=== PATIENT | female | born 1960 | race Caucasian/White ===

== ENCOUNTER 2016-05-22 10:52 | Inpatient (IN) | payer OTHER ==
[~2016-05-22] VITALS: Ht 160 cm; Wt 54.5 kg
[~2016-05-22 10:52] MED LIST: CHOL500015 PO; CYCL10TA2 PO; CYCL5TAB PO; IBUP200C PO; MELO-150 PO; NAPR375T3 PO; PANT40TA3 PO
[2016-05-22] MEDS: FENTANYL PF 100 MCG/2 ML VIAL. IV PRN ×3 (11:31→17:52)
[2016-05-22] MEDS ORDERED: ONDANSETRON PF 4 MG/2 ML VIAL. IV PRN ×2 (12:15→17:00)
--- NOTE | 2016-05-22 12:24 | RAD ---
INDICATION: preop hip COMPARISON: 10/02/2015 FINDINGS: Single view of chest obtained. No focal airspace consolidation. Mediastinal contour is unremarkable. No gross osseous destructive lesion. IMPRESSION: No focal airspace consolidation or edema.
--- NOTE | 2016-05-22 12:28 | RAD ---
INDICATION: trauma COMPARISON: None. IMPRESSION: Right hip: 2 views obtained. There is a displaced and comminuted intertrochanteric fracture of the right proximal femur with varus angulation. Right femur: 4 views obtained. There is a displaced intertrochanteric fracture of right proximal femur. Postoperative changes to the knee partially visualized status post anterior cruciate ligament surgery. There is expected degenerative changes of the knee. There is also some ossific fragments seen in the patellar region. Could be a chronic finding but would correlate with pain in this region as well to ensure that there is not an acute injury. If there is pain in the region dedicated radiographs could be obtained of the knee to further evaluate.
--- NOTE | 2016-05-22 13:54 | PHYS DOC ---
Past Medical History Past Medical History: COPD, GERD, P.U.D., Other Additional Past Medical Histor: hepatitis c Past Surgical History: Cholecystectomy, Knee Replacement, Tubal ligation Additional Past Surgical Histo: right knee, Ex lap for perforated duodenal ulcer Alcohol Use: Heavy Drug Use: Marijuana Adult General Chief Complaint Chief Complaint: MECHANICAL FALL HPI HPI 55-year-old female presents with severe right hip pain. She states she tripped and fell over a chair landing on her right hip. She denies any other injury. She states she is unable to bear weight on the hip. She has not previously had any hip problems. [] Review of Systems Review of Systems Constitutional: Denies fever or chills [] Eyes: Denies change in visual acuity, redness, or eye pain [] HENT: Denies nasal congestion or sore throat [] Respiratory: Denies cough or shortness of breath [] Cardiovascular: No additional information not addressed in HPI [] GI: Denies abdominal pain, nausea, vomiting, bloody stools or diarrhea [] : Denies dysuria or hematuria [] Musculoskeletal: Right hip pain [] Integument: Denies rash or skin lesions [] Neurologic: Denies headache, focal weakness or sensory changes [] Endocrine: Denies polyuria or polydipsia [] Current Medications Current Medications Current Medications Medications (Trade) Dose Ordered Sig/Eliezer Start Time Stop Time Status Last Admin Dose Admin Fentanyl Citrate 50 mcg 50 mcg PRN Q15MIN PRN 05/22/16 11:15 05/23/16 11:14 05/22/16 12:22 50 MCG Sodium Chloride (Iv Sodium Chloride 0.9% 1000ml Bag) 1,000 ml @ 150 mls/hr Q6H40M 05/22/16 12:04 05/23/16 12:03 Allergies Allergies Allergies Coded Allergies Type Severity Reaction Last Updated Verified erythromycin base Allergy Intermediate hives 09/24/15 Yes I S O L A T I O N *CONTACT* Allergy Unknown 09/24/15 Yes Physical Exam Physical Exam Constitutional: Well developed, well nourished, moderate distress, non-toxic appearance. [] HENT: Normocephalic, atraumatic, bilateral external ears normal, oropharynx moist, no oral exudates, nose normal. [] Eyes: PERRLA, EOMI, conjunctiva normal, no discharge. [] Neck: Normal range of motion, no tenderness, supple, no stridor. [] Cardiovascular:Heart rate regular rhythm, no murmur [] Lungs & Thorax: Bilateral breath sounds clear to auscultation [] Abdomen: Bowel sounds normal, soft, no tenderness, no masses, no pulsatile masses. [] Skin: Warm, dry, no erythema, no rash. [] Back: No tenderness, no CVA tenderness. [] Extremities: Right leg is shortened and externally rotated. [] Neurologic: Alert and oriented X 3, normal motor function, normal sensory function, no focal deficits noted. [] Psychologic: Affect normal, judgement normal, mood normal. [] Current Patient Data Vital Signs Vital Signs Date Time Temp Pulse Resp B/P Pulse Ox O2 Delivery O2 Flow Rate FiO2 05/22/16 12:06 108 20 149/87 98 Nasal Cannula 2 05/22/16 10:58 99.8 99.8 EKG EKG [] Radiology/Procedures Radiology/Procedures []PROCEDURE: CHEST AP ONLY INDICATION: preop hip COMPARISON: 10/02/2015 FINDINGS: Single view of chest obtained. No focal airspace consolidation. Mediastinal contour is unremarkable. No gross osseous destructive lesion. IMPRESSION: No focal airspace consolidation or edema. Impressions: INDICATION: trauma COMPARISON: None. IMPRESSION: Right hip: 2 views obtained. There is a displaced and comminuted intertrochanteric fracture of the right proximal femur with varus angulation. Right femur: 4 views obtained. There is a displaced intertrochanteric fracture of right proximal femur. Postoperative changes to the knee partially visualized status post anterior cruciate ligament surgery. There is expected degenerative changes of the knee. There is also some ossific fragments seen in the patellar region. Could be a chronic finding but would correlate with pain in this region as well to ensure that there is not an acute injury. If there is pain in the region dedicated radiographs could be obtained of the knee to further evaluate. Course & Med Decision Making Course & Med Decision Making Pertinent Labs and Imaging studies reviewed. (See chart for details) [ED course: Evaluation reveals a 55-year-old female with severe right hip pain. She was given IV pain medicine during her stay in the emergency department. Discussed with patient the need for surgical repair. She will be admitted for further evaluation and treatment.] Dragon Disclaimer Dragon Disclaimer This electronic medical record was generated, in whole or in part, using a voice recognition dictation system. Departure Departure Impression: Primary Impression: Hip fracture, right Disposition: 09 ADMITTED INPATIENT Admitting Physician: Gumaro Bruno Condition: STABLE Referrals: PIERO ALMENDAREZ MD (PCP) Problem Qualifiers Primary Impression: Hip fracture, right Encounter type: initial encounter Fracture type: closed Qualified Code: S72.001A - Fracture of unspecified part of neck of right femur, initial encounter for closed fracture NAM BAZAN DO May 22, 2016 13:54
--- NOTE | 2016-05-22 14:26 | ACF ---
Admission Forms Criteria MUSCULOSKELETAL DISEASE GRG Clinical Indications for Admission to Inpatient Care (Place 'X' for any and all applicable criteria): Hospital admission is needed for appropriate care of the patient because of ANY ONE of the following: [X]I. Fracture, dislocation, or other musculoskeletal injury requiring inpatient care(medical) as indicated by ANY ONE of the following(4)(5)(6)(7) [ ]a) Vertebral fracture requiring observation for instability or neurologic compromise (8) [ ]b) Compartment syndrome (proven or cannot be ruled out during observation level of care) (9) [ ]c) Limb-threatening injury [ ]d) Major injury requiring inpatient stabilization such as traction initiation or external fixation before internal fixation or closure of complex or open fracture [X]e) Major injury requiring inpatient treatment after emergency or observation level care (as appropriate) [ ]f) Severe pain requiring acute inpatient management [ ]II. Newly diagnosed or suspected bone, joint, or orthopedic device infection (e.g., osteomyelitis, septic arthritis) needing ANY ONE of the following(1)(2)(3) [ ]a) IV antibiotics that cannot be initiated in other than inpatient setting (e.g., patient too unstable or home infusion not available) [ ]b) Device removal or replacement [ ]c) Bone or soft tissue debridement [ ]d) Joint drainage (drain placement or repetitive aspirations) [ ]III. Severe rheumatologic disease (e.g., systemic lupus erythematosus, rheumatoid arthritis) with complications or comorbidities (Also use Optimal Recovery Care Criteria or General Recovery Criteria as appropriate on the basis of predominant condition), including ANY ONE of the following(10 )(11)(12)(13) [ ]a) Severe infection (e.g., [employer] infection, sepsis) (14) [ ]b) Respiratory complications, including ANY ONE of the following: [ ]i) Pleural effusion with respiratory compromise [ ]ii) Pulmonary hypertension with congestive failure [ ]iii) Respiratory failure [ ]iv) Pulmonary hemorrhage (15) [ ]c) Hematologic disease, including ANY ONE of the following: [ ]i) Coagulopathy with bleeding [ ]ii) Thrombosis with hypercoagulable state [ ]iii) Thrombotic thrombocytopenic purpura [ ]d) Cerebritis with seizures, psychosis, or other severe abnormalities [ ]e) Vertebral destruction with monitoring needed for cervical myelopathy& possible respiratory compromise [ ]f) Exacerbation that requires inpatient treatment (e.g., intravenous immunosuppression) (16) [ ]g) Acute renal failure [ ]IV. Severe vasculitis with complications or comorbidities (Also use Optimal Recovery Care Criteria or General Recovery Criteria as appropriate on the basis of predominant condition), including ANY ONE of the following(11)(12)(17)(18)(19)(20) [ ]a) SH[employer] vasculitis with seizures, psychosis, or other severe abnormalities (22) [ ]b) Renal failure (16) [ ]c) Pulmonary hemorrhage (15) [ ]d) Cerebral infarction [ ]e) Gastrointestinal ischemia [ ]f) Gangrene or threatened amputation [ ]g) Exacerbation that requires inpatient treatment (e.g., intravenous immunosuppression) (19)(21) [ ]V. Severe myopathy as indicated by ANY ONE of the following (28)(29) [ ]a) New onset of airway compromise or inability to swallow [ ]b) Respiratory deterioration with observation needed for impending respiratory failure [ ]c) Exacerbation that requires inpatient treatment (e.g., intravenous immunosuppression) [ ]. Severe gout (crystal arthropathy) as indicated by ANY ONE of the following (23)(24) [ ]a) Severe pain requiring acute inpatient management [ ]b) Exacerbation that requires inpatient treatment (e.g., intravenous treatment) [ ]VII.Rhabdomyolysis and ANY ONE of the following (25)(26)(27) [ ]a) Acute renal failure [ ]b) Need for intravenous hydration after emergency or observation level care (as appropriate) [ ]c) Inability to maintain oral hydration [ ]d) Change in mental status [ ]e) Electrolyte abnormality that remains after emergency or observation level care (as appropriate) [ ]VIII Post amputation complication, as indicated by ANY ONE of the following [ ]a) Infection [ ]b) Dehiscence [ ]c) Myodesis failure [ ]IX. Severe pain requiring acute inpatient management as indicated by ALL of the following (30)(31)(32) [ ]a) Continuous or frequent (e.g., every 2 to 4 hrs) parenteral analgesics required [A] [ ]b) Rapid improvement expected from treatment or acute intervention ( e.g., surgery, anesthesia procedure[B] [ ]X. Musculoskeletal Disease and ALL of the following: [ ]a) Symptom or finding for which emergency and observation care have failed or are not considered appropriate (Use General Criteria: Observation Care as appropriate) [ ]b) Presence of ANY ONE of the following [ ]i) A General Admission Criteria [ ]ii) A Pediatric General Admission Criteria The original [facility] content created by [facility] has been revised. The portions of the content which have been revised are identified through the use of italic text or in bold, and [facility] has neither reviewed nor approved the modified material. All other unmodified content is copyright [facility]. Please see references footnoted in the original [facility] edition 2016 Admission Criteria Met?: Yes CRYSTAL PUGA May 22, 2016 14:26
[2016-05-22 14:30] VITALS: BP 115/93
[2016-05-22 16:37] LABS: BILIRUBIN,URINE NEGATIVE (NEG); GLUCOSE,URINE NEGATIVE (NEG); NITRITE,URINE NEGATIVE (NEG); PROTEIN,URINE 100 mg/dL (NEG-TRACE)
--- NOTE | 2016-05-22 16:50 | PDOC1 ---
History and Physical Date of Admission Date of Admission 05/22/16 Identification/Chief Complaint Chief Complaint fall Problems: Source Source: Chart review, Patient History of Present Illness History of Present Illness HPI HPI 55-year-old female presents with severe right hip pain. She tripped and fell over a chair 2 ds ago, was helped by her freind byside. since then she was not able to walk much, with severe right hip pain, lying in bed most of the time. ER xr showed right hip fx. SAYING Has fever, subjuctive and cough with white sputum at home. Past Medical History Cardiovascular: HTN GI: GERD, Peptic Ulcer disease Hepatobiliary: Hep A/B/C Past Surgical History Past Surgical History Cholecystectomy, Knee Replacement, Tubal ligation Additional Past Surgical Histo: right knee, Ex lap for perforated duodenal ulcer Family History Family History: No Significant Social History Smoke: <1 pack per day ALCOHOL: heavy Drugs: Marijuana Current Problem List Problem List Problems Medical Problems: (1) Hip fracture, right Status: Acute Current Medications Current Medications Current Medications Medications (Trade) Dose Ordered Sig/Eliezer Start Time Stop Time Status Last Admin Dose Admin Fentanyl Citrate (Fentanyl 2ml Vial) 50 mcg PRN Q15MIN PRN 05/22/16 11:15 05/23/16 11:14 05/22/16 12:22 50 MCG Fentanyl Citrate 50 mcg 50 mcg PRN Q1HR PRN 05/22/16 12:15 05/23/16 12:14 Ondansetron HCl (Zofran) 4 mg PRN Q8HRS PRN 05/22/16 12:15 05/23/16 12:14 05/22/16 12:23 4 MG Sodium Chloride (Iv Sodium Chloride 0.9% 1000ml Bag) 1,000 ml @ 150 mls/hr Q6H40M 05/22/16 12:04 05/23/16 12:03 Allergies Allergies Allergies Coded Allergies Type Severity Reaction Last Updated Verified erythromycin base Allergy Intermediate hives 09/24/15 Yes I S O L A T I O N *CONTACT* Allergy Unknown 09/24/15 Yes ROS Review of System CONSTITUTIONAL: No fever or chills EYES: No recent changes SKIN: No rash or itching CARDIOVASCULAR: No chest pain, syncope, palpitations, or edema RESPIRATORY: No SOB or cough GASTROINTESTINAL: No nausea, vomiting or abdominal pain NEUROLOGICAL: No headaches or weakness ENDOCRINE: No cold or heat intolerance GENITOURINARY: No urgency or frequency of urination MUSCULOSKELETAL: No back pain or joint pain LYMPHATICS: No enlarged lymph nodes PSYCHIATRIC: No anxiety or depression Physical Exam Physical Exam GEN.: No apparent distress. Alert and oriented. HEENT: Head is normocephalic, atraumatic NECK: Supple. LUNGS: Clear to auscultation. HEART: RRR, S1, S2 present. Peripheral pulses intact ABDOMEN: Soft, nontender. Positive bowel sounds. EXTREMITIES: Without any cyanosis. severe right hip pain. NEUROLOGIC: Normal speech, normal tone PSYCHIATRIC: Normal affect, normal mood. SKIN: No ulcerations Vitals Vitals Vital Signs Date Time Temp Pulse Resp B/P Pulse Ox O2 Delivery O2 Flow Rate FiO2 05/22/16 14:30 99.1 107 18 115/93 95 Nasal Cannula 2.0 99.1 VTE Prophylaxis Ordered VTE Prophylaxis Devices: Yes VTE Pharmacological Prophylaxi: Yes Assessment/Plan Assessment/Plan 1. Closed right hip fx post fall 2. copd with smoking 3. gerd 4. hepatitis C without treatment 5. alcoholism 6. drug abuse with marijuana plan: 1. check drug tox, influ 2. ortho consult 3. albuterol prn 4. pain control dvt ppx no labs check, get for tmr check vitamin D sw FOR rehab SO SPENCER MD May 22, 2016 16:50
[2016-05-22] MEDS ORDERED: ALBUTEROL SULFATE 2.5 MG/3 ML NEBU. NEB PRN (17:00)
[2016-05-22] MEDS ORDERED: NICOTINE 14MG PATCH. TD PRN (17:00)
[2016-05-22] MEDS ORDERED: ACETAMINOPHEN 325 MG TABLET. PO PRN (17:00)
[2016-05-22] MEDS ORDERED: LORAZEPAM 2 MG/ML VIAL IV PRN (17:00)
[2016-05-22] MEDS: ENOXAPARIN 40 MG/0.4 ML DISP.SYRIN. SQ SCH (17:00)
[2016-05-22 17:09] LABS: BACTERIA,URINE FEW /HPF (0-FEW); RBC,URINE 0 /HPF (0-2); SQUAMOUS EPITHELIAL CELL,UR OCC /LPF; WBC,URINE OCC /HPF (0-4)
[2016-05-22] MEDS ORDERED: CYCLOBENZAPRINE 10 MG TABLET. PO PRN (17:15)
[2016-05-22 17:31] LABS: BASO % 1 % (0-3); EOS % 0 % (0-3); HEMATOCRIT 25.7 % (36.0-47.0); LYMPH # 0.8 x10^3/uL (1.0-4.8); LYMPH % 10 % (24-48); MEAN CORPUSCULAR HEMOGLOBIN 22 pg (25-35); MEAN CORPUSCULAR HGB CONC 31 g/dL (31-37); MEAN CORPUSCULAR VOLUME 70 fL (79-100); MONO % 12 % (0-9); NEUT % 78 % (31-73); PLATELET COUNT 124 x10^3/uL (140-400); RED BLOOD COUNT 3.67 x10^6/uL (3.50-5.40); RED CELL DISTRIBUTION WIDTH 24.1 % (11.5-14.5)
[2016-05-22] MEDS: IV NORMAL SALINE 1000ML BAG 1,000 ML IV SCH ×2 (17:48→18:44)
[2016-05-22] MEDS: MORPHINE SULFATE 2 MG/ML DISP.SYRIN. IV PRN ×2 (17:51→18:32)
[2016-05-22 18:38] LABS: BARBITURATES NEG (NEG); BENZODIAZEPINES NEG (NEG); CANNABINOIDS NEG (NEG); COCAINE NEG (NEG); METHADONE NEG (NEG); OPIATES NEG (NEG); PHENCYCLIDINE NEG (NEG)
[2016-05-22 18:40] LABS: ETHANOL, URINE NEG (NEG)
[2016-05-22 18:51] LABS: OBC FLU VALID
[2016-05-22 19:00] VITALS: BP 155/86
[2016-05-22 19:59] LABS: HYPOCHROMIA MARKED; PLT ESTIMATE DECREASED (ADEQUATE)
[2016-05-22 20:00] LABS: ANISOCYTOSIS MOD; MICROCYTOSIS MARKED; POIKILOCYTOSIS SLIGHT
[2016-05-22] MEDS: OXYCODONE/APAP 5/325 TABLET. PO PRN (22:48)
[2016-05-22 23:00] VITALS: BP_SYST 107; BP_SYST 122; BP_DIAS 69; BP_DIAS 83
[2016-05-23] MEDS: IV NORMAL SALINE 1000ML BAG 1,000 ML IV SCH ×2 (00:40→08:04)
[2016-05-23 03:00] VITALS: BP 125/78
[2016-05-23] MEDS: MORPHINE SULFATE 2 MG/ML DISP.SYRIN. IV PRN ×3 (05:21→18:42)
[2016-05-23 06:12] LABS: BASO # 0.1 x10^3/uL (0.0-0.2); BASO % 1 % (0-3); EOS % 0 % (0-3); HEMATOCRIT 24.8 % (36.0-47.0); HEMOGLOBIN 7.6 g/dL (12.0-15.5); LYMPH # 0.9 x10^3/uL (1.0-4.8); LYMPH % 11 % (24-48); MEAN CORPUSCULAR HEMOGLOBIN 22 pg (25-35); MEAN CORPUSCULAR HGB CONC 31 g/dL (31-37); MEAN CORPUSCULAR VOLUME 71 fL (79-100); MONO % 12 % (0-9); NEUT % 77 % (31-73); PLATELET COUNT 123 x10^3/uL (140-400); RED CELL DISTRIBUTION WIDTH 24.6 % (11.5-14.5); WHITE BLOOD COUNT 8.2 x10^3/uL (4.0-11.0)
[2016-05-23 06:18] LABS: CALCIUM 8.3 mg/dL (8.5-10.1); CREATININE 0.5 mg/dL (0.6-1.0); GFR 127.2; POTASSIUM 3.7 mmol/L (3.5-5.1)
[2016-05-23 07:00] VITALS: BP_SYST 142; BP_SYST 96; BP_DIAS 61; BP_DIAS 77
[2016-05-23] MEDS: PANTOPRAZOLE 40 MG TABLET. PO SCH (07:30)
[2016-05-23] MEDS: CHOLECALCIFEROL (VITAMIN D3) 5,000 UNIT CAPSULE PO SCH (08:04)
[2016-05-23] MEDS: MORPHINE SULFATE 4 MG/ML DISP.SYRIN. IV PRN ×2 (08:05→23:14)
[2016-05-23] MEDS ORDERED: INFLUENZA VAX SCREEN BY RX. MC PRN (08:15)
[2016-05-23] MEDS ORDERED: FLU VACC QUAD 2016-17 (36MOS+)/PF 0.5 ML SYRINGE. VAX IM ONE (08:15)
[2016-05-23] MEDS ORDERED: PROCHLORPERAZINE 10 MG/2 ML VIAL. IV PRN (10:15)
[2016-05-23] MEDS ORDERED: DIPHENHYDRAMINE 50 MG/ML VIAL IV PRN (10:15)
[2016-05-23] MEDS ORDERED: HYDROMORPHONE 2 MG/ML VIAL. IV PRN (10:15)
[2016-05-23] MEDS ORDERED: MORPHINE SULFATE 4 MG/ML DISP.SYRIN. IV PRN ×2 (10:15→18:15)
[2016-05-23] MEDS ORDERED: MEPERIDINE PF 25 MG/ML VIAL. IV PRN (10:15)
[2016-05-23] MEDS: FENTANYL PF 100 MCG/2 ML VIAL. IV PRN ×3 (10:53→18:04)
[2016-05-23 11:00] VITALS: BP 136/75
[2016-05-23] MEDS ORDERED: VANCOMYCIN 1GM IVPB FOR OMNI 250 ML IV SCH (14:15)
--- NOTE | 2016-05-23 14:25 | PDOC ---
PROGRESS NOTES Chief Complaint Chief Complaint 1. Closed right hip fx post fall 2. copd with smoking 3. gerd 4. hepatitis C without treatment 5. alcoholism 6. drug abuse with marijuana 7. anemia, likely 2/2 4 plan: 1. check drug tox, influ, all neg 2. ortho consulted, sx today 3. albuterol prn 4. pain control dvt ppx check vitamin D sw FOR rehab may need transfusion, check labs for anemia History of Present Illness History of Present Illness fever still hip pain Vitals Vitals Vital Signs Date Time Temp Pulse Resp B/P Pulse Ox O2 Delivery O2 Flow Rate FiO2 05/23/16 13:31 100.8 94 20 145/72 96 Nasal Cannula 2 100.8 Physical Exam Physical Exam right hip tenderness General: Alert, Oriented X3, Cooperative Heart: Regular rate, Normal S1, Normal S2 Lungs: Clear, Other Abdomen: Normal bowel sounds, Soft Extremities: No clubbing, No cyanosis Labs LABS Laboratory Tests Test 05/22/16 16:05 05/22/16 17:15 05/22/16 17:40 05/23/16 05:15 Urine Color Yellow Urine Clarity Clear Urine pH 6.0 Urine Specific [place] 1.020 Urine Protein 100mg/dL (NEG-TRACE) Urine Glucose (UA) Negativemg/dL (NEG) Urine Ketones (Stick) >=80mg/dL (NEG) Urine Blood Negative (NEG) Urine Nitrite Negative (NEG) Urine Bilirubin Negative (NEG) Urine Urobilinogen Dipstick 1.0mg/dL (0.2 mg/dL) Urine Leukocyte Esterase Negative (NEG) Urine RBC 0/HPF (0-2) Urine WBC Occ/HPF (0-4) Urine Squamous Epithelial Cells Occ/LPF Urine Bacteria Few/HPF (0-FEW) Urine Hyaline Casts Occasional/HPF Urine Mucus Mod/LPF Nasal Screen MRSA (PCR) Positive (Negative) White Blood Count 8.0x10^3/uL (4.0-11.0) 8.2x10^3/uL (4.0-11.0) Red Blood Count 3.67x10^6/uL (3.50-5.40) 3.50x10^6/uL (3.50-5.40) Hemoglobin 8.0g/dL (12.0-15.5) 7.6g/dL (12.0-15.5) Hematocrit 25.7% (36.0-47.0) 24.8% (36.0-47.0) Mean Corpuscular Volume 70fL (79-100) 71fL (79-100) Mean Corpuscular Hemoglobin 22pg (25-35) 22pg (25-35) Mean Corpuscular Hemoglobin Concent 31g/dL (31-37) 31g/dL (31-37) Red Cell Distribution Width 24.1% (11.5-14.5) 24.6% (11.5-14.5) Platelet Count 124x10^3/uL (140-400) 123x10^3/uL (140-400) Neutrophils (%) (Auto) 78% (31-73) 77% (31-73) Lymphocytes (%) (Auto) 10% (24-48) 11% (24-48) Monocytes (%) (Auto) 12% (0-9) 12% (0-9) Eosinophils (%) (Auto) 0% (0-3) 0% (0-3) Basophils (%) (Auto) 1% (0-3) 1% (0-3) Neutrophils # (Auto) 6.2x10^3uL (1.8-7.7) 6.3x10^3uL (1.8-7.7) Lymphocytes # (Auto) 0.8x10^3/uL (1.0-4.8) 0.9x10^3/uL (1.0-4.8) Monocytes # (Auto) 1.0x10^3/uL (0.0-1.1) 1.0x10^3/uL (0.0-1.1) Eosinophils # (Auto) 0.0x10^3/uL (0.0-0.7) 0.0x10^3/uL (0.0-0.7) Basophils # (Auto) 0.0x10^3/uL (0.0-0.2) 0.1x10^3/uL (0.0-0.2) Platelet Estimate Decreased (ADEQUATE) Giant Platelets Few Hypochromasia Marked Poikilocytosis Slight Basophilic Stippling Present Anisocytosis Mod Microcytosis Marked Urine Opiates Screen Neg (NEG) Urine Methadone Screen Neg (NEG) Urine Barbiturates Neg (NEG) Urine Phencyclidine Screen Neg (NEG) Urine Amphetamine/Methamphetamine Neg (NEG) Urine Benzodiazepines Screen Neg (NEG) Urine Cocaine Screen Neg (NEG) Urine Cannabinoids Screen Neg (NEG) Urine Ethyl Alcohol Neg (NEG) Influenza Type A Antigen Negative (NEGATIVE) Influenza Type B Antigen Negative (NEGATIVE) Sodium Level 132mmol/L (136-145) Potassium Level 3.7mmol/L (3.5-5.1) Chloride Level 94mmol/L (98-107) Carbon Dioxide Level 27mmol/L (21-32) Anion Gap 11 (6-14) Blood Urea Nitrogen 14mg/dL (7-20) Creatinine 0.5mg/dL (0.6-1.0) Estimated GFR (Cockcroft-Gault) 127.2 Glucose Level 90mg/dL (70-99) Calcium Level 8.3mg/dL (8.5-10.1) Review of Systems Review of Systems no chills, sob or chest pain Assessment and Plan Assessmemt and Plan Problems Medical Problems: (1) Hip fracture, right Status: Acute Problems: Comment Review of Relevant I have reviewed the following items maribel (where applicable) has been applied. Labs Laboratory Tests Test 05/22/16 16:05 05/22/16 17:15 05/22/16 17:40 05/23/16 05:15 Urine Color Yellow Urine Clarity Clear Urine pH 6.0 Urine Specific [place] 1.020 Urine Protein 100mg/dL (NEG-TRACE) Urine Glucose (UA) Negativemg/dL (NEG) Urine Ketones (Stick) >=80mg/dL (NEG) Urine Blood Negative (NEG) Urine Nitrite Negative (NEG) Urine Bilirubin Negative (NEG) Urine Urobilinogen Dipstick 1.0mg/dL (0.2 mg/dL) Urine Leukocyte Esterase Negative (NEG) Urine RBC 0/HPF (0-2) Urine WBC Occ/HPF (0-4) Urine Squamous Epithelial Cells Occ/LPF Urine Bacteria Few/HPF (0-FEW) Urine Hyaline Casts Occasional/HPF Urine Mucus Mod/LPF Nasal Screen MRSA (PCR) Positive (Negative) White Blood Count 8.0x10^3/uL (4.0-11.0) 8.2x10^3/uL (4.0-11.0) Red Blood Count 3.67x10^6/uL (3.50-5.40) 3.50x10^6/uL (3.50-5.40) Hemoglobin 8.0g/dL (12.0-15.5) 7.6g/dL (12.0-15.5) Hematocrit 25.7% (36.0-47.0) 24.8% (36.0-47.0) Mean Corpuscular Volume 70fL (79-100) 71fL (79-100) Mean Corpuscular Hemoglobin 22pg (25-35) 22pg (25-35) Mean Corpuscular Hemoglobin Concent 31g/dL (31-37) 31g/dL (31-37) Red Cell Distribution Width 24.1% (11.5-14.5) 24.6% (11.5-14.5) Platelet Count 124x10^3/uL (140-400) 123x10^3/uL (140-400) Neutrophils (%) (Auto) 78% (31-73) 77% (31-73) Lymphocytes (%) (Auto) 10% (24-48) 11% (24-48) Monocytes (%) (Auto) 12% (0-9) 12% (0-9) Eosinophils (%) (Auto) 0% (0-3) 0% (0-3) Basophils (%) (Auto) 1% (0-3) 1% (0-3) Neutrophils # (Auto) 6.2x10^3uL (1.8-7.7) 6.3x10^3uL (1.8-7.7) Lymphocytes # (Auto) 0.8x10^3/uL (1.0-4.8) 0.9x10^3/uL (1.0-4.8) Monocytes # (Auto) 1.0x10^3/uL (0.0-1.1) 1.0x10^3/uL (0.0-1.1) Eosinophils # (Auto) 0.0x10^3/uL (0.0-0.7) 0.0x10^3/uL (0.0-0.7) Basophils # (Auto) 0.0x10^3/uL (0.0-0.2) 0.1x10^3/uL (0.0-0.2) Platelet Estimate Decreased (ADEQUATE) Giant Platelets Few Hypochromasia Marked Poikilocytosis Slight Basophilic Stippling Present Anisocytosis Mod Microcytosis Marked Urine Opiates Screen Neg (NEG) Urine Methadone Screen Neg (NEG) Urine Barbiturates Neg (NEG) Urine Phencyclidine Screen Neg (NEG) Urine Amphetamine/Methamphetamine Neg (NEG) Urine Benzodiazepines Screen Neg (NEG) Urine Cocaine Screen Neg (NEG) Urine Cannabinoids Screen Neg (NEG) Urine Ethyl Alcohol Neg (NEG) Influenza Type A Antigen Negative (NEGATIVE) Influenza Type B Antigen Negative (NEGATIVE) Sodium Level 132mmol/L (136-145) Potassium Level 3.7mmol/L (3.5-5.1) Chloride Level 94mmol/L (98-107) Carbon Dioxide Level 27mmol/L (21-32) Anion Gap 11 (6-14) Blood Urea Nitrogen 14mg/dL (7-20) Creatinine 0.5mg/dL (0.6-1.0) Estimated GFR (Cockcroft-Gault) 127.2 Glucose Level 90mg/dL (70-99) Calcium Level 8.3mg/dL (8.5-10.1) Laboratory Tests Test 05/22/16 16:05 05/22/16 17:15 05/22/16 17:40 05/23/16 05:15 Urine Color Yellow Urine Clarity Clear Urine pH 6.0 Urine Specific [place] 1.020 Urine Protein 100mg/dL (NEG-TRACE) Urine Glucose (UA) Negativemg/dL (NEG) Urine Ketones (Stick) >=80mg/dL (NEG) Urine Blood Negative (NEG) Urine Nitrite Negative (NEG) Urine Bilirubin Negative (NEG) Urine Urobilinogen Dipstick 1.0mg/dL (0.2 mg/dL) Urine Leukocyte Esterase Negative (NEG) Urine RBC 0/HPF (0-2) Urine WBC Occ/HPF (0-4) Urine Squamous Epithelial Cells Occ/LPF Urine Bacteria Few/HPF (0-FEW) Urine Hyaline Casts Occasional/HPF Urine Mucus Mod/LPF Nasal Screen MRSA (PCR) Positive (Negative) White Blood Count 8.0x10^3/uL (4.0-11.0) 8.2x10^3/uL (4.0-11.0) Red Blood Count 3.67x10^6/uL (3.50-5.40) 3.50x10^6/uL (3.50-5.40) Hemoglobin 8.0g/dL (12.0-15.5) 7.6g/dL (12.0-15.5) Hematocrit 25.7% (36.0-47.0) 24.8% (36.0-47.0) Mean Corpuscular Volume 70fL (79-100) 71fL (79-100) Mean Corpuscular Hemoglobin 22pg (25-35) 22pg (25-35) Mean Corpuscular Hemoglobin Concent 31g/dL (31-37) 31g/dL (31-37) Red Cell Distribution Width 24.1% (11.5-14.5) 24.6% (11.5-14.5) Platelet Count 124x10^3/uL (140-400) 123x10^3/uL (140-400) Neutrophils (%) (Auto) 78% (31-73) 77% (31-73) Lymphocytes (%) (Auto) 10% (24-48) 11% (24-48) Monocytes (%) (Auto) 12% (0-9) 12% (0-9) Eosinophils (%) (Auto) 0% (0-3) 0% (0-3) Basophils (%) (Auto) 1% (0-3) 1% (0-3) Neutrophils # (Auto) 6.2x10^3uL (1.8-7.7) 6.3x10^3uL (1.8-7.7) Lymphocytes # (Auto) 0.8x10^3/uL (1.0-4.8) 0.9x10^3/uL (1.0-4.8) Monocytes # (Auto) 1.0x10^3/uL (0.0-1.1) 1.0x10^3/uL (0.0-1.1) Eosinophils # (Auto) 0.0x10^3/uL (0.0-0.7) 0.0x10^3/uL (0.0-0.7) Basophils # (Auto) 0.0x10^3/uL (0.0-0.2) 0.1x10^3/uL (0.0-0.2) Platelet Estimate Decreased (ADEQUATE) Giant Platelets Few Hypochromasia Marked Poikilocytosis Slight Basophilic Stippling Present Anisocytosis Mod Microcytosis Marked Urine Opiates Screen Neg (NEG) Urine Methadone Screen Neg (NEG) Urine Barbiturates Neg (NEG) Urine Phencyclidine Screen Neg (NEG) Urine Amphetamine/Methamphetamine Neg (NEG) Urine Benzodiazepines Screen Neg (NEG) Urine Cocaine Screen Neg (NEG) Urine Cannabinoids Screen Neg (NEG) Urine Ethyl Alcohol Neg (NEG) Influenza Type A Antigen Negative (NEGATIVE) Influenza Type B Antigen Negative (NEGATIVE) Sodium Level 132mmol/L (136-145) Potassium Level 3.7mmol/L (3.5-5.1) Chloride Level 94mmol/L (98-107) Carbon Dioxide Level 27mmol/L (21-32) Anion Gap 11 (6-14) Blood Urea Nitrogen 14mg/dL (7-20) Creatinine 0.5mg/dL (0.6-1.0) Estimated GFR (Cockcroft-Gault) 127.2 Glucose Level 90mg/dL (70-99) Calcium Level 8.3mg/dL (8.5-10.1) Medications Current Medications Fentanyl Citrate (Fentanyl 2ml Vial) 50 mcg PRN Q15MIN PRN IV PAIN GREATER THAN 3/10 Last administered on 05/22/16 12:22; Start 05/22/16 at 11:15; Stop at 11:14; Status DC Ondansetron HCl (Zofran) 4 mg PRN Q8HRS PRN IV NAUSEA/VOMITING Last administered on 05/22/16 12:23; Start 05/22/16 at 12:15; Stop 05/23/16 at 12:14 ; Status DC Fentanyl Citrate 50 mcg 50 mcg PRN Q1HR PRN IV PAIN Last administered on 10:53; Start 05/22/16 at 12:15; Stop 05/23/16 at 12:14; Status DC Sodium Chloride (Iv Sodium Chloride 0.9% 1000ml Bag) 1,000 ml @ 150 mls/hr Q6H40M IV Last administered on 05/23/16 00:40; Start 05/22/16 at 12:04; Stop 05/23/16 at 12:03; Status DC Pantoprazole Sodium (Protonix) 40 mg DAILYAC PO ; Start 05/23/16 at 07:30 Vitamin D (Vitamin D3) 5,000 unit DAILY PO ; Start 05/23/16 at 09:00 Cyclobenzaprine HCl (Flexeril) 5 mg PRN TID PRN PO PAIN; Start 05/22/16 at 17: 15 Acetaminophen (Tylenol) 650 mg PRN Q6HRS PRN PO MILD PAIN / TEMP Last administered on 05/22/16 20:14; Start 05/22/16 at 17:00 Ondansetron HCl (Zofran) 4 mg PRN Q6HRS PRN IV NAUSEA/VOMITING; Start 05/22/16 at 17:00 Oxycodone/ Acetaminophen (Percocet 5/325) 1 tab PRN Q4HRS PRN PO PAIN Last administered on 05/22/16 22:48; Start 05/22/16 at 17:00 Morphine Sulfate 2 mg PRN Q2HR PRN IV PAIN Last administered on 05/23/16 06:41 ; Start 05/22/16 at 17:00 Morphine Sulfate 4 mg PRN Q2HR PRN IV PAIN Last administered on 05/23/16 08:05 ; Start 05/22/16 at 17:00 Enoxaparin Sodium (Lovenox 40mg Syringe) 40 mg Q24H SQ ; Start 05/22/16 at 17:00 Nicotine (Nicoderm Cq 14mg) 1 patch PRN DAILY PRN TD SMOKING CESSATION; Start 05/22/16 at 17:00 Albuterol Sulfate (Ventolin Neb Soln) 2.5 mg PRN Q4HRS PRN NEB SHORTNESS OF BREATH; Start 05/22/16 at 17:00 Lorazepam (Ativan) 2 mg PRN Q4HRS PRN IV ANXIETY / AGITATION; Start 05/22/16 at 17:00 Info (Do NOT chart on this placeholder) 1 each PRN 1X PRN MC SEE COMMENTS; Start 05/23/16 at 08:15; Status UNV Influenza Virus Vaccine Quadrival (Fluarix Quad 6515-1425 Syringe) 0.5 ml ONCE ONCE VAX IM ; Start 05/23/16 at 08:15; Stop 05/23/16 at 08:16; Status DC Fentanyl Citrate (Fentanyl 2ml Vial) 50 mcg PRN Q5MIN PRN IV Acute Pain; Start 05/23/16 at 10:15; Stop 05/24/16 at 10:14 Morphine Sulfate 4 mg PRN Q10MIN PRN IV Moderate Pain; Start 05/23/16 at 10:15 ; Stop 05/24/16 at 10:14 Hydromorphone HCl (Dilaudid) 0.4 mg PRN Q10MIN PRN IV Moderate to severe pain; Start 05/23/16 at 10:15; Stop 05/24/16 at 10:14 Meperidine HCl (Demerol) 12.5 mg PRN Q5MIN PRN IV SHIVERING; Start 05/23/16 at 10:15; Stop 05/24/16 at 10:14 Prochlorperazine Edisylate (Compazine) 5 mg PRN Q6HRS PRN IV Nausea/Vomiting, 1st Choice; Start 05/23/16 at 10:15; Stop 05/24/16 at 10:14 Diphenhydramine HCl 12.5 mg 12.5 mg PRN Q2HR PRN IV ITCHING; Start 05/23/16 at 10:15; Stop 05/24/16 at 10:14 Vancomycin HCl 250 ml @ 250 mls/hr 1X PREOP IV ; Start 05/23/16 at 14:15; Stop 05/24/16 at 18:00 Active Scripts Active Protonix (Pantoprazole Sodium) 40 Mg Tablet.dr 40 Mg PO DAILY Reported Vitamin D (Cholecalciferol (Vitamin D3)) 5,000 Unit Tablet 5,000 Unit PO DAILY Cyclobenzaprine Hcl 5 Mg Tablet 1 Tab PO TID PRN Vitals/I & O Vital Sign - Last 24 Hours 05/22/16 05/22/16 05/22/16 05/22/16 14:30 16:38 19:00 20:00 Temp 99.1 100.4 99.1 100.4 Pulse 107 103 Resp 18 20 B/P 115/93 155/86 Pulse Ox 95 96 O2 Delivery Nasal Cannula Nasal Cannula Nasal Cannula Nasal Cannula O2 Flow Rate 2.0 2.0 2.0 2.0 05/22/16 05/22/16 05/22/1605/23/17 22:48 23:00 23:48 03:00 Temp 99.7 99.4 99.7 99.4 Pulse 101 103 Resp 16 18 B/P 122/83 125/78 Pulse Ox 99 99 96 O2 Delivery Nasal Cannula Nasal Cannula Nasal Cannula Nasal Cannula O2 Flow Rate 2.0 2.0 2.0 2.0 05/23/16 05/23/16 05/23/16 05/23/16 05:21 05:51 06:41 07:00 Temp 99.0 99.0 Pulse 100 Resp 18 B/P 142/77 Pulse Ox 96 96 96 96 O2 Delivery Nasal Cannula Nasal Cannula Room Air O2 Flow Rate 2.0 2.0 2.0 05/23/16 05/23/16 05/23/16 05/23/16 07:40 08:02 08:05 08:40 O2 Delivery Nasal Cannula Room Air Room Air Nasal Cannula O2 Flow Rate 2.0 2.0 05/23/16 05/23/16 05/23/16 10:53 11:30 13:31 Temp 100.8 100.8 Pulse 94 Resp 20 B/P 145/72 Pulse Ox 96 O2 Delivery Room Air Nasal Cannula Nasal Cannula O2 Flow Rate 2.0 2 Intake and Output 05/22/16 05/22/16 05/23/16 15:00 23:00 07:00 Intake Total 0 ml 100 ml Output Total 800 ml Balance 0 ml -700 ml SO SPENCER MD May 23, 2016 14:25
[2016-05-23] MEDS ORDERED: ONDANSETRON PF 4 MG/2 ML VIAL. ONE (14:26)
[2016-05-23] MEDS ORDERED: DEXAMETHASONE SOD PHOS 20 MG/5 ML VIAL. ONE (14:26)
[2016-05-23] MEDS ORDERED: LIDOCAINE 2% 100 MG/5 ML DISP.SYRIN. ONE (14:26)
[2016-05-23] MEDS ORDERED: FAMOTIDINE 20 MG/2 ML VIAL ONE (14:26)
[2016-05-23] MEDS ORDERED: PROPOFOL 20 ML IV ONE (14:26)
[2016-05-23] MEDS ORDERED: ROCURONIUM 50 MG/5 ML VIAL. ONE (14:27)
[2016-05-23] MEDS ORDERED: FENTANYL PF 100 MCG/2 ML VIAL. ONE ×2 (14:27→15:36)
[2016-05-23] MEDS ORDERED: MIDAZOLAM HCL 2 MG/2 ML VIAL. ONE (14:27)
--- NOTE | 2016-05-23 14:40 | PDOC2 ---
CONSULT Date of Consult Date of Consult DATE: 05/23/16 TIME: 14:27 Reason for Consult Reason for Consult: Right hip fracture Identification/Chief Complaint Chief Complaint Right hip pain and inability to ambulate after a fall Source Source: Chart review, Patient History of Present Illness Reason for Visit: This 55-year-old woman who is disabled and lives alone fell in her apartment yesterday, and hit a chair, before she hit the floor. She had immediate pain in her right hip and was unable to ambulate. X-rays show a comminuted displaced subtrochanteric femur fracture. She uses a walker in her apartment, and has severe knee osteoarthritis. She is on disability for her knee. She had knee surgery in 1993, apparent ACL reconstruction based on the x-rays. Her knee is also painful and swollen after the fall. She has a left elbow bruising after the fall. She lives alone; she is on disability; she hasn't driven a car since 1993, and she has had hepatitis C since 1993. She is trying to quit smoking and is down to a few cigarettes a day. And most she smoked about a half pack per day. She started smoking at age 19. She had a recent hospitalization for gallbladder or ulcer. She mentioned Dr. Cunningham and Dr. Huber. Past Medical History Cardiovascular: HTN GI: GERD, Peptic Ulcer disease Hepatobiliary: Hep A/B/C Musculoskeletal: Osteoarthritis Past Surgical History Past Surgical History: Cholecystectomy, Other Family History Family History: No Significant Social History <1 pack per day ALCOHOL: heavy Drugs: Marijuana Lives: with Family Current Problem List Problem List Problems Medical Problems: (1) Hip fracture, right Status: Acute Current Medications Current Medications Current Medications Fentanyl Citrate (Fentanyl 2ml Vial) 50 mcg PRN Q15MIN PRN IV PAIN GREATER THAN 3/10 Last administered on 05/22/16 12:22; Start 05/22/16 at 11:15; Stop at 11:14; Status DC Ondansetron HCl (Zofran) 4 mg PRN Q8HRS PRN IV NAUSEA/VOMITING Last administered on 05/22/16 12:23; Start 05/22/16 at 12:15; Stop 05/23/16 at 12:14 ; Status DC Fentanyl Citrate 50 mcg 50 mcg PRN Q1HR PRN IV PAIN Last administered on 2/17/ 17at 10:53; Start 05/22/16 at 12:15; Stop 05/23/16 at 12:14; Status DC Sodium Chloride (Iv Sodium Chloride 0.9% 1000ml Bag) 1,000 ml @ 150 mls/hr Q6H40M IV Last administered on 05/23/16 00:40; Start 05/22/16 at 12:04; Stop 05/23/16 at 12:03; Status DC Pantoprazole Sodium (Protonix) 40 mg DAILYAC PO ; Start 05/23/16 at 07:30 Vitamin D (Vitamin D3) 5,000 unit DAILY PO ; Start 05/23/16 at 09:00 Cyclobenzaprine HCl (Flexeril) 5 mg PRN TID PRN PO PAIN; Start 05/22/16 at 17: 15 Acetaminophen (Tylenol) 650 mg PRN Q6HRS PRN PO MILD PAIN / TEMP Last administered on 05/22/16 20:14; Start 05/22/16 at 17:00 Ondansetron HCl (Zofran) 4 mg PRN Q6HRS PRN IV NAUSEA/VOMITING; Start 05/22/16 at 17:00 Oxycodone/ Acetaminophen (Percocet 5/325) 1 tab PRN Q4HRS PRN PO PAIN Last administered on 05/22/16 22:48; Start 05/22/16 at 17:00 Morphine Sulfate 2 mg PRN Q2HR PRN IV PAIN Last administered on 05/23/16 06:41 ; Start 05/22/16 at 17:00 Morphine Sulfate 4 mg PRN Q2HR PRN IV PAIN Last administered on 05/23/16 08:05 ; Start 05/22/16 at 17:00 Enoxaparin Sodium (Lovenox 40mg Syringe) 40 mg Q24H SQ ; Start 05/22/16 at 17:00 Nicotine (Nicoderm Cq 14mg) 1 patch PRN DAILY PRN TD SMOKING CESSATION; Start 05/22/16 at 17:00 Albuterol Sulfate (Ventolin Neb Soln) 2.5 mg PRN Q4HRS PRN NEB SHORTNESS OF BREATH; Start 05/22/16 at 17:00 Lorazepam (Ativan) 2 mg PRN Q4HRS PRN IV ANXIETY / AGITATION; Start 05/22/16 at 17:00 Info (Do NOT chart on this placeholder) 1 each PRN 1X PRN MC SEE COMMENTS; Start 05/23/16 at 08:15; Status UNV Influenza Virus Vaccine Quadrival (Fluarix Quad [id number] Syringe) 0.5 ml ONCE ONCE VAX IM ; Start 05/23/16 at 08:15; Stop 05/23/16 at 08:16; Status DC Fentanyl Citrate (Fentanyl 2ml Vial) 50 mcg PRN Q5MIN PRN IV Acute Pain; Start 05/23/16 at 10:15; Stop 05/24/16 at 10:14 Morphine Sulfate 4 mg PRN Q10MIN PRN IV Moderate Pain; Start 05/23/16 at 10:15 ; Stop 05/24/16 at 10:14 Hydromorphone HCl (Dilaudid) 0.4 mg PRN Q10MIN PRN IV Moderate to severe pain; Start 05/23/16 at 10:15; Stop 05/24/16 at 10:14 Meperidine HCl (Demerol) 12.5 mg PRN Q5MIN PRN IV SHIVERING; Start 05/23/16 at 10:15; Stop 05/24/16 at 10:14 Prochlorperazine Edisylate (Compazine) 5 mg PRN Q6HRS PRN IV Nausea/Vomiting, 1st Choice; Start 05/23/16 at 10:15; Stop 05/24/16 at 10:14 Diphenhydramine HCl 12.5 mg 12.5 mg PRN Q2HR PRN IV ITCHING; Start 05/23/16 at 10:15; Stop 05/24/16 at 10:14 Vancomycin HCl 250 ml @ 250 mls/hr 1X PREOP IV ; Start 05/23/16 at 14:15; Stop 05/24/16 at 18:00 Active Scripts Active Protonix (Pantoprazole Sodium) 40 Mg Tablet.dr 40 Mg PO DAILY Reported Vitamin D (Cholecalciferol (Vitamin D3)) 5,000 Unit Tablet 5,000 Unit PO DAILY Cyclobenzaprine Hcl 5 Mg Tablet 1 Tab PO TID PRN Allergies Allergies: Coded Allergies: erythromycin base (Verified Allergy, Intermediate, hives, 09/24/15) I S O L A T I O N *CONTACT* (Verified Allergy, Unknown, 09/24/15) mrsa screen + ROS Neurological: Yes Gait Disturbance Physical Exam General: Alert, Cooperative, No acute distress HEENT: Atraumatic Lungs: Normal air movement Heart: Regular rate Abdomen: Soft, Other (postsurgical midline scarring) Extremities: Other (the right leg is shortened and rotated. She has tenderness at the right hip. The skin is intact over the hip fracture. There is a knee effusion. There are some small postsurgical scars the right knee.) Skin: Other Neuro: Normal speech, Sensation intact Psych/Mental Status: Mood NL MUSCULOSKELETAL: Abnormal exam of right (lower extremity with knee effusion, and hip pain with motion. The left lower extremity is normal in alignment, and it was nontender. She had some minor abrasions/scabs on the left lower extremity from her fall. She has bruising on the left elbow from the fall, but no crepitus deformity or severe pain with motion. Elbow range of motion is preserved. Distal neurovascular function in the left hand is intact. Right upper extremity also normal in alignment, with no crepitus or pain with range of motion.) Vitals VITALS Vital Signs Date Time Temp Pulse Resp B/P Pulse Ox O2 Delivery O2 Flow Rate FiO2 05/23/16 13:31 100.8 94 20 145/72 96 Nasal Cannula 2 100.8 Labs Labs Laboratory Tests Test 05/22/16 16:05 05/22/16 17:15 05/22/16 17:40 05/23/16 05:15 Urine Color Yellow Urine Clarity Clear Urine pH 6.0 Urine Specific [place] 1.020 Urine Protein 100mg/dL (NEG-TRACE) Urine Glucose (UA) Negativemg/dL (NEG) Urine Ketones (Stick) >=80mg/dL (NEG) Urine Blood Negative (NEG) Urine Nitrite Negative (NEG) Urine Bilirubin Negative (NEG) Urine Urobilinogen Dipstick 1.0mg/dL (0.2 mg/dL) Urine Leukocyte Esterase Negative (NEG) Urine RBC 0/HPF (0-2) Urine WBC Occ/HPF (0-4) Urine Squamous Epithelial Cells Occ/LPF Urine Bacteria Few/HPF (0-FEW) Urine Hyaline Casts Occasional/HPF Urine Mucus Mod/LPF Nasal Screen MRSA (PCR) Positive (Negative) White Blood Count 8.0x10^3/uL (4.0-11.0) 8.2x10^3/uL (4.0-11.0) Red Blood Count 3.67x10^6/uL (3.50-5.40) 3.50x10^6/uL (3.50-5.40) Hemoglobin 8.0g/dL (12.0-15.5) 7.6g/dL (12.0-15.5) Hematocrit 25.7% (36.0-47.0) 24.8% (36.0-47.0) Mean Corpuscular Volume 70fL (79-100) 71fL (79-100) Mean Corpuscular Hemoglobin 22pg (25-35) 22pg (25-35) Mean Corpuscular Hemoglobin Concent 31g/dL (31-37) 31g/dL (31-37) Red Cell Distribution Width 24.1% (11.5-14.5) 24.6% (11.5-14.5) Platelet Count 124x10^3/uL (140-400) 123x10^3/uL (140-400) Neutrophils (%) (Auto) 78% (31-73) 77% (31-73) Lymphocytes (%) (Auto) 10% (24-48) 11% (24-48) Monocytes (%) (Auto) 12% (0-9) 12% (0-9) Eosinophils (%) (Auto) 0% (0-3) 0% (0-3) Basophils (%) (Auto) 1% (0-3) 1% (0-3) Neutrophils # (Auto) 6.2x10^3uL (1.8-7.7) 6.3x10^3uL (1.8-7.7) Lymphocytes # (Auto) 0.8x10^3/uL (1.0-4.8) 0.9x10^3/uL (1.0-4.8) Monocytes # (Auto) 1.0x10^3/uL (0.0-1.1) 1.0x10^3/uL (0.0-1.1) Eosinophils # (Auto) 0.0x10^3/uL (0.0-0.7) 0.0x10^3/uL (0.0-0.7) Basophils # (Auto) 0.0x10^3/uL (0.0-0.2) 0.1x10^3/uL (0.0-0.2) Platelet Estimate Decreased (ADEQUATE) Giant Platelets Few Hypochromasia Marked Poikilocytosis Slight Basophilic Stippling Present Anisocytosis Mod Microcytosis Marked Urine Opiates Screen Neg (NEG) Urine Methadone Screen Neg (NEG) Urine Barbiturates Neg (NEG) Urine Phencyclidine Screen Neg (NEG) Urine Amphetamine/Methamphetamine Neg (NEG) Urine Benzodiazepines Screen Neg (NEG) Urine Cocaine Screen Neg (NEG) Urine Cannabinoids Screen Neg (NEG) Urine Ethyl Alcohol Neg (NEG) Influenza Type A Antigen Negative (NEGATIVE) Influenza Type B Antigen Negative (NEGATIVE) Sodium Level 132mmol/L (136-145) Potassium Level 3.7mmol/L (3.5-5.1) Chloride Level 94mmol/L (98-107) Carbon Dioxide Level 27mmol/L (21-32) Anion Gap 11 (6-14) Blood Urea Nitrogen 14mg/dL (7-20) Creatinine 0.5mg/dL (0.6-1.0) Estimated GFR (Cockcroft-Gault) 127.2 Glucose Level 90mg/dL (70-99) Calcium Level 8.3mg/dL (8.5-10.1) Laboratory Tests Test 05/22/16 16:05 05/22/16 17:15 05/22/16 17:40 05/23/16 05:15 Urine Color Yellow Urine Clarity Clear Urine pH 6.0 Urine Specific [place] 1.020 Urine Protein 100mg/dL (NEG-TRACE) Urine Glucose (UA) Negativemg/dL (NEG) Urine Ketones (Stick) >=80mg/dL (NEG) Urine Blood Negative (NEG) Urine Nitrite Negative (NEG) Urine Bilirubin Negative (NEG) Urine Urobilinogen Dipstick 1.0mg/dL (0.2 mg/dL) Urine Leukocyte Esterase Negative (NEG) Urine RBC 0/HPF (0-2) Urine WBC Occ/HPF (0-4) Urine Squamous Epithelial Cells Occ/LPF Urine Bacteria Few/HPF (0-FEW) Urine Hyaline Casts Occasional/HPF Urine Mucus Mod/LPF Nasal Screen MRSA (PCR) Positive (Negative) White Blood Count 8.0x10^3/uL (4.0-11.0) 8.2x10^3/uL (4.0-11.0) Red Blood Count 3.67x10^6/uL (3.50-5.40) 3.50x10^6/uL (3.50-5.40) Hemoglobin 8.0g/dL (12.0-15.5) 7.6g/dL (12.0-15.5) Hematocrit 25.7% (36.0-47.0) 24.8% (36.0-47.0) Mean Corpuscular Volume 70fL (79-100) 71fL (79-100) Mean Corpuscular Hemoglobin 22pg (25-35) 22pg (25-35) Mean Corpuscular Hemoglobin Concent 31g/dL (31-37) 31g/dL (31-37) Red Cell Distribution Width 24.1% (11.5-14.5) 24.6% (11.5-14.5) Platelet Count 124x10^3/uL (140-400) 123x10^3/uL (140-400) Neutrophils (%) (Auto) 78% (31-73) 77% (31-73) Lymphocytes (%) (Auto) 10% (24-48) 11% (24-48) Monocytes (%) (Auto) 12% (0-9) 12% (0-9) Eosinophils (%) (Auto) 0% (0-3) 0% (0-3) Basophils (%) (Auto) 1% (0-3) 1% (0-3) Neutrophils # (Auto) 6.2x10^3uL (1.8-7.7) 6.3x10^3uL (1.8-7.7) Lymphocytes # (Auto) 0.8x10^3/uL (1.0-4.8) 0.9x10^3/uL (1.0-4.8) Monocytes # (Auto) 1.0x10^3/uL (0.0-1.1) 1.0x10^3/uL (0.0-1.1) Eosinophils # (Auto) 0.0x10^3/uL (0.0-0.7) 0.0x10^3/uL (0.0-0.7) Basophils # (Auto) 0.0x10^3/uL (0.0-0.2) 0.1x10^3/uL (0.0-0.2) Platelet Estimate Decreased (ADEQUATE) Giant Platelets Few Hypochromasia Marked Poikilocytosis Slight Basophilic Stippling Present Anisocytosis Mod Microcytosis Marked Urine Opiates Screen Neg (NEG) Urine Methadone Screen Neg (NEG) Urine Barbiturates Neg (NEG) Urine Phencyclidine Screen Neg (NEG) Urine Amphetamine/Methamphetamine Neg (NEG) Urine Benzodiazepines Screen Neg (NEG) Urine Cocaine Screen Neg (NEG) Urine Cannabinoids Screen Neg (NEG) Urine Ethyl Alcohol Neg (NEG) Influenza Type A Antigen Negative (NEGATIVE) Influenza Type B Antigen Negative (NEGATIVE) Sodium Level 132mmol/L (136-145) Potassium Level 3.7mmol/L (3.5-5.1) Chloride Level 94mmol/L (98-107) Carbon Dioxide Level 27mmol/L (21-32) Anion Gap 11 (6-14) Blood Urea Nitrogen 14mg/dL (7-20) Creatinine 0.5mg/dL (0.6-1.0) Estimated GFR (Cockcroft-Gault) 127.2 Glucose Level 90mg/dL (70-99) Calcium Level 8.3mg/dL (8.5-10.1) Images Images I reviewed x-rays of the femur, hip, pelvis and right knee and reports. She has a displaced comminuted subtrochanteric femur fracture. She has generalized osteopenia. She has severe right knee osteoarthritis. There are postsurgical changes consistent with ACL reconstruction. 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 This is a difficult fracture regarding healing and stability. I recommended long intramedullary nailing. We discussed nonsurgical options such as bedrest but that has an extremely high competition rate with risks of bedsores, pneumonia, blood clots and overall debility. Surgical fixation is recommended. I recommended a long intramedullary nail. I described that to her with pictures from the Internet of gamma nail, and described the open approach I plan for her subtrochanteric fracture. We discussed the risks including risks of nonunion or malunion, need for further surgeries, hardware failure, bleeding, blood clots, infection, neurovascular injury, or other potential surgical or anesthetic complications. Her preoperative hemoglobin shows anemia with 7.6. She will likely need a transfusion and type and cross as ordered. She has MRSA in her nares, and we will use vancomycin perioperatively to help prevent infection. She has a large right knee effusion and I recommended aspiration under anesthesia and possibly a cortisone injection. All of her questions about surgery were answered and she desires to proceed. FLORENCE CAMILO MD May 23, 2016 14:40
[2016-05-23] MEDS ORDERED: NEOSTIGMINE METHYLSULFATE 5 MG/5 ML SYRINGE. ONE (16:36)
[2016-05-23] MEDS ORDERED: GLYCOPYRROLATE 1 MG/5 ML VIAL. ONE (16:36)
[2016-05-23] MEDS ORDERED: SEVOFLURANE > 120 MINUTES. IH ONE (16:46)
[2016-05-23] MEDS: ENOXAPARIN 40 MG/0.4 ML DISP.SYRIN. SQ SCH (17:00)
[2016-05-23] MEDS ORDERED: IV RINGERS,LACTATED 1000ML 1,000 ML IV ONE (17:00)
[2016-05-23] MEDS ORDERED: TRAMADOL 50 MG TABLET. PO PRN (18:15)
[2016-05-23] MEDS ORDERED: MORPHINE SULFATE 2 MG/ML DISP.SYRIN. IV PRN (18:15)
[2016-05-23] MEDS ORDERED: DEXTROSE 50% 25 GM / 50ML DISP.SYRIN. IV PRN (18:15)
[2016-05-23] MEDS ORDERED: ONDANSETRON PF 4 MG/2 ML VIAL. IV PRN (18:15)
[2016-05-23] MEDS ORDERED: HYDROCODONE/APAP 7.5/325MG TABLET. PO PRN (18:15)
[2016-05-23] MEDS ORDERED: FENTANYL PF 100 MCG/2 ML VIAL. IV PRN (18:15)
[2016-05-23] MEDS: IV 1/2 NORMAL SALINE 1,000 ML IV SCH (18:42)
[2016-05-23 19:38] VITALS: BP 101/64
[2016-05-23] MEDS: OXYCODONE/APAP 5/325 TABLET. PO PRN (21:14)
[2016-05-23] MEDS: ACETAMINOPHEN 500 MG TABLET PO SCH (21:14)
[2016-05-23 23:39] VITALS: BP 94/51
[2016-05-24] VITALS (14 sets, daily range): BP systolic 81–135; BP diastolic 43–84
[2016-05-24] MEDS ORDERED: VANCOMYCIN 1 GM in IV NORMAL SALINE 250ML 250 ML IV SCH (02:00)
[2016-05-24] MEDS: MORPHINE SULFATE 4 MG/ML DISP.SYRIN. IV PRN (02:30)
[2016-05-24] MEDS ORDERED: MAGNESIUM HYDROXIDE 2,400 MG/30 ML ORAL.SUSP. PO PRN (06:00)
[2016-05-24 06:52] LABS: BASO % 0 % (0-3); EOS % 0 % (0-3); LYMPH % 13 % (24-48); MEAN CORPUSCULAR HEMOGLOBIN 22 pg (25-35); MEAN CORPUSCULAR HGB CONC 31 g/dL (31-37); MEAN CORPUSCULAR VOLUME 72 fL (79-100); MONO % 12 % (0-9); NEUT % 76 % (31-73); PLATELET COUNT 188 x10^3/uL (140-400); RED BLOOD COUNT 2.35 x10^6/uL (3.50-5.40); RED CELL DISTRIBUTION WIDTH 24.9 % (11.5-14.5); WHITE BLOOD COUNT 7.7 x10^3/uL (4.0-11.0)
[2016-05-24 06:57] LABS: HEMOGLOBIN 5.2 g/dL (12.0-15.5)
[2016-05-24 07:06] LABS: % SAT IRON 5 % (15-34); IRON,SERUM 12 ug/dL (50-170)
[2016-05-24 07:19] LABS: CALCIUM 7.8 mg/dL (8.5-10.1); CREATININE 0.5 mg/dL (0.6-1.0); GFR 127.2; POTASSIUM 3.6 mmol/L (3.5-5.1)
[2016-05-24] MEDS: IV 1/2 NORMAL SALINE 1,000 ML IV SCH (07:31)
[2016-05-24] MEDS: MULTIVITAMIN with MINERAL TABLET. PO SCH (08:02)
[2016-05-24] MEDS: SENNOSIDES/DOCUSATE 8.6/50MG TABLET. PO SCH (08:02)
[2016-05-24] MEDS: CELECOXIB 200 MG CAPSULE PO SCH (08:02)
[2016-05-24] MEDS: CHOLECALCIFEROL (VITAMIN D3) 5,000 UNIT CAPSULE PO SCH (08:03)
[2016-05-24] MEDS: FERROUS SULFATE 325 MG TABLET PO SCH ×2 (08:03→16:51)
[2016-05-24] MEDS: ACETAMINOPHEN 500 MG TABLET PO SCH ×3 (08:03→21:02)
[2016-05-24] MEDS: PANTOPRAZOLE 40 MG TABLET. PO SCH (08:03)
[2016-05-24] MEDS: OXYCODONE IR 5 MG TABLET. PO PRN ×2 (08:04→18:31)
[2016-05-24] MEDS ORDERED: CHOLECALCIFEROL (VITAMIN D3) 1,000 UNIT TABLET PO SCH (09:00)
[2016-05-24] MEDS: HYDROCODONE/APAP 7.5/325MG TABLET. PO PRN ×2 (11:57→16:50)
[2016-05-24 13:16] LABS: FOLIC ACID 7.8 ng/mL (>3.0)
--- NOTE | 2016-05-24 14:19 | PDOC ---
PROGRESS NOTES Chief Complaint Chief Complaint 1. Closed right hip fx post fall, s/p sx 05/23 2. copd with smoking 3. gerd 4. hepatitis C without treatment 5. alcoholism 6. drug abuse with marijuana 7. acute on chronic anemia, expected post sx 8. iron deficiency plan: 1. check drug tox, influ, all neg 2. ortho consulted, sx today 3. albuterol prn 4. pain control dvt ppx check vitamin D, low, on vitd 2u PRBC 05/24 FOR rehab iron po PTOT History of Present Illness History of Present Illness hb 5.2 hip pain post op Vitals Vitals Vital Signs Date Time Temp Pulse Resp B/P Pulse Ox O2 Delivery O2 Flow Rate FiO2 05/24/16 13:15 98.4 86 18 118/51 98.4 05/24/16 13:02 Room Air 05/24/16 11:00 90 05/24/16 09:05 2.0 Physical Exam Physical Exam right hip tenderness General: Alert, Cooperative, No acute distress Heart: Regular rate Lungs: Clear, Other Abdomen: Soft, Other (postsurgical midline scarring) Extremities: Other (the right leg is shortened and rotated. She has tenderness at the right hip. The skin is intact over the hip fracture. There is a knee effusion. There are some small postsurgical scars the right knee.) Skin: Other Labs LABS Laboratory Tests Test 05/24/16 05:55 White Blood Count 7.7x10^3/uL (4.0-11.0) Red Blood Count 2.35x10^6/uL (3.50-5.40) Hemoglobin 5.2g/dL (12.0-15.5) Hematocrit 17.0% (36.0-47.0) Mean Corpuscular Volume 72fL (79-100) Mean Corpuscular Hemoglobin 22pg (25-35) Mean Corpuscular Hemoglobin Concent 31g/dL (31-37) Red Cell Distribution Width 24.9% (11.5-14.5) Platelet Count 188x10^3/uL (140-400) Neutrophils (%) (Auto) 76% (31-73) Lymphocytes (%) (Auto) 13% (24-48) Monocytes (%) (Auto) 12% (0-9) Eosinophils (%) (Auto) 0% (0-3) Basophils (%) (Auto) 0% (0-3) Neutrophils # (Auto) 5.8x10^3uL (1.8-7.7) Lymphocytes # (Auto) 1.0x10^3/uL (1.0-4.8) Monocytes # (Auto) 0.9x10^3/uL (0.0-1.1) Eosinophils # (Auto) 0.0x10^3/uL (0.0-0.7) Basophils # (Auto) 0.0x10^3/uL (0.0-0.2) Sodium Level 132mmol/L (136-145) Potassium Level 3.6mmol/L (3.5-5.1) Chloride Level 97mmol/L (98-107) Carbon Dioxide Level 27mmol/L (21-32) Anion Gap 8 (6-14) Blood Urea Nitrogen 9mg/dL (7-20) Creatinine 0.5mg/dL (0.6-1.0) Estimated GFR (Cockcroft-Gault) 127.2 Glucose Level 116mg/dL (70-99) Calcium Level 7.8mg/dL (8.5-10.1) Iron Level 12ug/dL (50-170) Total Iron Binding Capacity 265ug/dL (250-450) Iron Saturation 5% (15-34) Ferritin 60ng/mL (8-252) Vitamin B12 Level 396pg/mL (211-946) Folic Acid (LAB) 7.8ng/mL (>3.0) Review of Systems Review of Systems no fever, chills, sob or chest pain Assessment and Plan Assessmemt and Plan Problems Medical Problems: (1) Hip fracture, right Status: Acute Problems: Comment Review of Relevant I have reviewed the following items maribel (where applicable) has been applied. Labs Laboratory Tests Test 05/22/16 16:05 05/22/16 17:15 05/22/16 17:40 05/23/16 05:15 Urine Color Yellow Urine Clarity Clear Urine pH 6.0 Urine Specific [place] 1.020 Urine Protein 100mg/dL (NEG-TRACE) Urine Glucose (UA) Negativemg/dL (NEG) Urine Ketones (Stick) >=80mg/dL (NEG) Urine Blood Negative (NEG) Urine Nitrite Negative (NEG) Urine Bilirubin Negative (NEG) Urine Urobilinogen Dipstick 1.0mg/dL (0.2 mg/dL) Urine Leukocyte Esterase Negative (NEG) Urine RBC 0/HPF (0-2) Urine WBC Occ/HPF (0-4) Urine Squamous Epithelial Cells Occ/LPF Urine Bacteria Few/HPF (0-FEW) Urine Hyaline Casts Occasional/HPF Urine Mucus Mod/LPF Nasal Screen MRSA (PCR) Positive (Negative) White Blood Count 8.0x10^3/uL (4.0-11.0) 8.2x10^3/uL (4.0-11.0) Red Blood Count 3.67x10^6/uL (3.50-5.40) 3.50x10^6/uL (3.50-5.40) Hemoglobin 8.0g/dL (12.0-15.5) 7.6g/dL (12.0-15.5) Hematocrit 25.7% (36.0-47.0) 24.8% (36.0-47.0) Mean Corpuscular Volume 70fL (79-100) 71fL (79-100) Mean Corpuscular Hemoglobin 22pg (25-35) 22pg (25-35) Mean Corpuscular Hemoglobin Concent 31g/dL (31-37) 31g/dL (31-37) Red Cell Distribution Width 24.1% (11.5-14.5) 24.6% (11.5-14.5) Platelet Count 124x10^3/uL (140-400) 123x10^3/uL (140-400) Neutrophils (%) (Auto) 78% (31-73) 77% (31-73) Lymphocytes (%) (Auto) 10% (24-48) 11% (24-48) Monocytes (%) (Auto) 12% (0-9) 12% (0-9) Eosinophils (%) (Auto) 0% (0-3) 0% (0-3) Basophils (%) (Auto) 1% (0-3) 1% (0-3) Neutrophils # (Auto) 6.2x10^3uL (1.8-7.7) 6.3x10^3uL (1.8-7.7) Lymphocytes # (Auto) 0.8x10^3/uL (1.0-4.8) 0.9x10^3/uL (1.0-4.8) Monocytes # (Auto) 1.0x10^3/uL (0.0-1.1) 1.0x10^3/uL (0.0-1.1) Eosinophils # (Auto) 0.0x10^3/uL (0.0-0.7) 0.0x10^3/uL (0.0-0.7) Basophils # (Auto) 0.0x10^3/uL (0.0-0.2) 0.1x10^3/uL (0.0-0.2) Platelet Estimate Decreased (ADEQUATE) Giant Platelets Few Hypochromasia Marked Poikilocytosis Slight Basophilic Stippling Present Anisocytosis Mod Microcytosis Marked Urine Opiates Screen Neg (NEG) Urine Methadone Screen Neg (NEG) Urine Barbiturates Neg (NEG) Urine Phencyclidine Screen Neg (NEG) Urine Amphetamine/Methamphetamine Neg (NEG) Urine Benzodiazepines Screen Neg (NEG) Urine Cocaine Screen Neg (NEG) Urine Cannabinoids Screen Neg (NEG) Urine Ethyl Alcohol Neg (NEG) Influenza Type A Antigen Negative (NEGATIVE) Influenza Type B Antigen Negative (NEGATIVE) Sodium Level 132mmol/L (136-145) Potassium Level 3.7mmol/L (3.5-5.1) Chloride Level 94mmol/L (98-107) Carbon Dioxide Level 27mmol/L (21-32) Anion Gap 11 (6-14) Blood Urea Nitrogen 14mg/dL (7-20) Creatinine 0.5mg/dL (0.6-1.0) Estimated GFR (Cockcroft-Gault) 127.2 Glucose Level 90mg/dL (70-99) Calcium Level 8.3mg/dL (8.5-10.1) 25-Hydroxy Vitamin D Total 15.0ng/mL (30.0-100.0) Test 05/24/16 05:55 White Blood Count 7.7x10^3/uL (4.0-11.0) Red Blood Count 2.35x10^6/uL (3.50-5.40) Hemoglobin 5.2g/dL (12.0-15.5) Hematocrit 17.0% (36.0-47.0) Mean Corpuscular Volume 72fL (79-100) Mean Corpuscular Hemoglobin 22pg (25-35) Mean Corpuscular Hemoglobin Concent 31g/dL (31-37) Red Cell Distribution Width 24.9% (11.5-14.5) Platelet Count 188x10^3/uL (140-400) Neutrophils (%) (Auto) 76% (31-73) Lymphocytes (%) (Auto) 13% (24-48) Monocytes (%) (Auto) 12% (0-9) Eosinophils (%) (Auto) 0% (0-3) Basophils (%) (Auto) 0% (0-3) Neutrophils # (Auto) 5.8x10^3uL (1.8-7.7) Lymphocytes # (Auto) 1.0x10^3/uL (1.0-4.8) Monocytes # (Auto) 0.9x10^3/uL (0.0-1.1) Eosinophils # (Auto) 0.0x10^3/uL (0.0-0.7) Basophils # (Auto) 0.0x10^3/uL (0.0-0.2) Sodium Level 132mmol/L (136-145) Potassium Level 3.6mmol/L (3.5-5.1) Chloride Level 97mmol/L (98-107) Carbon Dioxide Level 27mmol/L (21-32) Anion Gap 8 (6-14) Blood Urea Nitrogen 9mg/dL (7-20) Creatinine 0.5mg/dL (0.6-1.0) Estimated GFR (Cockcroft-Gault) 127.2 Glucose Level 116mg/dL (70-99) Calcium Level 7.8mg/dL (8.5-10.1) Iron Level 12ug/dL (50-170) Total Iron Binding Capacity 265ug/dL (250-450) Iron Saturation 5% (15-34) Ferritin 60ng/mL (8-252) Vitamin B12 Level 396pg/mL (211-946) Folic Acid (LAB) 7.8ng/mL (>3.0) Laboratory Tests Test 05/24/16 05:55 White Blood Count 7.7x10^3/uL (4.0-11.0) Red Blood Count 2.35x10^6/uL (3.50-5.40) Hemoglobin 5.2g/dL (12.0-15.5) Hematocrit 17.0% (36.0-47.0) Mean Corpuscular Volume 72fL (79-100) Mean Corpuscular Hemoglobin 22pg (25-35) Mean Corpuscular Hemoglobin Concent 31g/dL (31-37) Red Cell Distribution Width 24.9% (11.5-14.5) Platelet Count 188x10^3/uL (140-400) Neutrophils (%) (Auto) 76% (31-73) Lymphocytes (%) (Auto) 13% (24-48) Monocytes (%) (Auto) 12% (0-9) Eosinophils (%) (Auto) 0% (0-3) Basophils (%) (Auto) 0% (0-3) Neutrophils # (Auto) 5.8x10^3uL (1.8-7.7) Lymphocytes # (Auto) 1.0x10^3/uL (1.0-4.8) Monocytes # (Auto) 0.9x10^3/uL (0.0-1.1) Eosinophils # (Auto) 0.0x10^3/uL (0.0-0.7) Basophils # (Auto) 0.0x10^3/uL (0.0-0.2) Sodium Level 132mmol/L (136-145) Potassium Level 3.6mmol/L (3.5-5.1) Chloride Level 97mmol/L (98-107) Carbon Dioxide Level 27mmol/L (21-32) Anion Gap 8 (6-14) Blood Urea Nitrogen 9mg/dL (7-20) Creatinine 0.5mg/dL (0.6-1.0) Estimated GFR (Cockcroft-Gault) 127.2 Glucose Level 116mg/dL (70-99) Calcium Level 7.8mg/dL (8.5-10.1) Iron Level 12ug/dL (50-170) Total Iron Binding Capacity 265ug/dL (250-450) Iron Saturation 5% (15-34) Ferritin 60ng/mL (8-252) Vitamin B12 Level 396pg/mL (211-946) Folic Acid (LAB) 7.8ng/mL (>3.0) Medications Current Medications Fentanyl Citrate (Fentanyl 2ml Vial) 50 mcg PRN Q15MIN PRN IV PAIN GREATER THAN 3/10 Last administered on 05/22/16 12:22; Start 05/22/16 at 11:15; Stop at 11:14; Status DC Ondansetron HCl (Zofran) 4 mg PRN Q8HRS PRN IV NAUSEA/VOMITING Last administered on 05/22/16 12:23; Start 05/22/16 at 12:15; Stop 05/23/16 at 12:14 ; Status DC Fentanyl Citrate 50 mcg 50 mcg PRN Q1HR PRN IV PAIN Last administered on 10:53; Start 05/22/16 at 12:15; Stop 05/23/16 at 12:14; Status DC Sodium Chloride (Iv Sodium Chloride 0.9% 1000ml Bag) 1,000 ml @ 150 mls/hr Q6H40M IV Last administered on 05/23/16 00:40; Start 05/22/16 at 12:04; Stop 05/23/16 at 12:03; Status DC Pantoprazole Sodium (Protonix) 40 mg DAILYAC PO Last administered on 05/24/16 08:03; Start 05/23/16 at 07:30 Vitamin D (Vitamin D3) 5,000 unit DAILY PO Last administered on 05/24/16 08:03 ; Start 05/23/16 at 09:00 Cyclobenzaprine HCl (Flexeril) 5 mg PRN TID PRN PO PAIN; Start 05/22/16 at 17: 15 Acetaminophen (Tylenol) 650 mg PRN Q6HRS PRN PO MILD PAIN / TEMP Last administered on 05/22/16 20:14; Start 05/22/16 at 17:00 Ondansetron HCl (Zofran) 4 mg PRN Q6HRS PRN IV NAUSEA/VOMITING; Start 05/22/16 at 17:00; Stop 05/24/16 at 12:31; Status DC Oxycodone/ Acetaminophen (Percocet 5/325) 1 tab PRN Q4HRS PRN PO MODERATE PAIN Last administered on 05/23/16 21:14; Start 05/22/16 at 17:00 Morphine Sulfate 2 mg PRN Q2HR PRN IV SEVERE PAIN Last administered on 18:42; Start 05/22/16 at 17:00; Stop 05/24/16 at 12:30; Status DC Morphine Sulfate 4 mg PRN Q2HR PRN IV SEVERE PAIN Last administered on 02:30; Start 05/22/16 at 17:00; Stop 05/24/16 at 12:30; Status DC Enoxaparin Sodium (Lovenox 40mg Syringe) 40 mg Q24H SQ ; Start 05/22/16 at 17:00 Nicotine (Nicoderm Cq 14mg) 1 patch PRN DAILY PRN TD SMOKING CESSATION; Start 05/22/16 at 17:00 Albuterol Sulfate (Ventolin Neb Soln) 2.5 mg PRN Q4HRS PRN NEB SHORTNESS OF BREATH; Start 05/22/16 at 17:00 Lorazepam (Ativan) 2 mg PRN Q4HRS PRN IV ANXIETY / AGITATION; Start 05/22/16 at 17:00 Info (Do NOT chart on this placeholder) 1 each PRN 1X PRN MC SEE COMMENTS; Start 05/23/16 at 08:15; Status UNV Influenza Virus Vaccine Quadrival (Fluarix Quad [id number] Syringe) 0.5 ml ONCE ONCE VAX IM ; Start 05/23/16 at 08:15; Stop 05/23/16 at 08:16; Status DC Fentanyl Citrate (Fentanyl 2ml Vial) 50 mcg PRN Q5MIN PRN IV Acute Pain Last administered on 05/23/16 18:04; Start 05/23/16 at 10:15; Stop 05/24/16 at 10:14 ; Status DC Morphine Sulfate 4 mg PRN Q10MIN PRN IV Moderate Pain Last administered on 05/23 17:19; Start 05/23/16 at 10:15; Stop 05/24/16 at 10:14; Status DC Hydromorphone HCl (Dilaudid) 0.4 mg PRN Q10MIN PRN IV Moderate to severe pain; Start 05/23/16 at 10:15; Stop 05/24/16 at 10:14; Status DC Meperidine HCl (Demerol) 12.5 mg PRN Q5MIN PRN IV SHIVERING; Start 05/23/16 at 10:15; Stop 05/24/16 at 10:14; Status DC Prochlorperazine Edisylate (Compazine) 5 mg PRN Q6HRS PRN IV Nausea/Vomiting, 1st Choice; Start 05/23/16 at 10:15; Stop 05/24/16 at 10:14; Status DC Diphenhydramine HCl 12.5 mg 12.5 mg PRN Q2HR PRN IV ITCHING; Start 05/23/16 at 10:15; Stop 05/24/16 at 10:14; Status DC Vancomycin HCl 250 ml @ 250 mls/hr 1X PREOP IV Last administered on t 17:14; Start 05/23/16 at 14:15; Stop 05/24/16 at 18:00 Dexamethasone Sodium Phosphate (Decadron) 20 mg STK-MED ONCE .ROUTE ; Start at 14:26; Stop 05/23/16 at 14:27; Status DC Famotidine (Pepcid) 20 mg STK-MED ONCE .ROUTE ; Start 05/23/16 at 14:26; Stop at 14:27; Status DC Ondansetron HCl 4 mg 4 mg STK-MED ONCE .ROUTE ; Start 05/23/16 at 14:26; Stop at 14:27; Status DC Propofol (Diprivan) 20 ml @ As Directed STK-MED ONCE IV ; Start 05/23/16 at 14: 26; Stop 05/23/16 at 14:27; Status DC Lidocaine HCl 100 mg STK-MED ONCE .ROUTE ; Start 05/23/16 at 14:26; Stop at 14:27; Status DC Midazolam HCl (Versed) 2 mg STK-MED ONCE .ROUTE ; Start 05/23/16 at 14:27; Stop 05/23/16 at 14:28; Status DC Fentanyl Citrate (Fentanyl 2ml Vial) 100 mcg STK-MED ONCE .ROUTE ; Start at 14:27; Stop 05/23/16 at 14:28; Status DC Rocuronium [place] (Zemuron) 50 mg STK-MED ONCE .ROUTE ; Start 05/23/16 at 14:27 ; Stop 05/23/16 at 14:28; Status DC Fentanyl Citrate (Fentanyl 2ml Vial) 100 mcg STK-MED ONCE .ROUTE ; Start at 15:36; Stop 05/23/16 at 15:37; Status DC Glycopyrrolate (Robinul) 1 mg STK-MED ONCE .ROUTE ; Start 05/23/16 at 16:36; Stop 05/23/16 at 16:37; Status DC Neostigmine Methylsulfate 5 mg STK-MED ONCE .ROUTE ; Start 05/23/16 at 16:36; Stop 05/23/16 at 16:37; Status DC Sevoflurane (Ultane) 90 ml STK-MED ONCE IH ; Start 05/23/16 at 16:46; Stop 05/23 at 16:47; Status DC Tramadol HCl (Ultram) 50 mg PRN QID PRN PO PAIN; Start 05/23/16 at 18:15 Oxycodone HCl (Roxicodone) 5 mg PRN Q3HRS PRN PO PAIN Last administered on 05/24 08:04; Start 05/23/16 at 18:15 Morphine Sulfate 2 mg PRN Q1HR PRN IV PAIN; Start 05/23/16 at 18:15 Fentanyl Citrate (Fentanyl 2ml Vial) 25 mcg PRN Q1HR PRN IV PAIN; Start at 18:15 Acetaminophen (Tylenol) 500 mg TID PO Last administered on 05/24/16 08:03; Start 05/23/16 at 21:00 Multivitamins/ Calcium (Thera M Plus) 1 tab DAILY PO Last administered on 08:02; Start 05/24/16 at 09:00 Senna/Docusate Sodium (Senna Plus) 1 tab DAILY PO Last administered on 08:02; Start 05/24/16 at 09:00 Polyethylene Glycol (miraLAX PACKET) 17 gm PRN DAILY PRN PO CONSTIPATION; Start 05/23/16 at 18:15 Ferrous Sulfate (Feosol) 325 mg BIDWMEALS PO Last administered on 05/24/16 08: 03; Start 05/24/16 at 08:00 Celecoxib (Celebrex) 200 mg DAILY PO Last administered on 05/24/16 08:02; Start 05/24/16 at 09:00 Vitamin D 1000 unit 1,000 unit DAILY PO ; Start 05/24/16 at 09:00; Stop at 09:00; Status DC Sodium Chloride 1,000 ml @ 75 mls/hr [id number] IV Last administered on 18:42; Start 05/23/16 at 18:11; Stop 05/24/16 at 11:44; Status DC Vancomycin HCl/ Sodium Chloride (Iv Sodium Chloride 0.9% 250ml) 250 ml @ 250 mls/hr Q12H IV Last administered on 05/24/16 02:33; Start 05/24/16 at 02:00; Stop 05/24/16 at 02:59; Status DC Ondansetron HCl (Zofran) 4 mg PRN Q4HRS PRN IV NAUSEA/VOMITING; Start 05/23/16 at 18:15 Enoxaparin Sodium (Lovenox 40mg Syringe) 40 mg DAILY SQ ; Start 05/25/16 at 09: 00; Stop 05/25/16 at 09:00; Status DC Magnesium Hydroxide (Milk Of Magnesia) 2,400 mg 1X PRN PRN PO CONSTIPATION; Start 05/24/16 at 06:00; Stop 05/25/16 at 05:59 Bisacodyl (Dulcolax Supp) 10 mg 1X PRN PRN [place] CONSTIPATION; Start 05/24/16 at 16:00; Stop 05/25/16 at 15:59 Acetaminophen/ Hydrocodone Bitart (Lortab 7.5/325) 1 tab PRN Q4HRS PRN PO PAIN ; Start 05/23/16 at 18:15 Morphine Sulfate 4 mg PRN Q2HR PRN IV PAIN; Start 05/23/16 at 18:15 Acetaminophen/ Hydrocodone Bitart (Lortab 7.5/325) 2 tab PRN Q4HRS PRN PO PAIN Last administered on 05/24/16 11:57; Start 05/23/16 at 18:15 Dextrose 12.5 gm 12.5 gm PRN Q15MIN PRN IV SEE COMMENTS; Start 05/23/16 at 18: 15 Lactated Ringer's (Iv Lactated Ringers) 1,000 ml @ 125 mls/hr 1X ONCE IV Last administered on 2/17/17at 17:00; Start 05/23/16 at 17:00; Stop 05/24/16 at 00:59; Status DC Ferrous Sulfate (Feosol) 325 mg DAILYWBKFT PO ; Start 05/25/16 at 08:00; Status UNV Active Scripts Active Protonix (Pantoprazole Sodium) 40 Mg Tablet.dr 40 Mg PO DAILY Reported Vitamin D (Cholecalciferol (Vitamin D3)) 5,000 Unit Tablet 5,000 Unit PO DAILY Cyclobenzaprine Hcl 5 Mg Tablet 1 Tab PO TID PRN Vitals/I & O Vital Sign - Last 24 Hours 05/23/16 05/23/16 05/23/16 05/23/16 17:10 17:10 17:19 17:25 Pulse 76 94 Resp 20 20 20 B/P 137/79 122/78 Pulse Ox 100 99 94 O2 Delivery Mask Simple Mask Simple Mask O2 Flow Rate 10 10 10 05/23/16 05/23/16 05/23/16 05/23/16 17:40 17:52 17:55 18:04 Pulse 85 81 Resp 20 20 20 20 B/P 126/73 116/74 Pulse Ox 92 99 91 99 O2 Delivery Nasal Cannula Nasal Cannula Nasal Cannula Nasal Cannula O2 Flow Rate 2 2.0 2 2.0 05/23/16 05/23/16 05/23/16 05/23/16 18:10 18:25 18:42 18:42 Temp 100.1 100.1 100.1 100.1 Pulse 78 78 Resp 20 20 B/P 114/65 126/65 Pulse Ox 96 99 O2 Delivery Nasal Cannula Nasal Cannula Nasal Cannula Nasal Cannula O2 Flow Rate 2 2 4.0 4.0 05/23/16 05/23/16 05/23/16 05/23/16 18:42 19:12 19:38 20:00 Temp 99.3 99.3 Pulse 90 Resp 20 18 B/P 101/64 Pulse Ox 96 98 O2 Delivery Nasal Cannula Nasal Cannula Nasal Cannula Nasal Cannula O2 Flow Rate 4.0 4.0 2.0 4.0 05/23/16 05/23/16 05/23/16 05/23/16 21:14 22:14 23:14 23:39 Temp 100.2 100.2 Pulse 94 Resp 20 20 20 18 B/P 94/51 Pulse Ox 98 96 98 96 O2 Delivery Nasal Cannula Nasal Cannula Nasal Cannula Nasal Cannula O2 Flow Rate 4.0 4.0 4.0 2.0 05/23/16 05/24/16 05/24/16 05/24/16 23:46 02:30 03:00 07:00 Temp 98.6 98.2 98.6 98.2 Pulse 93 96 Resp 20 B/P 81/51 110/43 Pulse Ox 96 96 95 98 O2 Delivery Nasal Cannula Nasal Cannula Nasal Cannula Room Air O2 Flow Rate 2.0 2.0 2.0 05/24/16 05/24/16 05/24/16 05/24/16 07:40 08:04 09:05 09:54 Temp 97.5 97.5 Pulse 71 Resp 16 B/P 115/55 O2 Delivery Room Air Nasal Cannula Nasal Cannula O2 Flow Rate 3.0 2.0 05/24/16 05/24/16 05/24/16 05/24/16 10:12 11:00 11:12 11:57 Temp 98.1 98.4 98.4 98.1 98.4 98.4 Pulse 88 75 75 Resp 18 B/P 111/51 110/58 110/58 Pulse Ox 90 O2 Delivery Room Air Room Air 05/24/16 05/24/16 05/24/16 05/24/16 12:12 13:00 13:02 13:15 Temp 98.3 98.4 98.4 98.3 98.4 98.4 Pulse 72 75 86 Resp 18 B/P 110/53 110/58 118/51 O2 Delivery Room Air Intake and Output 05/23/16 05/23/16 05/24/16 15:00 23:00 07:00 Intake Total 1950 ml 1200 ml Output Total 700 ml 500 ml Balance -700 ml 1450 ml 1200 ml SO SPENCER MD May 24, 2016 14:19
[2016-05-24] MEDS ORDERED: BISACODYL 10 MG SUPP.RECT PR PRN (16:00)
[2016-05-24] MEDS: POLYETHYLENE GLYCOL 3350 17 GM PACKET. PO PRN (16:48)
[2016-05-24] MEDS: ENOXAPARIN 40 MG/0.4 ML DISP.SYRIN. SQ SCH (16:52)
[2016-05-24 18:01] LABS: HEMATOCRIT 27.9 % (36.0-47.0)
[2016-05-25 03:26] VITALS: BP 145/83
[2016-05-25 07:00] VITALS: BP 143/87
[2016-05-25 07:00] LABS: CALCIUM 8.1 mg/dL (8.5-10.1); CREATININE 0.4 mg/dL (0.6-1.0); GFR 164.5; POTASSIUM 3.1 mmol/L (3.5-5.1)
[2016-05-25] MEDS ORDERED: FERROUS SULFATE 325 MG TABLET PO SCH (08:00)
[2016-05-25] MEDS: POLYETHYLENE GLYCOL 3350 17 GM PACKET. PO PRN (08:08)
[2016-05-25] MEDS: CHOLECALCIFEROL (VITAMIN D3) 5,000 UNIT CAPSULE PO SCH (08:09)
[2016-05-25] MEDS: SENNOSIDES/DOCUSATE 8.6/50MG TABLET. PO SCH (08:09)
[2016-05-25] MEDS: MULTIVITAMIN with MINERAL TABLET. PO SCH (08:09)
[2016-05-25] MEDS: HYDROCODONE/APAP 7.5/325MG TABLET. PO PRN (08:10)
[2016-05-25] MEDS: CELECOXIB 200 MG CAPSULE PO SCH (08:10)
[2016-05-25] MEDS: FERROUS SULFATE 325 MG TABLET PO SCH ×2 (08:11→17:01)
[2016-05-25] MEDS: PANTOPRAZOLE 40 MG TABLET. PO SCH (08:11)
[2016-05-25] MEDS: ACETAMINOPHEN 500 MG TABLET PO SCH ×2 (09:00→14:00)
[2016-05-25] MEDS ORDERED: ENOXAPARIN 40 MG/0.4 ML DISP.SYRIN. SQ SCH (09:00)
[2016-05-25 11:00] VITALS: BP 135/75
[2016-05-25] MEDS ORDERED: POTASSIUM CHLORIDE 20 MEQ TABLET.ER. PO ONE ×2 (11:00→17:00)
--- NOTE | 2016-05-25 11:20 | PDOC ---
PROGRESS NOTES Subjective Subjective She is sitting in bed. She looks well. No complaints. She has help at home including a friend, an elevator in her apartment, and a wheelchair. Objective Vital Signs Vital Signs Date Time Temp Pulse Resp B/P Pulse Ox O2 Delivery O2 Flow Rate FiO2 05/25/16 11:00 97.8 104 20 135/75 90 Room Air 97.8 05/24/16 19:15 2.0 Physical Exam She is sitting upright in the bed without difficulty. Gentle circumduction of the hip shows minimal pain. Her dressing is dry. The hip fracture seems stable now. Her knee effusion is improved. Calf is soft and nontender. She has good active dorsiflexion and plantar flexion of the ankle without evidence of DVT or neurovascular injury. Labs Laboratory Tests Test 05/24/16 05:55 05/24/16 17:55 05/25/16 05:10 White Blood Count 7.7x10^3/uL (4.0-11.0) Red Blood Count 2.35x10^6/uL (3.50-5.40) Hemoglobin 5.2g/dL (12.0-15.5) 9.0g/dL (12.0-15.5) Hematocrit 17.0% (36.0-47.0) 27.9% (36.0-47.0) Mean Corpuscular Volume 72fL (79-100) Mean Corpuscular Hemoglobin 22pg (25-35) Mean Corpuscular Hemoglobin Concent 31g/dL (31-37) 32g/dL (31-37) Red Cell Distribution Width 24.9% (11.5-14.5) Platelet Count 188x10^3/uL (140-400) Neutrophils (%) (Auto) 76% (31-73) Lymphocytes (%) (Auto) 13% (24-48) Monocytes (%) (Auto) 12% (0-9) Eosinophils (%) (Auto) 0% (0-3) Basophils (%) (Auto) 0% (0-3) Neutrophils # (Auto) 5.8x10^3uL (1.8-7.7) Lymphocytes # (Auto) 1.0x10^3/uL (1.0-4.8) Monocytes # (Auto) 0.9x10^3/uL (0.0-1.1) Eosinophils # (Auto) 0.0x10^3/uL (0.0-0.7) Basophils # (Auto) 0.0x10^3/uL (0.0-0.2) Sodium Level 132mmol/L (136-145) 135mmol/L (136-145) Potassium Level 3.6mmol/L (3.5-5.1) 3.1mmol/L (3.5-5.1) Chloride Level 97mmol/L (98-107) 99mmol/L (98-107) Carbon Dioxide Level 27mmol/L (21-32) 27mmol/L (21-32) Anion Gap 8 (6-14) 9 (6-14) Blood Urea Nitrogen 9mg/dL (7-20) 8mg/dL (7-20) Creatinine 0.5mg/dL (0.6-1.0) 0.4mg/dL (0.6-1.0) Estimated GFR (Cockcroft-Gault) 127.2 164.5 Glucose Level 116mg/dL (70-99) 98mg/dL (70-99) Calcium Level 7.8mg/dL (8.5-10.1) 8.1mg/dL (8.5-10.1) Iron Level 12ug/dL (50-170) Total Iron Binding Capacity 265ug/dL (250-450) Iron Saturation 5% (15-34) Ferritin 60ng/mL (8-252) Vitamin B12 Level 396pg/mL (211-946) Folic Acid (LAB) 7.8ng/mL (>3.0) Laboratory Tests Test 05/24/16 17:55 05/25/16 05:10 Hemoglobin 9.0g/dL (12.0-15.5) Hematocrit 27.9% (36.0-47.0) Mean Corpuscular Hemoglobin Concent 32g/dL (31-37) Sodium Level 135mmol/L (136-145) Potassium Level 3.1mmol/L (3.5-5.1) Chloride Level 99mmol/L (98-107) Carbon Dioxide Level 27mmol/L (21-32) Anion Gap 9 (6-14) Blood Urea Nitrogen 8mg/dL (7-20) Creatinine 0.4mg/dL (0.6-1.0) Estimated GFR (Cockcroft-Gault) 164.5 Glucose Level 98mg/dL (70-99) Calcium Level 8.1mg/dL (8.5-10.1) Assessment Assessment Postoperative anemia is improved after transfusion. Hip fracture stable after fixation. Knee effusion improved. Osteoarthritis of the knee, with flareup after her recent fall. Problems: Plan Plan of Care Discharge planning. She will need some type of DVT prophylaxis, perhaps just enteric-coated aspirin and mobilization. Office follow-up with me in 10-14 days. Toe-touch weightbearing only on the right lower extremity. FLORENCE CAMILO MD May 25, 2016 11:20
[2016-05-25] MEDS ORDERED: OXYCODONE/APAP 5/325 TABLET. PO PRN (11:30)
[2016-05-25] MEDS: OXYCODONE/APAP 5/325 TABLET. PO PRN ×3 (11:32→21:01)
[2016-05-25 11:53] LABS: BASO # 0.1 x10^3/uL (0.0-0.2); BASO % 1 % (0-3); EOS % 0 % (0-3); HEMATOCRIT 28.8 % (36.0-47.0); HEMOGLOBIN 9.2 g/dL (12.0-15.5); LYMPH # 1.4 x10^3/uL (1.0-4.8); LYMPH % 17 % (24-48); MEAN CORPUSCULAR HEMOGLOBIN 26 pg (25-35); MEAN CORPUSCULAR HGB CONC 32 g/dL (31-37); MEAN CORPUSCULAR VOLUME 80 fL (79-100); MONO % 10 % (0-9); NEUT % 72 % (31-73); PLATELET COUNT 284 x10^3/uL (140-400); RED BLOOD COUNT 3.61 x10^6/uL (3.50-5.40); RED CELL DISTRIBUTION WIDTH 24.3 % (11.5-14.5); WHITE BLOOD COUNT 8.3 x10^3/uL (4.0-11.0)
--- NOTE | 2016-05-25 12:00 | PDOC ---
PROGRESS NOTES Chief Complaint Chief Complaint 1. Closed right hip fx post fall, s/p sx 05/23 2. copd with smoking 3. gerd 4. hepatitis C without treatment 5. alcoholism 6. drug abuse with marijuana 7. acute on chronic anemia, expected post sx 8. iron deficiency 9. hypokalemia plan: 1. check drug tox, influ, all neg 2. ortho consulted, sx today 3. albuterol prn 4. pain control dvt ppx check vitamin D, low, on vitd 2u PRBC 05/24 FOR rehab iron po PTOT History of Present Illness History of Present Illness hb 5.2 better post 2u PRBC 9 now hip pain post op Vitals Vitals Vital Signs Date Time Temp Pulse Resp B/P Pulse Ox O2 Delivery O2 Flow Rate FiO2 05/25/16 11:32 Room Air 05/25/16 11:00 97.8 104 20 135/75 90 97.8 05/24/16 19:15 2.0 Physical Exam Physical Exam right hip tenderness General: Alert, Cooperative, No acute distress Heart: Regular rate Lungs: Clear, Other Abdomen: Soft, Other (postsurgical midline scarring) Extremities: Other (the right leg is shortened and rotated. She has tenderness at the right hip. The skin is intact over the hip fracture. There is a knee effusion. There are some small postsurgical scars the right knee.) Skin: Other Labs LABS Laboratory Tests Test 05/24/16 17:55 05/25/16 05:10 Hemoglobin 9.0g/dL (12.0-15.5) 9.2g/dL (12.0-15.5) Hematocrit 27.9% (36.0-47.0) 28.8% (36.0-47.0) Mean Corpuscular Hemoglobin Concent 32g/dL (31-37) 32g/dL (31-37) White Blood Count 8.3x10^3/uL (4.0-11.0) Red Blood Count 3.61x10^6/uL (3.50-5.40) Mean Corpuscular Volume 80fL (79-100) Mean Corpuscular Hemoglobin 26pg (25-35) Red Cell Distribution Width 24.3% (11.5-14.5) Platelet Count 284x10^3/uL (140-400) Neutrophils (%) (Auto) 72% (31-73) Lymphocytes (%) (Auto) 17% (24-48) Monocytes (%) (Auto) 10% (0-9) Eosinophils (%) (Auto) 0% (0-3) Basophils (%) (Auto) 1% (0-3) Neutrophils # (Auto) 6.0x10^3uL (1.8-7.7) Lymphocytes # (Auto) 1.4x10^3/uL (1.0-4.8) Monocytes # (Auto) 0.8x10^3/uL (0.0-1.1) Eosinophils # (Auto) 0.0x10^3/uL (0.0-0.7) Basophils # (Auto) 0.1x10^3/uL (0.0-0.2) Sodium Level 135mmol/L (136-145) Potassium Level 3.1mmol/L (3.5-5.1) Chloride Level 99mmol/L (98-107) Carbon Dioxide Level 27mmol/L (21-32) Anion Gap 9 (6-14) Blood Urea Nitrogen 8mg/dL (7-20) Creatinine 0.4mg/dL (0.6-1.0) Estimated GFR (Cockcroft-Gault) 164.5 Glucose Level 98mg/dL (70-99) Calcium Level 8.1mg/dL (8.5-10.1) Review of Systems Review of Systems no fever, chills, sob or chest pain Assessment and Plan Assessmemt and Plan Problems Medical Problems: (1) Hip fracture, right Status: Acute Problems: Comment Review of Relevant I have reviewed the following items maribel (where applicable) has been applied. Labs Laboratory Tests Test 05/24/16 05:55 05/24/16 17:55 05/25/16 05:10 White Blood Count 7.7x10^3/uL (4.0-11.0) 8.3x10^3/uL (4.0-11.0) Red Blood Count 2.35x10^6/uL (3.50-5.40) 3.61x10^6/uL (3.50-5.40) Hemoglobin 5.2g/dL (12.0-15.5) 9.0g/dL (12.0-15.5) 9.2g/dL (12.0-15.5) Hematocrit 17.0% (36.0-47.0) 27.9% (36.0-47.0) 28.8% (36.0-47.0) Mean Corpuscular Volume 72fL (79-100) 80fL (79-100) Mean Corpuscular Hemoglobin 22pg (25-35) 26pg (25-35) Mean Corpuscular Hemoglobin Concent 31g/dL (31-37) 32g/dL (31-37) 32g/dL (31-37) Red Cell Distribution Width 24.9% (11.5-14.5) 24.3% (11.5-14.5) Platelet Count 188x10^3/uL (140-400) 284x10^3/uL (140-400) Neutrophils (%) (Auto) 76% (31-73) 72% (31-73) Lymphocytes (%) (Auto) 13% (24-48) 17% (24-48) Monocytes (%) (Auto) 12% (0-9) 10% (0-9) Eosinophils (%) (Auto) 0% (0-3) 0% (0-3) Basophils (%) (Auto) 0% (0-3) 1% (0-3) Neutrophils # (Auto) 5.8x10^3uL (1.8-7.7) 6.0x10^3uL (1.8-7.7) Lymphocytes # (Auto) 1.0x10^3/uL (1.0-4.8) 1.4x10^3/uL (1.0-4.8) Monocytes # (Auto) 0.9x10^3/uL (0.0-1.1) 0.8x10^3/uL (0.0-1.1) Eosinophils # (Auto) 0.0x10^3/uL (0.0-0.7) 0.0x10^3/uL (0.0-0.7) Basophils # (Auto) 0.0x10^3/uL (0.0-0.2) 0.1x10^3/uL (0.0-0.2) Sodium Level 132mmol/L (136-145) 135mmol/L (136-145) Potassium Level 3.6mmol/L (3.5-5.1) 3.1mmol/L (3.5-5.1) Chloride Level 97mmol/L (98-107) 99mmol/L (98-107) Carbon Dioxide Level 27mmol/L (21-32) 27mmol/L (21-32) Anion Gap 8 (6-14) 9 (6-14) Blood Urea Nitrogen 9mg/dL (7-20) 8mg/dL (7-20) Creatinine 0.5mg/dL (0.6-1.0) 0.4mg/dL (0.6-1.0) Estimated GFR (Cockcroft-Gault) 127.2 164.5 Glucose Level 116mg/dL (70-99) 98mg/dL (70-99) Calcium Level 7.8mg/dL (8.5-10.1) 8.1mg/dL (8.5-10.1) Iron Level 12ug/dL (50-170) Total Iron Binding Capacity 265ug/dL (250-450) Iron Saturation 5% (15-34) Ferritin 60ng/mL (8-252) Vitamin B12 Level 396pg/mL (211-946) Folic Acid (LAB) 7.8ng/mL (>3.0) Laboratory Tests Test 05/24/16 17:55 05/25/16 05:10 Hemoglobin 9.0g/dL (12.0-15.5) 9.2g/dL (12.0-15.5) Hematocrit 27.9% (36.0-47.0) 28.8% (36.0-47.0) Mean Corpuscular Hemoglobin Concent 32g/dL (31-37) 32g/dL (31-37) White Blood Count 8.3x10^3/uL (4.0-11.0) Red Blood Count 3.61x10^6/uL (3.50-5.40) Mean Corpuscular Volume 80fL (79-100) Mean Corpuscular Hemoglobin 26pg (25-35) Red Cell Distribution Width 24.3% (11.5-14.5) Platelet Count 284x10^3/uL (140-400) Neutrophils (%) (Auto) 72% (31-73) Lymphocytes (%) (Auto) 17% (24-48) Monocytes (%) (Auto) 10% (0-9) Eosinophils (%) (Auto) 0% (0-3) Basophils (%) (Auto) 1% (0-3) Neutrophils # (Auto) 6.0x10^3uL (1.8-7.7) Lymphocytes # (Auto) 1.4x10^3/uL (1.0-4.8) Monocytes # (Auto) 0.8x10^3/uL (0.0-1.1) Eosinophils # (Auto) 0.0x10^3/uL (0.0-0.7) Basophils # (Auto) 0.1x10^3/uL (0.0-0.2) Sodium Level 135mmol/L (136-145) Potassium Level 3.1mmol/L (3.5-5.1) Chloride Level 99mmol/L (98-107) Carbon Dioxide Level 27mmol/L (21-32) Anion Gap 9 (6-14) Blood Urea Nitrogen 8mg/dL (7-20) Creatinine 0.4mg/dL (0.6-1.0) Estimated GFR (Cockcroft-Gault) 164.5 Glucose Level 98mg/dL (70-99) Calcium Level 8.1mg/dL (8.5-10.1) Medications Current Medications Fentanyl Citrate (Fentanyl 2ml Vial) 50 mcg PRN Q15MIN PRN IV PAIN GREATER THAN 3/10 Last administered on 05/22/16 12:22; Start 05/22/16 at 11:15; Stop at 11:14; Status DC Ondansetron HCl (Zofran) 4 mg PRN Q8HRS PRN IV NAUSEA/VOMITING Last administered on 05/22/16 12:23; Start 05/22/16 at 12:15; Stop 05/23/16 at 12:14 ; Status DC Fentanyl Citrate 50 mcg 50 mcg PRN Q1HR PRN IV PAIN Last administered on 10:53; Start 05/22/16 at 12:15; Stop 05/23/16 at 12:14; Status DC Sodium Chloride (Iv Sodium Chloride 0.9% 1000ml Bag) 1,000 ml @ 150 mls/hr Q6H40M IV Last administered on 05/23/16 00:40; Start 05/22/16 at 12:04; Stop 05/23/16 at 12:03; Status DC Pantoprazole Sodium (Protonix) 40 mg DAILYAC PO Last administered on 05/25/16 08:11; Start 05/23/16 at 07:30 Vitamin D (Vitamin D3) 5,000 unit DAILY PO Last administered on 05/25/16 08:09 ; Start 05/23/16 at 09:00 Cyclobenzaprine HCl (Flexeril) 5 mg PRN TID PRN PO PAIN Last administered on 18:31; Start 05/22/16 at 17:15 Acetaminophen (Tylenol) 650 mg PRN Q6HRS PRN PO MILD PAIN / TEMP Last administered on 05/22/16 20:14; Start 05/22/16 at 17:00 Ondansetron HCl (Zofran) 4 mg PRN Q6HRS PRN IV NAUSEA/VOMITING; Start 05/22/16 at 17:00; Stop 05/24/16 at 12:31; Status DC Oxycodone/ Acetaminophen (Percocet 5/325) 1 tab PRN Q4HRS PRN PO MODERATE PAIN Last administered on 05/23/16 21:14; Start 05/22/16 at 17:00 Morphine Sulfate 2 mg PRN Q2HR PRN IV SEVERE PAIN Last administered on 18:42; Start 05/22/16 at 17:00; Stop 05/24/16 at 12:30; Status DC Morphine Sulfate 4 mg PRN Q2HR PRN IV SEVERE PAIN Last administered on 02:30; Start 05/22/16 at 17:00; Stop 05/24/16 at 12:30; Status DC Enoxaparin Sodium (Lovenox 40mg Syringe) 40 mg Q24H SQ Last administered on 16:52; Start 05/22/16 at 17:00 Nicotine (Nicoderm Cq 14mg) 1 patch PRN DAILY PRN TD SMOKING CESSATION; Start 05/22/16 at 17:00 Albuterol Sulfate (Ventolin Neb Soln) 2.5 mg PRN Q4HRS PRN NEB SHORTNESS OF BREATH; Start 05/22/16 at 17:00 Lorazepam (Ativan) 2 mg PRN Q4HRS PRN IV ANXIETY / AGITATION; Start 05/22/16 at 17:00 Info (Do NOT chart on this placeholder) 1 each PRN 1X PRN MC SEE COMMENTS; Start 05/23/16 at 08:15; Status UNV Influenza Virus Vaccine Quadrival (Fluarix Quad 9531-0533 Syringe) 0.5 ml ONCE ONCE VAX IM Last administered on 05/24/16 16:53; Start 05/23/16 at 08:15; Stop 05/23/16 at 08:16; Status DC Fentanyl Citrate (Fentanyl 2ml Vial) 50 mcg PRN Q5MIN PRN IV Acute Pain Last administered on 05/23/16 18:04; Start 05/23/16 at 10:15; Stop 05/24/16 at 10:14 ; Status DC Morphine Sulfate 4 mg PRN Q10MIN PRN IV Moderate Pain Last administered on 05/23 17:19; Start 05/23/16 at 10:15; Stop 05/24/16 at 10:14; Status DC Hydromorphone HCl (Dilaudid) 0.4 mg PRN Q10MIN PRN IV Moderate to severe pain; Start 05/23/16 at 10:15; Stop 05/24/16 at 10:14; Status DC Meperidine HCl (Demerol) 12.5 mg PRN Q5MIN PRN IV SHIVERING; Start 05/23/16 at 10:15; Stop 05/24/16 at 10:14; Status DC Prochlorperazine Edisylate (Compazine) 5 mg PRN Q6HRS PRN IV Nausea/Vomiting, 1st Choice; Start 05/23/16 at 10:15; Stop 05/24/16 at 10:14; Status DC Diphenhydramine HCl 12.5 mg 12.5 mg PRN Q2HR PRN IV ITCHING; Start 05/23/16 at 10:15; Stop 05/24/16 at 10:14; Status DC Vancomycin HCl 250 ml @ 250 mls/hr 1X PREOP IV Last administered on 17:14; Start 05/23/16 at 14:15; Stop 05/24/16 at 18:00; Status DC Dexamethasone Sodium Phosphate (Decadron) 20 mg STK-MED ONCE .ROUTE ; Start at 14:26; Stop 05/23/16 at 14:27; Status DC Famotidine (Pepcid) 20 mg STK-MED ONCE .ROUTE ; Start 05/23/16 at 14:26; Stop at 14:27; Status DC Ondansetron HCl 4 mg 4 mg STK-MED ONCE .ROUTE ; Start 05/23/16 at 14:26; Stop at 14:27; Status DC Propofol (Diprivan) 20 ml @ As Directed STK-MED ONCE IV ; Start 05/23/16 at 14: 26; Stop 05/23/16 at 14:27; Status DC Lidocaine HCl 100 mg STK-MED ONCE .ROUTE ; Start 05/23/16 at 14:26; Stop at 14:27; Status DC Midazolam HCl (Versed) 2 mg STK-MED ONCE .ROUTE ; Start 05/23/16 at 14:27; Stop 05/23/16 at 14:28; Status DC Fentanyl Citrate (Fentanyl 2ml Vial) 100 mcg STK-MED ONCE .ROUTE ; Start at 14:27; Stop 05/23/16 at 14:28; Status DC Rocuronium [place] (Zemuron) 50 mg STK-MED ONCE .ROUTE ; Start 05/23/16 at 14:27 ; Stop 05/23/16 at 14:28; Status DC Fentanyl Citrate (Fentanyl 2ml Vial) 100 mcg STK-MED ONCE .ROUTE ; Start at 15:36; Stop 05/23/16 at 15:37; Status DC Glycopyrrolate (Robinul) 1 mg STK-MED ONCE .ROUTE ; Start 05/23/16 at 16:36; Stop 05/23/16 at 16:37; Status DC Neostigmine Methylsulfate 5 mg STK-MED ONCE .ROUTE ; Start 05/23/16 at 16:36; Stop 05/23/16 at 16:37; Status DC Sevoflurane (Ultane) 90 ml STK-MED ONCE IH ; Start 05/23/16 at 16:46; Stop 05/23 at 16:47; Status DC Tramadol HCl (Ultram) 50 mg PRN QID PRN PO PAIN; Start 05/23/16 at 18:15 Oxycodone HCl (Roxicodone) 5 mg PRN Q3HRS PRN PO PAIN Last administered on 05/24 18:31; Start 05/23/16 at 18:15 Morphine Sulfate 2 mg PRN Q1HR PRN IV PAIN Last administered on 05/25/16 08:09 ; Start 05/23/16 at 18:15 Fentanyl Citrate (Fentanyl 2ml Vial) 25 mcg PRN Q1HR PRN IV PAIN; Start at 18:15 Acetaminophen (Tylenol) 500 mg TID PO Last administered on 05/24/16 21:02; Start 05/23/16 at 21:00 Multivitamins/ Calcium (Thera M Plus) 1 tab DAILY PO Last administered on 08:09; Start 05/24/16 at 09:00 Senna/Docusate Sodium (Senna Plus) 1 tab DAILY PO Last administered on 08:09; Start 05/24/16 at 09:00 Polyethylene Glycol (miraLAX PACKET) 17 gm PRN DAILY PRN PO CONSTIPATION Last administered on 05/25/16 08:08; Start 05/23/16 at 18:15 Ferrous Sulfate (Feosol) 325 mg BIDWMEALS PO Last administered on 05/25/16 08: 11; Start 05/24/16 at 08:00 Celecoxib (Celebrex) 200 mg DAILY PO Last administered on 05/25/16 08:10; Start 05/24/16 at 09:00 Vitamin D 1000 unit 1,000 unit DAILY PO ; Start 05/24/16 at 09:00; Stop at 09:00; Status DC Sodium Chloride 1,000 ml @ 75 mls/hr [id number] IV Last administered on 18:42; Start 05/23/16 at 18:11; Stop 05/24/16 at 11:44; Status DC Vancomycin HCl/ Sodium Chloride (Iv Sodium Chloride 0.9% 250ml) 250 ml @ 250 mls/hr Q12H IV Last administered on 05/24/16 02:33; Start 05/24/16 at 02:00; Stop 05/24/16 at 02:59; Status DC Ondansetron HCl (Zofran) 4 mg PRN Q4HRS PRN IV NAUSEA/VOMITING; Start 05/23/16 at 18:15 Enoxaparin Sodium (Lovenox 40mg Syringe) 40 mg DAILY SQ ; Start 05/25/16 at 09: 00; Stop 05/25/16 at 09:00; Status DC Magnesium Hydroxide (Milk Of Magnesia) 2,400 mg 1X PRN PRN PO CONSTIPATION; Start 05/24/16 at 06:00; Stop 05/25/16 at 05:59; Status DC Bisacodyl (Dulcolax Supp) 10 mg 1X PRN PRN MD CONSTIPATION; Start 05/24/16 at 16:00; Stop 05/25/16 at 15:59 Acetaminophen/ Hydrocodone Bitart (Lortab 7.5/325) 1 tab PRN Q4HRS PRN PO PAIN ; Start 05/23/16 at 18:15 Morphine Sulfate 4 mg PRN Q2HR PRN IV PAIN; Start 05/23/16 at 18:15 Acetaminophen/ Hydrocodone Bitart (Lortab 7.5/325) 2 tab PRN Q4HRS PRN PO PAIN Last administered on 05/25/16 08:10; Start 05/23/16 at 18:15 Dextrose 12.5 gm 12.5 gm PRN Q15MIN PRN IV SEE COMMENTS; Start 05/23/16 at 18: 15 Lactated Ringer's (Iv Lactated Ringers) 1,000 ml @ 125 mls/hr 1X ONCE IV Last administered on 05/23/16 17:00; Start 05/23/16 at 17:00; Stop 05/24/16 at 00:59; Status DC Ferrous Sulfate (Feosol) 325 mg DAILYWBKFT PO ; Start 05/25/16 at 08:00; Status UNV Potassium Chloride (Klor-Con) 20 meq 1X ONCE PO Last administered on 11:32; Start 05/25/16 at 11:00; Stop 05/25/16 at 11:02; Status DC Potassium Chloride (Klor-Con) 20 meq 1X ONCE PO ; Start 05/25/16 at 17:00; Stop 05/25/16 at 17:01 Oxycodone/ Acetaminophen (Percocet 5/325) 1 tab PRN Q4HRS PRN PO PAIN; Start at 11:30 Oxycodone/ Acetaminophen (Percocet 5/325) 2 tab PRN Q4HRS PRN PO PAIN Last administered on 05/25/16t 11:32; Start 05/25/16 at 11:30 Active Scripts Active Protonix (Pantoprazole Sodium) 40 Mg Tablet.dr 40 Mg PO DAILY Reported Vitamin D (Cholecalciferol (Vitamin D3)) 5,000 Unit Tablet 5,000 Unit PO DAILY Cyclobenzaprine Hcl 5 Mg Tablet 1 Tab PO TID PRN Vitals/I & O Vital Sign - Last 24 Hours 05/24/16 05/24/16 05/24/16 05/24/16 12:12 13:00 13:15 14:15 Temp 98.3 98.4 98.4 97.9 98.3 98.4 98.4 97.9 Pulse 72 75 86 86 Resp 18 16 B/P 110/53 110/58 118/51 127/75 05/24/16 05/24/16 05/24/16 05/24/16 15:00 15:15 16:50 18:31 Temp 97.9 98.2 97.9 98.2 Pulse 73 82 Resp 20 18 B/P 123/76 118/68 Pulse Ox 98 O2 Delivery Room Air Room Air Room Air 05/24/16 05/24/16 05/24/16 05/24/16 19:15 19:31 20:00 23:07 Temp 97.7 98.7 97.7 98.7 Pulse 92 86 Resp 18 18 18 B/P 121/78 135/84 Pulse Ox 93 92 O2 Delivery Nasal Cannula Room Air Room Air Room Air O2 Flow Rate 2.0 05/25/16 05/25/16 05/25/16 05/25/16 03:26 07:00 07:40 08:09 Temp 98.7 97.7 98.7 97.7 Pulse 94 77 Resp 18 20 B/P 145/83 143/87 Pulse Ox 91 93 O2 Delivery Room Air Room Air Room Air Room Air 05/25/16 05/25/16 05/25/16 05/25/16 08:10 08:40 09:20 11:00 Temp 97.8 97.8 Pulse 104 Resp 20 B/P 135/75 Pulse Ox 90 O2 Delivery Room Air Room Air Room Air Room Air 05/25/16 11:32 O2 Delivery Room Air Intake and Output 05/24/16 05/24/16 05/25/16 15:00 23:00 07:00 Intake Total 50 ml 10 ml 780 ml Output Total 800 ml Balance 50 ml -790 ml 780 ml SO SPENCER MD May 25, 2016 12:00
[2016-05-25 15:00] VITALS: BP 143/69
[2016-05-25] MEDS: ENOXAPARIN 40 MG/0.4 ML DISP.SYRIN. SQ SCH (17:01)
[2016-05-25 19:15] VITALS: BP 155/67
[2016-05-25 22:56] VITALS: BP 140/71
[2016-05-26 03:00] VITALS: BP 151/74
[2016-05-26] MEDS: OXYCODONE/APAP 5/325 TABLET. PO PRN (03:07)
[2016-05-26 06:36] LABS: CALCIUM 8.3 mg/dL (8.5-10.1); CREATININE 0.5 mg/dL (0.6-1.0); GFR 127.2
[2016-05-26 06:41] LABS: POTASSIUM 4.5 mmol/L (3.5-5.1)
[2016-05-26 07:00] VITALS: BP 119/73
[2016-05-26] MEDS: FERROUS SULFATE 325 MG TABLET PO SCH (07:59)
[2016-05-26] MEDS: PANTOPRAZOLE 40 MG TABLET. PO SCH (07:59)
[2016-05-26] MEDS: CELECOXIB 200 MG CAPSULE PO SCH (07:59)
[2016-05-26] MEDS: CHOLECALCIFEROL (VITAMIN D3) 5,000 UNIT CAPSULE PO SCH (07:59)
[2016-05-26] MEDS: SENNOSIDES/DOCUSATE 8.6/50MG TABLET. PO SCH (08:00)
[2016-05-26] MEDS: MULTIVITAMIN with MINERAL TABLET. PO SCH (08:00)
[2016-05-26 09:33] LABS: BASO # 0.1 x10^3/uL (0.0-0.2); BASO % 1 % (0-3); EOS % 1 % (0-3); HEMATOCRIT 25.4 % (36.0-47.0); HEMOGLOBIN 8.1 g/dL (12.0-15.5); LYMPH # 1.3 x10^3/uL (1.0-4.8); LYMPH % 13 % (24-48); MEAN CORPUSCULAR HEMOGLOBIN 25 pg (25-35); MEAN CORPUSCULAR HGB CONC 32 g/dL (31-37); MEAN CORPUSCULAR VOLUME 79 fL (79-100); MONO % 11 % (0-9); NEUT % 74 % (31-73); PLATELET COUNT 393 x10^3/uL (140-400); RED CELL DISTRIBUTION WIDTH 24.9 % (11.5-14.5); WHITE BLOOD COUNT 9.8 x10^3/uL (4.0-11.0)
[2016-05-26] MEDS ORDERED: ERGOCALCIFEROL (VITAMIN D2) 50,000 UNIT CAPSULE PO SCH (10:30)
--- NOTE | 2016-05-26 10:34 | PDOC ---
PROGRESS NOTES Chief Complaint Chief Complaint 1. Closed right hip fx post fall, s/p sx 05/23 2. copd with smoking 3. gerd 4. hepatitis C without treatment 5. alcoholism 6. drug abuse with marijuana 7. acute on chronic anemia, expected post sx 8. iron deficiency 9. hypokalemia History of Present Illness History of Present Illness anemia better, was hb 5.2 better post 2u PRBC 9 now hip pain post op give IV iron today will discuss with Dr. Davalos, will need f/u colon polyps s/p surg, bruising and pain complaints from pt albuterol prn pain control imprvoec dvt ppx vitamin D, low, give 50 K 2u PRBC 05/24 sw for rehab, maybe home health Vitals Vitals Vital Signs Date Time Temp Pulse Resp B/P Pulse Ox O2 Delivery O2 Flow Rate FiO2 05/26/16 09:26 Room Air 05/26/16 07:00 98.3 89 16 119/73 94 98.3 05/25/16 17:00 2.0 Physical Exam Physical Exam right hip tenderness General: Alert, Cooperative, No acute distress Heart: Regular rate Lungs: Clear, Other Abdomen: Soft, Other (postsurgical midline scarring) Extremities: Other (the right leg is shortened and rotated. She has tenderness at the right hip. The skin is intact over the hip fracture. There is a knee effusion. There are some small postsurgical scars the right knee.) Skin: Other Labs LABS Laboratory Tests Test 05/26/16 05:10 White Blood Count 9.8x10^3/uL (4.0-11.0) Red Blood Count 3.20x10^6/uL (3.50-5.40) Hemoglobin 8.1g/dL (12.0-15.5) Hematocrit 25.4% (36.0-47.0) Mean Corpuscular Volume 79fL (79-100) Mean Corpuscular Hemoglobin 25pg (25-35) Mean Corpuscular Hemoglobin Concent 32g/dL (31-37) Red Cell Distribution Width 24.9% (11.5-14.5) Platelet Count 393x10^3/uL (140-400) Neutrophils (%) (Auto) 74% (31-73) Lymphocytes (%) (Auto) 13% (24-48) Monocytes (%) (Auto) 11% (0-9) Eosinophils (%) (Auto) 1% (0-3) Basophils (%) (Auto) 1% (0-3) Neutrophils # (Auto) 7.2x10^3uL (1.8-7.7) Lymphocytes # (Auto) 1.3x10^3/uL (1.0-4.8) Monocytes # (Auto) 1.1x10^3/uL (0.0-1.1) Eosinophils # (Auto) 0.1x10^3/uL (0.0-0.7) Basophils # (Auto) 0.1x10^3/uL (0.0-0.2) Sodium Level 137mmol/L (136-145) Potassium Level 4.5mmol/L (3.5-5.1) Chloride Level 101mmol/L (98-107) Carbon Dioxide Level 26mmol/L (21-32) Anion Gap 10 (6-14) Blood Urea Nitrogen 10mg/dL (7-20) Creatinine 0.5mg/dL (0.6-1.0) Estimated GFR (Cockcroft-Gault) 127.2 Glucose Level 108mg/dL (70-99) Calcium Level 8.3mg/dL (8.5-10.1) Review of Systems Review of Systems no n.v.d pain, weakness, dif. amb Assessment and Plan Assessmemt and Plan Problems Medical Problems: (1) Hip fracture, right Status: Acute Problems: Comment Review of Relevant I have reviewed the following items maribel (where applicable) has been applied. Labs Laboratory Tests Test 05/24/16 17:55 05/25/16 05:10 05/26/16 05:10 Hemoglobin 9.0g/dL (12.0-15.5) 9.2g/dL (12.0-15.5) 8.1g/dL (12.0-15.5) Hematocrit 27.9% (36.0-47.0) 28.8% (36.0-47.0) 25.4% (36.0-47.0) Mean Corpuscular Hemoglobin Concent 32g/dL (31-37) 32g/dL (31-37) 32g/dL (31-37) White Blood Count 8.3x10^3/uL (4.0-11.0) 9.8x10^3/uL (4.0-11.0) Red Blood Count 3.61x10^6/uL (3.50-5.40) 3.20x10^6/uL (3.50-5.40) Mean Corpuscular Volume 80fL (79-100) 79fL (79-100) Mean Corpuscular Hemoglobin 26pg (25-35) 25pg (25-35) Red Cell Distribution Width 24.3% (11.5-14.5) 24.9% (11.5-14.5) Platelet Count 284x10^3/uL (140-400) 393x10^3/uL (140-400) Neutrophils (%) (Auto) 72% (31-73) 74% (31-73) Lymphocytes (%) (Auto) 17% (24-48) 13% (24-48) Monocytes (%) (Auto) 10% (0-9) 11% (0-9) Eosinophils (%) (Auto) 0% (0-3) 1% (0-3) Basophils (%) (Auto) 1% (0-3) 1% (0-3) Neutrophils # (Auto) 6.0x10^3uL (1.8-7.7) 7.2x10^3uL (1.8-7.7) Lymphocytes # (Auto) 1.4x10^3/uL (1.0-4.8) 1.3x10^3/uL (1.0-4.8) Monocytes # (Auto) 0.8x10^3/uL (0.0-1.1) 1.1x10^3/uL (0.0-1.1) Eosinophils # (Auto) 0.0x10^3/uL (0.0-0.7) 0.1x10^3/uL (0.0-0.7) Basophils # (Auto) 0.1x10^3/uL (0.0-0.2) 0.1x10^3/uL (0.0-0.2) Sodium Level 135mmol/L (136-145) 137mmol/L (136-145) Potassium Level 3.1mmol/L (3.5-5.1) 4.5mmol/L (3.5-5.1) Chloride Level 99mmol/L (98-107) 101mmol/L (98-107) Carbon Dioxide Level 27mmol/L (21-32) 26mmol/L (21-32) Anion Gap 9 (6-14) 10 (6-14) Blood Urea Nitrogen 8mg/dL (7-20) 10mg/dL (7-20) Creatinine 0.4mg/dL (0.6-1.0) 0.5mg/dL (0.6-1.0) Estimated GFR (Cockcroft-Gault) 164.5 127.2 Glucose Level 98mg/dL (70-99) 108mg/dL (70-99) Calcium Level 8.1mg/dL (8.5-10.1) 8.3mg/dL (8.5-10.1) Laboratory Tests Test 05/26/16 05:10 White Blood Count 9.8x10^3/uL (4.0-11.0) Red Blood Count 3.20x10^6/uL (3.50-5.40) Hemoglobin 8.1g/dL (12.0-15.5) Hematocrit 25.4% (36.0-47.0) Mean Corpuscular Volume 79fL (79-100) Mean Corpuscular Hemoglobin 25pg (25-35) Mean Corpuscular Hemoglobin Concent 32g/dL (31-37) Red Cell Distribution Width 24.9% (11.5-14.5) Platelet Count 393x10^3/uL (140-400) Neutrophils (%) (Auto) 74% (31-73) Lymphocytes (%) (Auto) 13% (24-48) Monocytes (%) (Auto) 11% (0-9) Eosinophils (%) (Auto) 1% (0-3) Basophils (%) (Auto) 1% (0-3) Neutrophils # (Auto) 7.2x10^3uL (1.8-7.7) Lymphocytes # (Auto) 1.3x10^3/uL (1.0-4.8) Monocytes # (Auto) 1.1x10^3/uL (0.0-1.1) Eosinophils # (Auto) 0.1x10^3/uL (0.0-0.7) Basophils # (Auto) 0.1x10^3/uL (0.0-0.2) Sodium Level 137mmol/L (136-145) Potassium Level 4.5mmol/L (3.5-5.1) Chloride Level 101mmol/L (98-107) Carbon Dioxide Level 26mmol/L (21-32) Anion Gap 10 (6-14) Blood Urea Nitrogen 10mg/dL (7-20) Creatinine 0.5mg/dL (0.6-1.0) Estimated GFR (Cockcroft-Gault) 127.2 Glucose Level 108mg/dL (70-99) Calcium Level 8.3mg/dL (8.5-10.1) Medications Current Medications Fentanyl Citrate (Fentanyl 2ml Vial) 50 mcg PRN Q15MIN PRN IV PAIN GREATER THAN 3/10 Last administered on 05/22/16 12:22; Start 05/22/16 at 11:15; Stop at 11:14; Status DC Ondansetron HCl (Zofran) 4 mg PRN Q8HRS PRN IV NAUSEA/VOMITING Last administered on 05/22/16 12:23; Start 05/22/16 at 12:15; Stop 05/23/16 at 12:14 ; Status DC Fentanyl Citrate 50 mcg 50 mcg PRN Q1HR PRN IV PAIN Last administered on 10:53; Start 05/22/16 at 12:15; Stop 05/23/16 at 12:14; Status DC Sodium Chloride (Iv Sodium Chloride 0.9% 1000ml Bag) 1,000 ml @ 150 mls/hr Q6H40M IV Last administered on 05/23/16 00:40; Start 05/22/16 at 12:04; Stop 05/23/16 at 12:03; Status DC Pantoprazole Sodium (Protonix) 40 mg DAILYAC PO Last administered on 05/26/16 07:59; Start 05/23/16 at 07:30 Vitamin D (Vitamin D3) 5,000 unit DAILY PO Last administered on 05/26/16 07:59 ; Start 05/23/16 at 09:00; Stop 05/26/16 at 10:22; Status DC Cyclobenzaprine HCl (Flexeril) 5 mg PRN TID PRN PO PAIN Last administered on 18:31; Start 05/22/16 at 17:15 Acetaminophen (Tylenol) 650 mg PRN Q6HRS PRN PO MILD PAIN / TEMP Last administered on 05/22/16 20:14; Start 05/22/16 at 17:00 Ondansetron HCl (Zofran) 4 mg PRN Q6HRS PRN IV NAUSEA/VOMITING; Start 05/22/16 at 17:00; Stop 05/24/16 at 12:31; Status DC Oxycodone/ Acetaminophen (Percocet 5/325) 1 tab PRN Q4HRS PRN PO MODERATE PAIN Last administered on 05/23/16 21:14; Start 05/22/16 at 17:00; Stop 05/25/16 at 13:59; Status DC Morphine Sulfate 2 mg PRN Q2HR PRN IV SEVERE PAIN Last administered on 18:42; Start 05/22/16 at 17:00; Stop 05/24/16 at 12:30; Status DC Morphine Sulfate 4 mg PRN Q2HR PRN IV SEVERE PAIN Last administered on 02:30; Start 05/22/16 at 17:00; Stop 05/24/16 at 12:30; Status DC Enoxaparin Sodium (Lovenox 40mg Syringe) 40 mg Q24H SQ Last administered on 17:01; Start 05/22/16 at 17:00 Nicotine (Nicoderm Cq 14mg) 1 patch PRN DAILY PRN TD SMOKING CESSATION; Start 05/22/16 at 17:00 Albuterol Sulfate (Ventolin Neb Soln) 2.5 mg PRN Q4HRS PRN NEB SHORTNESS OF BREATH; Start 05/22/16 at 17:00 Lorazepam (Ativan) 2 mg PRN Q4HRS PRN IV ANXIETY / AGITATION; Start 05/22/16 at 17:00 Info (Do NOT chart on this placeholder) 1 each PRN 1X PRN MC SEE COMMENTS; Start 05/23/16 at 08:15; Status UNV Influenza Virus Vaccine Quadrival (Fluarix Quad [id number] Syringe) 0.5 ml ONCE ONCE VAX IM Last administered on 05/24/16 16:53; Start 05/23/16 at 08:15; Stop 05/23/16 at 08:16; Status DC Fentanyl Citrate (Fentanyl 2ml Vial) 50 mcg PRN Q5MIN PRN IV Acute Pain Last administered on 05/23/16 18:04; Start 05/23/16 at 10:15; Stop 05/24/16 at 10:14 ; Status DC Morphine Sulfate 4 mg PRN Q10MIN PRN IV Moderate Pain Last administered on 05/23 17:19; Start 05/23/16 at 10:15; Stop 05/24/16 at 10:14; Status DC Hydromorphone HCl (Dilaudid) 0.4 mg PRN Q10MIN PRN IV Moderate to severe pain; Start 05/23/16 at 10:15; Stop 05/24/16 at 10:14; Status DC Meperidine HCl (Demerol) 12.5 mg PRN Q5MIN PRN IV SHIVERING; Start 05/23/16 at 10:15; Stop 05/24/16 at 10:14; Status DC Prochlorperazine Edisylate (Compazine) 5 mg PRN Q6HRS PRN IV Nausea/Vomiting, 1st Choice; Start 05/23/16 at 10:15; Stop 05/24/16 at 10:14; Status DC Diphenhydramine HCl 12.5 mg 12.5 mg PRN Q2HR PRN IV ITCHING; Start 05/23/16 at 10:15; Stop 05/24/16 at 10:14; Status DC Vancomycin HCl 250 ml @ 250 mls/hr 1X PREOP IV Last administered on 17:14; Start 05/23/16 at 14:15; Stop 05/24/16 at 18:00; Status DC Dexamethasone Sodium Phosphate (Decadron) 20 mg STK-MED ONCE .ROUTE ; Start at 14:26; Stop 05/23/16 at 14:27; Status DC Famotidine (Pepcid) 20 mg STK-MED ONCE .ROUTE ; Start 05/23/16 at 14:26; Stop at 14:27; Status DC Ondansetron HCl 4 mg 4 mg STK-MED ONCE .ROUTE ; Start 05/23/16 at 14:26; Stop at 14:27; Status DC Propofol (Diprivan) 20 ml @ As Directed STK-MED ONCE IV ; Start 05/23/16 at 14: 26; Stop 05/23/16 at 14:27; Status DC Lidocaine HCl 100 mg STK-MED ONCE .ROUTE ; Start 05/23/16 at 14:26; Stop at 14:27; Status DC Midazolam HCl (Versed) 2 mg STK-MED ONCE .ROUTE ; Start 05/23/16 at 14:27; Stop 05/23/16 at 14:28; Status DC Fentanyl Citrate (Fentanyl 2ml Vial) 100 mcg STK-MED ONCE .ROUTE ; Start at 14:27; Stop 05/23/16 at 14:28; Status DC Rocuronium Beulah (Zemuron) 50 mg STK-MED ONCE .ROUTE ; Start 05/23/16 at 14:27 ; Stop 05/23/16 at 14:28; Status DC Fentanyl Citrate (Fentanyl 2ml Vial) 100 mcg STK-MED ONCE .ROUTE ; Start at 15:36; Stop 05/23/16 at 15:37; Status DC Glycopyrrolate (Robinul) 1 mg STK-MED ONCE .ROUTE ; Start 05/23/16 at 16:36; Stop 05/23/16 at 16:37; Status DC Neostigmine Methylsulfate 5 mg STK-MED ONCE .ROUTE ; Start 05/23/16 at 16:36; Stop 05/23/16 at 16:37; Status DC Sevoflurane (Ultane) 90 ml STK-MED ONCE IH ; Start 05/23/16 at 16:46; Stop 05/23 at 16:47; Status DC Tramadol HCl (Ultram) 50 mg PRN QID PRN PO PAIN; Start 05/23/16 at 18:15 Oxycodone HCl (Roxicodone) 5 mg PRN Q3HRS PRN PO PAIN Last administered on 05/24t 18:31; Start 05/23/16 at 18:15 Morphine Sulfate 2 mg PRN Q1HR PRN IV PAIN Last administered on 05/25/16t 08:09 ; Start 05/23/16 at 18:15 Fentanyl Citrate (Fentanyl 2ml Vial) 25 mcg PRN Q1HR PRN IV PAIN; Start at 18:15 Acetaminophen (Tylenol) 500 mg TID PO Last administered on 05/24/16 21:02; Start 05/23/16 at 21:00; Stop 05/25/16 at 14:06; Status DC Multivitamins/ Calcium (Thera M Plus) 1 tab DAILY PO Last administered on 08:00; Start 05/24/16 at 09:00 Senna/Docusate Sodium (Senna Plus) 1 tab DAILY PO Last administered on 08:00; Start 05/24/16 at 09:00 Polyethylene Glycol (miraLAX PACKET) 17 gm PRN DAILY PRN PO CONSTIPATION Last administered on 05/25/16 08:08; Start 05/23/16 at 18:15 Ferrous Sulfate (Feosol) 325 mg BIDWMEALS PO Last administered on 05/26/16 07: 59; Start 05/24/16 at 08:00 Celecoxib (Celebrex) 200 mg DAILY PO Last administered on 05/26/16 07:59; Start 05/24/16 at 09:00 Vitamin D 1000 unit 1,000 unit DAILY PO ; Start 05/24/16 at 09:00; Stop at 09:00; Status DC Sodium Chloride 1,000 ml @ 75 mls/hr [id number] IV Last administered on 18:42; Start 05/23/16 at 18:11; Stop 05/24/16 at 11:44; Status DC Vancomycin HCl/ Sodium Chloride (Iv Sodium Chloride 0.9% 250ml) 250 ml @ 250 mls/hr Q12H IV Last administered on 05/24/16 02:33; Start 05/24/16 at 02:00; Stop 05/24/16 at 02:59; Status DC Ondansetron HCl (Zofran) 4 mg PRN Q4HRS PRN IV NAUSEA/VOMITING; Start 05/23/16 at 18:15 Enoxaparin Sodium (Lovenox 40mg Syringe) 40 mg DAILY SQ ; Start 05/25/16 at 09: 00; Stop 05/25/16 at 09:00; Status DC Magnesium Hydroxide (Milk Of Magnesia) 2,400 mg 1X PRN PRN PO CONSTIPATION; Start 05/24/16 at 06:00; Stop 05/25/16 at 05:59; Status DC Bisacodyl (Dulcolax Supp) 10 mg 1X PRN PRN [place] CONSTIPATION; Start 05/24/16 at 16:00; Stop 05/25/16 at 15:59; Status DC Acetaminophen/ Hydrocodone Bitart (Lortab 7.5/325) 1 tab PRN Q4HRS PRN PO PAIN Last administered on 05/26/16 08:00; Start 05/23/16 at 18:15 Morphine Sulfate 4 mg PRN Q2HR PRN IV PAIN; Start 05/23/16 at 18:15 Acetaminophen/ Hydrocodone Bitart (Lortab 7.5/325) 2 tab PRN Q4HRS PRN PO PAIN Last administered on 05/25/16 08:10; Start 05/23/16 at 18:15 Dextrose 12.5 gm 12.5 gm PRN Q15MIN PRN IV SEE COMMENTS; Start 05/23/16 at 18: 15 Lactated Ringer's (Iv Lactated Ringers) 1,000 ml @ 125 mls/hr 1X ONCE IV Last administered on 05/23/16 17:00; Start 05/23/16 at 17:00; Stop 05/24/16 at 00:59; Status DC Ferrous Sulfate (Feosol) 325 mg DAILYWBKFT PO ; Start 05/25/16 at 08:00; Status UNV Potassium Chloride (Klor-Con) 20 meq 1X ONCE PO Last administered on 11:32; Start 05/25/16 at 11:00; Stop 05/25/16 at 11:02; Status DC Potassium Chloride (Klor-Con) 20 meq 1X ONCE PO Last administered on 17:05; Start 05/25/16 at 17:00; Stop 05/25/16 at 17:01; Status DC Oxycodone/ Acetaminophen (Percocet 5/325) 1 tab PRN Q4HRS PRN PO PAIN; Start at 11:30 Oxycodone/ Acetaminophen 2 tab 2 tab PRN Q4HRS PRN PO PAIN Last administered on 05/26/16 03:07; Start 05/25/16 at 11:30 Iron Sucrose/ Sodium Chloride (Venofer/Iv Sodium Chloride 0.9% 100ml) 110 ml @ 55 mls/hr 1X ONCE IV ; Start 05/26/16 at 11:00; Stop 05/26/16 at 12:59 Ergocalciferol (Vitamin D2) 50,000 unit WEEKLY PO ; Start 05/26/16 at 10:30 Active Scripts Active Protonix (Pantoprazole Sodium) 40 Mg Tablet.dr 40 Mg PO DAILY Reported Vitamin D (Cholecalciferol (Vitamin D3)) 5,000 Unit Tablet 5,000 Unit PO DAILY Cyclobenzaprine Hcl 5 Mg Tablet 1 Tab PO TID PRN Vitals/I & O Vital Sign - Last 24 Hours 05/25/16 05/25/16 05/25/16 05/25/16 11:00 11:32 15:00 15:44 Temp 97.8 97.5 97.8 97.5 Pulse 104 78 Resp 20 20 B/P 135/75 143/69 Pulse Ox 90 90 90 O2 Delivery Room Air Room Air Room Air Room Air O2 Flow Rate 2.0 05/25/16 05/25/16 05/25/16 05/25/16 17:00 19:15 20:00 21:01 Temp 98.0 98.0 Pulse 85 Resp 18 18 B/P 155/67 Pulse Ox 90 96 O2 Delivery Room Air Room Air Room Air O2 Flow Rate 2.0 05/25/16 05/26/16 05/26/16 05/26/16 22:56 03:00 03:07 04:07 Temp 97.9 98.5 97.9 98.5 Pulse 86 96 Resp 18 18 16 16 B/P 140/71 151/74 Pulse Ox 96 95 O2 Delivery Room Air Room Air Room Air Room Air 05/26/16 05/26/16 05/26/16 05/26/16 07:00 08:00 08:00 09:26 Temp 98.3 98.3 Pulse 89 Resp 16 B/P 119/73 Pulse Ox 94 O2 Delivery Room Air Room Air Room Air Room Air Intake and Output 05/25/16 05/25/16 05/26/16 15:00 23:00 07:00 Intake Total 300 ml 480 ml Output Total 900 ml Balance -900 ml 300 ml 480 ml SUMMER CHILD MD May 26, 2016 10:34
[2016-05-26 11:00] VITALS: BP 153/81
[2016-05-26] MEDS ORDERED: IRON SUCROSE COMPLEX 200 MG in IV NORMAL SALINE 100ML 100 ML IV ONE (11:00)
[2016-05-26 15:00] VITALS: BP 159/78
--- NOTE | 2016-05-28 12:53 | PDOC ---
BRIEF OPERATIVE NOTE Date: May 23, 2016 Pre-Op Diagnosis Right hip subtrochanteric femur fracture. Right knee effusion. Post-Op Diagnosis Right hip subtrochanteric femur fracture. Right knee effusion. Procedure Performed Right hip intramedullary nailing for subtrochanteric femur fracture. Right knee aspiration Surgeon Haily Anesthesia Type: General Blood Loss 350 mL Specimens Obtained None Findings Unstable subtrochanteric femur fracture. Knee effusion. Complications None FLORENCE CAMILO MD May 28, 2016 12:53
--- NOTE | 2016-05-28 21:50 | OP ---
DATE OF SURGERY: 05/23/2016 PREOPERATIVE DIAGNOSES: 1. Right subtrochanteric femur fracture. 2. Right knee effusion. POSTOPERATIVE DIAGNOSES: 1. Right subtrochanteric femur fracture. 2. Right knee effusion. PROCEDURES: 1. Right hip open intramedullary nail fixation for subtrochanteric fracture. 2. Right knee aspiration under anesthesia. SURGEON: Sanjay Johansen MD. ANESTHESIA: General. ESTIMATED BLOOD LOSS: 250 mL. COMPLICATIONS: None. SPECIMENS: None. DRAINS: None. INDICATIONS FOR PROCEDURE: The patient is a 55-year-old woman who sustained a fall, and an unstable subtrochanteric femur fracture. She has had prior knee surgery and also developed a knee effusion. She and I discussed risks and benefits of proceeding to the Operating Room. I talked to her about the very unstable fracture and that these require fixation, with the option for nonoperative treatment being bed rest. I do not recommend the bed rest due to the high risk of bed sores, pneumonia, blood clots, or other complications. We talked about the unstable fracture and that there is a high risk with this fracture pattern of nonunion, hardware failure, need for revision surgery, or other potential surgical or anesthetic complications. All of her questions about surgery were answered and she desired to proceed. I recommended both the intramedullary nail fixation, as well as aspiration of her knee effusion, which potentially would be a knee hemarthrosis. Written consent was obtained. PROCEDURE IN DETAIL: The patient was identified in the preoperative holding area. The correct right hip and right knee were marked by me. She was taken to the Operating Room where general anesthetic was used. She was positioned laterally on a beanbag with the bony prominences well padded. Circumferential prep and drape was used with ChloraPrep, with the limb draped free. An impervious stockinette was used over the lower limb, ups to the level of the knee. Sterile draping was applied circumferentially around the hip. The knee was aspirated first. I used a 16-guage needle on a 30 mL syringe and retrieved about 25 mL of yellow benign, transparent, slightly watery, inflammatory fluid from the knee joint, consistent with osteoarthritis and flare-up of the osteoarthritis after the fall. There was no evidence of hemarthrosis. The hip was approached next. Image intensifier was used, with a large C-arm, through the radiolucent diving board type table. Closed reduction could not be obtained. I proceeded with an open reduction. A lateral incision was made slightly posterior to the greater trochanter, and sharp dissection was used. Bovie electrocautery was used for hemostasis. Self-retaining retractors were placed first, and the bursa was elevated off the posterior aspect of the femur as if for a bipolar arthroplasty, although the incision was extended further distal for open reduction of the fracture. The fracture was very comminuted, but I was able to apply reduction clamps and get a preliminary reduction. I then placed the intramedullary guide pin at the tip of the greater trochanter, for placement of the gamma nail. This was a [place] gamma nail device, and I planned a long nail due to the known instability of her fracture pattern, and obvious instability and subtrochanteric pattern radiographically. The guide pin was repositioned a couple of times to get the correct alignment in the proximal fragment. Reduction was obtained with a turkey claw clamp, around the anterior aspect of the neck fracture. Reduction was difficult to obtain, due to the known stresses. I flexed the hip, to offload the stresses, and despite that I could not get an appropriate reduction, but was able to achieve bony continuity on palpation, and what seemed an acceptable reduction for healing. The guide pin was now placed further into the intramedullary canal. Proximal reaming was performed. The guide pin was placed down the intramedullary canal to the knee joint, and then intramedullary reaming was performed up to size 14.5 mm to accept a 13-mm diameter nail. The guide pin was used as a measuring device, and a 13 x 360-mm nail was chosen to avoid extension into the previously operated knee joint and knee hardware, but to allow satisfactory intramedullary fixation. The intramedullary nail was now placed. Next, the image intensifier was again used in the AP and lateral planes. I used the large C-arm throughout the case, and I interpreted all the images intraoperatively myself. The lateral position was used for better exposure, but it did make lateral views of the hip more difficult to interpret. The turkey claw clamp was again used to facilitate the reduction. A guide pin was now placed through the hole in the proximal nail which is to accept the hip screw device. The guide pin was placed as close to the center-center position of the femoral head as possible, and crossing the intramedullary portion of the femoral neck. The guide pin was measured. Reaming was performed. The 90-mm lag screw was now placed without difficulty. It was locked proximally for secure fixation of the fracture. A single locking screw was now placed in a freehand technique in the distal portion of the nail, in the static hole. Satisfactory reduction and fixation was obtained. Images in the AP and lateral planes again showed not perfectly anatomic reduction, but acceptable reduction regarding healing. Copious irrigation was used. The incision was now closed in layers with #1 Vicryl, 2-0 Vicryl, and theresa. Needle and sponge counts were correct. There were no apparent complications. Sanjay Johansen MD DR: [email or web address] JOB#: [id number] / [id number]
== END 2016-05-26 16:55 | disposition home health service (06) | DRG 481 ==
LOC: ER 10:52 → ED HOLD 12:09 → 4 NORTH 14:39
PROVIDERS: ADMIT Internal Medicine; ATTEND Internal Medicine
PROC: 0S9C0ZZ Drainage of Right Knee Joint, Open Approach (ICD-10-PCS; 2016-05-23)
PROC: 0QS606Z Reposition Right Upper Femur with Intramedullary Internal Fixation Device, Open Approach (ICD-10-PCS; principal; 2016-05-23 14:15)
PROC: 30233N1 Transfusion of Nonautologous Red Blood Cells into Peripheral Vein, Percutaneous Approach (ICD-10-PCS; 2016-05-24)
DX: S72.141A Displaced intertrochanteric fracture of right femur, initial encounter for closed fracture (principal); D62 Acute posthemorrhagic anemia; E87.1 Hypo-osmolality and hyponatremia; Z96.659 Presence of unspecified artificial knee joint; I10 Essential (primary) hypertension; Z87.11 Personal history of peptic ulcer disease; K21.9 Gastro-esophageal reflux disease without esophagitis; J44.9 Chronic obstructive pulmonary disease, unspecified; B19.20 Unspecified viral hepatitis C without hepatic coma; F10.20 Alcohol dependence, uncomplicated; F12.10 Cannabis abuse, uncomplicated; D64.9 Anemia, unspecified; F17.210 Nicotine dependence, cigarettes, uncomplicated; E61.1 Iron deficiency; E87.6 Hypokalemia; M17.31 Unilateral post-traumatic osteoarthritis, right knee; S50.02XA Contusion of left elbow, initial encounter; S72.21XA Displaced subtrochanteric fracture of right femur, initial encounter for closed fracture; W01.0XXA Fall on same level from slipping, tripping and stumbling without subsequent striking against object, initial encounter; M19.90 Unspecified osteoarthritis, unspecified site; Y93.89 Activity, other specified; Y92.89 Other specified places as the place of occurrence of the external cause; Z91.041 Radiographic dye allergy status; Z98.51 Tubal ligation status; Z90.49 Acquired absence of other specified parts of digestive tract; Y99.8 Other external cause status; Z22.322 Carrier or suspected carrier of Methicillin resistant Staphylococcus aureus
CPT/HCPCS: 36415; 71010; 73502; 73552; 76000; 80048; 81001; 82306; 82607; 82728; 82746; 83540; 83550; 85007; 85014; 85018; 85027; 86850; 86900; 86901; 86920; 87641; 87804; 90686; 94250; 96374; 96375; 96376; A4215; C1713; C1887; G0481; J1100; J1650; J1756; J2250; J2270; J2405; J2704; J2710; J3010; J3370; J3490; J7030; J7050; J7120; P9016; S0028; 97116; 99285-25

== ENCOUNTER 2016-06-05 06:03 | Inpatient (IN) | payer OTHER ==
[~2016-06-05] VITALS: Ht 160 cm; Wt 55.1 kg
--- NOTE | 2016-06-05 06:31 | PHYS DOC ---
Past Medical History Past Medical History: COPD, GERD, P.U.D., Other Additional Past Medical Histor: hepatitis c Past Surgical History: Cholecystectomy, Knee Replacement, Tubal ligation Additional Past Surgical Histo: right knee, Ex lap for perforated duodenal ulcer, rt hip Alcohol Use: Heavy Drug Use: Marijuana Adult General Chief Complaint Chief Complaint: WOUND CHECK HPI HPI Patient is a 55 year old female who presents with right leg pain, swelling and redness. She states the swelling is been going on since she got home about a week ago and she's noticed some mild drainage out of the wound over the last several days. She states her whole knee and leg swollen but she's been keeping it elevated to keep the swelling down. She states it's getting more painful over the last several days it hurts to even move her leg. She denies any fevers chills nausea or vomiting. Review of Systems Review of Systems Constitutional: Denies fever or chills [] Eyes: Denies change in visual acuity, redness, or eye pain [] HENT: Denies nasal congestion or sore throat [] Respiratory: Denies cough or shortness of breath [] Cardiovascular: No additional information not addressed in HPI [] GI: Denies abdominal pain, nausea, vomiting, bloody stools or diarrhea [] : Denies dysuria or hematuria [] Musculoskeletal: Denies back pain, positive for right hip pain and leg pain Integument: Denies rash or skin lesions [] Neurologic: Denies headache, focal weakness or sensory changes [] Endocrine: Denies polyuria or polydipsia [] Current Medications Current Medications Current Medications Medications (Trade) Dose Ordered Sig/Eliezer Start Time Stop Time Status Last Admin Dose Admin Morphine Sulfate 4 mg PRN Q15MIN PRN 06/05/16 06:45 06/06/16 06:44 06/05/16 07:46 4 MG Allergies Allergies Allergies Coded Allergies Type Severity Reaction Last Updated Verified erythromycin base Allergy Intermediate hives 05/23/16 Yes I S O L A T I O N *CONTACT* Allergy Unknown 05/23/16 Yes Physical Exam Physical Exam Constitutional: Well developed, well nourished, no acute distress, non-toxic appearance. [] HENT: Normocephalic, atraumatic, bilateral external ears normal, oropharynx moist, no oral exudates, nose normal. [] Eyes: PERRLA, EOMI, conjunctiva normal, no discharge. [] Neck: Normal range of motion, no tenderness, supple, no stridor. [] Cardiovascular:Heart rate regular rhythm, no murmur [] Lungs & Thorax: Bilateral breath sounds clear to auscultation [] Abdomen: Bowel sounds normal, soft, no tenderness, no masses, no pulsatile masses. [] Skin: Warm, dry, erythema noted around the incision site on the right lateral hip. [] Back: No tenderness, no CVA tenderness. [] Extremities: Otilio in place without any signs of bleeding, erythematous around the incision site with tender to palpation, pain with movement of the right hip, entire leg with 2+ edema in addition to effusion on the knee. No cyanosis, no clubbing. [] Neurologic: Alert and oriented X 3, normal motor function, normal sensory function, no focal deficits noted. [] Psychologic: Affect normal, judgement normal, mood normal. [] Current Patient Data Vital Signs Vital Signs Date Time Temp Pulse Resp B/P Pulse Ox O2 Delivery O2 Flow Rate FiO2 06/05/16 06:43 16 Room Air 06/05/16 06:06 97.6 92 152/80 97 97.6 Lab Values Laboratory Tests Test 06/05/16 06:20 White Blood Count 6.0x10^3/uL (4.0-11.0) Red Blood Count 4.25x10^6/uL (3.50-5.40) Hemoglobin 11.2g/dL (12.0-15.5) L Hematocrit 34.6% (36.0-47.0) L Mean Corpuscular Volume 81fL (79-100) Mean Corpuscular Hemoglobin 26pg (25-35) Mean Corpuscular Hemoglobin Concent 32g/dL (31-37) Red Cell Distribution Width 27.9% (11.5-14.5) H Platelet Count 904x10^3/uL (140-400) *H Neutrophils (%) (Auto) 51% (31-73) Lymphocytes (%) (Auto) 29% (24-48) Monocytes (%) (Auto) 13% (0-9) H Eosinophils (%) (Auto) 3% (0-3) Basophils (%) (Auto) 3% (0-3) Neutrophils # (Auto) 3.1x10^3uL (1.8-7.7) Lymphocytes # (Auto) 1.8x10^3/uL (1.0-4.8) Monocytes # (Auto) 0.8x10^3/uL (0.0-1.1) Eosinophils # (Auto) 0.2x10^3/uL (0.0-0.7) Basophils # (Auto) 0.2x10^3/uL (0.0-0.2) Segmented Neutrophils % 59% (35-66) Lymphocytes % 26% (24-48) Monocytes % 8% (0-10) Eosinophils % 1% (0-5) Basophils % 5% (0-3) H Myelocytes % 1% (0-0) H Platelet Estimate Increased (ADEQUATE) Large Platelets Occ Giant Platelets Occ Anisocytosis Marked Prothrombin Time 12.7SEC (11.7-14.0) Prothrombin Time INR 1.0 (0.8-1.1) PTT 28SEC (24-38) Sodium Level 143mmol/L (136-145) Potassium Level 2.8mmol/L (3.5-5.1) *L Chloride Level 103mmol/L (98-107) Carbon Dioxide Level 27mmol/L (21-32) Anion Gap 13 (6-14) Blood Urea Nitrogen 4mg/dL (7-20) L Creatinine 0.5mg/dL (0.6-1.0) L Estimated GFR (Cockcroft-Gault) 127.2 BUN/Creatinine Ratio 8 (6-20) Glucose Level 86mg/dL (70-99) Calcium Level 8.6mg/dL (8.5-10.1) Magnesium Level 1.9mg/dL (1.8-2.4) Total Bilirubin 0.5mg/dL (0.2-1.0) Aspartate Amino Transferase (AST) 40U/L (15-37) H Alanine Aminotransferase (ALT) 28U/L (14-59) Alkaline Phosphatase 105U/L (46-116) C-Reactive Protein, Quantitative 5.1mg/L (0-3.3) H Total Protein 8.1g/dL (6.4-8.2) Albumin 2.8g/dL (3.4-5.0) L Albumin/Globulin Ratio 0.5 (1.0-1.7) L Laboratory Tests 06/05/16 06:20 Laboratory Tests 06/05/16 06:20 EKG EKG [] Radiology/Procedures Radiology/Procedures [] Impressions: Right hip pain Erythema around incision site on the right hip Hypokalemia Thrombocytosis Course & Med Decision Making Course & Med Decision Making Pertinent Labs and Imaging studies reviewed. (See chart for details) Spoke with Dr. Allan or guarding admission for Dr. Davis. Also spoke with Dr. Sood who recommended starting the vancomycin at this time and consult ID. He also wants ESR and CRP obtained. I added these labs on. Spoke with Dr. Fernandes who wanted to hold off on antibiotics until he saw the patient. I had ordered vancomycin initially, but now DC'd this order per Dr. Fernandes's request. I have also added on x-rays of the right femur and right hip. Ultrasound of the right lower extremity is also pending at this time. Patient's in stable condition being admitted to Dr. Davis. Interim orders have been started. Initial labs showed thrombocytosis and hypokalemia. I've added on a magnesium level and started IV replacement of potassium. Dragon Disclaimer Dragon Disclaimer This electronic medical record was generated, in whole or in part, using a voice recognition dictation system. Departure Departure Impression: Primary Impression: Right hip pain Additional Impression: Cellulitis Disposition: ADMITTED INPATIENT Admitting Physician: Lucía Davis Condition: STABLE Referrals: PIERO ALMENDAREZ MD (PCP) Problem Qualifiers Additional Impression: Cellulitis Site of cellulitis of extremity: lower extremity Laterality: right ALMA TEMPLE MD Jun 05, 2016 06:31
[2016-06-05] MEDS: MORPHINE SULFATE 4 MG/ML DISP.SYRIN. IV/SQ PRN ×2 (06:43→07:46)
[2016-06-05 06:54] LABS: BASO # 0.2 x10^3/uL (0.0-0.2); BASO % 3 % (0-3); EOS % 3 % (0-3); HEMATOCRIT 34.6 % (36.0-47.0); HEMOGLOBIN 11.2 g/dL (12.0-15.5); LYMPH # 1.8 x10^3/uL (1.0-4.8); LYMPH % 29 % (24-48); MEAN CORPUSCULAR HEMOGLOBIN 26 pg (25-35); MEAN CORPUSCULAR HGB CONC 32 g/dL (31-37); MEAN CORPUSCULAR VOLUME 81 fL (79-100); MONO % 13 % (0-9); NEUT % 51 % (31-73); RED BLOOD COUNT 4.25 x10^6/uL (3.50-5.40); RED CELL DISTRIBUTION WIDTH 27.9 % (11.5-14.5)
[2016-06-05 07:08] LABS: ALBUMIN 2.8 g/dL (3.4-5.0); ALBUMIN/GLOBULIN RATIO 0.5 (1.0-1.7); CALCIUM 8.6 mg/dL (8.5-10.1); CREATININE 0.5 mg/dL (0.6-1.0); GFR 127.2; TOTAL BILIRUBIN 0.5 mg/dL (0.2-1.0); TOTAL PROTEIN 8.1 g/dL (6.4-8.2)
[2016-06-05 07:09] LABS: PROTHROMBIN TIME PATIENT 12.7 SEC (11.7-14.0)
[2016-06-05 07:10] LABS: POTASSIUM 2.8 mmol/L (3.5-5.1)
[2016-06-05 07:23] LABS: PLATELET COUNT 904 x10^3/uL (140-400)
[2016-06-05] MEDS ORDERED: VANCOMYCIN PER PHARMACY MC PRN (07:30)
[2016-06-05 07:32] LABS: % BASOS 5 % (0-3); % EOS 1 % (0-5); PLT ESTIMATE INCREASED (ADEQUATE)
[2016-06-05 07:35] LABS: ANISOCYTOSIS MARKED
--- NOTE | 2016-06-05 07:39 | RAD ---
Exam performed: Right lower extremity venous Doppler. Clinical Indication: Right leg pain and swelling with redness Date of Service:06/05/16 Comparison : None available Discussion: Multiple longitudinal and transverse high resolution real-time images of the venous system of right lower extremity were obtained with color and Doppler sampling and spectral analysis. The common femoral, superficial femoral, popliteal and proximal calf veins are all patent and demonstrate normal flow and compressibility. Normal respiratory phasicity and augmentation is present. Impression: Normal color duplex ultrasound of the venous system of right lower extremity.
[2016-06-05] MEDS ORDERED: VANCOMYCIN 1.25 GM in IV NORMAL SALINE 250ML 250 ML IV ONE ×2 (07:45→11:30)
[2016-06-05] MEDS: POTASSIUM CHLORIDE 10MEQ 100 ML IV SCH ×4 (07:47→11:15)
--- NOTE | 2016-06-05 08:13 | RAD ---
Exam performed: X-ray right hip and femur 2 views. History: 2 weeks postoperative from right hip fracture. Date of service: 06/05/16. Comparison: X-ray right hip with pelvis and right femur from 05/22/16. Findings: AP and lateral view of the right femur and right hip are obtained. Interval open reduction and internal fixation of a previously seen intertrochanteric fracture of the right femur. Intertrochanteric fracture of the right proximal femur is noted, stabilized by an intramedullary didier traverses the majority length of the femur. There is a single screw distally. The hip joint is preserved. There are degenerative changes about the right knee joint. Postoperative changes of previous ACL repair seen in the right knee. Impression: Status post open reduction and internal fixation of a comminuted intertrochanteric fracture of the right femur.
[2016-06-05 08:30] VITALS: BP 142/79
--- NOTE | 2016-06-05 10:34 | PDOC ---
Infectious Disease Note ROS ROS GEN: Denies fevers, chills, sweats HEENT: Denies blurred vision, sore throat CV: Denies chest pain RESP: Denies shortness of air, cough GI: Denies n/v/d NEURO: Denies confusion, dizziness MSK: Denies weakness, joint pain/swelling Vital Sign Vital Signs Vital Signs Date Time Temp Pulse Resp B/P Pulse Ox O2 Delivery O2 Flow Rate FiO2 06/05/16 09:46 Room Air 06/05/16 07:46 18 97 06/05/16 07:30 100 144/80 06/05/16 06:06 97.6 97.6 Physical Exam PHYSICAL EXAM GENERAL: NAD, Alert HEENT: PERRL, OC/OP NECK: Supple, no JVD, no LN LUNGS: Clear HEART: S1S2, no gallop, no murmur ABD: Soft, NT, no organomegaly, no rebound EXT: No edema, no cyanosis [employer]: Alert, oriented x 3, no focal neurologic deficit SKIN: No rash IV: ok Labs Lab Laboratory Tests Test 06/05/16 06:20 White Blood Count 6.0x10^3/uL (4.0-11.0) Red Blood Count 4.25x10^6/uL (3.50-5.40) Hemoglobin 11.2g/dL (12.0-15.5) Hematocrit 34.6% (36.0-47.0) Mean Corpuscular Volume 81fL (79-100) Mean Corpuscular Hemoglobin 26pg (25-35) Mean Corpuscular Hemoglobin Concent 32g/dL (31-37) Red Cell Distribution Width 27.9% (11.5-14.5) Platelet Count 904x10^3/uL (140-400) Neutrophils (%) (Auto) 51% (31-73) Lymphocytes (%) (Auto) 29% (24-48) Monocytes (%) (Auto) 13% (0-9) Eosinophils (%) (Auto) 3% (0-3) Basophils (%) (Auto) 3% (0-3) Neutrophils # (Auto) 3.1x10^3uL (1.8-7.7) Lymphocytes # (Auto) 1.8x10^3/uL (1.0-4.8) Monocytes # (Auto) 0.8x10^3/uL (0.0-1.1) Eosinophils # (Auto) 0.2x10^3/uL (0.0-0.7) Basophils # (Auto) 0.2x10^3/uL (0.0-0.2) Segmented Neutrophils % 59% (35-66) Lymphocytes % 26% (24-48) Monocytes % 8% (0-10) Eosinophils % 1% (0-5) Basophils % 5% (0-3) Myelocytes % 1% (0-0) Platelet Estimate Increased (ADEQUATE) Large Platelets Occ Giant Platelets Occ Anisocytosis Marked Erythrocyte Sedimentation Rate 35 (0-25) Prothrombin Time 12.7SEC (11.7-14.0) Prothromb Time International Ratio 1.0 (0.8-1.1) Activated Partial Thromboplast Time 28SEC (24-38) Sodium Level 143mmol/L (136-145) Potassium Level 2.8mmol/L (3.5-5.1) Chloride Level 103mmol/L (98-107) Carbon Dioxide Level 27mmol/L (21-32) Anion Gap 13 (6-14) Blood Urea Nitrogen 4mg/dL (7-20) Creatinine 0.5mg/dL (0.6-1.0) Estimated GFR (Cockcroft-Gault) 127.2 BUN/Creatinine Ratio 8 (6-20) Glucose Level 86mg/dL (70-99) Calcium Level 8.6mg/dL (8.5-10.1) Magnesium Level 1.9mg/dL (1.8-2.4) Total Bilirubin 0.5mg/dL (0.2-1.0) Aspartate Amino Transf (AST/SGOT) 40U/L (15-37) Alanine Aminotransferase (ALT/SGPT) 28U/L (14-59) Alkaline Phosphatase 105U/L (46-116) C-Reactive Protein, Quantitative 5.1mg/L (0-3.3) Total Protein 8.1g/dL (6.4-8.2) Albumin 2.8g/dL (3.4-5.0) Albumin/Globulin Ratio 0.5 (1.0-1.7) Objective Assessment Right hip post op wound cellulitis S/p Right hip open intramedullary nail fixation for subtrochanteric fracture. Right knee aspiration. 05/23 H/o + MRSA screen Thrombocytosis - ? reactive Hep C Plan Plan of Care No signs of deep infection or drainage. Will Start Vanc/Cefepime d/w pharm Blood cults in process Await Ortho eval F/u labs/cults Thank you # [id number] AKASH MCCRAY MD Jun 05, 2016 10:34
[2016-06-05 10:39] VITALS: BP_SYST 139; BP_SYST 142; BP_DIAS 77; BP_DIAS 79
[2016-06-05] MEDS: CEFEPIME HCL 1 GM in IV NORMAL SALINE 50ML 50 ML IV SCH ×2 (12:21→23:19)
[2016-06-05] MEDS ORDERED: CYCLOBENZAPRINE 10 MG TABLET. PO PRN (12:45)
[2016-06-05 15:00] VITALS: BP 145/76
[2016-06-05] MEDS: CHOLECALCIFEROL (VITAMIN D3) 5,000 UNIT CAPSULE PO SCH (15:20)
[2016-06-05] MEDS: MORPHINE SULFATE 4 MG/ML DISP.SYRIN. IV PRN ×4 (15:21→23:23)
--- NOTE | 2016-06-05 16:18 | HP ---
ADMIT DATE: 06/05/2016 CHIEF COMPLAINT: Right hip pain. HISTORY OF PRESENT ILLNESS AND HOSPITAL COURSE: This patient is a 55-year-old female who approximately 2 weeks ago had a right total hip replacement. She was convalescing well until the last several days when she began having increasing pain in her hip and felt like she was not progressing as well as she had been. On the day of admission, the patient noted an episode of new bleeding when she woke up in the morning around her right hip, coming from her wounds. She also noted generalized redness and tenderness as well as heat to her right hip incision and had increasing pain with ambulation on her right hip. Due to this constellation of factors, she came to Emergency Room for evaluation. During ER evaluation, the patient was found to have redness consistent with cellulitis along her hip incision and wound. Due to the risk of infection of hardware, she was admitted for IV antibiotics and Orthopedic consultation. PAST MEDICAL HISTORY: Significant for hepatitis C as well as recent right hip replacement, COPD, and osteoarthritis as well as duodenal ulcer. PAST SURGICAL HISTORY: Significant for tubal ligation, cholecystectomy, tonsillectomy and adenoidectomy, and right knee open reduction and internal fixation in 1985. FAMILY HISTORY: Her mother of complications of heart disease. Her father is alive with heart disease. She has a sister who is in good health and a brother who is , but does not elucidate what medical issues her brother may have had. SOCIAL HISTORY: The patient continues to smoke, although she says she is trying to cut down, she is down to 6 cigarettes per day. The patient uses alcohol occasionally, had 2 beers the day prior to admission. The patient is and is on disability. ALLERGIES: The patient exhibits allergies to ERYTHROMYCIN AND PENICILLIN. REVIEW OF SYSTEMS: The patient had been doing well until recent issues with her hip. She denies any cough, cold, congestion, nausea, vomiting, or diarrhea. PHYSICAL EXAMINATION: GENERAL: This is a thin female in no apparent distress. On my exam, she is alert and oriented x 3. HEENT: Benign. NECK: Supple, without JVD or bruit. CARDIAC: Regular rate and rhythm. LUNGS: Clear at this time. ABDOMEN: Soft, nontender, without masses. EXTREMITIES: There was 2+ pulses bilaterally without significant edema. She did have acute redness and tenderness to her right hip with hip incision dry on my exam and intact at this point. ASSESSMENT: 1. Cellulitis of the right hip. 2. Recent history of total right hip replacement. 3. Osteoarthritis. 4. Chronic obstructive pulmonary disease, stable. PLAN: To proceed with Orthopedic consultation, IV antibiotics, and monitor symptoms and mobility during hospitalization. ALISON HARDY MD DR: ALLI/waqar JOB#: [id number] / [id number]
[2016-06-05] MEDS: VANCOMYCIN PER PHARMACY MC PRN (16:42)
--- NOTE | 2016-06-05 17:25 | PDOC ---
Provider Note Provider Note Patient's chart and x-rays reviewed by Dr. You. We are arranging transfer to care to a higher level due to difficult pattern and loss of fixation. We will see her tomorrow. FELICITY PARRA Jun 05, 2016 17:25
[2016-06-05 19:00] VITALS: BP 160/80
[2016-06-05] MEDS: VANCOMYCIN 750 MG in IV NORMAL SALINE 250ML 250 ML IV SCH (21:42)
[2016-06-05 23:00] VITALS: BP 173/93
[2016-06-06] MEDS: MORPHINE SULFATE 4 MG/ML DISP.SYRIN. IV PRN ×5 (01:54→16:27)
--- NOTE | 2016-06-06 02:33 | ACF ---
Admission Forms Criteria CELLULITIS Clinical Indications for Admission to Inpatient Care (Place 'X' for any and all applicable criteria): Admission is indicated for ANY ONE of the following(1)(2)(3)(4)(5): [ ]I. Limb-threatening infection [ ]II. High-risk comorbid condition as indicated by ANY ONE of the following: [ ]a) Uncontrolled diabetes (eg, HbA1c greater than 10% (0.1)) [ ]b) Cirrhosis [ ]c) Neutropenia [ ]d) Asplenia [ ]e) Immunosuppression [ ]f) Symptomatic heart failure [ ]III. Failure of outpatient therapy as indicated by ALL of the following: [ ]a) Progression or no improvement after adequate trial (minimum of 48 hours, with longer period for stable lower extremity infection) [ ]b) Adequate antibiotic regimen as indicated by use of ANY ONE of the following: [ ]i) First-generation cephalosporin (e.g., cephalexin) [ ]ii) Antistaphylococcal penicillin (e.g., dicloxacillin) [ ]iii) Penicillin-allergic patient regimen (clindamycin, extended-spectrum fluoroquinolone, or doxycycline) [ ]iv) Resistant organism (eg, methicillin-resistant Staphylococcus aureus) regimen (6) [ ]c) Outpatient intravenous therapy regimen is not appropriate due to ANY ONE of the following. (7)(8)(9)(10): [ ]i) It was tried and was not successful (eg, progression of infection). [ ]ii) It is not available or cannot be arranged in a clinically appropriate time frame (e.g., the next day). [ ]iii) Clinical presentation (eg, acuity of infection, rapidity of progression, confirmed or suspected bacteremia) is judged to require ALL of the following: [ ]1) Immediate initiation of intravenous therapy ( eg, cannot wait for next day) [ ]2) Intensity of patient monitoring and observation (eg, vital sign measurement, checks for infection progression) that cannot be provided at other than inpatient level of care [ ]IV. Mental status changes [ ]V. Bacteremia [ ]. Hemodynamic instability [ ]VII. Suspected necrotizing soft tissue infection (e.g., gas in tissue)(11)( 12) [ ]VIII. Orbital infection (13)(14) [ ]IX. Associated surgical procedure (e.g., abscess drainage, debridement) not amenable to outpatient, emergency department, or observation care [ ]X. Cutaneous gangrene [ ]XI. High fever (temperature greater than 39.5 degrees C (103.1 degrees F) (oral)) not responsive to outpatient, emergency department, or observation care therapy [X]XIII. Inpatient admission required rather than observation care (Also use Cellulitis: Observation Care as appropriate) because of ANY ONE of the following : [ ]a) Periorbital or perineal infection that is severe or worsening [ ]b) Severe pain requiring acute inpatient management [ ]c) IV fluid to replace significant ongoing (e.g., for over 24 hours) losses (greater than 3L/m2 per day) [ ]d) Compartment syndrome monitoring (17) [ ]e) Strict or protective (eg, laminar flow) isolation [ ]f) Urgent debridement or skin grafting [ ]g) Bone or joint debridement [ ]h) Immediate inpatient surgery [X]i) Other condition, treatment or monitoring requiring inpatient admission Extended stay beyond goal length of stay may be needed for (1)(18): [ ]a) Necrotizing soft tissue infection or fasciitis [ ]b) Gram-negative infection [ ]c) Methicillin-resistant Staphylococcal aureus (MRSA) infection [ ]d) Peripheral venous insufficiency with cellulitis [ ]e) Extensive edema [ ]f) Sepsis or continued Hemodynamic instability [ ]g) Continued high fever or mental status change [ ]h) Bacteremia [ ]i) Active serious comorbid conditions ( eg, heart failure, renal insufficiency) The original [employer] content created by [employer] has been revised. The portions of the content which have been revised are identified through the use of italic text or in bold, and [facility] has neither reviewed nor approved the modified material. All other unmodified content is copyright [facility] Please see references footnoted in the original [facility] edition 2016 Admission Criteria Met?: Yes ELVIN ARZOLA Jun 06, 2016 02:33
[2016-06-06 03:00] VITALS: BP 176/86
--- NOTE | 2016-06-06 03:08 | CONS ---
DATE OF CONSULTATION: 06/05/2016 ROOM: 434 REQUESTING PHYSICIAN: Dr. Johansen. REASON FOR CONSULTATION: Questionable hip infection. HISTORY OF PRESENT ILLNESS: The patient is a pleasant 55-year-old female who fractured her right hip in mid May, was taken to the operating room by Dr. Johansen on 05/23/2016, underwent a right hip open IM nail fixation for a subtrochanteric fracture, also underwent a right knee aspiration. There were no cultures obtained. She subsequently was discharged home. She does have a history of hepatitis C and peptic ulcer disease as well as previous perforation. While at home, she states she has had a steady increasing burning of her incision and had some yellow clear drainage on and off, but this morning awakened and noticed more bleeding around the area. She has had some subjective fevers and chills and presented to [facility] secondary to concerns of bleeding. I was contacted from the Emergency Room. Vancomycin had been ordered, but I have requested that they hold the vancomycin until I could evaluate the wound appropriately. Currently, she is lying in the bed. She is more comfortable. She has not been on any narcotic pain meds at home. She states she has been taking some ibuprofen. She has had occasional headaches. No gross sinus issues. No sore throat or cough or chest pain. She has had some constipation. Denies any dysuria, frequency, urgency and denies any other trauma. She states that her hip initially was broken as she slipped on a carpet and fell against her bed and had a friend of her fall on top of her. PAST MEDICAL HISTORY: Positive for peptic ulcer disease, hepatitis C, alcohol abuse, COPD, protein malnutrition, gastroesophageal reflux disease, osteoporosis, shingles, ectopic , history of previous right knee effusions as well as a history of a perforated viscus. PAST SURGICAL HISTORY: Positive for tubal ligation, tonsillectomy, the above-mentioned IM didier placement and repair of the abdominal perforation with exploratory lap and cholecystectomy with duodenal ulcer repair on 09/24/2015. REVIEW OF SYSTEMS: Otherwise negative except for what is mentioned above. ALLERGIES: LISTED ERYTHROMYCIN BASE. SOCIAL HISTORY: She is , has a history of being homeless, smoker, previous alcohol as well as substance abuse. FAMILY HISTORY: Noncontributory. CURRENT MEDICATIONS: Included potassium, morphine. Other meds are available and reviewed in the chart. PHYSICAL EXAMINATION: VITAL SIGNS: She has been afebrile, temperature 97.6, respiratory rate 18, pulse 100, blood pressure 144/80, satting 97% on room air. CONSTITUTIONAL: She is alert, cooperative. She is in no acute distress. HEENT: Pupils are equal and reactive. Oral cavity, pharynx is clear. NECK: Supple, no JVD. LUNGS: Clear to auscultation bilaterally. HEART: S1, S2, without murmur. ABDOMEN: Soft, nontender, nondistended with positive bowel sounds. EXTREMITIES: No clubbing, cyanosis. Trace lower extremity edema. SKIN: Warm to touch without signs of rash. She has an incision with theresa in place over her right hip. She has erythema about the length of the incision. It is warm to touch. There is no fluctuance. There is no drainage that can be expressed. There is minimal pain on the superficial area, no deep pain. No significant pain when she moves her hip. NEUROLOGIC: She is nonfocal, moves all extremities. PSYCHIATRIC: Affect is appropriate. LABORATORY DATA: White count 6, hemoglobin of 11.2, platelets of 904, neutrophils 51, lymphs 29, monos are 13. Sed rate was 35. Creatinine of 0.5, glucose of 86 with essentially normal liver tests, history of positive MRSA. Influenza screen on 05/22/2016 was negative. Right lower extremity ultrasound negative for DVT. Femur x-ray shows fixation of comminuted intertrochanteric fracture of the right femur. Hip x-ray is the same. IMPRESSION: 1. Right hip postop wound cellulitis. 2. Status post right hip open IM nail fixation with subtrochanteric fracture and right knee aspiration on 05/23/2016. No cultures obtained at that time. 3. History of MRSA screen. 4. Thrombocytosis, likely reactive. 5. Hepatitis C. RECOMMENDATIONS: For now, there are no signs of any deep infection. There is no drainage even on aggressive palpation. This most likely represents cellulitis. We will start vancomycin and cefepime. This was discussed with pharmacy. Blood cultures have been ordered. Await ortho evaluation. Follow up on labs and cultures. Thank you for allowing me to see and participate in the patient's care. If you have any questions, please do not hesitate to contact me. AKASH MCCRAY MD DR: John JOB#: [id number] / [id number]
[2016-06-06] MEDS: VANCOMYCIN 750 MG in IV NORMAL SALINE 250ML 250 ML IV SCH ×2 (03:54→12:54)
[2016-06-06 05:19] LABS: BASO # 0.2 x10^3/uL (0.0-0.2); BASO % 2 % (0-3); EOS % 3 % (0-3); HEMATOCRIT 30.6 % (36.0-47.0); HEMOGLOBIN 9.6 g/dL (12.0-15.5); LYMPH # 1.5 x10^3/uL (1.0-4.8); LYMPH % 20 % (24-48); MEAN CORPUSCULAR HEMOGLOBIN 26 pg (25-35); MEAN CORPUSCULAR HGB CONC 31 g/dL (31-37); MEAN CORPUSCULAR VOLUME 84 fL (79-100); MONO % 12 % (0-9); NEUT % 63 % (31-73); PLATELET COUNT 762 x10^3/uL (140-400); RED BLOOD COUNT 3.65 x10^6/uL (3.50-5.40); RED CELL DISTRIBUTION WIDTH 27.4 % (11.5-14.5)
[2016-06-06 05:34] LABS: CALCIUM 8.7 mg/dL (8.5-10.1); CREATININE 0.4 mg/dL (0.6-1.0); GFR 164.5
[2016-06-06] MEDS: CEFEPIME HCL 1 GM in IV NORMAL SALINE 50ML 50 ML IV SCH ×2 (06:00→12:55)
[2016-06-06 07:00] VITALS: BP 147/90
[2016-06-06] MEDS ORDERED: PANTOPRAZOLE 40 MG TABLET. PO SCH (07:30)
[2016-06-06] MEDS: CHOLECALCIFEROL (VITAMIN D3) 5,000 UNIT CAPSULE PO SCH (09:01)
[2016-06-06] MEDS ORDERED: HYDROCODONE/APAP 7.5/325MG TABLET. PO PRN (09:15)
[2016-06-06 09:21] LABS: ANISOCYTOSIS PRESENT; PLT ESTIMATE INCREASED (ADEQUATE); WHITE BLOOD COUNT 7.3 x10^3/uL (4.0-11.0)
[2016-06-06 09:22] LABS: POLYCHROMASIA PRESENT
--- NOTE | 2016-06-06 10:36 | PDOC ---
Infectious Disease Note Subjective Subjective Some better. Less fever. hi still choudhury but less. Drainage ROS ROS GEN: Denies fevers, chills, sweats HEENT: Denies blurred vision, sore throat CV: Denies chest pain RESP: Denies shortness of air, cough GI: Denies n/v/d NEURO: Denies confusion, dizziness MSK: Denies weakness, joint pain/swelling Vital Sign Vital Signs Vital Signs Date Time Temp Pulse Resp B/P Pulse Ox O2 Delivery O2 Flow Rate FiO2 06/06/16 10:33 Room Air 06/06/16 07:00 97.5 87 16 147/90 90 97.5 Physical Exam PHYSICAL EXAM GENERAL: NAD, Alert, coop HEENT: PERRL, OC/OP- clear NECK: Supple, no JVD, no LN LUNGS: Clear HEART: S1S2, no gallop, no murmur ABD: Soft, NT, no organomegaly, no rebound EXT: No edema, no cyanosis. Right hip with less erythema and warmth but has serosangious drainage at superior aspect today SPECIFICATIONS WRITER: Alert, oriented x 3, no focal neurologic deficit SKIN: No rash IV: ok Labs Lab Laboratory Tests Test 06/06/16 05:00 White Blood Count 7.3x10^3/uL (4.0-11.0) Red Blood Count 3.65x10^6/uL (3.50-5.40) Hemoglobin 9.6g/dL (12.0-15.5) Hematocrit 30.6% (36.0-47.0) Mean Corpuscular Volume 84fL (79-100) Mean Corpuscular Hemoglobin 26pg (25-35) Mean Corpuscular Hemoglobin Concent 31g/dL (31-37) Red Cell Distribution Width 27.4% (11.5-14.5) Platelet Count 762x10^3/uL (140-400) Neutrophils (%) (Auto) 63% (31-73) Lymphocytes (%) (Auto) 20% (24-48) Monocytes (%) (Auto) 12% (0-9) Eosinophils (%) (Auto) 3% (0-3) Basophils (%) (Auto) 2% (0-3) Neutrophils # (Auto) 4.6x10^3uL (1.8-7.7) Lymphocytes # (Auto) 1.5x10^3/uL (1.0-4.8) Monocytes # (Auto) 0.9x10^3/uL (0.0-1.1) Eosinophils # (Auto) 0.2x10^3/uL (0.0-0.7) Basophils # (Auto) 0.2x10^3/uL (0.0-0.2) Platelet Estimate Increased (ADEQUATE) Polychromasia Present Anisocytosis Present Sodium Level 138mmol/L (136-145) Potassium Level 5.0mmol/L (3.5-5.1) Chloride Level 104mmol/L (98-107) Carbon Dioxide Level 25mmol/L (21-32) Anion Gap 9 (6-14) Blood Urea Nitrogen 8mg/dL (7-20) Creatinine 0.4mg/dL (0.6-1.0) Estimated GFR (Cockcroft-Gault) 164.5 Glucose Level 96mg/dL (70-99) Calcium Level 8.7mg/dL (8.5-10.1) Objective Assessment Right hip post op wound cellulitis S/p Right hip open intramedullary nail fixation for subtrochanteric fracture. Right knee aspiration. 05/23 H/o + MRSA screen Thrombocytosis - ? reactive - better Hep C Plan Plan of Care Cont Vanc/Cefepime Blood cults in process To be Transferred to for higher level of care AKASH MCCRAY MD Jun 06, 2016 10:36
[2016-06-06 11:00] VITALS: BP 157/86
[2016-06-06] MEDS ORDERED: IPRATRPIUM/ALBUTEROL 0.5/2.5MG 3 ML NEBU. NEB SCH (12:00)
[2016-06-06] MEDS: VANCOMYCIN PER PHARMACY MC PRN (13:10)
[2016-06-06 13:14] LABS: ALBUMIN 2.5 g/dL (3.4-5.0); ALBUMIN/GLOBULIN RATIO 0.6 (1.0-1.7); CALCIUM 8.8 mg/dL (8.5-10.1); CREATININE 0.5 mg/dL (0.6-1.0); GFR 127.2; POTASSIUM 4.6 mmol/L (3.5-5.1); TOTAL BILIRUBIN 0.6 mg/dL (0.2-1.0); TOTAL PROTEIN 6.7 g/dL (6.4-8.2)
[2016-06-06] MEDS ORDERED: IPRA3AMP NEB (13:45)
[2016-06-06] MEDS ORDERED: HYDR-2762 PO (13:45)
[2016-06-06 15:00] VITALS: BP 134/80
== END 2016-06-06 16:35 | disposition short-term general hospital (02) | DRG 863 ==
LOC: ER 06:03 → 4 NORTH 07:00
PROVIDERS: ADMIT Family Medicine; ATTEND Family Medicine
DX: T81.4XXA Infection following a procedure, initial encounter (principal); L03.115 Cellulitis of right lower limb; E44.1 Mild protein-calorie malnutrition; B19.20 Unspecified viral hepatitis C without hepatic coma; D75.89 Other specified diseases of blood and blood-forming organs; F17.210 Nicotine dependence, cigarettes, uncomplicated; J44.9 Chronic obstructive pulmonary disease, unspecified; Z96.641 Presence of right artificial hip joint; Z96.659 Presence of unspecified artificial knee joint; K21.9 Gastro-esophageal reflux disease without esophagitis; M19.90 Unspecified osteoarthritis, unspecified site; M81.0 Age-related osteoporosis without current pathological fracture; Z87.11 Personal history of peptic ulcer disease; Z88.0 Allergy status to penicillin; Z90.49 Acquired absence of other specified parts of digestive tract
CPT/HCPCS: 36415; 73502; 73552; 80048; 80053; 80202; 83735; 85007; 85027; 85610; 85651; 85730; 86140; 87040; 93971; 94250; 94640; 94760; 96374; 96376; J0692; J2270; J3370; J3480; J7050; J7620; 99285-25; J7030

== ENCOUNTER 2017-10-28 15:01 | Inpatient (IN) | payer OTHER ==
[2017-10-28] MEDS ORDERED: IV NORMAL SALINE 1000ML BAG 1,000 ML IV (15:15)
[2017-10-28 15:36] LABS: ADD MAN DIFF? NO
[2017-10-28 15:39] LABS: BASO % 0 % (0-3); EOS % 0 % (0-3); HEMATOCRIT 41.6 % (36.0-47.0); HEMOGLOBIN 14.6 g/dL (12.0-15.5); LYMPH # 0.6 x10^3/uL (1.0-4.8); LYMPH % 9 % (24-48); MEAN CORPUSCULAR HEMOGLOBIN 34 pg (25-35); MEAN CORPUSCULAR HGB CONC 35 g/dL (31-37); MEAN CORPUSCULAR VOLUME 96 fL (79-100); MONO # 0.6 x10^3/uL (0.0-1.1); MONO % 8 % (0-9); NEUT % 83 % (31-73); PLATELET COUNT 398 x10^3/uL (140-400); RED BLOOD COUNT 4.36 x10^6/uL (3.50-5.40); RED CELL DISTRIBUTION WIDTH 15.7 % (11.5-14.5); WHITE BLOOD COUNT 7.3 x10^3/uL (4.0-11.0)
[2017-10-28] MEDS: MULTIVIT INFUSN,ADULT 4,VIT K 10 ML, THIAMINE 100 MG, FOLIC ACID 1 MG in IV NORMAL SALI... IV ×2 (15:50→23:07)
[2017-10-28 15:58] LABS: ETHANOL 20 mg/dL (0-10)
[2017-10-28 16:04] LABS: ALBUMIN 3.6 g/dL (3.4-5.0); ALBUMIN/GLOBULIN RATIO 0.7 (1.0-1.7); ALK PHOS 93 U/L (46-116); ALT (SGPT) 99 U/L (14-59); ANION GAP 19 (6-14); AST (SGOT) 122 U/L (15-37); BLOOD UREA NITROGEN 5 mg/dL (7-20); BUN/CREATININE RATIO 8 (6-20); CALCIUM 9.3 mg/dL (8.5-10.1); CARBON DIOXIDE 23 mmol/L (21-32); CHLORIDE 85 mmol/L (98-107); CREATININE 0.6 mg/dL (0.6-1.0); GFR 102.7; GLUCOSE 117 mg/dL (70-99); LIPASE 92 U/L (73-393); SODIUM 127 mmol/L (136-145); TOTAL BILIRUBIN 0.6 mg/dL (0.2-1.0); TOTAL PROTEIN 8.7 g/dL (6.4-8.2)
[2017-10-28 16:08] LABS: POTASSIUM 2.8 mmol/L (3.5-5.1)
[2017-10-28] MEDS ORDERED: ONDANSETRON PF 4 MG/2 ML VIAL. IV (16:45)
[2017-10-28] MEDS: POTASSIUM CHLORIDE 20 MEQ TABLET.ER. PO (16:56)
[2017-10-28] MEDS: IV NORMAL SALINE 1000ML BAG 1,000 ML IV ×2 (17:04→22:33)
[2017-10-28 17:27] LABS: BILIRUBIN,URINE NEGATIVE (NEG); CLARITY,URINE CLEAR; COLOR,URINE YELLOW; GLUCOSE,URINE NEGATIVE (NEG); NITRITE,URINE NEGATIVE (NEG); PH,URINE 6.5; PROTEIN,URINE NEGATIVE (NEG-TRACE); UROBILINOGEN,URINE 0.2 mg/dL (0.2 mg/dL)
[2017-10-28 17:35] LABS: BARBITURATES NEG (NEG); BENZODIAZEPINES NEG (NEG); CANNABINOIDS NEG (NEG); COCAINE NEG (NEG); METHADONE NEG (NEG); OPIATES NEG (NEG); PHENCYCLIDINE NEG (NEG)
[2017-10-28 17:36] LABS: AMPHETAMINE/METHAMPHETAMINE NEG (NEG); ETHANOL, URINE NEG (NEG)
[2017-10-28 17:49] LABS: RBC,URINE 0 /HPF (0-2)
[2017-10-28 17:50] LABS: BACTERIA,URINE FEW /HPF (0-FEW); SQUAMOUS EPITHELIAL CELL,UR FEW /LPF
[2017-10-29 07:43] LABS: ADD MAN DIFF? NO
[2017-10-29 07:52] LABS: BASO # 0.1 x10^3/uL (0.0-0.2); BASO % 1 % (0-3); EOS % 1 % (0-3); LYMPH # 1.2 x10^3/uL (1.0-4.8); LYMPH % 22 % (24-48); MEAN CORPUSCULAR HEMOGLOBIN 33 pg (25-35); MEAN CORPUSCULAR HGB CONC 34 g/dL (31-37); MEAN CORPUSCULAR VOLUME 97 fL (79-100); MONO # 0.4 x10^3/uL (0.0-1.1); MONO % 8 % (0-9); NEUT # 3.6 x10^3uL (1.8-7.7); NEUT % 68 % (31-73); PLATELET COUNT 321 x10^3/uL (140-400); RED BLOOD COUNT 3.92 x10^6/uL (3.50-5.40); RED CELL DISTRIBUTION WIDTH 15.9 % (11.5-14.5); WHITE BLOOD COUNT 5.3 x10^3/uL (4.0-11.0)
[2017-10-29 08:15] LABS: ANION GAP 10 (6-14); BLOOD UREA NITROGEN 7 mg/dL (7-20); CALCIUM 8.4 mg/dL (8.5-10.1); CARBON DIOXIDE 27 mmol/L (21-32); CHLORIDE 100 mmol/L (98-107); CREATININE 0.6 mg/dL (0.6-1.0); GFR 102.7; GLUCOSE 83 mg/dL (70-99); POTASSIUM 3.5 mmol/L (3.5-5.1); SODIUM 137 mmol/L (136-145)
[2017-10-29] MEDS: THIAMINE IM 200 MG/2 ML VIAL. IM (08:38)
[2017-10-29] MEDS: FOLIC ACID 1 MG TABLET. PO (08:39)
[2017-10-29] MEDS: MULTIVITAMIN with MINERAL TABLET. PO (08:39)
[2017-10-29] MEDS ORDERED: CALCIUM CARBONATE 500 MG TAB.CHEW PO (09:00)
[2017-10-29] MEDS ORDERED: IBUPROFEN 400 MG TABLET. PO (09:00)
[2017-10-29] MEDS ORDERED: ONDANSETRON PF 4 MG/2 ML VIAL. IV (09:00)
[2017-10-29] MEDS ORDERED: ACETAMINOPHEN 500 MG TABLET PO (09:00)
[2017-10-29] MEDS ORDERED: LABETALOL 20 MG/4 ML DISP.SYRIN. IVP (09:00)
[2017-10-29] MEDS: THIAMINE 100 MG TABLET. PO (09:00)
[2017-10-29] MEDS ORDERED: POLYETHYLENE GLYCOL 3350 17 GM PACKET. PO (09:00)
[2017-10-29] MEDS ORDERED: oxyCODONE IR 5 MG TABLET PO (09:15)
[2017-10-29] MEDS: CHOLECALCIFEROL (VITAMIN D3) 5,000 UNIT CAPSULE PO (09:26)
[2017-10-29] MEDS: FERROUS SULFATE 325 MG TABLET. PO (09:27)
[2017-10-29] MEDS: LOSARTAN POTASSIUM 50 MG TABLET. PO (09:27)
[2017-10-29] MEDS: ASPIRIN 325 MG TABLET PO ×2 (09:27→20:38)
[2017-10-29] MEDS: CYCLOBENZAPRINE 10 MG TABLET. PO ×3 (09:27→21:42)
[2017-10-29] MEDS: IPRATRPIUM/ALBUTEROL 0.5/2.5MG 3 ML NEBU. NEB ×3 (11:14→19:18)
[2017-10-29] MEDS: PANTOPRAZOLE 40 MG TABLET.DR. PO (11:28)
[2017-10-29] MEDS ORDERED: ALBUTEROL SULFATE 2.5 MG/3 ML NEBU. NEB (12:15)
[2017-10-29] MEDS: cloNIDine HCL 0.1 MG TABLET PO ×2 (12:53→20:40)
[2017-10-29] MEDS: hydroCHLOROthiazide 12.5 MG CAPSULE PO (12:53)
[2017-10-29] MEDS: guaiFENesin ORAL 200 MG/10 ML LIQUID. PO ×3 (12:53→20:37)
[2017-10-29] MEDS: HYDROcodone/APAP 5/325MG 1 TAB TABLET PO ×2 (13:02→20:41)
[2017-10-29] MEDS: GADOBUTROL 7.5 MMOL/7.5 ML VIAL IV (16:36)
[2017-10-29 20:18] LABS: MRSA BY PCR Negative (Negative)
[2017-10-30] MEDS: chlordiazePOXIDE HCL 25 MG CAPSULE PO ×2 (00:19→09:20)
[2017-10-30] MEDS: cloNIDine HCL 0.1 MG TABLET PO ×2 (05:59→13:16)
[2017-10-30] MEDS: HYDROcodone/APAP 5/325MG 1 TAB TABLET PO (06:02)
[2017-10-30 06:21] LABS: THYROID STIM HORMONE (TSH) 4.982 uIU/mL (0.358-3.74)
[2017-10-30] MEDS: IPRATRPIUM/ALBUTEROL 0.5/2.5MG 3 ML NEBU. NEB ×2 (07:17→11:34)
[2017-10-30] MEDS: PANTOPRAZOLE 40 MG TABLET.DR. PO (07:44)
[2017-10-30] MEDS: NICOTINE 21MG PATCH. TD (07:44)
[2017-10-30] MEDS: hydroCHLOROthiazide 12.5 MG CAPSULE PO (07:44)
[2017-10-30] MEDS: ASPIRIN 325 MG TABLET PO (07:45)
[2017-10-30] MEDS: guaiFENesin ORAL 200 MG/10 ML LIQUID. PO ×2 (07:45→13:15)
[2017-10-30] MEDS: MULTIVITAMIN with MINERAL TABLET. PO (07:45)
[2017-10-30] MEDS: FOLIC ACID 1 MG TABLET. PO (07:45)
[2017-10-30] MEDS: THIAMINE 100 MG TABLET. PO (07:45)
[2017-10-30] MEDS: FERROUS SULFATE 325 MG TABLET. PO (07:45)
[2017-10-30] MEDS: CYCLOBENZAPRINE 10 MG TABLET. PO (07:45)
[2017-10-30] MEDS: CHOLECALCIFEROL (VITAMIN D3) 5,000 UNIT CAPSULE PO (07:45)
[2017-10-30 08:43] LABS: SEDIMENTATION RATE 10 (0-25)
[2017-10-30] MEDS ORDERED: amLODIPine BESYLATE 5 MG TABLET PO (09:00)
[2017-10-30 09:17] LABS: VITAMIN-B12 576 pg/mL (247-911)
[2017-10-30 09:18] LABS: FOLATE 8.23 ng/ml (3.2-20.0)
[2017-10-30] MEDS: AZITHROMYCIN 250 MG TABLET. PO (11:24)
[2017-10-31] MEDS ORDERED: AZITHROMYCIN 250 MG TABLET. PO (09:00)
[2017-11-01] MEDS ORDERED: ERGOCALCIFEROL (VITAMIN D2) 50,000 UNIT CAPSULE. PO (09:00)
== END 2017-10-30 15:15 | disposition home or self-care (01) | DRG 100 ==
LOC: ER 15:01 → 5 SOUTH 16:20
DX: G40.89 Other seizures (principal); N17.0 Acute kidney failure with tubular necrosis; E87.1 Hypo-osmolality and hyponatremia; E44.0 Moderate protein-calorie malnutrition; J44.0 Chronic obstructive pulmonary disease with (acute) lower respiratory infection; K21.9 Gastro-esophageal reflux disease without esophagitis; Z96.651 Presence of right artificial knee joint; E87.6 Hypokalemia; F17.210 Nicotine dependence, cigarettes, uncomplicated; I10 Essential (primary) hypertension; J20.9 Acute bronchitis, unspecified; F41.9 Anxiety disorder, unspecified; F03.90 Unspecified dementia, unspecified severity, without behavioral disturbance, psychotic disturbance, mood disturbance, and anxiety; K57.90 Diverticulosis of intestine, part unspecified, without perforation or abscess without bleeding; F20.9 Schizophrenia, unspecified; Y90.1 Blood alcohol level of 20-39 mg/100 ml; M17.11 Unilateral primary osteoarthritis, right knee; F10.20 Alcohol dependence, uncomplicated; F12.90 Cannabis use, unspecified, uncomplicated; Z87.11 Personal history of peptic ulcer disease; Z90.49 Acquired absence of other specified parts of digestive tract; Z98.51 Tubal ligation status; Z88.1 Allergy status to other antibiotic agents; Z83.3 Family history of diabetes mellitus; Z68.21 Body mass index [BMI] 21.0-21.9, adult; Z86.010 Personal history of colon polyps; Z91.19 Patient's noncompliance with other medical treatment and regimen; Z79.82 Long term (current) use of aspirin
CPT/HCPCS: 36415; 70450; 70553; 71046; 80048; 80053; 80307; 81001; 82306; 82607; 82746; 83690; 84443; 85025; 85651; 87641; 94640; 94760; 95816; 96361; 96365; 96375; 97161-GP; 99285; 99285-25; 99406; A9585; G0480; J2060; J7030; J7620; Q0144

== ENCOUNTER 2018-07-14 17:51 | Emergency (ER) | payer OTHER ==
[~2018-07-14] VITALS: Ht 160 cm; Wt 53.5 kg
[2018-07-14 17:51] VITALS: BP 173/103
[~2018-07-14 17:51] MED LIST changes: +ALPR0.25 PO; +ASPI325T8 PO; -CHOL500015 PO; +CHOL500045 PO; +CLON0.1T12 PO; +ERGO500027 PO; +FERR325T72 PO; +HYDR-2765 PO; +HYDR12.575 PO; +IPRA3AMP29 NEB; +LOSA-73 PO; -MELO-150 PO; +MELO15TA23 PO; +NAPR-695 PO; -NAPR375T3 PO; +OXYC5TAB4 PO; +POLY17PO28 PO
[2018-07-14 18:26] LABS: BILIRUBIN,URINE NEGATIVE (NEG); CLARITY,URINE CLEAR; COLOR,URINE YELLOW; NITRITE,URINE NEGATIVE (NEG); PH,URINE 6.5; PROTEIN,URINE 30 mg/dL (NEG-TRACE)
[2018-07-14 18:34] LABS: BARBITURATES NEG (NEG); BENZODIAZEPINES NEG (NEG); CANNABINOIDS POS (NEG); COCAINE NEG (NEG); METHADONE NEG (NEG); OPIATES NEG (NEG); PHENCYCLIDINE NEG (NEG)
[2018-07-14 18:36] LABS: AMPHETAMINE/METHAMPHETAMINE NEG (NEG)
[2018-07-14 18:42] LABS: SQUAMOUS EPITHELIAL CELL,UR MANY /LPF
[2018-07-14 18:43] LABS: BACTERIA,URINE MANY /HPF (0-FEW); RBC,URINE 0 /HPF (0-2)
--- NOTE | 2018-07-14 18:59 | PHYS DOC ---
Past Medical History Past Medical History: COPD, GERD, P.U.D., Other Additional Past Medical Histor: hepatitis c, ETOH Past Surgical History: Cholecystectomy, Knee Replacement, Tubal ligation Additional Past Surgical Histo: right knee, Ex lap for perforated duodenal ulcer, rt hip Alcohol Use: Heavy Drug Use: Marijuana Adult General Chief Complaint Chief Complaint: MECHANICAL FALL [facility] HPI Patient is a 57 year old female with history of COPD, current smoker, who presents to the ED today to be evaluated after falling. Patient states she fell down yesterday afternoon. She states she was in her recliner, she states she tried to get up to reach for her walker when she fell forward. Patient denies any loss of consciousness. She has bruising to the right forehead. She is complaining of left hand pain specifically left pinky finger and ring finger, she is also complaining of right knee pain. She rates the pain 8-10 out of 10. She states most of the pain is on weight bearing to the lower extremities. She describes the pain as sharp and intermittent. She appears drunk. She states she has been drinking. This is a chronic problem for patient. Review of Systems Review of Systems Constitutional: Denies fever or chills [] Eyes: Denies change in visual acuity, redness, or eye pain [] HENT: Denies nasal congestion or sore throat [] Respiratory: Denies cough or shortness of breath [] Cardiovascular: No additional information not addressed in HPI [] GI: Denies abdominal pain, nausea, vomiting, bloody stools or diarrhea [] : Denies dysuria or hematuria [] Musculoskeletal: Reports left hand pain, right knee pain. Integument: Denies rash or skin lesions [] Neurologic: Reports falling and hitting the head. Denies headache, focal weakness or sensory changes [] All other systems were reviewed and found to be within normal limits, except as documented in this note. Allergies Allergies Allergies Coded Allergies Type Severity Reaction Last Updated Verified erythromycin base Allergy Intermediate hives 04/10/17 Yes Physical Exam Physical Exam Constitutional: Well developed, well nourished, no acute distress, non-toxic appearance. [] HENT: Normocephalic, atraumatic, bilateral external ears normal, oropharynx moist, no oral exudates, nose normal. [] Eyes: PERRLA, EOMI, conjunctiva normal, no discharge. [] Neck: Normal range of motion, no tenderness, supple, no stridor. [] Cardiovascular:Heart rate regular rhythm, no murmur [] Lungs & Thorax: Bilateral breath sounds clear to auscultation [] Abdomen: Bowel sounds normal, soft, no tenderness, no masses, no pulsatile masses. [] Skin: Warm, dry, no erythema, no rash. [] Back: No tenderness, no CVA tenderness. [] Extremities: Right knee with no obvious deformity. No edema, no ecchymosis, bruising noted on the right guerrero it appears old. Full range of motion to bilateral knees. +2 bilateral pedal pulses. Left hand with no obvious deformity. Full range of motion to the left hand and fingers. +2 left radial pulse. Adequate radial, medial, ulnar sensation to the left hand. +2 left radial pulse. Cap refill less than 2 seconds left fingers. Neurologic: Bruises noted on the right forehead appears old. Alert and oriented X 3, normal motor function, normal sensory function, no focal deficits noted. Cranial nerves II through XII intact Psychologic: Patient appears intoxicated. Current Patient Data Vital Signs Vital Signs Date Time Temp Pulse Resp B/P (MAP) Pulse Ox O2 Delivery O2 Flow Rate FiO2 07/14/18 17:51 98.4 86 24 173/103 (126) 87 Room Air 98.4 Lab Values Laboratory Tests Test 07/14/18 18:00 Urine Collection Type Unknown Urine Color Yellow Urine Clarity Clear Urine pH 6.5 Urine Specific [place] 1.010 Urine Protein 30 mg/dL (NEG-TRACE) Urine Glucose (UA) Negative mg/dL (NEG) Urine Ketones (Stick) Negative mg/dL (NEG) Urine Blood Small (NEG) Urine Nitrite Negative (NEG) Urine Bilirubin Negative (NEG) Urine Urobilinogen Dipstick 1.0 mg/dL (0.2 mg/dL) Urine Leukocyte Esterase Negative (NEG) Urine RBC 0 /HPF (0-2) Urine WBC 5-10 /HPF (0-4) Urine Squamous Epithelial Cells Many /LPF Urine Bacteria Many /HPF (0-FEW) Urine Opiates Screen Neg (NEG) Urine Methadone Screen Neg (NEG) Urine Barbiturates Neg (NEG) Urine Phencyclidine Screen Neg (NEG) Urine Amphetamine/Methamphetamine Neg (NEG) Urine Benzodiazepines Screen Neg (NEG) Urine Cocaine Screen Neg (NEG) Urine Cannabinoids Screen Pos (NEG) Urine Ethyl Alcohol Pos (NEG) EKG EKG [] Radiology/Procedures Radiology/Procedures []PROCEDURE: CT HEAD AND CERVICAL SPINE WO INDICATION: fall, head and neck pain, etoh, prior head sent COMPARISON: CT head October 29, 2017 TECHNIQUE: Axial CT images obtained through the head and cervical spine. One or more of the following individualized dose reduction techniques were utilized for this examination: 1. Automated exposure control; 2. Adjustment of the mA and/or kV according to patient size; 3. Use of iterative reconstruction technique. FINDINGS: Head: No midline shift. Suprasellar cistern is not effaced. Right frontal scalp cephalohematoma. Scattered foci of low density within the white matter. No definite acute intracranial hemorrhage. Cervical spine: Multilevel degenerative changes throughout the cervical spine with central canal and neural foraminal stenosis. Scoliotic curvature. Posterior fusion defects at some of the vertebra. Cystic changes at lung apices. Calcific atherosclerosis. IMPRESSION: 1. No definite acute intracranial hemorrhage. 2. Scattered foci of low density of white matter. Nonspecific but can be seen with chronic small vessel ischemic disease. 3. Degenerative changes throughout the cervical spine with multilevel central canal and neural foraminal stenosis. There is also scoliotic curvature as well as multiple posterior fusion defects. 4. Mild superior endplate loss of height of T2, T3 and T4 vertebral bodies of unknown age. Could be from mild compression deformity but also possible that this is degenerative in nature as well. Electronically signed by: Jermaine Martinez MD (07/14/2018 7:41 PM) [facility] DICTATED and SIGNED BY: JERMAINE MARTINEZ MD DATE: 07/14/181940 Course & Med Decision Making Course & Med Decision Making Pertinent Labs and Imaging studies reviewed. (See chart for details) This is a 57-year-old female patient with history of alcoholism presenting today to be evaluated for 4 she sustained yesterday. She is complaining of left hand pain and right knee pain. She hit her head when she fell. She is denying any head and neck pain. She is complaining of right knee pain and left hand pain. Right knee x-rays, left hand x-rays, right hip x-rays including pelvic and negative for any acute findings. CT of the head is negative for any acute findings, CT of the cervical spine was noted for- Mild superior endplate loss of height of T2, T3 and T4 vertebral bodies of unknown age. Could be from mild compression deformity but also possible that this is degenerative in nature as well. Patient has no neck pain, she is neurologically intact Urine analysis is negative for infection, drug screen noted for alcohol. Patient admitted to drinking. Patient was discharged to home. Follow-up with PCP as well as neurosurgery. Also follow-up with orthopedic doctor. OTC pain relievers. Recommended getting help for alcohol use which patient denied stating she does not need help. Dragon Disclaimer Dragon Disclaimer This electronic medical record was generated, in whole or in part, using a voice recognition dictation system. Departure Departure Impression: Primary Impression: Alcoholism Additional Impressions: Fall from standing Contusion of left hand Contusion of right knee DJD (degenerative joint disease), cervical Disposition: HOME, SELF-CARE Condition: STABLE Referrals: BECKY BONILLA MD (PCP) Follow-up in one week GABRIEL MAY MD follow up in 1-2 weeks Patient Instructions: Alcohol Problems, Contusion, [id number], Fall Prevention and Home Safety Additional Instructions: You were evaluated in the emergency room after falling, we highly recommend you get help for alcohol use. Please establish care with a neurosurgeon provided and follow-up. Also follow up with your primary care doctor next week and your orthopedic doctor Problem Qualifiers Additional Impressions: Fall from standing Encounter type: initial encounter Qualified Codes: W19.XXXA - Unspecified fall, initial encounter Contusion of left hand Encounter type: initial encounter Qualified Codes: S60.222A - Contusion of left hand, initial encounter Contusion of right knee Encounter type: initial encounter Qualified Codes: S80.01XA - Contusion of right knee, initial encounter DJD (degenerative joint disease), cervical Spinal osteoarthritis complication: unspecified spinal osteoarthritis Qualified Codes: M47.812 - Spondylosis without myelopathy or radiculopathy, cervical region GABY [employer]ER [employer] Jul 14, 2018 18:59
--- NOTE | 2018-07-14 19:44 | RAD ---
INDICATION: fall, head and neck pain, etoh, prior head sent COMPARISON: CT head October 29, 2017 TECHNIQUE: Axial CT images obtained through the head and cervical spine. One or more of the following individualized dose reduction techniques were utilized for this examination: 1. Automated exposure control; 2. Adjustment of the mA and/or kV according to patient size; 3. Use of iterative reconstruction technique. FINDINGS: Head: No midline shift. Suprasellar cistern is not effaced. Right frontal scalp cephalohematoma. Scattered foci of low density within the white matter. No definite acute intracranial hemorrhage. Cervical spine: Multilevel degenerative changes throughout the cervical spine with central canal and neural foraminal stenosis. Scoliotic curvature. Posterior fusion defects at some of the vertebra. Cystic changes at lung apices. Calcific atherosclerosis. IMPRESSION: 1. No definite acute intracranial hemorrhage. 2. Scattered foci of low density of white matter. Nonspecific but can be seen with chronic small vessel ischemic disease. 3. Degenerative changes throughout the cervical spine with multilevel central canal and neural foraminal stenosis. There is also scoliotic curvature as well as multiple posterior fusion defects. 4. Mild superior endplate loss of height of T2, T3 and T4 vertebral bodies of unknown age. Could be from mild compression deformity but also possible that this is degenerative in nature as well. Electronically signed by: aDren Iyer MD (07/14/2018 7:41 PM) [facility]
--- NOTE | 2018-07-15 08:02 | RAD ---
Examination: HAND LEFT 3V History: ER PATIENT. TRAUMA FALL TODAY. PAIN IN THE LEFT HAND 5TH DIGIT. Comparison/Correlation: None Findings: Total 3 images of the left hand were obtained. Advanced degenerative remodeling of the third digit proximal interphalangeal joint is present. Narrowing of the first metacarpophalangeal joint evident. Deformity of the third digit proximal phalangeal metaphyseal region noted. Osteopenia noted. No displaced fracture or bony destruction. Narrowing is present about the fourth digit proximal phalanx. Impression: Osteopenia. Degenerative change. No acute fracture. Consider dedicated imaging of the fifth digit fracture is a persistent concern. Electronically signed by: Da Britton MD (07/15/2018 8:00 AM) [facility]
--- NOTE | 2018-07-15 08:12 | RAD ---
Examination: KNEE RIGHT 4V History: ER PATIENT. TRAUMA FALL TODAY. PAIN IN THE RIGHT KNEE. Hx RIGHT FEMUR SURGERY. Comparison/Correlation: 04/10/2017 right knee 2 view x-ray exam Findings: Total 4 images of the right knee were obtained. These include frontal, lateral, and oblique views as well as the patellar sunrise view. Intramedullary didier involving the right femur is visualized at its distal aspect. Old fracture deformity of the distal right femur noted. Plate and associated screws involving the distal femur is noted at the lateral aspect. Multiple screws in particular are present transversely oriented at the femoral condylar level. Wires are noted associated with the plate proximally. Postoperative changes of the proximal tibial metaphysis anteriorly noted. Correlate with surgical history. Osteopenia is notable. Patellofemoral compartment narrowing is evident. Significant narrowing of the medial and lateral compartments noted. Spurring evident. No definite joint effusion. Impression: Osteopenia and postoperative change. No acute process. Electronically signed by: Da Britton MD (07/15/2018 8:09 AM) [facility]
--- NOTE | 2018-07-15 08:29 | RAD ---
3 views right hip 07/14/2018 6:20 PM Indication: ER PATIENT. TRAUMA FALL TODAY. PAIN IN THE RIGHT KNEE. Hx RIGHT FEMUR SURGERY. Comparison: Right hip radiograph April 10, 2017 Findings: Postsurgical changes following ORIF of the right femur noted. Hardware is stable in appearance. No acute fracture or dislocation is identified. Bulky callus formation surrounding the greater trochanter into a lesser degree lesser trochanteric region noted. The appearance is similar. No acute soft tissue changes are identified. IMPRESSION: Similar postsurgical changes without evidence of acute osseous of abnormality Electronically signed by: Ramana Castellanos MD (07/15/2018 8:26 AM) [id number]
== END 2018-07-14 20:00 | disposition home or self-care (01) ==
LOC: ER 17:51
DX: S60.222A Contusion of left hand, initial encounter (principal); S80.01XA Contusion of right knee, initial encounter; S00.83XA Contusion of other part of head, initial encounter; M47.812 Spondylosis without myelopathy or radiculopathy, cervical region; M25.551 Pain in right hip; F10.229 Alcohol dependence with intoxication, unspecified; Y90.9 Presence of alcohol in blood, level not specified; K21.9 Gastro-esophageal reflux disease without esophagitis; J44.9 Chronic obstructive pulmonary disease, unspecified; Z90.49 Acquired absence of other specified parts of digestive tract; Z98.51 Tubal ligation status; Z96.659 Presence of unspecified artificial knee joint; Z88.1 Allergy status to other antibiotic agents; W07.XXXA Fall from chair, initial encounter; Y93.89 Activity, other specified; Y92.89 Other specified places as the place of occurrence of the external cause; Y99.8 Other external cause status
CPT/HCPCS: 70450; 72125; 73130; 73502; 73564; 80307; 81001; 87086; 87186; 99284-25

== ENCOUNTER 2018-07-16 12:09 | Inpatient (IN) | payer OTHER ==
[~2018-07-16] VITALS: Ht 160 cm; Wt 54.2 kg
[2018-07-16 12:43] LABS: BASO # 0.1 x10^3/uL (0.0-0.2); BASO % 2 % (0-3); EOS % 1 % (0-3); HEMATOCRIT 38.8 % (36.0-47.0); HEMOGLOBIN 12.7 g/dL (12.0-15.5); LYMPH # 1.5 x10^3/uL (1.0-4.8); LYMPH % 26 % (24-48); MEAN CORPUSCULAR HEMOGLOBIN 27 pg (25-35); MEAN CORPUSCULAR HGB CONC 33 g/dL (31-37); MEAN CORPUSCULAR VOLUME 84 fL (79-100); MONO # 0.6 x10^3/uL (0.0-1.1); MONO % 11 % (0-9); NEUT # 3.4 x10^3uL (1.8-7.7); NEUT % 61 % (31-73); PLATELET COUNT 176 x10^3/uL (140-400); RED BLOOD COUNT 4.65 x10^6/uL (3.50-5.40); RED CELL DISTRIBUTION WIDTH 21.8 % (11.5-14.5); WHITE BLOOD COUNT 5.7 x10^3/uL (4.0-11.0)
[2018-07-16 12:54] LABS: ALBUMIN 3.6 g/dL (3.4-5.0); ALBUMIN/GLOBULIN RATIO 0.7 (1.0-1.7); CALCIUM 8.7 mg/dL (8.5-10.1); CREATININE 0.5 mg/dL (0.6-1.0); GFR 126.3; TOTAL BILIRUBIN 0.5 mg/dL (0.2-1.0); TOTAL PROTEIN 8.7 g/dL (6.4-8.2)
--- NOTE | 2018-07-16 12:56 | RAD ---
Three-view left hand study Clinical indications: Patient fell today. Bruising and pain. FINDINGS: No acute fracture or dislocation or lytic process is seen. An old developmental cleft of the distal scaphoid bone is seen. IMPRESSION: No acute osseous abnormality. Electronically signed by: Aashish Armijo MD (07/16/2018 12:53 PM) [facility]
[2018-07-16 12:57] LABS: POTASSIUM 2.9 mmol/L (3.5-5.1)
--- NOTE | 2018-07-16 12:58 | RAD ---
4 view study of both knees Clinical indications: Fell today. Bilateral knee pain Left knee: No acute fracture or dislocation or lytic process is seen. The patella is normally aligned. No significant left knee joint effusion is seen. IMPRESSION: No acute fracture. Right knee: Intramedullary didier and lateral stabilizer plate surgical hardware are seen within the distal right femur. A deformity of the distal right femoral shaft and metaphysis is seen consistent with an old healed fracture. No acute-appearing fracture is evident. The patella is normally aligned. There is degenerative joint space narrowing and spurring of the patellofemoral joint compartment and the medial and lateral tibiofemoral joint compartments. Small right knee joint effusion is seen. An ACL reconstruction is evident as well. No lytic process is seen. IMPRESSION: No acute fracture. Tricompartmental primary degenerative osteoarthritis of the right knee. Old healed fracture of the distal right femur. Electronically signed by: Aashish Armijo MD (07/16/2018 12:56 PM) [facility]
[2018-07-16] MEDS ORDERED: POTASSIUM CHLORIDE 20 MEQ TABLET.ER. PO ONE ×2 (13:00→15:00)
[2018-07-16 13:06] LABS: BILIRUBIN,URINE NEGATIVE (NEG); CLARITY,URINE CLEAR; COLOR,URINE YELLOW; NITRITE,URINE NEGATIVE (NEG); PH,URINE 6.5; PROTEIN,URINE NEGATIVE (NEG-TRACE)
[2018-07-16 13:07] LABS: AMPHETAMINE/METHAMPHETAMINE NEG (NEG); BARBITURATES NEG (NEG); BENZODIAZEPINES NEG (NEG); CANNABINOIDS POS (NEG); COCAINE NEG (NEG); METHADONE NEG (NEG); OPIATES NEG (NEG); PHENCYCLIDINE NEG (NEG)
[2018-07-16 13:17] LABS: BACTERIA,URINE FEW /HPF (0-FEW); RBC,URINE OCC /HPF (0-2); SQUAMOUS EPITHELIAL CELL,UR MANY /LPF
[2018-07-16 13:18] LABS: WBC,URINE OCC /HPF (0-4)
[2018-07-16 13:25] LABS: ANISOCYTOSIS PRESENT; OVALOCYTES FEW; PLT ESTIMATE ADEQUATE (ADEQUATE); TARGET CELLS FEW
[2018-07-16] MEDS ORDERED: ONDANSETRON PF 4 MG/2 ML VIAL. IV PRN ×2 (14:45→15:30)
[2018-07-16] MEDS ORDERED: cloNIDine HCL 0.1 MG TABLET PO PRN (14:45)
[2018-07-16] MEDS ORDERED: MULTIVIT INFUSN,ADULT 4,VIT K 10 ML, THIAMINE INJ 100 MG, FOLIC ACID INJ 1 MG in IV NOR... IV ONE (14:45)
[2018-07-16] MEDS ORDERED: ACETAMINOPHEN 325 MG TABLET. PO PRN (14:45)
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
--- NOTE | 2018-07-16 15:24 | PDOC1 ---
History and Physical Date of Admission Date of Admission DATE: 07/16/18 TIME: 15:20 Identification/Chief Complaint Chief Complaint Multiple falls, alcohol intoxication Source Source: Caregiver, Chart review, Patient History of Present Illness History of Present Illness 57 female, alcohol drinker, second visit to the ER because of falls, always alcohol intoxicated but is not confused. Alcohol level 370 with a potassium 2.9. Some skin abrasions both on the left knee and the right fore head from the falls. X-rays are unremarkable for fractures but shows old tricompartment DJD right knee and her previous right leg surgery hardware. There is no brain or skull fracture on CT. She has penicillin allergy. History COPD, seizures. Last time I saw her was April 2018 for COPD seizures and alcoholism. Admitted because she is still unsteady in terms of her gait, and frequent falls at home. She can have modest elevations of LFTs from etoh, She does not see Dr Davis anymore SHe has noticed that she has become more forgetful at times-I did discuss that it alcohol can do that Past Medical History Cardiovascular: HTN, Other Pulmonary: COPD CENTRAL NERVOUS SYSTEM: Dementia, Seizure GI: Diverticulosis, Other Hepatobiliary: Hep A/B/C Psych: Addictions, Schizophrenia Musculoskeletal: Osteoarthritis Renal/: UTI Endocrine: Other Past Surgical History Past Surgical History: Cholecystectomy, Total knee replacement, Tubal Ligation , Other Family History Family History: No Significant Social History Smoke: <1 pack per day ALCOHOL: heavy Drugs: Marijuana Current Problem List Problem List Problems Medical Problems: (1) Alcohol abuse Status: Acute (2) Fall from standing Status: Acute (3) Knee contusion Status: Acute (4) Sprain of left hand Status: Acute Current Medications Current Medications Current Medications Potassium Chloride (Klor-Con) 40 meq 1X ONCE PO Last administered on at 13:14; Start 07/16/18 at 13:00; Stop 07/16/18 at 13:01; Status DC Potassium Chloride (Klor-Con) 40 meq 1X ONCE PO ; Start 07/16/18 at 15:00; Stop 07/16/18 at 15:01; Status DC Multivitamins 10 ml/Thiamine HCl 100 mg/Folic Acid 1 mg/Sodium Chloride 1,011.2 ml @ 1,000.088 mls/hr 1X ONCE IV Last administered on 4/12/19at 15:11; Start 07/16/18 at 14:45; Stop 07/16/18 at 15:45 Ondansetron HCl (Zofran) 4 mg PRN Q8HRS PRN IV NAUSEA/VOMITING; Start 07/16/18 at 14:45; Stop 07/17/18 at 14:44 Acetaminophen (Tylenol) 650 mg PRN Q4HRS PRN PO FEVER; Start 07/16/18 at 14:45 ; Stop 07/17/18 at 14:44 Potassium Chloride/Sodium Chloride 1,000 ml @ 75 mls/hr 1X ONCE IV ; Start 03/24 at 15:00; Stop 07/17/18 at 04:19 Lorazepam (Ativan) 2 mg PRN Q1HR PRN IV For CIWA 8-14; Start 07/16/18 at 14:45 Clonidine HCl (Catapres) 0.1 mg PRN Q1HR PRN PO SBP > 180 or DBP > 100, MRX3; Start 07/16/18 at 14:45 Active Scripts Active Xanax (Alprazolam) 0.25 Mg Tablet 0.25 Mg PO PRN Q6HRS PRN 30 Days Hydrochlorothiazide Capsule (Hydrochlorothiazide) 12.5 Mg Capsule 12.5 Mg PO DAILY 30 Days Catapres (Clonidine Hcl) 0.1 Mg Tablet 0.1 Mg PO Q8HRS 30 Days Cyclobenzaprine Hcl 10 Mg Tablet 10 Mg PO PRN TID PRN 30 Days Polyethylene Glycol 3350 17 Gm Powd.pack 17 Gm PO PRN DAILY PRN 30 Days Feosol (Ferrous Sulfate) 325 Mg Tablet 325 Mg PO DAILYWBKFT 30 Days Vitamin D2 (Ergocalciferol (Vitamin D2)) 50,000 Unit Capsule 50,000 Unit PO VALENTINE 30 Days Aspirin 325 Mg Tablet 325 Mg PO BID 30 Days Duoneb 0.5-3(2.5) Mg/3 Ml (Albuterol/Ipratropium) 3 Ml Ampul.neb 3 Ml NEB RTQID Protonix (Pantoprazole Sodium) 40 Mg Tablet.dr 40 Mg PO DAILY Reported Vitamin D (Cholecalciferol (Vitamin D3)) 5,000 Unit Tablet 5,000 Unit PO DAILY Allergies Allergies: Coded Allergies: erythromycin base (Verified Allergy, Intermediate, hives, 04/10/17) ROS Review of System A 14 point ROS was completed with the following noted as positive: Other systems reviewed and negative. \CONSTITUTIONAL: No fever or chills EYES: No recent changes SKIN: No rash or itching CARDIOVASCULAR: No chest pain, syncope, palpitations, or edema RESPIRATORY: No SOB or cough GASTROINTESTINAL: No nausea, vomiting or abdominal pain NEUROLOGICAL: No headaches or weakness ENDOCRINE: No cold or heat intolerance GENITOURINARY: No urgency or frequency of urination MUSCULOSKELETAL: No back pain or joint pain LYMPHATICS: No enlarged lymph nodes PSYCHIATRIC: No anxiety or depression Physical Exam General: Alert, Oriented X3, Cooperative, No acute distress HEENT: PERRLA, EOMI, Mucous membr. moist/pink, Other (abrasion on right forehead and bilateral knees) Lungs: Clear to auscultation, Normal air movement Heart: S1S2, RRR, no thrills, no rubs, no gallops, no murmurs Cardiovascular: S1, S2 Breasts: Normal, Rt breast nml w/o mass, Lt breast nml w/o mass, Nipples normal Abdomen: Normal bowel sounds, Soft, No tenderness, No hepatosplenomegaly, No masses Rectal Exam: not examined PELVIC: Nml ext genitalia Extremities: No clubbing, No cyanosis, No edema, Normal pulses, No tenderness/ swelling Skin: No rashes, No breakdown, No significant lesion Neuro: Normal gait, Normal speech, Strength at 5/5 X4 ext, Normal tone, Sensation intact, Cranial nerves 3-12 NL, Reflexes 2+ Psych/Mental Status: Mental status NL, Mood NL Vitals Vitals Vital Signs Date Time Temp Pulse Resp B/P (MAP) Pulse Ox O2 Delivery O2 Flow Rate FiO2 07/16/18 14:11 76 16 94 07/16/18 12:16 98.1 149/87 (107) Room Air 98.1 Labs Labs Laboratory Tests Test 07/16/18 12:25 07/16/18 12:45 White Blood Count 5.7 x10^3/uL (4.0-11.0) Red Blood Count 4.65 x10^6/uL (3.50-5.40) Hemoglobin 12.7 g/dL (12.0-15.5) Hematocrit 38.8 % (36.0-47.0) Mean Corpuscular Volume 84 fL (79-100) Mean Corpuscular Hemoglobin 27 pg (25-35) Mean Corpuscular Hemoglobin Concent 33 g/dL (31-37) Red Cell Distribution Width 21.8 % (11.5-14.5) Platelet Count 176 x10^3/uL (140-400) Neutrophils (%) (Auto) 61 % (31-73) Lymphocytes (%) (Auto) 26 % (24-48) Monocytes (%) (Auto) 11 % (0-9) Eosinophils (%) (Auto) 1 % (0-3) Basophils (%) (Auto) 2 % (0-3) Neutrophils # (Auto) 3.4 x10^3uL (1.8-7.7) Lymphocytes # (Auto) 1.5 x10^3/uL (1.0-4.8) Monocytes # (Auto) 0.6 x10^3/uL (0.0-1.1) Eosinophils # (Auto) 0.0 x10^3/uL (0.0-0.7) Basophils # (Auto) 0.1 x10^3/uL (0.0-0.2) Platelet Estimate Adequate (ADEQUATE) Large Platelets Few Anisocytosis Present Target Cells Few Ovalocytes Few Sodium Level 139 mmol/L (136-145) Potassium Level 2.9 mmol/L (3.5-5.1) Chloride Level 97 mmol/L (98-107) Carbon Dioxide Level 25 mmol/L (21-32) Anion Gap 17 (6-14) Blood Urea Nitrogen 4 mg/dL (7-20) Creatinine 0.5 mg/dL (0.6-1.0) Estimated GFR (Cockcroft-Gault) 126.3 BUN/Creatinine Ratio 8 (6-20) Glucose Level 108 mg/dL (70-99) Calcium Level 8.7 mg/dL (8.5-10.1) Total Bilirubin 0.5 mg/dL (0.2-1.0) Aspartate Amino Transf (AST/SGOT) 171 U/L (15-37) Alanine Aminotransferase (ALT/SGPT) 96 U/L (14-59) Alkaline Phosphatase 74 U/L (46-116) Total Protein 8.7 g/dL (6.4-8.2) Albumin 3.6 g/dL (3.4-5.0) Albumin/Globulin Ratio 0.7 (1.0-1.7) Lipase 117 U/L (73-393) Ethyl Alcohol Level 370 mg/dL (0-10) Urine Collection Type Unknown Urine Color Yellow Urine Clarity Clear Urine pH 6.5 Urine Specific [place] <=1.005 Urine Protein Negative mg/dL (NEG-TRACE) Urine Glucose (UA) Negative mg/dL (NEG) Urine Ketones (Stick) Negative mg/dL (NEG) Urine Blood Negative (NEG) Urine Nitrite Negative (NEG) Urine Bilirubin Negative (NEG) Urine Urobilinogen Dipstick 1.0 mg/dL (0.2 mg/dL) Urine Leukocyte Esterase Negative (NEG) Urine RBC Occ /HPF (0-2) Urine WBC Occ /HPF (0-4) Urine Squamous Epithelial Cells Many /LPF Urine Bacteria Few /HPF (0-FEW) Urine Opiates Screen Neg (NEG) Urine Methadone Screen Neg (NEG) Urine Barbiturates Neg (NEG) Urine Phencyclidine Screen Neg (NEG) Urine Amphetamine/Methamphetamine Neg (NEG) Urine Benzodiazepines Screen Neg (NEG) Urine Cocaine Screen Neg (NEG) Urine Cannabinoids Screen Pos (NEG) Urine Ethyl Alcohol Pos (NEG) Laboratory Tests Test 07/16/18 12:25 07/16/18 12:45 White Blood Count 5.7 x10^3/uL (4.0-11.0) Red Blood Count 4.65 x10^6/uL (3.50-5.40) Hemoglobin 12.7 g/dL (12.0-15.5) Hematocrit 38.8 % (36.0-47.0) Mean Corpuscular Volume 84 fL (79-100) Mean Corpuscular Hemoglobin 27 pg (25-35) Mean Corpuscular Hemoglobin Concent 33 g/dL (31-37) Red Cell Distribution Width 21.8 % (11.5-14.5) Platelet Count 176 x10^3/uL (140-400) Neutrophils (%) (Auto) 61 % (31-73) Lymphocytes (%) (Auto) 26 % (24-48) Monocytes (%) (Auto) 11 % (0-9) Eosinophils (%) (Auto) 1 % (0-3) Basophils (%) (Auto) 2 % (0-3) Neutrophils # (Auto) 3.4 x10^3uL (1.8-7.7) Lymphocytes # (Auto) 1.5 x10^3/uL (1.0-4.8) Monocytes # (Auto) 0.6 x10^3/uL (0.0-1.1) Eosinophils # (Auto) 0.0 x10^3/uL (0.0-0.7) Basophils # (Auto) 0.1 x10^3/uL (0.0-0.2) Platelet Estimate Adequate (ADEQUATE) Large Platelets Few Anisocytosis Present Target Cells Few Ovalocytes Few Sodium Level 139 mmol/L (136-145) Potassium Level 2.9 mmol/L (3.5-5.1) Chloride Level 97 mmol/L (98-107) Carbon Dioxide Level 25 mmol/L (21-32) Anion Gap 17 (6-14) Blood Urea Nitrogen 4 mg/dL (7-20) Creatinine 0.5 mg/dL (0.6-1.0) Estimated GFR (Cockcroft-Gault) 126.3 BUN/Creatinine Ratio 8 (6-20) Glucose Level 108 mg/dL (70-99) Calcium Level 8.7 mg/dL (8.5-10.1) Total Bilirubin 0.5 mg/dL (0.2-1.0) Aspartate Amino Transf (AST/SGOT) 171 U/L (15-37) Alanine Aminotransferase (ALT/SGPT) 96 U/L (14-59) Alkaline Phosphatase 74 U/L (46-116) Total Protein 8.7 g/dL (6.4-8.2) Albumin 3.6 g/dL (3.4-5.0) Albumin/Globulin Ratio 0.7 (1.0-1.7) Lipase 117 U/L (73-393) Ethyl Alcohol Level 370 mg/dL (0-10) Urine Collection Type Unknown Urine Color Yellow Urine Clarity Clear Urine pH 6.5 Urine Specific [place] <=1.005 Urine Protein Negative mg/dL (NEG-TRACE) Urine Glucose (UA) Negative mg/dL (NEG) Urine Ketones (Stick) Negative mg/dL (NEG) Urine Blood Negative (NEG) Urine Nitrite Negative (NEG) Urine Bilirubin Negative (NEG) Urine Urobilinogen Dipstick 1.0 mg/dL (0.2 mg/dL) Urine Leukocyte Esterase Negative (NEG) Urine RBC Occ /HPF (0-2) Urine WBC Occ /HPF (0-4) Urine Squamous Epithelial Cells Many /LPF Urine Bacteria Few /HPF (0-FEW) Urine Opiates Screen Neg (NEG) Urine Methadone Screen Neg (NEG) Urine Barbiturates Neg (NEG) Urine Phencyclidine Screen Neg (NEG) Urine Amphetamine/Methamphetamine Neg (NEG) Urine Benzodiazepines Screen Neg (NEG) Urine Cocaine Screen Neg (NEG) Urine Cannabinoids Screen Pos (NEG) Urine Ethyl Alcohol Pos (NEG) VTE Prophylaxis Ordered VTE Prophylaxis Devices: Yes VTE Pharmacological Prophylaxi: Yes Assessment/Plan Assessment/Plan Frequent falls with no injury Alcohol dependence Critical hypokalemia-2.9 Anion gap acidosis elevated-anion gap 17 History COPD seizures chronic stable Plan: ER has replaced aggressively potassium IV fluids now and recheck gap tomorrow along with potassium CIWA protocol Alcohol cessation one-on-one done High fall risk Okay for regular diet No home meds to reconcile JET DOVER MD Jul 16, 2018 15:24
[2018-07-16] MEDS ORDERED: ZOLPIDEM 5 MG TABLET. PO PRN (15:30)
[2018-07-16] MEDS ORDERED: NICOTINE POLACRILEX 2MG GUM PACKAGE of 12. BC PRN (15:30)
[2018-07-16] MEDS ORDERED: ALPRAZolam 0.5 MG TABLET PO PRN (15:30)
[2018-07-16] MEDS ORDERED: NICOTINE 21MG PATCH. TD PRN (15:30)
[2018-07-16] MEDS ORDERED: ONDANSETRON ODT 4 MG TAB.RAPDIS. PO PRN (15:30)
[2018-07-16] MEDS: IV NORMAL SALINE 1000ML BAG 1,000 ML IV SCH (15:30)
[2018-07-16] MEDS ORDERED: CALCIUM CARBONATE 500 MG TAB.CHEW PO PRN (15:30)
[2018-07-16] MEDS: ACETAMINOPHEN 500 MG TABLET PO PRN (15:50)
[2018-07-16 17:39] VITALS: BP 143/93
[2018-07-16] MEDS: ONDANSETRON PF 4 MG/2 ML VIAL. IV PRN (18:11)
[2018-07-16 19:00] VITALS: BP 162/89
--- NOTE | 2018-07-16 19:58 | NUR ---
Patient Liza Nazario 57, F admitted due to fall and hypokalemia. Received report from Hafsa LAFLEUR at 1705, patient arrived on the unit at 1720. Patient is alert, oriented x 3, complains of nausea and vomiting. PRN zofran given. She was oriented to the unit, call light within reach.
[2018-07-16] MEDS: MUPIROCIN 2 % TOPICAL CREAM 30GM TUBE. TP SCH (20:30)
[2018-07-16 22:15] VITALS: BP 144/67
[2018-07-17] MEDS: ONDANSETRON PF 4 MG/2 ML VIAL. IV PRN (01:30)
[2018-07-17 03:00] VITALS: BP 175/97
[2018-07-17 04:22] LABS: BASO # 0.1 x10^3/uL (0.0-0.2); BASO % 2 % (0-3); EOS # 0.1 x10^3/uL (0.0-0.7); EOS % 1 % (0-3); HEMATOCRIT 33.8 % (36.0-47.0); HEMOGLOBIN 11.1 g/dL (12.0-15.5); LYMPH % 22 % (24-48); MEAN CORPUSCULAR HEMOGLOBIN 28 pg (25-35); MEAN CORPUSCULAR HGB CONC 33 g/dL (31-37); MEAN CORPUSCULAR VOLUME 85 fL (79-100); MONO # 0.5 x10^3/uL (0.0-1.1); MONO % 12 % (0-9); NEUT # 2.8 x10^3uL (1.8-7.7); NEUT % 63 % (31-73); PLATELET COUNT 133 x10^3/uL (140-400); RED BLOOD COUNT 3.98 x10^6/uL (3.50-5.40); RED CELL DISTRIBUTION WIDTH 21.8 % (11.5-14.5); WHITE BLOOD COUNT 4.5 x10^3/uL (4.0-11.0)
[2018-07-17 04:48] LABS: CALCIUM 8.2 mg/dL (8.5-10.1); CREATININE 0.6 mg/dL (0.6-1.0); GFR 102.3
[2018-07-17 05:12] LABS: POTASSIUM 3.9 mmol/L (3.5-5.1)
[2018-07-17 07:10] VITALS: BP 168/86
[2018-07-17] MEDS: MUPIROCIN 2 % TOPICAL CREAM 30GM TUBE. TP SCH ×3 (09:00→20:55)
--- NOTE | 2018-07-17 10:05 | PDOC ---
PROGRESS NOTES History of Present Illness History of Present Illness Assessment/Plan Assessment/Plan Frequent falls with no injury Alcohol dependence, SEVERE Critical hypokalemia-2.9 Anion gap acidosis elevated-anion gap 17 History COPD seizures chronic stable THC ABUSE ALCOHOL WITHDRAWAL SYMPTOMS persist, no hallucinations gait instability Plan: replaced potassium IV fluids [facility] protocol Alcohol cessation one-on-one done High fall risk regular diet THIAMINE, Folic acid PT/OT 47 MIN PT EXAM, CHART REVIEW, > 50% of time spent with exam, record review, pt care coordination Vitals Vitals Vital Signs Date Time Temp Pulse Resp B/P (MAP) Pulse Ox O2 Delivery O2 Flow Rate FiO2 07/17/18 07:10 98.0 111 20 168/86 (113) 91 Room Air 98.0 Physical Exam General: Alert, Oriented X3, Cooperative, No acute distress, mild distress Heart: Regular rate, Normal S1, Normal S2 Lungs: Clear, Other Abdomen: Normal bowel sounds, Soft, No tenderness, No hepatosplenomegaly, No masses Extremities: No clubbing, No cyanosis, No edema, Normal pulses, No tenderness/ swelling Skin: No rashes, No breakdown, No significant lesion Labs LABS Laboratory Tests Test 07/16/18 12:25 07/16/18 12:45 07/17/18 03:20 White Blood Count 5.7 x10^3/uL (4.0-11.0) 4.5 x10^3/uL (4.0-11.0) Red Blood Count 4.65 x10^6/uL (3.50-5.40) 3.98 x10^6/uL (3.50-5.40) Hemoglobin 12.7 g/dL (12.0-15.5) 11.1 g/dL (12.0-15.5) Hematocrit 38.8 % (36.0-47.0) 33.8 % (36.0-47.0) Mean Corpuscular Volume 84 fL (79-100) 85 fL (79-100) Mean Corpuscular Hemoglobin 27 pg (25-35) 28 pg (25-35) Mean Corpuscular Hemoglobin Concent 33 g/dL (31-37) 33 g/dL (31-37) Red Cell Distribution Width 21.8 % (11.5-14.5) 21.8 % (11.5-14.5) Platelet Count 176 x10^3/uL (140-400) 133 x10^3/uL (140-400) Neutrophils (%) (Auto) 61 % (31-73) 63 % (31-73) Lymphocytes (%) (Auto) 26 % (24-48) 22 % (24-48) Monocytes (%) (Auto) 11 % (0-9) 12 % (0-9) Eosinophils (%) (Auto) 1 % (0-3) 1 % (0-3) Basophils (%) (Auto) 2 % (0-3) 2 % (0-3) Neutrophils # (Auto) 3.4 x10^3uL (1.8-7.7) 2.8 x10^3uL (1.8-7.7) Lymphocytes # (Auto) 1.5 x10^3/uL (1.0-4.8) 1.0 x10^3/uL (1.0-4.8) Monocytes # (Auto) 0.6 x10^3/uL (0.0-1.1) 0.5 x10^3/uL (0.0-1.1) Eosinophils # (Auto) 0.0 x10^3/uL (0.0-0.7) 0.1 x10^3/uL (0.0-0.7) Basophils # (Auto) 0.1 x10^3/uL (0.0-0.2) 0.1 x10^3/uL (0.0-0.2) Platelet Estimate Adequate (ADEQUATE) Large Platelets Few Anisocytosis Present Target Cells Few Ovalocytes Few Sodium Level 139 mmol/L (136-145) 137 mmol/L (136-145) Potassium Level 2.9 mmol/L (3.5-5.1) 3.9 mmol/L (3.5-5.1) Chloride Level 97 mmol/L (98-107) 101 mmol/L (98-107) Carbon Dioxide Level 25 mmol/L (21-32) 25 mmol/L (21-32) Anion Gap 17 (6-14) 11 (6-14) Blood Urea Nitrogen 4 mg/dL (7-20) 4 mg/dL (7-20) Creatinine 0.5 mg/dL (0.6-1.0) 0.6 mg/dL (0.6-1.0) Estimated GFR (Cockcroft-Gault) 126.3 102.3 BUN/Creatinine Ratio 8 (6-20) Glucose Level 108 mg/dL (70-99) 97 mg/dL (70-99) Calcium Level 8.7 mg/dL (8.5-10.1) 8.2 mg/dL (8.5-10.1) Total Bilirubin 0.5 mg/dL (0.2-1.0) Aspartate Amino Transf (AST/SGOT) 171 U/L (15-37) Alanine Aminotransferase (ALT/SGPT) 96 U/L (14-59) Alkaline Phosphatase 74 U/L (46-116) Total Protein 8.7 g/dL (6.4-8.2) Albumin 3.6 g/dL (3.4-5.0) Albumin/Globulin Ratio 0.7 (1.0-1.7) Lipase 117 U/L (73-393) Ethyl Alcohol Level 370 mg/dL (0-10) Urine Collection Type Unknown Urine Color Yellow Urine Clarity Clear Urine pH 6.5 Urine Specific [place] <=1.005 Urine Protein Negative mg/dL (NEG-TRACE) Urine Glucose (UA) Negative mg/dL (NEG) Urine Ketones (Stick) Negative mg/dL (NEG) Urine Blood Negative (NEG) Urine Nitrite Negative (NEG) Urine Bilirubin Negative (NEG) Urine Urobilinogen Dipstick 1.0 mg/dL (0.2 mg/dL) Urine Leukocyte Esterase Negative (NEG) Urine RBC Occ /HPF (0-2) Urine WBC Occ /HPF (0-4) Urine Squamous Epithelial Cells Many /LPF Urine Bacteria Few /HPF (0-FEW) Urine Opiates Screen Neg (NEG) Urine Methadone Screen Neg (NEG) Urine Barbiturates Neg (NEG) Urine Phencyclidine Screen Neg (NEG) Urine Amphetamine/Methamphetamine Neg (NEG) Urine Benzodiazepines Screen Neg (NEG) Urine Cocaine Screen Neg (NEG) Urine Cannabinoids Screen Pos (NEG) Urine Ethyl Alcohol Pos (NEG) Assessment and Plan Assessmemt and Plan Problems Medical Problems: (1) Alcohol abuse Status: Acute (2) Fall from standing Status: Acute (3) Knee contusion Status: Acute (4) Sprain of left hand Status: Acute Comment Review of Relevant I have reviewed the following items maribel (where applicable) has been applied. Labs Laboratory Tests Test 07/16/18 12:25 07/16/18 12:45 07/17/18 03:20 White Blood Count 5.7 x10^3/uL (4.0-11.0) 4.5 x10^3/uL (4.0-11.0) Red Blood Count 4.65 x10^6/uL (3.50-5.40) 3.98 x10^6/uL (3.50-5.40) Hemoglobin 12.7 g/dL (12.0-15.5) 11.1 g/dL (12.0-15.5) Hematocrit 38.8 % (36.0-47.0) 33.8 % (36.0-47.0) Mean Corpuscular Volume 84 fL (79-100) 85 fL (79-100) Mean Corpuscular Hemoglobin 27 pg (25-35) 28 pg (25-35) Mean Corpuscular Hemoglobin Concent 33 g/dL (31-37) 33 g/dL (31-37) Red Cell Distribution Width 21.8 % (11.5-14.5) 21.8 % (11.5-14.5) Platelet Count 176 x10^3/uL (140-400) 133 x10^3/uL (140-400) Neutrophils (%) (Auto) 61 % (31-73) 63 % (31-73) Lymphocytes (%) (Auto) 26 % (24-48) 22 % (24-48) Monocytes (%) (Auto) 11 % (0-9) 12 % (0-9) Eosinophils (%) (Auto) 1 % (0-3) 1 % (0-3) Basophils (%) (Auto) 2 % (0-3) 2 % (0-3) Neutrophils # (Auto) 3.4 x10^3uL (1.8-7.7) 2.8 x10^3uL (1.8-7.7) Lymphocytes # (Auto) 1.5 x10^3/uL (1.0-4.8) 1.0 x10^3/uL (1.0-4.8) Monocytes # (Auto) 0.6 x10^3/uL (0.0-1.1) 0.5 x10^3/uL (0.0-1.1) Eosinophils # (Auto) 0.0 x10^3/uL (0.0-0.7) 0.1 x10^3/uL (0.0-0.7) Basophils # (Auto) 0.1 x10^3/uL (0.0-0.2) 0.1 x10^3/uL (0.0-0.2) Platelet Estimate Adequate (ADEQUATE) Large Platelets Few Anisocytosis Present Target Cells Few Ovalocytes Few Sodium Level 139 mmol/L (136-145) 137 mmol/L (136-145) Potassium Level 2.9 mmol/L (3.5-5.1) 3.9 mmol/L (3.5-5.1) Chloride Level 97 mmol/L (98-107) 101 mmol/L (98-107) Carbon Dioxide Level 25 mmol/L (21-32) 25 mmol/L (21-32) Anion Gap 17 (6-14) 11 (6-14) Blood Urea Nitrogen 4 mg/dL (7-20) 4 mg/dL (7-20) Creatinine 0.5 mg/dL (0.6-1.0) 0.6 mg/dL (0.6-1.0) Estimated GFR (Cockcroft-Gault) 126.3 102.3 BUN/Creatinine Ratio 8 (6-20) Glucose Level 108 mg/dL (70-99) 97 mg/dL (70-99) Calcium Level 8.7 mg/dL (8.5-10.1) 8.2 mg/dL (8.5-10.1) Total Bilirubin 0.5 mg/dL (0.2-1.0) Aspartate Amino Transf (AST/SGOT) 171 U/L (15-37) Alanine Aminotransferase (ALT/SGPT) 96 U/L (14-59) Alkaline Phosphatase 74 U/L (46-116) Total Protein 8.7 g/dL (6.4-8.2) Albumin 3.6 g/dL (3.4-5.0) Albumin/Globulin Ratio 0.7 (1.0-1.7) Lipase 117 U/L (73-393) Ethyl Alcohol Level 370 mg/dL (0-10) Urine Collection Type Unknown Urine Color Yellow Urine Clarity Clear Urine pH 6.5 Urine Specific [place] <=1.005 Urine Protein Negative mg/dL (NEG-TRACE) Urine Glucose (UA) Negative mg/dL (NEG) Urine Ketones (Stick) Negative mg/dL (NEG) Urine Blood Negative (NEG) Urine Nitrite Negative (NEG) Urine Bilirubin Negative (NEG) Urine Urobilinogen Dipstick 1.0 mg/dL (0.2 mg/dL) Urine Leukocyte Esterase Negative (NEG) Urine RBC Occ /HPF (0-2) Urine WBC Occ /HPF (0-4) Urine Squamous Epithelial Cells Many /LPF Urine Bacteria Few /HPF (0-FEW) Urine Opiates Screen Neg (NEG) Urine Methadone Screen Neg (NEG) Urine Barbiturates Neg (NEG) Urine Phencyclidine Screen Neg (NEG) Urine Amphetamine/Methamphetamine Neg (NEG) Urine Benzodiazepines Screen Neg (NEG) Urine Cocaine Screen Neg (NEG) Urine Cannabinoids Screen Pos (NEG) Urine Ethyl Alcohol Pos (NEG) Laboratory Tests Test 07/16/18 12:25 07/16/18 12:45 07/17/18 03:20 White Blood Count 5.7 x10^3/uL (4.0-11.0) 4.5 x10^3/uL (4.0-11.0) Red Blood Count 4.65 x10^6/uL (3.50-5.40) 3.98 x10^6/uL (3.50-5.40) Hemoglobin 12.7 g/dL (12.0-15.5) 11.1 g/dL (12.0-15.5) Hematocrit 38.8 % (36.0-47.0) 33.8 % (36.0-47.0) Mean Corpuscular Volume 84 fL (79-100) 85 fL (79-100) Mean Corpuscular Hemoglobin 27 pg (25-35) 28 pg (25-35) Mean Corpuscular Hemoglobin Concent 33 g/dL (31-37) 33 g/dL (31-37) Red Cell Distribution Width 21.8 % (11.5-14.5) 21.8 % (11.5-14.5) Platelet Count 176 x10^3/uL (140-400) 133 x10^3/uL (140-400) Neutrophils (%) (Auto) 61 % (31-73) 63 % (31-73) Lymphocytes (%) (Auto) 26 % (24-48) 22 % (24-48) Monocytes (%) (Auto) 11 % (0-9) 12 % (0-9) Eosinophils (%) (Auto) 1 % (0-3) 1 % (0-3) Basophils (%) (Auto) 2 % (0-3) 2 % (0-3) Neutrophils # (Auto) 3.4 x10^3uL (1.8-7.7) 2.8 x10^3uL (1.8-7.7) Lymphocytes # (Auto) 1.5 x10^3/uL (1.0-4.8) 1.0 x10^3/uL (1.0-4.8) Monocytes # (Auto) 0.6 x10^3/uL (0.0-1.1) 0.5 x10^3/uL (0.0-1.1) Eosinophils # (Auto) 0.0 x10^3/uL (0.0-0.7) 0.1 x10^3/uL (0.0-0.7) Basophils # (Auto) 0.1 x10^3/uL (0.0-0.2) 0.1 x10^3/uL (0.0-0.2) Platelet Estimate Adequate (ADEQUATE) Large Platelets Few Anisocytosis Present Target Cells Few Ovalocytes Few Sodium Level 139 mmol/L (136-145) 137 mmol/L (136-145) Potassium Level 2.9 mmol/L (3.5-5.1) 3.9 mmol/L (3.5-5.1) Chloride Level 97 mmol/L (98-107) 101 mmol/L (98-107) Carbon Dioxide Level 25 mmol/L (21-32) 25 mmol/L (21-32) Anion Gap 17 (6-14) 11 (6-14) Blood Urea Nitrogen 4 mg/dL (7-20) 4 mg/dL (7-20) Creatinine 0.5 mg/dL (0.6-1.0) 0.6 mg/dL (0.6-1.0) Estimated GFR (Cockcroft-Gault) 126.3 102.3 BUN/Creatinine Ratio 8 (6-20) Glucose Level 108 mg/dL (70-99) 97 mg/dL (70-99) Calcium Level 8.7 mg/dL (8.5-10.1) 8.2 mg/dL (8.5-10.1) Total Bilirubin 0.5 mg/dL (0.2-1.0) Aspartate Amino Transf (AST/SGOT) 171 U/L (15-37) Alanine Aminotransferase (ALT/SGPT) 96 U/L (14-59) Alkaline Phosphatase 74 U/L (46-116) Total Protein 8.7 g/dL (6.4-8.2) Albumin 3.6 g/dL (3.4-5.0) Albumin/Globulin Ratio 0.7 (1.0-1.7) Lipase 117 U/L (73-393) Ethyl Alcohol Level 370 mg/dL (0-10) Urine Collection Type Unknown Urine Color Yellow Urine Clarity Clear Urine pH 6.5 Urine Specific [place] <=1.005 Urine Protein Negative mg/dL (NEG-TRACE) Urine Glucose (UA) Negative mg/dL (NEG) Urine Ketones (Stick) Negative mg/dL (NEG) Urine Blood Negative (NEG) Urine Nitrite Negative (NEG) Urine Bilirubin Negative (NEG) Urine Urobilinogen Dipstick 1.0 mg/dL (0.2 mg/dL) Urine Leukocyte Esterase Negative (NEG) Urine RBC Occ /HPF (0-2) Urine WBC Occ /HPF (0-4) Urine Squamous Epithelial Cells Many /LPF Urine Bacteria Few /HPF (0-FEW) Urine Opiates Screen Neg (NEG) Urine Methadone Screen Neg (NEG) Urine Barbiturates Neg (NEG) Urine Phencyclidine Screen Neg (NEG) Urine Amphetamine/Methamphetamine Neg (NEG) Urine Benzodiazepines Screen Neg (NEG) Urine Cocaine Screen Neg (NEG) Urine Cannabinoids Screen Pos (NEG) Urine Ethyl Alcohol Pos (NEG) Medications Current Medications Potassium Chloride (Klor-Con) 40 meq 1X ONCE PO Last administered on at 13:14; Start 07/16/18 at 13:00; Stop 07/16/18 at 13:01; Status DC Potassium Chloride (Klor-Con) 40 meq 1X ONCE PO Last administered on at 15:50; Start 07/16/18 at 15:00; Stop 07/16/18 at 15:01; Status DC Multivitamins 10 ml/Thiamine HCl 100 mg/Folic Acid 1 mg/Sodium Chloride 1,011.2 ml @ 1,000.088 mls/hr 1X ONCE IV Last administered on 07/16/18at 15:11; Start 07/16/18 at 14:45; Stop 07/16/18 at 15:45; Status DC Ondansetron HCl (Zofran) 4 mg PRN Q8HRS PRN IV NAUSEA/VOMITING; Start 07/16/18 at 14:45; Stop 07/16/18 at 15:20; Status DC Acetaminophen (Tylenol) 650 mg PRN Q4HRS PRN PO FEVER; Start 07/16/18 at 14:45 ; Stop 07/17/18 at 14:44 Potassium Chloride/Sodium Chloride 1,000 ml @ 75 mls/hr 1X ONCE IV Last administered on 07/16/18at 16:19; Start 07/16/18 at 15:00; Stop 07/17/18 at 04:19 ; Status DC Lorazepam (Ativan) 2 mg PRN Q1HR PRN IV For CIWA 8-14 Last administered on 07/16at 21:20; Start 07/16/18 at 14:45 Clonidine HCl (Catapres) 0.1 mg PRN Q1HR PRN PO SBP > 180 or DBP > 100, MRX3; Start 07/16/18 at 14:45 Ondansetron HCl (Zofran) 4 mg PRN Q6HRS PRN IV NAUSEA/VOMITING Last administered on 07/17/18at 01:30; Start 07/16/18 at 15:30 Chlordiazepoxide (Librium) 25 mg PRN Q6HRS PRN PO ANXIETY / AGITATION; Start at 15:30 Acetaminophen (Tylenol) 500 mg PRN Q6HRS PRN PO MILD PAIN / TEMP Last administered on 07/16/18at 15:50; Start 07/16/18 at 15:30 Acetaminophen/ Codeine Phosphate (Tylenol #3) 1 tab PRN Q6HRS PRN PO MODERATE PAIN; Start 07/16/18 at 15:30 Ondansetron HCl (Zofran) 4 mg PRN Q6HRS PRN IV NAUSEA/VOMITING; Start 4/12/19 at 15:30 Ondansetron HCl (Zofran Odt) 4 mg PRN Q6HRS PRN PO NAUSEA/VOMITING Last administered on 07/17/18at 07:57; Start 07/16/18 at 15:30 Calcium Carbonate/ Glycine (Tums) 500 mg PRN AFTMEALHC PRN PO INDIGESTION; Start 07/16/18 at 15:30 Zolpidem Tartrate (Ambien) 5 mg PRN QHS PRN PO INSOMNIA; Start 07/16/18 at 15: 30 Ascorbic Acid (Vitamin C) 500 mg DAILY PO ; Start 07/17/18 at 09:00 Mupirocin (Bactroban) 1 wayne TID TP Last administered on 07/16/18at 20:30; Start 07/16/18 at 21:00 Sodium Chloride 1,000 ml @ 100 mls/hr Q10H IV ; Start 07/16/18 at 15:30 Nicotine (Nicoderm Cq 21mg) 1 patch PRN DAILY PRN TD SMOKING CESSATION; Start 07/16/18 at 15:30 Nicotine Polacrilex (Nicorette Gum) 1 each PRN Q1HR PRN BC SMOKING CESSATION; Start 07/16/18 at 15:30 Alprazolam (Xanax) 0.5 mg PRN Q8HRS PRN PO ANXIETY / AGITATION; Start 07/16/18 at 15:30 Active Scripts Active Xanax (Alprazolam) 0.25 Mg Tablet 0.25 Mg PO PRN Q6HRS PRN 30 Days Hydrochlorothiazide Capsule (Hydrochlorothiazide) 12.5 Mg Capsule 12.5 Mg PO DAILY 30 Days Catapres (Clonidine Hcl) 0.1 Mg Tablet 0.1 Mg PO Q8HRS 30 Days Cyclobenzaprine Hcl 10 Mg Tablet 10 Mg PO PRN TID PRN 30 Days Polyethylene Glycol 3350 17 Gm Powd.pack 17 Gm PO PRN DAILY PRN 30 Days Feosol (Ferrous Sulfate) 325 Mg Tablet 325 Mg PO DAILYWBKFT 30 Days Vitamin D2 (Ergocalciferol (Vitamin D2)) 50,000 Unit Capsule 50,000 Unit PO VALENTINE 30 Days Aspirin 325 Mg Tablet 325 Mg PO BID 30 Days Duoneb 0.5-3(2.5) Mg/3 Ml (Albuterol/Ipratropium) 3 Ml Ampul.neb 3 Ml NEB RTQID Protonix (Pantoprazole Sodium) 40 Mg Tablet.dr 40 Mg PO DAILY Reported Vitamin D (Cholecalciferol (Vitamin D3)) 5,000 Unit Tablet 5,000 Unit PO DAILY Vitals/I & O Vital Sign - Last 24 Hours 07/16/18 07/16/18 07/16/18 07/16/18 12:16 13:07 14:11 16:23 Temp 98.1 98.1 Pulse 92 84 76 86 Resp 16 17 16 16 B/P (MAP) 149/87 (107) Pulse Ox 96 96 94 97 O2 Delivery Room Air 07/16/18 07/16/18 07/16/18 07/16/18 16:51 17:20 17:39 19:00 Temp 98.3 98.3 Pulse 79 85 103 Resp 17 20 24 B/P (MAP) 143/93 (110) 162/89 (113) Pulse Ox 97 97 93 O2 Delivery Room Air Room Air Room Air 07/16/18 07/16/18 07/17/18 07/17/18 19:46 22:15 03:00 07:10 Temp 98.9 98.3 98.0 98.9 98.3 98.0 Pulse 88 96 111 Resp 17 20 B/P (MAP) 144/67 (92) 175/97 (123) 168/86 (113) Pulse Ox 91 94 91 O2 Delivery Room Air Room Air Room Air Room Air Intake and Output 07/16/18 07/16/18 07/17/18 14:59 22:59 06:59 Intake Total 1000 ml 250 ml Output Total 300 ml Balance 1000 ml -50 ml GARDENIA MORELOS MD Jul 17, 2018 10:05
[2018-07-17] MEDS: IV NORMAL SALINE 1000ML BAG 1,000 ML IV SCH ×2 (11:30→21:30)
[2018-07-17 11:34] VITALS: BP 172/89
[2018-07-17] MEDS: ASCORBIC ACID 500 MG TABLET PO SCH (12:40)
[2018-07-17] MEDS: ACETAMINOPHEN/CODEINE 300/30MG TABLET. PO PRN ×2 (12:40→20:55)
[2018-07-17] MEDS ORDERED: AMOXICILLIN/K CLAV 500/125MG TABLET. PO SCH (15:00)
[2018-07-17 15:12] VITALS: BP 169/102
[2018-07-17 15:44] LABS: BILIRUBIN,URINE NEGATIVE (NEG); CLARITY,URINE CLEAR; COLOR,URINE YELLOW; NITRITE,URINE NEGATIVE (NEG); PH,URINE 7.5; PROTEIN,URINE NEGATIVE (NEG-TRACE)
[2018-07-17 16:04] LABS: BACTERIA,URINE 0 /HPF (0-FEW); RBC,URINE 0 /HPF (0-2); SQUAMOUS EPITHELIAL CELL,UR MOD /LPF
[2018-07-17 19:00] VITALS: BP 146/87
[2018-07-17] MEDS ORDERED: LACTOBACILLUS RHAMNOSUS GG 1 CAPSULE. PO SCH (21:00)
[2018-07-17 23:00] VITALS: BP 121/86
[2018-07-18 03:00] VITALS: BP 137/89
[2018-07-18 07:21] LABS: BASO % 1 % (0-3); EOS # 0.1 x10^3/uL (0.0-0.7); EOS % 3 % (0-3); HEMATOCRIT 35.7 % (36.0-47.0); HEMOGLOBIN 11.6 g/dL (12.0-15.5); LYMPH # 0.8 x10^3/uL (1.0-4.8); LYMPH % 19 % (24-48); MEAN CORPUSCULAR HEMOGLOBIN 27 pg (25-35); MEAN CORPUSCULAR HGB CONC 33 g/dL (31-37); MEAN CORPUSCULAR VOLUME 84 fL (79-100); MONO # 0.3 x10^3/uL (0.0-1.1); MONO % 7 % (0-9); NEUT # 3.2 x10^3uL (1.8-7.7); NEUT % 71 % (31-73); PLATELET COUNT 140 x10^3/uL (140-400); RED BLOOD COUNT 4.22 x10^6/uL (3.50-5.40); RED CELL DISTRIBUTION WIDTH 20.8 % (11.5-14.5); WHITE BLOOD COUNT 4.5 x10^3/uL (4.0-11.0)
[2018-07-18 07:35] VITALS: BP 156/93
[2018-07-18 07:55] LABS: ALBUMIN/GLOBULIN RATIO 0.7 (1.0-1.7); CALCIUM 8.5 mg/dL (8.5-10.1); CREATININE 0.4 mg/dL (0.6-1.0); GFR 163.4; POTASSIUM 3.4 mmol/L (3.5-5.1); TOTAL BILIRUBIN 1.2 mg/dL (0.2-1.0); TOTAL PROTEIN 7.2 g/dL (6.4-8.2)
[2018-07-18] MEDS: MUPIROCIN 2 % TOPICAL CREAM 30GM TUBE. TP SCH ×3 (09:00→21:35)
[2018-07-18] MEDS: ASCORBIC ACID 500 MG TABLET PO SCH (09:05)
[2018-07-18] MEDS: ACETAMINOPHEN 500 MG TABLET PO PRN (09:09)
--- NOTE | 2018-07-18 09:14 | RAD ---
Ultrasound the abdomen limited. HISTORY: Elevated LFTs Ultrasound was used to evaluate the right upper quadrant of the abdomen. Pancreas is poorly visualized, the mid pancreas was normal, portions of the head and tail the pancreas were obscured. Liver was normal in size, a definite focal lesion was not identified but the liver is also incompletely evaluated. Common duct was dilated measuring 8 mm. Patient's had a previous cholecystectomy. Right kidney was 12.3 cm in length without a mass or hydronephrosis. IMPRESSION: 1. Mildly dilated common duct but the patient's had a cholecystectomy. 2. No definite focal liver lesion noted. Electronically signed by: Jose J Mora MD (07/18/2018 9:11 AM) [facility]
--- NOTE | 2018-07-18 09:30 | PDOC ---
PROGRESS NOTES Chief Complaint Chief Complaint Frequent falls with no injury Alcohol dependence Critical hypokalemia-2.9 corrected Anion gap acidosis elevated-anion gap 17 from etoh- now closed History COPD seizures chronic stable Minor skin abrasions History of Present Illness History of Present Illness has not ambulated because she is afraid of falling again Less shakes Eating good Potassium better 3.4 today Liver enzymes higher than yesterday 300s now Plan I Did order liver ultrasound since she has not had that done, recheck LFTs tmr Potassium 401 Add PTOT NOT ready to discharge because she has not been on her feet yet Vitals Vitals Vital Signs Date Time Temp Pulse Resp B/P (MAP) Pulse Ox O2 Delivery O2 Flow Rate FiO2 07/18/18 07:35 98.8 103 17 156/93 (114) 95 Room Air 98.8 Physical Exam General: Alert, Oriented X3, Cooperative, No acute distress, mild distress Heart: Regular rate, Normal S1, Normal S2 Lungs: Clear, Other Abdomen: Normal bowel sounds, Soft, No tenderness, No hepatosplenomegaly, No masses Extremities: No clubbing, No cyanosis, No edema, Normal pulses, No tenderness/ swelling Skin: No rashes, No breakdown, No significant lesion Labs LABS Laboratory Tests Test 07/17/18 15:18 07/18/18 06:10 Urine Collection Type Unknown Urine Color Yellow Urine Clarity Clear Urine pH 7.5 Urine Specific [place] 1.010 Urine Protein Negative mg/dL (NEG-TRACE) Urine Glucose (UA) Negative mg/dL (NEG) Urine Ketones (Stick) Negative mg/dL (NEG) Urine Blood Negative (NEG) Urine Nitrite Negative (NEG) Urine Bilirubin Negative (NEG) Urine Urobilinogen Dipstick 1.0 mg/dL (0.2 mg/dL) Urine Leukocyte Esterase Trace (NEG) Urine RBC 0 /HPF (0-2) Urine WBC 1-4 /HPF (0-4) Urine Squamous Epithelial Cells Mod /LPF Urine Bacteria 0 /HPF (0-FEW) White Blood Count 4.5 x10^3/uL (4.0-11.0) Red Blood Count 4.22 x10^6/uL (3.50-5.40) Hemoglobin 11.6 g/dL (12.0-15.5) Hematocrit 35.7 % (36.0-47.0) Mean Corpuscular Volume 84 fL (79-100) Mean Corpuscular Hemoglobin 27 pg (25-35) Mean Corpuscular Hemoglobin Concent 33 g/dL (31-37) Red Cell Distribution Width 20.8 % (11.5-14.5) Platelet Count 140 x10^3/uL (140-400) Neutrophils (%) (Auto) 71 % (31-73) Lymphocytes (%) (Auto) 19 % (24-48) Monocytes (%) (Auto) 7 % (0-9) Eosinophils (%) (Auto) 3 % (0-3) Basophils (%) (Auto) 1 % (0-3) Neutrophils # (Auto) 3.2 x10^3uL (1.8-7.7) Lymphocytes # (Auto) 0.8 x10^3/uL (1.0-4.8) Monocytes # (Auto) 0.3 x10^3/uL (0.0-1.1) Eosinophils # (Auto) 0.1 x10^3/uL (0.0-0.7) Basophils # (Auto) 0.0 x10^3/uL (0.0-0.2) Sodium Level 134 mmol/L (136-145) Potassium Level 3.4 mmol/L (3.5-5.1) Chloride Level 97 mmol/L (98-107) Carbon Dioxide Level 25 mmol/L (21-32) Anion Gap 12 (6-14) Blood Urea Nitrogen 5 mg/dL (7-20) Creatinine 0.4 mg/dL (0.6-1.0) Estimated GFR (Cockcroft-Gault) 163.4 BUN/Creatinine Ratio 13 (6-20) Glucose Level 88 mg/dL (70-99) Calcium Level 8.5 mg/dL (8.5-10.1) Total Bilirubin 1.2 mg/dL (0.2-1.0) Aspartate Amino Transf (AST/SGOT) 273 U/L (15-37) Alanine Aminotransferase (ALT/SGPT) 114 U/L (14-59) Alkaline Phosphatase 60 U/L (46-116) Total Protein 7.2 g/dL (6.4-8.2) Albumin 3.0 g/dL (3.4-5.0) Albumin/Globulin Ratio 0.7 (1.0-1.7) Review of Systems Review of Systems A 14 point ROS was completed with the following noted as positive: Other systems reviewed and negative. \CONSTITUTIONAL: No fever or chills EYES: No recent changes SKIN: No rash or itching CARDIOVASCULAR: No chest pain, syncope, palpitations, or edema RESPIRATORY: No SOB or cough GASTROINTESTINAL: No nausea, vomiting or abdominal pain NEUROLOGICAL: No headaches or weakness ENDOCRINE: No cold or heat intolerance GENITOURINARY: No urgency or frequency of urination MUSCULOSKELETAL: No back pain or joint pain LYMPHATICS: No enlarged lymph nodes PSYCHIATRIC: No anxiety or depression Assessment and Plan Assessmemt and Plan Problems Medical Problems: (1) Alcohol abuse Status: Acute (2) Fall from standing Status: Acute (3) Knee contusion Status: Acute (4) Sprain of left hand Status: Acute Comment Review of Relevant I have reviewed the following items maribel (where applicable) has been applied. Labs Laboratory Tests Test 07/16/18 12:25 07/16/18 12:45 07/17/18 03:20 07/17/18 15:18 White Blood Count 5.7 x10^3/uL (4.0-11.0) 4.5 x10^3/uL (4.0-11.0) Red Blood Count 4.65 x10^6/uL (3.50-5.40) 3.98 x10^6/uL (3.50-5.40) Hemoglobin 12.7 g/dL (12.0-15.5) 11.1 g/dL (12.0-15.5) Hematocrit 38.8 % (36.0-47.0) 33.8 % (36.0-47.0) Mean Corpuscular Volume 84 fL (79-100) 85 fL (79-100) Mean Corpuscular Hemoglobin 27 pg (25-35) 28 pg (25-35) Mean Corpuscular Hemoglobin Concent 33 g/dL (31-37) 33 g/dL (31-37) Red Cell Distribution Width 21.8 % (11.5-14.5) 21.8 % (11.5-14.5) Platelet Count 176 x10^3/uL (140-400) 133 x10^3/uL (140-400) Neutrophils (%) (Auto) 61 % (31-73) 63 % (31-73) Lymphocytes (%) (Auto) 26 % (24-48) 22 % (24-48) Monocytes (%) (Auto) 11 % (0-9) 12 % (0-9) Eosinophils (%) (Auto) 1 % (0-3) 1 % (0-3) Basophils (%) (Auto) 2 % (0-3) 2 % (0-3) Neutrophils # (Auto) 3.4 x10^3uL (1.8-7.7) 2.8 x10^3uL (1.8-7.7) Lymphocytes # (Auto) 1.5 x10^3/uL (1.0-4.8) 1.0 x10^3/uL (1.0-4.8) Monocytes # (Auto) 0.6 x10^3/uL (0.0-1.1) 0.5 x10^3/uL (0.0-1.1) Eosinophils # (Auto) 0.0 x10^3/uL (0.0-0.7) 0.1 x10^3/uL (0.0-0.7) Basophils # (Auto) 0.1 x10^3/uL (0.0-0.2) 0.1 x10^3/uL (0.0-0.2) Platelet Estimate Adequate (ADEQUATE) Large Platelets Few Anisocytosis Present Target Cells Few Ovalocytes Few Sodium Level 139 mmol/L (136-145) 137 mmol/L (136-145) Potassium Level 2.9 mmol/L (3.5-5.1) 3.9 mmol/L (3.5-5.1) Chloride Level 97 mmol/L (98-107) 101 mmol/L (98-107) Carbon Dioxide Level 25 mmol/L (21-32) 25 mmol/L (21-32) Anion Gap 17 (6-14) 11 (6-14) Blood Urea Nitrogen 4 mg/dL (7-20) 4 mg/dL (7-20) Creatinine 0.5 mg/dL (0.6-1.0) 0.6 mg/dL (0.6-1.0) Estimated GFR (Cockcroft-Gault) 126.3 102.3 BUN/Creatinine Ratio 8 (6-20) Glucose Level 108 mg/dL (70-99) 97 mg/dL (70-99) Calcium Level 8.7 mg/dL (8.5-10.1) 8.2 mg/dL (8.5-10.1) Total Bilirubin 0.5 mg/dL (0.2-1.0) Aspartate Amino Transf (AST/SGOT) 171 U/L (15-37) Alanine Aminotransferase (ALT/SGPT) 96 U/L (14-59) Alkaline Phosphatase 74 U/L (46-116) Total Protein 8.7 g/dL (6.4-8.2) Albumin 3.6 g/dL (3.4-5.0) Albumin/Globulin Ratio 0.7 (1.0-1.7) Lipase 117 U/L (73-393) Ethyl Alcohol Level 370 mg/dL (0-10) Urine Collection Type Unknown Unknown Urine Color Yellow Yellow Urine Clarity Clear Clear Urine pH 6.5 7.5 Urine Specific [place] <=1.005 1.010 Urine Protein Negative mg/dL (NEG-TRACE) Negative mg/dL (NEG-TRACE) Urine Glucose (UA) Negative mg/dL (NEG) Negative mg/dL (NEG) Urine Ketones (Stick) Negative mg/dL (NEG) Negative mg/dL (NEG) Urine Blood Negative (NEG) Negative (NEG) Urine Nitrite Negative (NEG) Negative (NEG) Urine Bilirubin Negative (NEG) Negative (NEG) Urine Urobilinogen Dipstick 1.0 mg/dL (0.2 mg/dL) 1.0 mg/dL (0.2 mg/dL) Urine Leukocyte Esterase Negative (NEG) Trace (NEG) Urine RBC Occ /HPF (0-2) 0 /HPF (0-2) Urine WBC Occ /HPF (0-4) 1-4 /HPF (0-4) Urine Squamous Epithelial Cells Many /LPF Mod /LPF Urine Bacteria Few /HPF (0-FEW) 0 /HPF (0-FEW) Urine Opiates Screen Neg (NEG) Urine Methadone Screen Neg (NEG) Urine Barbiturates Neg (NEG) Urine Phencyclidine Screen Neg (NEG) Urine Amphetamine/Methamphetamine Neg (NEG) Urine Benzodiazepines Screen Neg (NEG) Urine Cocaine Screen Neg (NEG) Urine Cannabinoids Screen Pos (NEG) Urine Ethyl Alcohol Pos (NEG) Test 07/18/18 06:10 White Blood Count 4.5 x10^3/uL (4.0-11.0) Red Blood Count 4.22 x10^6/uL (3.50-5.40) Hemoglobin 11.6 g/dL (12.0-15.5) Hematocrit 35.7 % (36.0-47.0) Mean Corpuscular Volume 84 fL (79-100) Mean Corpuscular Hemoglobin 27 pg (25-35) Mean Corpuscular Hemoglobin Concent 33 g/dL (31-37) Red Cell Distribution Width 20.8 % (11.5-14.5) Platelet Count 140 x10^3/uL (140-400) Neutrophils (%) (Auto) 71 % (31-73) Lymphocytes (%) (Auto) 19 % (24-48) Monocytes (%) (Auto) 7 % (0-9) Eosinophils (%) (Auto) 3 % (0-3) Basophils (%) (Auto) 1 % (0-3) Neutrophils # (Auto) 3.2 x10^3uL (1.8-7.7) Lymphocytes # (Auto) 0.8 x10^3/uL (1.0-4.8) Monocytes # (Auto) 0.3 x10^3/uL (0.0-1.1) Eosinophils # (Auto) 0.1 x10^3/uL (0.0-0.7) Basophils # (Auto) 0.0 x10^3/uL (0.0-0.2) Sodium Level 134 mmol/L (136-145) Potassium Level 3.4 mmol/L (3.5-5.1) Chloride Level 97 mmol/L (98-107) Carbon Dioxide Level 25 mmol/L (21-32) Anion Gap 12 (6-14) Blood Urea Nitrogen 5 mg/dL (7-20) Creatinine 0.4 mg/dL (0.6-1.0) Estimated GFR (Cockcroft-Gault) 163.4 BUN/Creatinine Ratio 13 (6-20) Glucose Level 88 mg/dL (70-99) Calcium Level 8.5 mg/dL (8.5-10.1) Total Bilirubin 1.2 mg/dL (0.2-1.0) Aspartate Amino Transf (AST/SGOT) 273 U/L (15-37) Alanine Aminotransferase (ALT/SGPT) 114 U/L (14-59) Alkaline Phosphatase 60 U/L (46-116) Total Protein 7.2 g/dL (6.4-8.2) Albumin 3.0 g/dL (3.4-5.0) Albumin/Globulin Ratio 0.7 (1.0-1.7) Laboratory Tests Test 07/17/18 15:18 07/18/18 06:10 Urine Collection Type Unknown Urine Color Yellow Urine Clarity Clear Urine pH 7.5 Urine Specific [place] 1.010 Urine Protein Negative mg/dL (NEG-TRACE) Urine Glucose (UA) Negative mg/dL (NEG) Urine Ketones (Stick) Negative mg/dL (NEG) Urine Blood Negative (NEG) Urine Nitrite Negative (NEG) Urine Bilirubin Negative (NEG) Urine Urobilinogen Dipstick 1.0 mg/dL (0.2 mg/dL) Urine Leukocyte Esterase Trace (NEG) Urine RBC 0 /HPF (0-2) Urine WBC 1-4 /HPF (0-4) Urine Squamous Epithelial Cells Mod /LPF Urine Bacteria 0 /HPF (0-FEW) White Blood Count 4.5 x10^3/uL (4.0-11.0) Red Blood Count 4.22 x10^6/uL (3.50-5.40) Hemoglobin 11.6 g/dL (12.0-15.5) Hematocrit 35.7 % (36.0-47.0) Mean Corpuscular Volume 84 fL (79-100) Mean Corpuscular Hemoglobin 27 pg (25-35) Mean Corpuscular Hemoglobin Concent 33 g/dL (31-37) Red Cell Distribution Width 20.8 % (11.5-14.5) Platelet Count 140 x10^3/uL (140-400) Neutrophils (%) (Auto) 71 % (31-73) Lymphocytes (%) (Auto) 19 % (24-48) Monocytes (%) (Auto) 7 % (0-9) Eosinophils (%) (Auto) 3 % (0-3) Basophils (%) (Auto) 1 % (0-3) Neutrophils # (Auto) 3.2 x10^3uL (1.8-7.7) Lymphocytes # (Auto) 0.8 x10^3/uL (1.0-4.8) Monocytes # (Auto) 0.3 x10^3/uL (0.0-1.1) Eosinophils # (Auto) 0.1 x10^3/uL (0.0-0.7) Basophils # (Auto) 0.0 x10^3/uL (0.0-0.2) Sodium Level 134 mmol/L (136-145) Potassium Level 3.4 mmol/L (3.5-5.1) Chloride Level 97 mmol/L (98-107) Carbon Dioxide Level 25 mmol/L (21-32) Anion Gap 12 (6-14) Blood Urea Nitrogen 5 mg/dL (7-20) Creatinine 0.4 mg/dL (0.6-1.0) Estimated GFR (Cockcroft-Gault) 163.4 BUN/Creatinine Ratio 13 (6-20) Glucose Level 88 mg/dL (70-99) Calcium Level 8.5 mg/dL (8.5-10.1) Total Bilirubin 1.2 mg/dL (0.2-1.0) Aspartate Amino Transf (AST/SGOT) 273 U/L (15-37) Alanine Aminotransferase (ALT/SGPT) 114 U/L (14-59) Alkaline Phosphatase 60 U/L (46-116) Total Protein 7.2 g/dL (6.4-8.2) Albumin 3.0 g/dL (3.4-5.0) Albumin/Globulin Ratio 0.7 (1.0-1.7) Medications Current Medications Potassium Chloride (Klor-Con) 40 meq 1X ONCE PO Last administered on at 13:14; Start 07/16/18 at 13:00; Stop 07/16/18 at 13:01; Status DC Potassium Chloride (Klor-Con) 40 meq 1X ONCE PO Last administered on at 15:50; Start 07/16/18 at 15:00; Stop 07/16/18 at 15:01; Status DC Multivitamins 10 ml/Thiamine HCl 100 mg/Folic Acid 1 mg/Sodium Chloride 1,011.2 ml @ 1,000.088 mls/hr 1X ONCE IV Last administered on 07/16/18at 15:11; Start 07/16/18 at 14:45; Stop 07/16/18 at 15:45; Status DC Ondansetron HCl (Zofran) 4 mg PRN Q8HRS PRN IV NAUSEA/VOMITING; Start 07/16/18 at 14:45; Stop 07/16/18 at 15:20; Status DC Acetaminophen (Tylenol) 650 mg PRN Q4HRS PRN PO FEVER; Start 07/16/18 at 14:45 ; Stop 07/17/18 at 14:44; Status DC Potassium Chloride/Sodium Chloride 1,000 ml @ 75 mls/hr 1X ONCE IV Last administered on 07/16/18at 16:19; Start 07/16/18 at 15:00; Stop 07/17/18 at 04:19 ; Status DC Lorazepam (Ativan) 2 mg PRN Q1HR PRN IV For CIWA 8-14 Last administered on 07/17at 20:56; Start 07/16/18 at 14:45 Clonidine HCl (Catapres) 0.1 mg PRN Q1HR PRN PO SBP > 180 or DBP > 100, MRX3; Start 07/16/18 at 14:45 Ondansetron HCl (Zofran) 4 mg PRN Q6HRS PRN IV NAUSEA/VOMITING Last administered on 07/17/18at 01:30; Start 07/16/18 at 15:30; Stop 07/17/18 at 13:40 ; Status DC Chlordiazepoxide (Librium) 25 mg PRN Q6HRS PRN PO ANXIETY/AGITATION (1st Choice ); Start 07/16/18 at 15:30 Acetaminophen (Tylenol) 500 mg PRN Q6HRS PRN PO MILD PAIN / TEMP Last administered on 07/18/18at 09:09; Start 07/16/18 at 15:30 Acetaminophen/ Codeine Phosphate (Tylenol #3) 1 tab PRN Q6HRS PRN PO MODERATE PAIN Last administered on 07/17/18at 20:55; Start 07/16/18 at 15:30 Ondansetron HCl (Zofran) 4 mg PRN Q6HRS PRN IV NAUSEA/VOMITING; Start 07/16/18 at 15:30 Ondansetron HCl (Zofran Odt) 4 mg PRN Q6HRS PRN PO NAUSEA/VOMITING Last administered on 07/17/18at 07:57; Start 07/16/18 at 15:30 Calcium Carbonate/ Glycine (Tums) 500 mg PRN AFTMEALHC PRN PO INDIGESTION; Start 07/16/18 at 15:30 Zolpidem Tartrate (Ambien) 5 mg PRN QHS PRN PO INSOMNIA; Start 07/16/18 at 15: 30 Ascorbic Acid (Vitamin C) 500 mg DAILY PO Last administered on 07/18/18at 09:05 ; Start 07/17/18 at 09:00 Mupirocin (Bactroban) 1 wayne TID TP Last administered on 07/17/18at 20:55; Start 07/16/18 at 21:00 Sodium Chloride 1,000 ml @ 100 mls/hr Q10H IV Last administered on 07/17/18at 21:30; Start 07/16/18 at 15:30; Stop 07/18/18 at 08:26; Status DC Nicotine (Nicoderm Cq 21mg) 1 patch PRN DAILY PRN TD SMOKING CESSATION; Start 07/16/18 at 15:30 Nicotine Polacrilex (Nicorette Gum) 1 each PRN Q1HR PRN BC SMOKING CESSATION; Start 07/16/18 at 15:30 Alprazolam (Xanax) 0.5 mg PRN Q8HRS PRN PO ANXIETY/AGITATION (2nd Choice) Last administered on 07/17/18at 16:25; Start 07/16/18 at 15:30 Amoxicillin/ Clavulanate Potassium (Augmentin 500/ 125mg) 1 tab BID PO ; Start 07/17/18 at 15:00; Status Cancel Lactobacillus Rhamnosus (Culturelle) 1 cap BID PO ; Start 07/17/18 at 21:00; Stop 07/17/18 at 21:00; Status DC Active Scripts Active Xanax (Alprazolam) 0.25 Mg Tablet 0.25 Mg PO PRN Q6HRS PRN 30 Days Hydrochlorothiazide Capsule (Hydrochlorothiazide) 12.5 Mg Capsule 12.5 Mg PO DAILY 30 Days Catapres (Clonidine Hcl) 0.1 Mg Tablet 0.1 Mg PO Q8HRS 30 Days Cyclobenzaprine Hcl 10 Mg Tablet 10 Mg PO PRN TID PRN 30 Days Polyethylene Glycol 3350 17 Gm Powd.pack 17 Gm PO PRN DAILY PRN 30 Days Feosol (Ferrous Sulfate) 325 Mg Tablet 325 Mg PO DAILYWBKFT 30 Days Vitamin D2 (Ergocalciferol (Vitamin D2)) 50,000 Unit Capsule 50,000 Unit PO VALENTINE 30 Days Aspirin 325 Mg Tablet 325 Mg PO BID 30 Days Duoneb 0.5-3(2.5) Mg/3 Ml (Albuterol/Ipratropium) 3 Ml Ampul.neb 3 Ml NEB RTQID Protonix (Pantoprazole Sodium) 40 Mg Tablet.dr 40 Mg PO DAILY Reported Vitamin D (Cholecalciferol (Vitamin D3)) 5,000 Unit Tablet 5,000 Unit PO DAILY Vitals/I & O Vital Sign - Last 24 Hours 07/17/18 07/17/18 07/17/18 07/17/18 11:34 12:40 15:12 19:00 Temp 99.1 98.1 98.7 99.1 98.1 98.7 Pulse 136 136 84 Resp 20 19 16 B/P (MAP) 172/89 (116) 169/102 (124) 146/87 (106) Pulse Ox 95 95 94 98 O2 Delivery Room Air Room Air Room Air Room Air 07/17/18 07/17/18 07/17/18 07/17/18 20:00 20:55 21:55 23:00 Temp 99.2 99.2 Pulse 91 Resp 16 B/P (MAP) 121/86 (98) Pulse Ox 98 98 95 O2 Delivery Room Air Room Air Room Air Room Air 07/18/18 07/18/18 03:00 07:35 Temp 98.0 98.8 98.0 98.8 Pulse 91 103 Resp 16 17 B/P (MAP) 137/89 (105) 156/93 (114) Pulse Ox 90 95 O2 Delivery Room Air Room Air Intake and Output 07/17/18 07/17/18 07/18/18 14:59 22:59 06:59 Intake Total 780 ml 1000 ml 550 ml Balance 780 ml 1000 ml 550 ml JET DOVER MD Jul 18, 2018 09:30
[2018-07-18] MEDS: chlordiazePOXIDE HCL 25 MG CAPSULE PO PRN ×3 (10:02→21:35)
[2018-07-18 10:54] VITALS: BP 162/91
[2018-07-18] MEDS: FLUTICASONE 50MCG/NASAL SPRAY 16GM BOTTLE. NS SCH (13:29)
[2018-07-18 15:10] VITALS: BP 169/91
[2018-07-18] MEDS ORDERED: POTASSIUM CHLORIDE 20 MEQ TABLET.ER. PO ONE (17:30)
[2018-07-18] MEDS: ACETAMINOPHEN/CODEINE 300/30MG TABLET. PO PRN ×2 (17:53→21:35)
[2018-07-18 19:00] VITALS: BP 145/75
[2018-07-18 23:05] VITALS: BP 146/87
[2018-07-19 03:05] VITALS: BP 148/74
[2018-07-19 05:55] LABS: ALBUMIN 3.1 g/dL (3.4-5.0); ALBUMIN/GLOBULIN RATIO 0.7 (1.0-1.7); CALCIUM 8.8 mg/dL (8.5-10.1); CREATININE 0.5 mg/dL (0.6-1.0); GFR 126.3; POTASSIUM 3.9 mmol/L (3.5-5.1); TOTAL BILIRUBIN 0.8 mg/dL (0.2-1.0); TOTAL PROTEIN 7.3 g/dL (6.4-8.2)
[2018-07-19 07:00] VITALS: BP 140/80
--- NOTE | 2018-07-19 08:45 | NUR ---
SW following pt for anticipated dc needs. Chart reviewed. Pt lives at home alone. Pt was evaluated by PT/OT and does not have skilled needs. Will continue to assess dc needs.
[2018-07-19] MEDS: ACETAMINOPHEN/CODEINE 300/30MG TABLET. PO PRN (08:52)
[2018-07-19] MEDS: MUPIROCIN 2 % TOPICAL CREAM 30GM TUBE. TP SCH (08:52)
[2018-07-19] MEDS: FLUTICASONE 50MCG/NASAL SPRAY 16GM BOTTLE. NS SCH (08:52)
[2018-07-19] MEDS: ASCORBIC ACID 500 MG TABLET PO SCH (08:52)
[2018-07-19] MEDS: chlordiazePOXIDE HCL 25 MG CAPSULE PO PRN (09:00)
--- NOTE | 2018-07-19 09:04 | PDOC ---
PROGRESS NOTES Chief Complaint Chief Complaint Frequent falls with no injury Alcohol dependence Critical hypokalemia-2.9 corrected Anion gap acidosis elevated-anion gap 17 from etoh- now closed History COPD seizures chronic stable Minor skin abrasions History of Present Illness History of Present Illness COUNSELED ON SMOKING AND ALCOHOL CESSATION PROVIDED Less shakes Eating WELL Potassium better Liver enzymes ELEVATED Tricompartmental primary degenerative osteoarthritis of the right knee. Old healed fracture of the distal right femur. THC ABUSE No definite focal liver lesion noted.ON US Plan see PCP THIS WEEK, ATTEND AA DAILY Potassium 401 PT//OT ready to discharge STATES she feels improved, no tremors NO ALCOHOL USE Vitals Vitals Vital Signs Date Time Temp Pulse Resp B/P (MAP) Pulse Ox O2 Delivery O2 Flow Rate FiO2 07/19/18 08:52 Room Air 07/19/18 07:00 97.7 81 18 140/80 (100) 95 97.7 Physical Exam General: Alert, Oriented X3, Cooperative, No acute distress Heart: Regular rate, Normal S1, Normal S2 Lungs: Clear, Other Abdomen: Normal bowel sounds, Soft, No tenderness, No hepatosplenomegaly, No masses Extremities: No clubbing, No cyanosis, No edema, Normal pulses, No tenderness/ swelling Skin: No rashes, No breakdown, No significant lesion Labs LABS Laboratory Tests Test 07/19/18 03:10 Sodium Level 138 mmol/L (136-145) Potassium Level 3.9 mmol/L (3.5-5.1) Chloride Level 100 mmol/L (98-107) Carbon Dioxide Level 26 mmol/L (21-32) Anion Gap 12 (6-14) Blood Urea Nitrogen 7 mg/dL (7-20) Creatinine 0.5 mg/dL (0.6-1.0) Estimated GFR (Cockcroft-Gault) 126.3 BUN/Creatinine Ratio 14 (6-20) Glucose Level 93 mg/dL (70-99) Calcium Level 8.8 mg/dL (8.5-10.1) Total Bilirubin 0.8 mg/dL (0.2-1.0) Aspartate Amino Transf (AST/SGOT) 214 U/L (15-37) Alanine Aminotransferase (ALT/SGPT) 125 U/L (14-59) Alkaline Phosphatase 66 U/L (46-116) Total Protein 7.3 g/dL (6.4-8.2) Albumin 3.1 g/dL (3.4-5.0) Albumin/Globulin Ratio 0.7 (1.0-1.7) Assessment and Plan Assessmemt and Plan Problems Medical Problems: (1) Alcohol abuse Status: Acute (2) Fall from standing Status: Acute (3) Knee contusion Status: Acute (4) Sprain of left hand Status: Acute Comment Review of Relevant I have reviewed the following items maribel (where applicable) has been applied. Labs Laboratory Tests Test 07/17/18 15:18 07/18/18 06:10 07/19/18 03:10 Urine Collection Type Unknown Urine Color Yellow Urine Clarity Clear Urine pH 7.5 Urine Specific [employer] 1.010 Urine Protein Negative mg/dL (NEG-TRACE) Urine Glucose (UA) Negative mg/dL (NEG) Urine Ketones (Stick) Negative mg/dL (NEG) Urine Blood Negative (NEG) Urine Nitrite Negative (NEG) Urine Bilirubin Negative (NEG) Urine Urobilinogen Dipstick 1.0 mg/dL (0.2 mg/dL) Urine Leukocyte Esterase Trace (NEG) Urine RBC 0 /HPF (0-2) Urine WBC 1-4 /HPF (0-4) Urine Squamous Epithelial Cells Mod /LPF Urine Bacteria 0 /HPF (0-FEW) White Blood Count 4.5 x10^3/uL (4.0-11.0) Red Blood Count 4.22 x10^6/uL (3.50-5.40) Hemoglobin 11.6 g/dL (12.0-15.5) Hematocrit 35.7 % (36.0-47.0) Mean Corpuscular Volume 84 fL (79-100) Mean Corpuscular Hemoglobin 27 pg (25-35) Mean Corpuscular Hemoglobin Concent 33 g/dL (31-37) Red Cell Distribution Width 20.8 % (11.5-14.5) Platelet Count 140 x10^3/uL (140-400) Neutrophils (%) (Auto) 71 % (31-73) Lymphocytes (%) (Auto) 19 % (24-48) Monocytes (%) (Auto) 7 % (0-9) Eosinophils (%) (Auto) 3 % (0-3) Basophils (%) (Auto) 1 % (0-3) Neutrophils # (Auto) 3.2 x10^3uL (1.8-7.7) Lymphocytes # (Auto) 0.8 x10^3/uL (1.0-4.8) Monocytes # (Auto) 0.3 x10^3/uL (0.0-1.1) Eosinophils # (Auto) 0.1 x10^3/uL (0.0-0.7) Basophils # (Auto) 0.0 x10^3/uL (0.0-0.2) Sodium Level 134 mmol/L (136-145) 138 mmol/L (136-145) Potassium Level 3.4 mmol/L (3.5-5.1) 3.9 mmol/L (3.5-5.1) Chloride Level 97 mmol/L (98-107) 100 mmol/L (98-107) Carbon Dioxide Level 25 mmol/L (21-32) 26 mmol/L (21-32) Anion Gap 12 (6-14) 12 (6-14) Blood Urea Nitrogen 5 mg/dL (7-20) 7 mg/dL (7-20) Creatinine 0.4 mg/dL (0.6-1.0) 0.5 mg/dL (0.6-1.0) Estimated GFR (Cockcroft-Gault) 163.4 126.3 BUN/Creatinine Ratio 13 (6-20) 14 (6-20) Glucose Level 88 mg/dL (70-99) 93 mg/dL (70-99) Calcium Level 8.5 mg/dL (8.5-10.1) 8.8 mg/dL (8.5-10.1) Total Bilirubin 1.2 mg/dL (0.2-1.0) 0.8 mg/dL (0.2-1.0) Aspartate Amino Transf (AST/SGOT) 273 U/L (15-37) 214 U/L (15-37) Alanine Aminotransferase (ALT/SGPT) 114 U/L (14-59) 125 U/L (14-59) Alkaline Phosphatase 60 U/L (46-116) 66 U/L (46-116) Total Protein 7.2 g/dL (6.4-8.2) 7.3 g/dL (6.4-8.2) Albumin 3.0 g/dL (3.4-5.0) 3.1 g/dL (3.4-5.0) Albumin/Globulin Ratio 0.7 (1.0-1.7) 0.7 (1.0-1.7) Laboratory Tests Test 07/19/18 03:10 Sodium Level 138 mmol/L (136-145) Potassium Level 3.9 mmol/L (3.5-5.1) Chloride Level 100 mmol/L (98-107) Carbon Dioxide Level 26 mmol/L (21-32) Anion Gap 12 (6-14) Blood Urea Nitrogen 7 mg/dL (7-20) Creatinine 0.5 mg/dL (0.6-1.0) Estimated GFR (Cockcroft-Gault) 126.3 BUN/Creatinine Ratio 14 (6-20) Glucose Level 93 mg/dL (70-99) Calcium Level 8.8 mg/dL (8.5-10.1) Total Bilirubin 0.8 mg/dL (0.2-1.0) Aspartate Amino Transf (AST/SGOT) 214 U/L (15-37) Alanine Aminotransferase (ALT/SGPT) 125 U/L (14-59) Alkaline Phosphatase 66 U/L (46-116) Total Protein 7.3 g/dL (6.4-8.2) Albumin 3.1 g/dL (3.4-5.0) Albumin/Globulin Ratio 0.7 (1.0-1.7) Medications Current Medications Potassium Chloride (Klor-Con) 40 meq 1X ONCE PO Last administered on at 13:14; Start 07/16/18 at 13:00; Stop 07/16/18 at 13:01; Status DC Potassium Chloride (Klor-Con) 40 meq 1X ONCE PO Last administered on at 15:50; Start 07/16/18 at 15:00; Stop 07/16/18 at 15:01; Status DC Multivitamins 10 ml/Thiamine HCl 100 mg/Folic Acid 1 mg/Sodium Chloride 1,011.2 ml @ 1,000.088 mls/hr 1X ONCE IV Last administered on 07/16/18at 15:11; Start 07/16/18 at 14:45; Stop 07/16/18 at 15:45; Status DC Ondansetron HCl (Zofran) 4 mg PRN Q8HRS PRN IV NAUSEA/VOMITING; Start 07/16/18 at 14:45; Stop 07/16/18 at 15:20; Status DC Acetaminophen (Tylenol) 650 mg PRN Q4HRS PRN PO FEVER; Start 07/16/18 at 14:45 ; Stop 07/17/18 at 14:44; Status DC Potassium Chloride/Sodium Chloride 1,000 ml @ 75 mls/hr 1X ONCE IV Last administered on 07/16/18at 16:19; Start 07/16/18 at 15:00; Stop 07/17/18 at 04:19 ; Status DC Lorazepam (Ativan) 2 mg PRN Q1HR PRN IV For CIWA 8-14 Last administered on 07/17at 20:56; Start 07/16/18 at 14:45 Clonidine HCl (Catapres) 0.1 mg PRN Q1HR PRN PO SBP > 180 or DBP > 100, MRX3; Start 07/16/18 at 14:45 Ondansetron HCl (Zofran) 4 mg PRN Q6HRS PRN IV NAUSEA/VOMITING Last administered on 07/17/18at 01:30; Start 07/16/18 at 15:30; Stop 07/17/18 at 13:40 ; Status DC Chlordiazepoxide (Librium) 25 mg PRN Q6HRS PRN PO ANXIETY/AGITATION (1st Choice ) Last administered on 07/19/18at 09:00; Start 07/16/18 at 15:30 Acetaminophen (Tylenol) 500 mg PRN Q6HRS PRN PO MILD PAIN / TEMP Last administered on 07/18/18at 09:09; Start 07/16/18 at 15:30 Acetaminophen/ Codeine Phosphate (Tylenol #3) 1 tab PRN Q6HRS PRN PO MODERATE PAIN Last administered on 07/19/18 08:52; Start 07/16/18 at 15:30 Ondansetron HCl (Zofran) 4 mg PRN Q6HRS PRN IV NAUSEA/VOMITING; Start 07/16/18 at 15:30 Ondansetron HCl (Zofran Odt) 4 mg PRN Q6HRS PRN PO NAUSEA/VOMITING Last administered on 07/17/18at 07:57; Start 07/16/18 at 15:30 Calcium Carbonate/ Glycine (Tums) 500 mg PRN AFTMEALHC PRN PO INDIGESTION; Start 07/16/18 at 15:30 Zolpidem Tartrate (Ambien) 5 mg PRN QHS PRN PO INSOMNIA Last administered on at 21:35; Start 07/16/18 at 15:30 Ascorbic Acid (Vitamin C) 500 mg DAILY PO Last administered on 07/19/18 08:52 ; Start 07/17/18 at 09:00 Mupirocin (Bactroban) 1 wayne TID TP Last administered on 07/19/18 08:52; Start 07/16/18 at 21:00 Sodium Chloride 1,000 ml @ 100 mls/hr Q10H IV Last administered on 07/17/18at 21:30; Start 07/16/18 at 15:30; Stop 07/18/18 at 08:26; Status DC Nicotine (Nicoderm Cq 21mg) 1 patch PRN DAILY PRN TD SMOKING CESSATION; Start 07/16/18 at 15:30 Nicotine Polacrilex (Nicorette Gum) 1 each PRN Q1HR PRN BC SMOKING CESSATION; Start 07/16/18 at 15:30 Alprazolam (Xanax) 0.5 mg PRN Q8HRS PRN PO ANXIETY/AGITATION (2nd Choice) Last administered on 07/17/18at 16:25; Start 07/16/18 at 15:30 Amoxicillin/ Clavulanate Potassium (Augmentin 500/ 125mg) 1 tab BID PO ; Start 07/17/18 at 15:00; Status Cancel Lactobacillus Rhamnosus (Culturelle) 1 cap BID PO ; Start 07/17/18 at 21:00; Stop 07/17/18 at 21:00; Status DC Fluticasone Propionate (Flonase) 2 spray DAILY NS Last administered on at 08:52; Start 07/18/18 at 14:00 Potassium Chloride (Klor-Con) 40 meq 1X ONCE PO Last administered on at 17:53; Start 07/18/18 at 17:30; Stop 07/18/18 at 17:34; Status DC Active Scripts Active Xanax (Alprazolam) 0.25 Mg Tablet 0.25 Mg PO PRN Q6HRS PRN 30 Days Hydrochlorothiazide Capsule (Hydrochlorothiazide) 12.5 Mg Capsule 12.5 Mg PO DAILY 30 Days Catapres (Clonidine Hcl) 0.1 Mg Tablet 0.1 Mg PO Q8HRS 30 Days Cyclobenzaprine Hcl 10 Mg Tablet 10 Mg PO PRN TID PRN 30 Days Polyethylene Glycol 3350 17 Gm Powd.pack 17 Gm PO PRN DAILY PRN 30 Days Feosol (Ferrous Sulfate) 325 Mg Tablet 325 Mg PO DAILYWBKFT 30 Days Vitamin D2 (Ergocalciferol (Vitamin D2)) 50,000 Unit Capsule 50,000 Unit PO VALENTINE 30 Days Aspirin 325 Mg Tablet 325 Mg PO BID 30 Days Duoneb 0.5-3(2.5) Mg/3 Ml (Albuterol/Ipratropium) 3 Ml Ampul.neb 3 Ml NEB RTQID Protonix (Pantoprazole Sodium) 40 Mg Tablet.dr 40 Mg PO DAILY Reported Vitamin D (Cholecalciferol (Vitamin D3)) 5,000 Unit Tablet 5,000 Unit PO DAILY Vitals/I & O Vital Sign - Last 24 Hours 07/18/18 07/18/18 07/18/18 07/18/18 10:54 15:10 17:53 19:00 Temp 99.3 98.6 98.0 99.3 98.6 98.0 Pulse 124 117 87 Resp 17 18 18 B/P (MAP) 162/91 (114) 169/91 (117) 145/75 (98) Pulse Ox 98 96 96 96 O2 Delivery Room Air Room Air Room Air Room Air 07/18/18 07/18/18 07/18/18 07/18/18 20:00 21:35 22:35 23:05 Temp 98.6 98.6 Pulse 89 Resp 18 B/P (MAP) 146/87 (106) Pulse Ox 96 96 95 O2 Delivery Room Air Room Air Room Air Room Air 07/19/18 07/19/18 07/19/18 03:05 07:00 08:52 Temp 98.6 97.7 98.6 97.7 Pulse 72 81 Resp 18 18 B/P (MAP) 148/74 (98) 140/80 (100) Pulse Ox 96 95 O2 Delivery Room Air Room Air Room Air Intake and Output 07/18/18 07/18/18 07/19/18 14:59 22:59 06:59 Intake Total 800 ml 720 ml 750 ml Balance 800 ml 720 ml 750 ml GARDENIA MORELOS MD Jul 19, 2018 09:04
--- NOTE | 2018-07-19 09:49 | PDOC3 ---
Discharge Summary Date of Admission: Jul 16, 2018 Date of Discharge: Jul 19, 2018 Follow-Up: 3-5 days Admitting Diagnosis comment: DISCHARGE DX Chief Complaint Frequent falls SECONDARY TO SUBSTANCE ABUSE Alcohol dependence TOBACCO ABUSE DISORDER THC ABUSE Critical hypokalemia-2.9 corrected Anion gap acidosis elevated-anion gap 17 from etoh- now closed History COPD seizures chronic stable Minor skin abrasions PLAN COUNSELED ON SMOKING AND ALCOHOL CESSATION PROVIDED Less shakes Eating WELL Potassium better Liver enzymes ELEVATED Tricompartmental primary degenerative osteoarthritis of the right knee. Old healed fracture of the distal right femur. THC ABUSE No definite focal liver lesion noted.ON US see PCP THIS WEEK, ATTEND AA DAILY Potassium 401 PT//OT ready to discharge STATES she feels improved, no tremors NO ALCOHOL USE Vitals Vitals Vital Signs Date Time Temp Pulse Resp B/P (MAP) Pulse Ox O2 Delivery O2 Flow Rate FiO2 07/19/18 08:52 Room Air 07/19/18 07:00 97.7 81 18 140/80 (100) 95 97.7 Physical Exam General: Alert, Oriented X3, Cooperative, No acute distress Heart: Regular rate, Normal S1, Normal S2 Lungs: Clear, Other Abdomen: Normal bowel sounds, Soft, No tenderness, No hepatosplenomegaly, No masses Extremities: No clubbing, No cyanosis, No edema, Normal pulses, No tenderness/ swelling Skin: No rashes, No breakdown, No significant lesion FINAL DIAGNOSIS Problems Medical Problems: (1) Alcohol abuse Status: Acute (2) Fall from standing Status: Acute (3) Knee contusion Status: Acute (4) Sprain of left hand Status: Acute Brief Hospital Course Ms. Nazario is a 57 old [sex] who presented with [ FALLS, SUBSTANCE ABUSE] CONDITION AT DISCHARGE: Improved Discharge Medications Current Medications Potassium Chloride (Klor-Con) 40 meq 1X ONCE PO Last administered on at 13:14; Start 07/16/18 at 13:00; Stop 07/16/18 at 13:01; Status DC Potassium Chloride (Klor-Con) 40 meq 1X ONCE PO Last administered on at 15:50; Start 07/16/18 at 15:00; Stop 07/16/18 at 15:01; Status DC Multivitamins 10 ml/Thiamine HCl 100 mg/Folic Acid 1 mg/Sodium Chloride 1,011.2 ml @ 1,000.088 mls/hr 1X ONCE IV Last administered on 07/16/18at 15:11; Start 07/16/18 at 14:45; Stop 07/16/18 at 15:45; Status DC Ondansetron HCl (Zofran) 4 mg PRN Q8HRS PRN IV NAUSEA/VOMITING; Start 07/16/18 at 14:45; Stop 07/16/18 at 15:20; Status DC Acetaminophen (Tylenol) 650 mg PRN Q4HRS PRN PO FEVER; Start 07/16/18 at 14:45 ; Stop 07/17/18 at 14:44; Status DC Potassium Chloride/Sodium Chloride 1,000 ml @ 75 mls/hr 1X ONCE IV Last administered on 07/16/18at 16:19; Start 07/16/18 at 15:00; Stop 07/17/18 at 04:19 ; Status DC Lorazepam (Ativan) 2 mg PRN Q1HR PRN IV For CIWA 8-14 Last administered on 07/17at 20:56; Start 07/16/18 at 14:45 Clonidine HCl (Catapres) 0.1 mg PRN Q1HR PRN PO SBP > 180 or DBP > 100, MRX3; Start 07/16/18 at 14:45 Ondansetron HCl (Zofran) 4 mg PRN Q6HRS PRN IV NAUSEA/VOMITING Last administered on 07/17/18at 01:30; Start 07/16/18 at 15:30; Stop 07/17/18 at 13:40 ; Status DC Chlordiazepoxide (Librium) 25 mg PRN Q6HRS PRN PO ANXIETY/AGITATION (1st Choice ) Last administered on 07/19/18at 09:00; Start 07/16/18 at 15:30 Acetaminophen (Tylenol) 500 mg PRN Q6HRS PRN PO MILD PAIN / TEMP Last administered on 07/18/18at 09:09; Start 07/16/18 at 15:30 Acetaminophen/ Codeine Phosphate (Tylenol #3) 1 tab PRN Q6HRS PRN PO MODERATE PAIN Last administered on 07/19/18at 08:52; Start 07/16/18 at 15:30 Ondansetron HCl (Zofran) 4 mg PRN Q6HRS PRN IV NAUSEA/VOMITING; Start 07/16/18 at 15:30 Ondansetron HCl (Zofran Odt) 4 mg PRN Q6HRS PRN PO NAUSEA/VOMITING Last administered on 07/17/18 07:57; Start 07/16/18 at 15:30 Calcium Carbonate/ Glycine (Tums) 500 mg PRN AFTMEALHC PRN PO INDIGESTION; Start 07/16/18 at 15:30 Zolpidem Tartrate (Ambien) 5 mg PRN QHS PRN PO INSOMNIA Last administered on 21:35; Start 07/16/18 at 15:30 Ascorbic Acid (Vitamin C) 500 mg DAILY PO Last administered on 07/19/18 08:52 ; Start 07/17/18 at 09:00 Mupirocin (Bactroban) 1 wayne TID TP Last administered on 07/19/18 08:52; Start 07/16/18 at 21:00 Sodium Chloride 1,000 ml @ 100 mls/hr Q10H IV Last administered on 07/17/18at 21:30; Start 07/16/18 at 15:30; Stop 07/18/18 at 08:26; Status DC Nicotine (Nicoderm Cq 21mg) 1 patch PRN DAILY PRN TD SMOKING CESSATION; Start 07/16/18 at 15:30 Nicotine Polacrilex (Nicorette Gum) 1 each PRN Q1HR PRN BC SMOKING CESSATION; Start 07/16/18 at 15:30 Alprazolam (Xanax) 0.5 mg PRN Q8HRS PRN PO ANXIETY/AGITATION (2nd Choice) Last administered on 07/17/18at 16:25; Start 07/16/18 at 15:30 Amoxicillin/ Clavulanate Potassium (Augmentin 500/ 125mg) 1 tab BID PO ; Start 07/17/18 at 15:00; Status Cancel Lactobacillus Rhamnosus (Culturelle) 1 cap BID PO ; Start 07/17/18 at 21:00; Stop 07/17/18 at 21:00; Status DC Fluticasone Propionate (Flonase) 2 spray DAILY NS Last administered on 08:52; Start 07/18/18 at 14:00 Potassium Chloride (Klor-Con) 40 meq 1X ONCE PO Last administered on at 17:53; Start 07/18/18 at 17:30; Stop 07/18/18 at 17:34; Status DC Active Scripts Active Xanax (Alprazolam) 0.25 Mg Tablet 0.25 Mg PO PRN Q6HRS PRN 30 Days Hydrochlorothiazide Capsule (Hydrochlorothiazide) 12.5 Mg Capsule 12.5 Mg PO DAILY 30 Days Catapres (Clonidine Hcl) 0.1 Mg Tablet 0.1 Mg PO Q8HRS 30 Days Cyclobenzaprine Hcl 10 Mg Tablet 10 Mg PO PRN TID PRN 30 Days Polyethylene Glycol 3350 17 Gm Powd.pack 17 Gm PO PRN DAILY PRN 30 Days Feosol (Ferrous Sulfate) 325 Mg Tablet 325 Mg PO DAILYWBKFT 30 Days Vitamin D2 (Ergocalciferol (Vitamin D2)) 50,000 Unit Capsule 50,000 Unit PO VALENTINE 30 Days Aspirin 325 Mg Tablet 325 Mg PO BID 30 Days Duoneb 0.5-3(2.5) Mg/3 Ml (Albuterol/Ipratropium) 3 Ml Ampul.neb 3 Ml NEB RTQID Protonix (Pantoprazole Sodium) 40 Mg Tablet.dr 40 Mg PO DAILY Reported Vitamin D (Cholecalciferol (Vitamin D3)) 5,000 Unit Tablet 5,000 Unit PO DAILY Vital Signs Vital Signs Date Time Temp Pulse Resp B/P (MAP) Pulse Ox O2 Delivery O2 Flow Rate FiO2 07/19/18 08:52 Room Air 07/19/18 07:00 97.7 81 18 140/80 (100) 95 97.7 Labs Laboratory Tests Test 07/17/18 15:18 07/18/18 06:10 07/19/18 03:10 Urine Collection Type Unknown Urine Color Yellow Urine Clarity Clear Urine pH 7.5 Urine Specific [place] 1.010 Urine Protein Negative mg/dL (NEG-TRACE) Urine Glucose (UA) Negative mg/dL (NEG) Urine Ketones (Stick) Negative mg/dL (NEG) Urine Blood Negative (NEG) Urine Nitrite Negative (NEG) Urine Bilirubin Negative (NEG) Urine Urobilinogen Dipstick 1.0 mg/dL (0.2 mg/dL) Urine Leukocyte Esterase Trace (NEG) Urine RBC 0 /HPF (0-2) Urine WBC 1-4 /HPF (0-4) Urine Squamous Epithelial Cells Mod /LPF Urine Bacteria 0 /HPF (0-FEW) White Blood Count 4.5 x10^3/uL (4.0-11.0) Red Blood Count 4.22 x10^6/uL (3.50-5.40) Hemoglobin 11.6 g/dL (12.0-15.5) Hematocrit 35.7 % (36.0-47.0) Mean Corpuscular Volume 84 fL (79-100) Mean Corpuscular Hemoglobin 27 pg (25-35) Mean Corpuscular Hemoglobin Concent 33 g/dL (31-37) Red Cell Distribution Width 20.8 % (11.5-14.5) Platelet Count 140 x10^3/uL (140-400) Neutrophils (%) (Auto) 71 % (31-73) Lymphocytes (%) (Auto) 19 % (24-48) Monocytes (%) (Auto) 7 % (0-9) Eosinophils (%) (Auto) 3 % (0-3) Basophils (%) (Auto) 1 % (0-3) Neutrophils # (Auto) 3.2 x10^3uL (1.8-7.7) Lymphocytes # (Auto) 0.8 x10^3/uL (1.0-4.8) Monocytes # (Auto) 0.3 x10^3/uL (0.0-1.1) Eosinophils # (Auto) 0.1 x10^3/uL (0.0-0.7) Basophils # (Auto) 0.0 x10^3/uL (0.0-0.2) Sodium Level 134 mmol/L (136-145) 138 mmol/L (136-145) Potassium Level 3.4 mmol/L (3.5-5.1) 3.9 mmol/L (3.5-5.1) Chloride Level 97 mmol/L (98-107) 100 mmol/L (98-107) Carbon Dioxide Level 25 mmol/L (21-32) 26 mmol/L (21-32) Anion Gap 12 (6-14) 12 (6-14) Blood Urea Nitrogen 5 mg/dL (7-20) 7 mg/dL (7-20) Creatinine 0.4 mg/dL (0.6-1.0) 0.5 mg/dL (0.6-1.0) Estimated GFR (Cockcroft-Gault) 163.4 126.3 BUN/Creatinine Ratio 13 (6-20) 14 (6-20) Glucose Level 88 mg/dL (70-99) 93 mg/dL (70-99) Calcium Level 8.5 mg/dL (8.5-10.1) 8.8 mg/dL (8.5-10.1) Total Bilirubin 1.2 mg/dL (0.2-1.0) 0.8 mg/dL (0.2-1.0) Aspartate Amino Transf (AST/SGOT) 273 U/L (15-37) 214 U/L (15-37) Alanine Aminotransferase (ALT/SGPT) 114 U/L (14-59) 125 U/L (14-59) Alkaline Phosphatase 60 U/L (46-116) 66 U/L (46-116) Total Protein 7.2 g/dL (6.4-8.2) 7.3 g/dL (6.4-8.2) Albumin 3.0 g/dL (3.4-5.0) 3.1 g/dL (3.4-5.0) Albumin/Globulin Ratio 0.7 (1.0-1.7) 0.7 (1.0-1.7) Laboratory Tests Test 07/19/18 03:10 Sodium Level 138 mmol/L (136-145) Potassium Level 3.9 mmol/L (3.5-5.1) Chloride Level 100 mmol/L (98-107) Carbon Dioxide Level 26 mmol/L (21-32) Anion Gap 12 (6-14) Blood Urea Nitrogen 7 mg/dL (7-20) Creatinine 0.5 mg/dL (0.6-1.0) Estimated GFR (Cockcroft-Gault) 126.3 BUN/Creatinine Ratio 14 (6-20) Glucose Level 93 mg/dL (70-99) Calcium Level 8.8 mg/dL (8.5-10.1) Total Bilirubin 0.8 mg/dL (0.2-1.0) Aspartate Amino Transf (AST/SGOT) 214 U/L (15-37) Alanine Aminotransferase (ALT/SGPT) 125 U/L (14-59) Alkaline Phosphatase 66 U/L (46-116) Total Protein 7.3 g/dL (6.4-8.2) Albumin 3.1 g/dL (3.4-5.0) Albumin/Globulin Ratio 0.7 (1.0-1.7) Allergies Allergies Coded Allergies Type Severity Reaction Last Updated Verified erythromycin base Allergy Intermediate hives 04/10/17 Yes Disposition/Orders: D/C to Home Patient Instructions D/C PLANNING 25 MIN GARDENIA MORELOS MD Jul 19, 2018 09:49
[2018-07-19] MEDS ORDERED: FOLI1TAB16 PO (09:52)
[2018-07-19] MEDS ORDERED: THIA100T22 PO (09:52)
[2018-07-19] MEDS ORDERED: FLUT16SP NS (09:52)
--- NOTE | 2018-07-19 09:54 | DISCH ---
DISCHARGE INSTRUCTIONS Condition on Discharge Condition on Discharge: Guarded Activity After Discharge Activity Instructions for Disc: Activity as tolerated, Progressive ambulation Bathing Instructions: No Tub Bath until see Lifting Instructions after Dis: Do not lift >10 pounds Exercise Instruction after Dis: Walk 10 min, 3 x per day, Progress as tolerated Driving Instructions after Dis: Do not drive, Do not drive today Weight Bearing Status after Di: As tolerated Diet after Discharge Diet after Discharge: Regular Diet Texture: Regular Swallowing Supervision: None needed Wound Incision Care Wound/Incision Care: Ice to area for comfort, Change dressing, Reinforce dressing PRN Wound Care Equipment: Dressings Checks after Discharge Checks after discharge: Check blood press - daily, Check your Temp as needed Contacting the DR. after DC Call your doctor for: If your condition worsens Treatment/Equipment after DC Adaptive Equipment Issued: None, GARDENIA Beltre MD Jul 19, 2018 09:54
--- NOTE | 2018-07-19 10:24 | NUR ---
Wound Care Wound care consult for multiple abrasions. Pt has multiple abrasions to forehead and BLE from fall. All wounds have dry scabs intact. Painted with skin prep for protection. No other wounds noted on full skin inspection. WC will sign off at this time. Please reconsult if new wounds develop.
--- NOTE | 2018-07-19 10:40 | NUR ---
Discharge Note: [facility] Discharge instructions and discharge home medications reviewed with Patient and a copy given. All questions have been answered and understanding verbalized. The following instructions and handouts were given: F/U with PCP within one week. Discontinued lines and drains: Peripheral IV intact. Patient discharged to Home or Self Care with self via wheelchair by taxi. All belongings with patient at time of discharge.
== END 2018-07-19 10:40 | disposition home or self-care (01) | DRG 641 ==
LOC: ER 12:09 → 6 SOUTH 16:53
PROVIDERS: ADMIT Internal Medicine; ATTEND Internal Medicine
DX: E87.6 Hypokalemia (principal); F10.239 Alcohol dependence with withdrawal, unspecified; S80.02XA Contusion of left knee, initial encounter; E87.2 Acidosis; S63.92XA Sprain of unspecified part of left wrist and hand, initial encounter; F10.229 Alcohol dependence with intoxication, unspecified; I10 Essential (primary) hypertension; R29.6 Repeated falls; Y90.8 Blood alcohol level of 240 mg/100 ml or more; F03.90 Unspecified dementia, unspecified severity, without behavioral disturbance, psychotic disturbance, mood disturbance, and anxiety; F12.10 Cannabis abuse, uncomplicated; F17.210 Nicotine dependence, cigarettes, uncomplicated; F20.9 Schizophrenia, unspecified; J44.9 Chronic obstructive pulmonary disease, unspecified; K21.9 Gastro-esophageal reflux disease without esophagitis; M17.11 Unilateral primary osteoarthritis, right knee; W18.39XA Other fall on same level, initial encounter; R56.9 Unspecified convulsions; Z87.11 Personal history of peptic ulcer disease; Z96.659 Presence of unspecified artificial knee joint; K57.90 Diverticulosis of intestine, part unspecified, without perforation or abscess without bleeding; Z87.440 Personal history of urinary (tract) infections; Y93.89 Activity, other specified; Y92.89 Other specified places as the place of occurrence of the external cause; Y99.8 Other external cause status; Z98.51 Tubal ligation status; Z88.0 Allergy status to penicillin
CPT/HCPCS: 36415; 73130; 73564; 76705; 80048; 80053; 80307; 81001; 83690; 85025; 87086; 96365; G0480; J2060; J2405; J7030; Q0162; 99285-25

== ENCOUNTER 2018-07-23 00:45 | Emergency (ER) | payer OTHER ==
[~2018-07-23] VITALS: Ht 157.5 cm; Wt 54.0 kg
[~2018-07-23 00:45] MED LIST changes: +FLUT16SP NS; +FOLI1TAB16 PO; +THIA100T22 PO
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
[2018-07-23 02:56] VITALS: BP 120/78
== END 2018-07-23 03:15 | disposition home or self-care (01) ==
LOC: ER 00:45 → EEVIPCON 00:45 → ER 03:15
DX: T74.21XA Adult sexual abuse, confirmed, initial encounter (principal); S09.90XA Unspecified injury of head, initial encounter; J44.9 Chronic obstructive pulmonary disease, unspecified; K21.9 Gastro-esophageal reflux disease without esophagitis; Z88.1 Allergy status to other antibiotic agents; Y04.2XXA Assault by strike against or bumped into by another person, initial encounter; Y93.89 Activity, other specified; Y92.89 Other specified places as the place of occurrence of the external cause; Y99.8 Other external cause status
CPT/HCPCS: 70450; 72125; 99284-25

== ENCOUNTER 2019-01-04 15:25 | Emergency (ER) | payer MEDICAID, OTHER ==
[~2019-01-04] VITALS: Ht 152.4 cm; Wt 54.0 kg
[~2019-01-04 15:25] MED LIST changes: -PANT40TA3 PO; +PANT40TA77 PO
[2019-01-04 15:52] VITALS: BP 161/72
[2019-01-04] MEDS ORDERED: ORPHENADRINE CITRATE 60 MG/2 ML VIAL. IM ONE (16:00)
[2019-01-04] MEDS ORDERED: METR500T PO (16:03)
[2019-01-04] MEDS ORDERED: FLUC150T PO (16:03)
[2019-01-04] MEDS ORDERED: ORPH100T PO (16:04)
--- NOTE | 2019-01-04 16:04 | PHYS DOC ---
Past Medical History Past Medical History: Alcoholism, COPD, GERD, P.U.D., Other Additional Past Medical Histor: hepatitis c, ETOH Past Surgical History: Cholecystectomy, Knee Replacement, Tubal ligation Additional Past Surgical Histo: right knee, Ex lap for perforated duodenal ulcer, rt hip Alcohol Use: Heavy Drug Use: Marijuana Adult General Chief Complaint Chief Complaint: LOWER EXT PAIN HPI HPI Patient is a 58 year old female who presents with right leg pain, and vaginal discharge/smell with itching. The patient states that the vaginal itching and discharge been ongoing for a month and a half. The patient states that she's tried Monistat [id number] but is not working. She denies being sexually active. The patient states her right leg pain has been acting up worse than usual last week. Reports her pain as 10 out of 10 in severity. Took Ibuprofen at home. Review of Systems Review of Systems Constitutional: Denies fever or chills [] Eyes: Denies change in visual acuity, redness, or eye pain [] HENT: Denies nasal congestion or sore throat [] Respiratory: Denies cough or shortness of breath [] Cardiovascular: No additional information not addressed in HPI [] GI: Denies abdominal pain, nausea, vomiting, bloody stools or diarrhea [] : Reports vaginal discharge/itching. Musculoskeletal: Reports back pain radiating down the left leg. Integument: Denies rash or skin lesions [] Neurologic: Denies headache, focal weakness or sensory changes [] Endocrine: Denies polyuria or polydipsia [] Complete systems were reviewed and found to be within normal limits, except as documented in this note. Allergies Allergies Allergies Coded Allergies Type Severity Reaction Last Updated Verified erythromycin base Allergy Intermediate hives 04/10/17 Yes Physical Exam Physical Exam Constitutional: Well developed, well nourished, no acute distress, non-toxic appearance. [] HENT: Normocephalic, atraumatic, bilateral external ears normal, oropharynx moist, no oral exudates, nose normal. [] Eyes: PERRLA, EOMI, conjunctiva normal, no discharge. [] Neck: Normal range of motion, no tenderness, supple, no stridor. [] Cardiovascular:Heart rate regular rhythm, no murmur [] Lungs & Thorax: Bilateral breath sounds clear to auscultation [] Abdomen: Bowel sounds normal, soft, no tenderness, no masses, no pulsatile masses. [] Skin: Warm, dry, no erythema, no rash. [] Back: lower back tenderness Extremities: No tenderness, no cyanosis, no clubbing, ROM intact, no edema. [] Neurologic: Alert and oriented X 3, normal motor function, normal sensory function, no focal deficits noted. [] Psychologic: Affect normal, judgement normal, mood normal. [] EKG EKG [] Radiology/Procedures Radiology/Procedures [] Course & Med Decision Making Course & Med Decision Making Pertinent Labs and Imaging studies reviewed. (See chart for details) 1. Will give Norflex for sciatica pain. 2. The patient does not desire STD testing, I highly suspect the patient has yeast infection and bacterial vaginosis. Will treat for both. 3. The patient does not have a primary care doctor, will give list. Dragon Disclaimer Dragon Disclaimer This electronic medical record was generated, in whole or in part, using a voice recognition dictation system. Departure Departure Impression: Primary Impression: Sciatic pain Additional Impressions: Candidiasis Bacterial vaginosis Disposition: 01 HOME, SELF-CARE Condition: STABLE Referrals: NO PCP (PCP) Patient Instructions: Bacterial Vaginosis, Candidal Vulvovaginitis, [id number], Sciatica Additional Instructions: Thank you for visiting [facility]. We appreciate you trusting us with your care. If any additional problems come up don't hesitate to return to visit us. Please follow up with your primary care provider so they can plan additional care if needed and know about the problem that you had. If symptoms worsen come back to the Emergency Department. Any concerning symptoms that start such as chest pain, shortness of air, weakness or numbness on one side of the body, running high fevers or any other concerning symptoms return to the ER. Please fill your medications at any pharmacy and follow the prescription instructions. You have been prescribed an antibiotic today to help fight your infection. Please take all of the antibiotic as directed. If after 48 hours the infection is not improving, please return for more care. If the infection worsens, return to ER for additional care. Scripts Orphenadrine Citrate (ORPHENADRINE CITRATE) 100 Mg Tablet.er 1 TAB PO BID PRN for MUSCLE PAIN for 10 Days, #20 TAB Prov: ALISON ZAMORA APRN 01/04/19 Metronidazole (FLAGYL) 500 Mg Tablet 1 TAB PO BID for 7 Days, #14 TAB Please do not use Alcohol with Flagyl. Prov: ALISON ZAMORA APRN 01/04/19 Fluconazole (DIFLUCAN) 150 Mg Tablet 1 TAB PO ONCE, #1 TAB Prov: ALISON ZAMORA APRN 01/04/19 Problem Qualifiers ALISON ZAMORA APRN Jan 04, 2019 16:04
== END 2019-01-04 16:17 | disposition home or self-care (01) ==
LOC: ER 15:25
DX: N76.0 Acute vaginitis (principal); B96.89 Other specified bacterial agents as the cause of diseases classified elsewhere; B37.9 Candidiasis, unspecified; M54.41 Lumbago with sciatica, right side; J44.9 Chronic obstructive pulmonary disease, unspecified; K21.9 Gastro-esophageal reflux disease without esophagitis; F10.20 Alcohol dependence, uncomplicated; Y90.9 Presence of alcohol in blood, level not specified; Z90.49 Acquired absence of other specified parts of digestive tract; Z98.51 Tubal ligation status; Z88.1 Allergy status to other antibiotic agents
CPT/HCPCS: 96372; 99283; J2360

== ENCOUNTER 2019-02-05 12:54 | Emergency (ER) | payer MEDICAID ==
[~2019-02-05] VITALS: Ht 160 cm; Wt 54.0 kg
[~2019-02-05 12:54] MED LIST changes: +FLUC150T PO; +METR500T PO; +ORPH100T PO
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
[2019-02-05 14:00] VITALS: BP 137/85
[2019-02-05] MEDS ORDERED: KETOROLAC 30 MG/ML VIAL. IM ONE (15:00)
== END 2019-02-05 14:55 | disposition home or self-care (01) ==
LOC: ER 12:54
DX: M25.551 Pain in right hip (principal); K21.9 Gastro-esophageal reflux disease without esophagitis; J44.9 Chronic obstructive pulmonary disease, unspecified; Z98.51 Tubal ligation status; F10.20 Alcohol dependence, uncomplicated; Y90.9 Presence of alcohol in blood, level not specified; Z90.49 Acquired absence of other specified parts of digestive tract; Z88.1 Allergy status to other antibiotic agents
CPT/HCPCS: 73502; 96372; 99284; J1885

== ENCOUNTER 2019-04-08 10:21 | Emergency (ER) | payer MEDICAID ==
[~2019-04-08] VITALS: Ht 160 cm; Wt 52.2 kg
--- NOTE | 2019-04-08 10:44 | PHYS DOC ---
Past Medical History Past Medical History: Alcoholism, COPD, GERD, P.U.D., Other Additional Past Medical Histor: hepatitis c, ETOH Past Surgical History: Cholecystectomy, Knee Replacement, Tubal ligation, Other Additional Past Surgical Histo: right knee, Ex lap for perforated duodenal ulcer, rt hip Smokin Pack Per Day Alcohol Use: Heavy Drug Use: Marijuana Adult General Chief Complaint Chief Complaint: BACK PAIN OR INJURY HPI HPI Patient is a 58-year-old female with no significant past medical history is presenting to the emergency department 1 day of back pain. Patient states that yesterday morning when she woke up she sat up in bed and twisted and immediately felt sharp pain starting in the midline of her lumbar spine radiating bilaterally down her legs. Patient denies numbness or tingling in her legs, saddle anesthesia, loss of bowel or bladder function. Patient denies fever, chills, nausea, vomiting, chest pain, shortness of breath, abdominal pain, constipation, and diarrhea. Patient denies any other trauma. Has not tried any medications at home. Review of Systems Review of Systems Constitutional: Denies fever or chills Eyes: Denies redness or eye pain HENT: Denies nasal congestion or sore throat Respiratory: Denies cough or shortness of breath Cardiovascular: Denies chest pain or palpitations GI: Denies abdominal pain, nausea, or vomiting : Denies dysuria or hematuria Musculoskeletal: Denies joint pain, reports back pain Integument: Denies rash or skin lesions Neurologic: Denies headache, focal weakness or sensory changes Complete systems were reviewed and found to be within normal limits, except as documented in this note. Current Medications Current Medications Current Medications Medications (Trade) Dose Ordered Sig/Eliezer Start Time Stop Time Status Last Admin Dose Admin Acetaminophen/ Hydrocodone Bitart (Lortab 5/325) 1 tab 1X ONCE 04/08/19 10:45 04/08/19 10:51 DC 04/08/19 11:00 1 TAB Dexamethasone (Decadron) 10 mg 1X ONCE 04/08/19 11:00 04/08/19 11:01 DC 04/08/19 11:00 10 MG Ketorolac Tromethamine (Toradol 30mg Vial) 30 mg 1X ONCE 04/08/19 10:45 04/08/19 10:46 DC 04/08/19 11:06 30 MG Lidocaine (Lidoderm) 1 patch 1X ONCE 04/08/19 10:45 04/08/19 10:51 DC 04/08/19 11:03 1 PATCH Orphenadrine Citrate (Norflex) 60 mg 1X ONCE 04/08/19 10:45 04/08/19 10:46 DC 04/08/19 11:07 60 MG Allergies Allergies Allergies Coded Allergies Type Severity Reaction Last Updated Verified erythromycin base Allergy Intermediate hives 04/10/17 Yes Physical Exam Physical Exam Constitutional: Well developed, well nourished, no acute distress, non-toxic appearance HENT: Normocephalic, atraumatic, oropharynx moist Eyes: Conjunctiva normal, no discharge Neck: Normal range of motion, no tenderness, supple Cardiovascular: Heart rate normal, regular rhythm Lungs & Thorax: Bilateral breath sounds clear to auscultation, no wheezing Abdomen: Soft, no tenderness Skin: Warm, dry, no erythema, no rash Back: Lumbar paraspinal tenderness, no midline tenderness Extremities: No tenderness, ROM intact, no edema Neurologic: Alert and oriented X 3, normal motor function, normal sensory function, no focal deficits noted Psychologic: Affect normal, judgement normal, mood normal Current Patient Data Vital Signs Vital Signs Date Time Temp Pulse Resp B/P (MAP) Pulse Ox O2 Delivery O2 Flow Rate FiO2 04/08/19 11:00 18 93 Room Air 04/08/19 10:21 98.0 93 136/70 (92) 98.0 EKG EKG [] Radiology/Procedures Radiology/Procedures PROCEDURE: LUMBAR SPINE 2-3V Examination: LUMBAR SPINE 2-3V History: Back pain for one day Comparison/Correlation: None Findings: 3 images of the lumbar spine were obtained. Mild levoconvex in the lumbar spine is present. Moderate L3-S1 disc space narrowing is present. Vacuum phenomenons present from L4 to S5. No fracture or bone destruction. Gaseous distention of the left lower quadrant small bowel loop is evident. Pin is evident within the right femoral head. Impression: Degenerative change. Distended left lower quadrant small bowel loop which may represent ileus or possibly obstruction. Correlate clinically in order to determine need for further assessment. Electronically signed by: Da Britton MD (04/08/2019 11:51 AM) [facility] Course & Med Decision Making Course & Med Decision Making Patient is a 58-year-old female with no significant past medical history is essentially [facility] with one-day history of back pain. Patient was seen and examined at bedside. Physical exam significant for lumbar paraspinal tenderness, no step-offs or deformities. Patient given symptomatic treatment. Lumbar x-ray without acute process. Symptomatic improvement. Patient be discharged home with symptomatic treatment. Patient stable for discharge with outpatient follow-up with PCP. Discussed findings and plan with patient, who acknowledges understanding and agreement. Dragon Disclaimer Dragon Disclaimer This electronic medical record was generated, in whole or in part, using a voice recognition dictation system. Departure Departure Impression: Primary Impression: Back pain Additional Impression: Sciatic pain Disposition: HOME, SELF-CARE Condition: STABLE Referrals: NO PCP (PCP) Patient Instructions: Back Pain, Adult, Jxja-ne-Sivy, Sciatica, Jipe-ho-Lctj Scripts Lidocaine (Lidocaine PATCH ) 1 Each Adh..patch 1 EACH TP DAILY for FOR LOCAL PAIN, #5 PATCH REMOVE AFTER 12 HOURS, leave off for 24 hours before replacement of patch Prov: ALISON NAJERA DO 04/08/19 Ibuprofen (IBUPROFEN) 600 Mg Tablet 600 MG PO PRN Q6HRS PRN for INFLAMMATION, #10 TAB Prov: ALISON NAJERA DO 04/08/19 Orphenadrine Citrate (ORPHENADRINE CITRATE) 100 Mg Tablet.er 1 TAB PO BID PRN for MUSCLE SPASMS, #10 TAB 0 Refills Prov: ALISON NAJERA DO 04/08/19 Hydrocodone Bit/Acetaminophen (HYDROCODONE-APAP 5-325 ) 1 Tab Tablet 0.5-1 TAB PO PRN Q6HRS PRN for PAIN, #10 TAB 0 Refills Prov: ALISON NAJERA DO 04/08/19 Problem Qualifiers Primary Impression: Back pain Back pain location: low back pain Chronicity: acute Back pain laterality: bilateral Sciatica presence: with sciatica Sciatica laterality: bilateral sciatica Qualified Codes: M54.42 - Lumbago with sciatica, left side; M54.41 - Lumbago with sciatica, right side Additional Impression: Sciatic pain Laterality: unspecified laterality Qualified Codes: M54.30 - Sciatica, un specified side ALISON NAJERA DO Apr 08, 2019 10:44
[2019-04-08] MEDS: DEXAMETHASONE 4 MG TABLET PO ONE (11:00)
[2019-04-08] MEDS: HYDROcodone/APAP 5/325MG 1 TAB TABLET PO ONE (11:00)
[2019-04-08] MEDS: LIDOCAINE (700MG/PATCH) PATCH. TD ONE (11:03)
[2019-04-08] MEDS: KETOROLAC 30 MG/ML VIAL. IM ONE (11:06)
[2019-04-08] MEDS: ORPHENADRINE CITRATE 60 MG/2 ML VIAL. IM ONE (11:07)
--- NOTE | 2019-04-08 11:53 | RAD ---
Examination: LUMBAR SPINE 2-3V History: Back pain for one day Comparison/Correlation: None Findings: 3 images of the lumbar spine were obtained. Mild levoconvex in the lumbar spine is present. Moderate L3-S1 disc space narrowing is present. Vacuum phenomenons present from L4 to S5. No fracture or bone destruction. Gaseous distention of the left lower quadrant small bowel loop is evident. Pin is evident within the right femoral head. Impression: Degenerative change. Distended left lower quadrant small bowel loop which may represent ileus or possibly obstruction. Correlate clinically in order to determine need for further assessment. Electronically signed by: Da Britton MD (04/08/2019 11:51 AM) [facility]
[2019-04-08 12:00] VITALS: BP 143/88
[2019-04-08] MEDS ORDERED: IBUP-1007 PO (12:02)
[2019-04-08] MEDS ORDERED: ORPH100T PO (12:02)
[2019-04-08] MEDS ORDERED: HYDR-2761 PO (12:02)
[2019-04-08] MEDS ORDERED: LIDO700A21 TP (12:06)
== END 2019-04-08 12:30 | disposition home or self-care (01) ==
LOC: ER 10:21
DX: M54.41 Lumbago with sciatica, right side (principal); M54.42 Lumbago with sciatica, left side; J44.9 Chronic obstructive pulmonary disease, unspecified; K21.9 Gastro-esophageal reflux disease without esophagitis; F17.200 Nicotine dependence, unspecified, uncomplicated; F10.20 Alcohol dependence, uncomplicated; Y90.9 Presence of alcohol in blood, level not specified; Z90.49 Acquired absence of other specified parts of digestive tract; Z98.51 Tubal ligation status; Z88.1 Allergy status to other antibiotic agents
CPT/HCPCS: 72100; 96372; 99284; J1885; J2360; J8540

== ENCOUNTER 2019-05-01 16:45 | Emergency (ER) | payer MEDICAID ==
[~2019-05-01] VITALS: Ht 160 cm; Wt 53.6 kg
[~2019-05-01 16:45] MED LIST changes: +HYDR-2761 PO; +IBUP-1007 PO; +LIDO700A21 TP; +LORA-434 PO
--- NOTE | 2019-05-01 17:10 | PHYS DOC ---
Past Medical History Past Medical History: Alcoholism, COPD, GERD, P.U.D., Other Additional Past Medical Histor: hepatitis c, ETOH Past Surgical History: Cholecystectomy, Knee Replacement, Tubal ligation, Other Additional Past Surgical Histo: right knee, Ex lap for perforated duodenal ulcer, rt hip Alcohol Use: Heavy Drug Use: Marijuana Adult General Chief Complaint Chief Complaint: MECHANICAL FALL HPI HPI Patient is a 58 year old female with history of alcoholism, hepatitis C, COPD and GERD who presents via EMS with complaint of a fall and injury to right hip. Patient states she was to this of her questions and lost her balance and had a fall and injured her right hip. Patient states she had history of right hip surgery and right knee replacement and rated his pain as a severe pain. Patient states she had 2 large bottle of beer today and denies loss of consciousness and other injuries. Review of Systems Review of Systems Constitutional: Denies fever or chills [] Eyes: Denies change in visual acuity, redness, or eye pain [] HENT: Denies nasal congestion or sore throat [] Respiratory: Denies cough or shortness of breath [] Cardiovascular: No additional information not addressed in HPI [] GI: Denies abdominal pain, nausea, vomiting, bloody stools or diarrhea [] : Denies dysuria or hematuria [] Musculoskeletal: Denies back pain ,reports joint pain [] Integument: Denies rash or skin lesions [] Neurologic: Denies headache, focal weakness or sensory changes [] Endocrine: Denies polyuria or polydipsia [] All other systems were reviewed and found to be within normal limits, except as documented in this note. Current Medications Current Medications Current Medications Medications (Trade) Dose Ordered Sig/Eliezer Start Time Stop Time Status Last Admin Dose Admin Acetaminophen/ Hydrocodone Bitart (Lortab 5/325) 1 tab 1X ONCE 05/01/19 17:45 05/01/19 17:50 DC Naproxen (Naprosyn) 500 mg 1X STAT 05/01/19 17:49 05/01/19 17:55 DC 05/01/19 17:56 500 MG Allergies Allergies Allergies Coded Allergies Type Severity Reaction Last Updated Verified erythromycin base Allergy Intermediate hives 04/10/17 Yes Physical Exam Physical Exam Constitutional: Well nourished, mild distress, smell of alcohol on breath HENT: Normocephalic, atraumatic. Eyes: PERRLA, EOMI, conjunctiva normal, no discharge. [] Neck: Normal range of motion, no tenderness, supple, no stridor. [] Cardiovascular:Heart rate regular rhythm, no murmur [] Lungs & Thorax: Bilateral breath sounds clear to auscultation [] Abdomen: Bowel sounds normal, soft, no tenderness, no masses, no pulsatile masses. [] Skin: Warm, dry, no erythema, no rash. [] Back: No tenderness, no CVA tenderness. [] Extremities: Holding right hip pain flexion position with painful range of motion and tenderness in the right inguinal area without deformity. Neurologic: Alert and oriented X 3, no focal deficits noted. [] Psychologic: Affect anxious, mood normal. [] Current Patient Data Vital Signs Vital Signs Date Time Temp Pulse Resp B/P (MAP) Pulse Ox O2 Delivery O2 Flow Rate FiO2 05/01/19 17:37 80 16 97 05/01/19 16:47 98.6 150/86 (107) Room Air 98.6 EKG EKG [] Radiology/Procedures Radiology/Procedures [facility] [address] [place] [address] IMAGING REPORT Signed PATIENT: LU PIERCE ACCOUNT: [id number] : 1960 LOCATION: ER AGE: 58 SEX: F EXAM STATUS: DEP ER ORD. PHYSICIAN: ANGEL KRAFT MD REASON: injury PROCEDURE: HIP RIGHT 2V WITH PELVIS Examination: HIP RIGHT 2V WITH PELVIS History: Injury, pain Comparison/Correlation: 04/24/2019 right hip 2 view x-ray exam Findings: Frontal view of the pelvis was obtained. Frontal view right hip and frog-leg lateral view right hip were obtained. Osteopenia is present. Right femoral intramedullary didier is present with associated compression pin. Associated cerclage wires are noted superiorly. Plate and screws are evident involving the distal right femoral shaft but not fully included for purposes of this exam. Deformity of the right intertrochanteric region presumably correspond to previous fracture is seen. Possible old right inferior pubic ring fracture deformity is again seen. Gas within the nondistended left lower quadrant small bowel loop is present. Moderate quantity of stool in the colon noted. Impression: Osteopenia. No acute fracture or bony destruction. Consider further imaging if occult process is a persistent concern. Electronically signed by: Da Ty MD (05/01/2019 6:05 PM) [facility] DICTATED and SIGNED BY: DA TY MD DATE: 05/01/19 180 Course & Med Decision Making Course & Med Decision Making Pertinent Imaging studies reviewed. (See chart for details) Evaluation of patient in ER showed 58-year-old female patient with history of alcoholism and frequent emergency room visits and complaining of fall and right hip pain. X-ray did not show new fracture. Patient ambulated without problem and was alert and oriented 3. Dr Johansen was consulted at 1731 and recommended pain medication and follow up as outpatient. I've spoken with the patient and/or caregivers. I've explained the patient's condition, diagnosis and treatment plan based on information available to me at this time. I've answered the patient's and/or caregivers questions and addressed any concerns. The patient and/or caregivers have a good understanding the patient's diagnosis, condition and treatment plan as can be expected at this point. Vital signs have been stabilized. The patient's condition is stable for discharge from the emergency department. The patient will pursue further outpatient evaluation with her primary care provider or other designated consulting physician as outlined in the discharge instructions. Patient and/or caregivers are agreeable to this plan of care and follow-up instructions have been explained in detail. The patient and/or caregivers have received these instructions in written format and expressed understanding of these discharge instructions. The patient and her caregivers are aware that if any significant change in condition or worsening of symptoms should prompt him to immediately return to this of the closest emergency d epartment. If an emergent department is not readily available I would encourage him to call 911. Ruba Disclaimer Dragon Disclaimer This electronic medical record was generated, in whole or in part, using a voice recognition dictation system. Departure Departure Impression: Primary Impression: Injury of right hip Additional Impression: Alcohol abuse Disposition: HOME, SELF-CARE (at 1745) Condition: IMPROVED Referrals: NO PCP (PCP) Patient Instructions: Alcohol Problems, Hip Injury Additional Instructions: Apply ice on the affected area Follow-up with your primary care physician in 3-5 days Return to ER if not getting better discharge: I've spoken with the patient and/or caregivers. I've explained the patient's condition, diagnosis and treatment plan based on information available to me at this time. I've answered the patient's and/or caregivers questions and addressed any concerns. The patient and/or caregivers have a good understanding the patient's diagnosis, condition and treatment plan as can be expected at this point. Vital signs have been stabilized. The patient's condition is stable for discharge from the emergency department. The patient will pursue further outpatient evaluation with her primary care provider or other designated consulting physician as outlined in the discharge instructions. Patient and/or caregivers are agreeable to this plan of care and follow-up instructions have been explained in detail. The patient and/or caregivers have received these instructions in written format and expressed understanding of these discharge instructions. The patient and her caregivers are aware that if any significant change in condition or worsening of symptoms should prompt him to immediately return to this of the closest emergency department. If an emergent department is not readily available I would encourage him to call 911. Scripts Naproxen (NAPROSYN) 500 Mg Tablet 1 TAB PO BID for pain, #14 TAB Prov: ANGEL KRAFT MD 05/01/19 Problem Qualifiers Primary Impression: Injury of right hip Encounter type: initial encounter Qualified Codes: S79.911A - Unspecified injury of right hip, initial encounter ANGEL KRAFT MD May 01, 2019 17:10
[2019-05-01 17:37] VITALS: BP 131/67
[2019-05-01] MEDS ORDERED: HYDROcodone/APAP 5/325MG 1 TAB TABLET PO ONE (17:45)
[2019-05-01] MEDS ORDERED: NAPR-683 PO (17:48)
[2019-05-01] MEDS ORDERED: NAPROXEN 500 MG TABLET PO STA (17:49)
--- NOTE | 2019-05-01 18:08 | RAD ---
Examination: HIP RIGHT 2V WITH PELVIS History: Injury, pain Comparison/Correlation: 04/24/2019 right hip 2 view x-ray exam Findings: Frontal view of the pelvis was obtained. Frontal view right hip and frog-leg lateral view right hip were obtained. Osteopenia is present. Right femoral intramedullary didier is present with associated compression pin. Associated cerclage wires are noted superiorly. Plate and screws are evident involving the distal right femoral shaft but not fully included for purposes of this exam. Deformity of the right intertrochanteric region presumably correspond to previous fracture is seen. Possible old right inferior pubic ring fracture deformity is again seen. Gas within the nondistended left lower quadrant small bowel loop is present. Moderate quantity of stool in the colon noted. Impression: Osteopenia. No acute fracture or bony destruction. Consider further imaging if occult process is a persistent concern. Electronically signed by: Da Britton MD (05/01/2019 6:05 PM) [facility]
== END 2019-05-01 18:03 | disposition home or self-care (01) ==
LOC: ER 16:45
DX: S79.911A Unspecified injury of right hip, initial encounter (principal); F10.20 Alcohol dependence, uncomplicated; Y90.9 Presence of alcohol in blood, level not specified; K21.9 Gastro-esophageal reflux disease without esophagitis; J44.9 Chronic obstructive pulmonary disease, unspecified; Z90.49 Acquired absence of other specified parts of digestive tract; Z98.51 Tubal ligation status; Z96.651 Presence of right artificial knee joint; Z88.1 Allergy status to other antibiotic agents; W18.39XA Other fall on same level, initial encounter; Y93.89 Activity, other specified; Y92.89 Other specified places as the place of occurrence of the external cause; Y99.8 Other external cause status
CPT/HCPCS: 73502; 99284

== ENCOUNTER 2019-05-04 04:28 | Emergency (ER) | payer MEDICAID ==
[~2019-05-04] VITALS: Ht 160 cm; Wt 54.5 kg
[~2019-05-04 04:28] MED LIST changes: +NAPR-683 PO
--- NOTE | 2019-05-04 04:53 | PHYS DOC ---
Past Medical History Past Medical History: Alcoholism, COPD, GERD, P.U.D., Other Additional Past Medical Histor: hepatitis c, ETOH (RITO LYNCH MD) Past Surgical History: Cholecystectomy, Knee Replacement, Tubal ligation, Other Additional Past Surgical Histo: right knee, Ex lap for perforated duodenal ulcer, rt hip (RITO LYNCH MD) Alcohol Use: Heavy Drug Use: Marijuana (RITO LYNCH MD) Adult General Chief Complaint Chief Complaint: MECHANICAL FALL HPI HPI 58-year-old female with underlying history of COPD, EtOH presents to the emergency department after a fall. Patient states she was getting up from the toilet slipped on a rug and fell on the bathtub. She describes left side and rib pain. She denies any loss of consciousness or head injury. Patient denies any headache or visual change, nausea, vomiting. She does complain of left side/flank and left rib pain. Patient states it hurts to take a deep breath. Nothing makes her pain better. (RITO LYNCH MD) Review of Systems Review of Systems Constitutional: Denies fever or chills [] Respiratory: Denies cough, + shortness of breath [] Cardiovascular: No additional information not addressed in HPI [] GI: left flank/rib pain, no nausea, vomiting, bloody stools or diarrhea [] : Denies dysuria or hematuria [] Musculoskeletal: left rib/flank pain Integument: Denies rash or skin lesions [] Neurologic: Denies headache, focal weakness or sensory changes [] All other systems were reviewed and found to be within normal limits, except as documented in this note. (RITO LYNCH MD) Current Medications Current Medications Current Medications Medications (Trade) Dose Ordered Sig/Eliezer Start Time Stop Time Status Last Admin Dose Admin Info (CONTRAST GIVEN -- Rx MONITORING) 1 each PRN DAILY PRN 05/04/19 05:30 05/06/19 05:29 Iohexol (Omnipaque 300 Mg/ml) 75 ml 1X ONCE 05/04/19 05:30 05/04/19 05:31 DC 05/04/19 05:33 75 ML Morphine Sulfate (Morphine Sulfate) 2 mg 1X ONCE 05/04/19 06:00 05/04/19 06:01 DC 05/04/19 06:13 2 MG Ondansetron HCl (Zofran) 4 mg 1X ONCE 05/04/19 06:00 05/04/19 06:01 DC 05/04/19 06:12 4 MG Tramadol HCl (Ultram) 50 mg 1X ONCE 05/04/19 05:00 05/04/19 05:01 DC 05/04/19 05:01 50 MG (ROBSON MATHEW MD) Allergies Allergies Allergies Coded Allergies Type Severity Reaction Last Updated Verified erythromycin base Allergy Intermediate hives 04/10/17 Yes (ROBSON MATHEW MD) Physical Exam Physical Exam Constitutional: Well developed, well nourished, no acute distress, non-toxic appearance. [] HENT: Normocephalic, atraumatic, bilateral external ears normal, oropharynx moist, no oral exudates, nose normal. [] Eyes: PERRLA, EOMI, conjunctiva normal, no discharge. [] Neck: Normal range of motion, no tenderness, supple, no stridor. [] Cardiovascular:Heart rate regular rhythm, no murmur [] Lungs & Thorax: Bilateral breath sounds clear to auscultation, left flank/rib pain - no crepitus/deformity noted Abdomen: Bowel sounds normal, soft, no tenderness, no masses, no pulsatile masses. [] Skin: Warm, dry, left flank and rib pain[] Extremities: No tenderness, no edema. [] Neurologic: Alert and oriented X 3, no focal deficits noted. [] Psychologic: Affect normal, judgement normal, mood normal. [] (RITO LYNCH MD) Current Patient Data Vital Signs Vital Signs Date Time Temp Pulse Resp B/P (MAP) Pulse Ox O2 Delivery O2 Flow Rate FiO2 05/04/19 06:36 86 18 95 05/04/19 06:13 Room Air 05/04/19 04:28 98.2 123/80 (94) 98.2 (ROBSON MATHEW MD) Lab Values Laboratory Tests Test 05/04/19 06:23 White Blood Count 4.7 x10^3/uL (4.0-11.0) Red Blood Count 4.13 x10^6/uL (3.50-5.40) Hemoglobin 12.8 g/dL (12.0-15.5) Hematocrit 36.7 % (36.0-47.0) Mean Corpuscular Volume 89 fL (79-100) Mean Corpuscular Hemoglobin 31 pg (25-35) Mean Corpuscular Hemoglobin Concent 35 g/dL (31-37) Red Cell Distribution Width 17.6 % (11.5-14.5) H Platelet Count 386 x10^3/uL (140-400) Neutrophils (%) (Auto) 61 % (31-73) Lymphocytes (%) (Auto) 21 % (24-48) L Monocytes (%) (Auto) 14 % (0-9) H Eosinophils (%) (Auto) 4 % (0-3) H Basophils (%) (Auto) 1 % (0-3) Neutrophils # (Auto) 2.9 x10^3/uL (1.8-7.7) Lymphocytes # (Auto) 1.0 x10^3/uL (1.0-4.8) Monocytes # (Auto) 0.6 x10^3/uL (0.0-1.1) Eosinophils # (Auto) 0.2 x10^3/uL (0.0-0.7) Basophils # (Auto) 0.1 x10^3/uL (0.0-0.2) Prothrombin Time 12.6 SEC (11.7-14.0) Prothrombin Time INR 1.0 (0.8-1.1) Sodium Level 143 mmol/L (136-145) Potassium Level 3.6 mmol/L (3.5-5.1) Chloride Level 105 mmol/L (98-107) Carbon Dioxide Level 24 mmol/L (21-32) Anion Gap 14 (6-14) Blood Urea Nitrogen 8 mg/dL (7-20) Creatinine 0.5 mg/dL (0.6-1.0) L Estimated GFR (Cockcroft-Gault) 125.9 BUN/Creatinine Ratio 16 (6-20) Glucose Level 85 mg/dL (70-99) Calcium Level 7.9 mg/dL (8.5-10.1) L Total Bilirubin 0.3 mg/dL (0.2-1.0) Aspartate Amino Transferase (AST) 160 U/L (15-37) H Alanine Aminotransferase (ALT) 128 U/L (14-59) H Alkaline Phosphatase 68 U/L (46-116) Total Protein 7.3 g/dL (6.4-8.2) Albumin 3.4 g/dL (3.4-5.0) Albumin/Globulin Ratio 0.9 (1.0-1.7) L Ethyl Alcohol Level 208 mg/dL (0-10) H Laboratory Tests 05/04/19 06:23 Laboratory Tests 05/04/19 06:23 (ROBSON MATHEW MD) EKG EKG [] (RITO LYNCH MD) Radiology/Procedures Radiology/Procedures [] (RITO LYNCH MD) Radiology/Procedures PROCEDURE: CT CHEST ABDOMEN W/CONTRAST EXAM: CT CHEST AND ABDOMEN WITH IV CONTRAST CLINICAL HISTORY: Fall, left chest pain, left flank pain COMPARISON: None. TECHNIQUE: Helical CT of the chest and abdomen was performed following the administration of intravenous contrast. Axial, coronal and sagittal reformatted images were generated. ---PQRS compliance statement - One or more of the following individualized dose reduction techniques were utilized for this study: 1. Automated exposure control 2. Adjustment of the mA and/or kV according to patient size 3. Use of iterative reconstruction technique--- FINDINGS: Chest: Heart is not enlarged. No pericardial effusion. Coronary artery calcifications are seen. No pleural effusion. Trace left pneumothorax. Emphysematous changes are seen bilaterally. Multiple small lung nodules are seen, stable to prior CT 04/24/2019. No thoracic lymphadenopathy. Abdomen: Relative hepatic hypoattenuation may be seen with fatty liver. Gallbladder is not seen. Mild biliary ductal dilatation may be related to postcholecystectomy change. Spleen is unremarkable. Symmetric nephrograms. No focal renal lesion. No hydronephrosis. No hydroureter. Moderate colonic stool content is seen. No small or large bowel dilatation. No abdominal lymphadenopathy. Atherosclerotic calcifications of aorta are seen. No abdominal ascites. Bones: Mild height loss of the T3 vertebral body and mild height loss of the L2 vertebral body with bandlike sclerosis at the superior endplate, age-indeterminate compression fracture. There is a comminuted posterior left 10th rib fracture, new compared to 04/24/2019. Acute on chronic fracture at the posterior left 11th rib. Subacute to chronic appearing lateral left 10th rib fracture is stable. IMPRESSION: 1. New, acute comminuted fracture of the posterior left 10th rib with trace subjacent pneumothorax. 2. Multiple small lung nodules are seen, stable to 04/24/2019. As described in the prior report, follow-up CT in 12 months is recommended 3. Age-indeterminate mild compression deformities of T3 and L2. 4. Mild hepatic hypoattenuation may be seen with fatty liver. (ROBSON MATHEW MD) Course & Med Decision Making Course & Med Decision Making Pertinent Labs and Imaging studies reviewed. (See chart for details) []58-year-old female with underlying history of COPD, EtOH presents to the emergency department after a fall. Patient states she was getting up from the toilet slipped on a rug and fell on the bathtub. She describes left side and rib pain. She denies any loss of consciousness or head injury. Patient denies any headache or visual change, nausea, vomiting. She does complain of left side/flank and left rib pain. Patient states it hurts to take a deep breath. Nothing makes her pain better. Labs/Imaging pending Zofran/Morphine IV provided for pain relief Discussed findings with DR. MATHEW, he will assume care at shift change of 0 600 and discuss disposition (RITO LYNCH MD) Course & Med Decision Making 7:35 AM: Patient care was assumed at shift change, I have reassessed the patient. She states that she fell at about 11:30 last night. She does admit to drinking alcohol, admits to knowing that she has a problem with alcohol, has been to rehabilitation in the past, and we both agree that she needs to go again. I reviewed the patient's images, or pneumothorax is trivial. I did discuss the possibility of overnight hospitalization, but the patient declines, stating she would prefer to go home, and feels able to do so. She is able to ambulate with a steady gait in the emergency department. She will be given an incentive spirometer with instructions on use, and the importance of close ou tpatient follow-up was discussed in detail. (ROBSON MATHEW MD) Dragon Disclaimer Dragon Disclaimer This electronic medical record was generated, in whole or in part, using a voice recognition dictation system. (RITO LYNCH MD) Departure Departure Impression: Primary Impression: Rib fracture Additional Impression: Alcoholism Disposition: 01 HOME, SELF-CARE Condition: STABLE Referrals: BECKY BONILLA MD (PCP) Patient Instructions: Alcohol Problems, Chronic Alcoholism, Incentive Spirometer, Rib Fracture Scripts Lidocaine (Lidocaine PATCH ) 1 Each Adh..patch 1 EACH TP DAILY PRN for PAIN, #10 PATCH Prov: ROBSON MATHEW MD 05/04/19 Acetaminophen With Codeine (TYLENOL WITH CODEINE #3 TABLET) 1 Each Tablet 1 TAB PO PRN Q6HRS PRN for PAIN, #15 TAB Prov: ROBSON MATHEW MD 05/04/19 Problem Qualifiers RITO LYNCH MD May 04, 2019 04:53 ROBSON MATHEW MD May 04, 2019 06:22
[2019-05-04] MEDS ORDERED: traMADol 50 MG TABLET PO ONE (05:00)
[2019-05-04] MEDS ORDERED: CONTRAST GIVEN. MC PRN (05:30)
[2019-05-04] MEDS ORDERED: IOHEXOL 300 MG/ML 100ML VIAL. IV ONE (05:30)
[2019-05-04] MEDS ORDERED: MORPHINE SULFATE 2 MG/ML VIAL. IV ONE (06:00)
[2019-05-04] MEDS ORDERED: ONDANSETRON PF 4 MG/2 ML VIAL. IVP ONE (06:00)
--- NOTE | 2019-05-04 06:08 | RAD ---
EXAM: CT CHEST AND ABDOMEN WITH IV CONTRAST CLINICAL HISTORY: Fall, left chest pain, left flank pain COMPARISON: None. TECHNIQUE: Helical CT of the chest and abdomen was performed following the administration of intravenous contrast. Axial, coronal and sagittal reformatted images were generated. ---PQRS compliance statement - One or more of the following individualized dose reduction techniques were utilized for this study: 1. Automated exposure control 2. Adjustment of the mA and/or kV according to patient size 3. Use of iterative reconstruction technique--- FINDINGS: Chest: Heart is not enlarged. No pericardial effusion. Coronary artery calcifications are seen. No pleural effusion. Trace left pneumothorax. Emphysematous changes are seen bilaterally. Multiple small lung nodules are seen, stable to prior CT 04/24/2019. No thoracic lymphadenopathy. Abdomen: Relative hepatic hypoattenuation may be seen with fatty liver. Gallbladder is not seen. Mild biliary ductal dilatation may be related to postcholecystectomy change. Spleen is unremarkable. Symmetric nephrograms. No focal renal lesion. No hydronephrosis. No hydroureter. Moderate colonic stool content is seen. No small or large bowel dilatation. No abdominal lymphadenopathy. Atherosclerotic calcifications of aorta are seen. No abdominal ascites. Bones: Mild height loss of the T3 vertebral body and mild height loss of the L2 vertebral body with bandlike sclerosis at the superior endplate, age-indeterminate compression fracture. There is a comminuted posterior left 10th rib fracture, new compared to 04/24/2019. Acute on chronic fracture at the posterior left 11th rib. Subacute to chronic appearing lateral left 10th rib fracture is stable. IMPRESSION: 1. New, acute comminuted fracture of the posterior left 10th rib with trace subjacent pneumothorax. 2. Multiple small lung nodules are seen, stable to 04/24/2019. As described in the prior report, follow-up CT in 12 months is recommended 3. Age-indeterminate mild compression deformities of T3 and L2. 4. Mild hepatic hypoattenuation may be seen with fatty liver. Electronically signed by: Wayne Frederick MD (05/04/2019 6:05 AM) [facility]
[2019-05-04 06:36] VITALS: BP 99/57
[2019-05-04 06:44] LABS: BASO # 0.1 x10^3/uL (0.0-0.2); BASO % 1 % (0-3); EOS # 0.2 x10^3/uL (0.0-0.7); EOS % 4 % (0-3); HEMATOCRIT 36.7 % (36.0-47.0); HEMOGLOBIN 12.8 g/dL (12.0-15.5); LYMPH % 21 % (24-48); MEAN CORPUSCULAR HEMOGLOBIN 31 pg (25-35); MEAN CORPUSCULAR HGB CONC 35 g/dL (31-37); MEAN CORPUSCULAR VOLUME 89 fL (79-100); MONO # 0.6 x10^3/uL (0.0-1.1); MONO % 14 % (0-9); NEUT # 2.9 x10^3/uL (1.8-7.7); NEUT % 61 % (31-73); PLATELET COUNT 386 x10^3/uL (140-400); RED BLOOD COUNT 4.13 x10^6/uL (3.50-5.40); RED CELL DISTRIBUTION WIDTH 17.6 % (11.5-14.5); WHITE BLOOD COUNT 4.7 x10^3/uL (4.0-11.0)
[2019-05-04 06:53] LABS: PROTHROMBIN TIME PATIENT 12.6 SEC (11.7-14.0)
[2019-05-04 06:55] LABS: CALCIUM 7.9 mg/dL (8.5-10.1); CREATININE 0.5 mg/dL (0.6-1.0); GFR 125.9; POTASSIUM 3.6 mmol/L (3.5-5.1)
[2019-05-04 07:03] LABS: ALBUMIN 3.4 g/dL (3.4-5.0); ALBUMIN/GLOBULIN RATIO 0.9 (1.0-1.7); TOTAL BILIRUBIN 0.3 mg/dL (0.2-1.0); TOTAL PROTEIN 7.3 g/dL (6.4-8.2)
[2019-05-04] MEDS ORDERED: LIDO700A21 TP (07:37)
[2019-05-04] MEDS ORDERED: ACET-704 PO (07:37)
== END 2019-05-04 08:15 | disposition home or self-care (01) ==
LOC: ER 04:28
DX: S22.32XA Fracture of one rib, left side, initial encounter for closed fracture (principal); F10.20 Alcohol dependence, uncomplicated; Y90.7 Blood alcohol level of 200-239 mg/100 ml; R06.02 Shortness of breath; R10.9 Unspecified abdominal pain; J44.9 Chronic obstructive pulmonary disease, unspecified; K21.9 Gastro-esophageal reflux disease without esophagitis; Z88.1 Allergy status to other antibiotic agents; W18.12XA Fall from or off toilet with subsequent striking against object, initial encounter; Y93.E8 Activity, other personal hygiene; Y92.091 Bathroom in other non-institutional residence as the place of occurrence of the external cause; Y99.8 Other external cause status
CPT/HCPCS: 36415; 71260; 74160; 80053; 85025; 85610; 96374; 96375; 99285; G0238; G0480; J2270; J2405; Q9967

== ENCOUNTER 2019-05-06 19:47 | Emergency (ER) | payer MEDICAID ==
[~2019-05-06] VITALS: Ht 160 cm; Wt 55.0 kg
[~2019-05-06 19:47] MED LIST changes: +ACET-704 PO
--- NOTE | 2019-05-06 22:20 | RAD ---
PORTABLE CHEST 1V History: Fall. Right rib pain. Comparison: CT May 04, 2019 Findings: Patchy left basilar opacities, increased compared to prior. No pleural effusion. No pneumothorax. Left-sided rib fractures better characterized on prior CT. Normal heart size. Impression: 1. Increased patchy left basilar opacities, may represent atelectasis or consolidations. Electronically signed by: Hammad Maxwell DO (05/06/2019 10:17 PM) [facility]
[2019-05-06] MEDS ORDERED: KETOROLAC 60 MG/2 ML VIAL. ONE (22:53)
--- NOTE | 2019-05-06 22:53 | PHYS DOC ---
Past Medical History Past Medical History: Alcoholism, COPD, GERD, P.U.D., Other Additional Past Medical Histor: hepatitis c, ETOH Past Surgical History: Cholecystectomy, Knee Replacement, Tubal ligation, Other Additional Past Surgical Histo: right knee, Ex lap for perforated duodenal ulcer, rt hip Alcohol Use: Heavy Drug Use: Marijuana Adult General Chief Complaint Chief Complaint: MECHANICAL FALL HPI HPI 58-year-old female presents to the emergency department after a fall. Patient is well-known to this facility secondary to multiple visits to the emergency department. Patient's underlying history of alcohol, she has well has COPD. Presented today with left-sided rib pain after a fall at home. That she was coughing so much that she fell out of her chair. Patient smells of alcohol denies any headache, nausea, vomiting, abdominal pain. She does have pain with deep breath. All other ROS negative unless documented in HPI Review of Systems Review of Systems See Above Current Medications Current Medications Current Medications Medications (Trade) Dose Ordered Sig/Eliezer Start Time Stop Time Status Last Admin Dose Admin Ketorolac Tromethamine (Toradol Im) 60 mg 1X ONCE 05/06/19 23:00 05/06/19 23:01 UNV Allergies Allergies Allergies Coded Allergies Type Severity Reaction Last Updated Verified erythromycin base Allergy Intermediate hives 04/10/17 Yes Physical Exam Physical Exam Constitutional: Well developed, well nourished, no acute distress, non-toxic appearance. [] HENT: Normocephalic, atraumatic, bilateral external ears normal, oropharynx moist, no oral exudates, nose normal. [] Eyes: PERRLA, EOMI, conjunctiva normal, no discharge. [] Neck: Normal range of motion, no tenderness, supple, no stridor. [] Cardiovascular:Heart rate regular rhythm, no murmur [] Lungs & Thorax: Bilateral breath sounds clear to auscultation [] Abdomen: Bowel sounds normal, soft, no tenderness, no masses, no pulsatile masses. [] Skin: Warm, dry, no erythema, no rash. [] Back: No tenderness, no CVA tenderness. [] Extremities: No tenderness, no cyanosis, no clubbing, ROM intact, no edema. [] Neurologic: Alert and oriented X 3, normal motor function, normal sensory function, no focal deficits noted. [] Psychologic: Affect normal, judgement normal, mood normal. [] Current Patient Data Vital Signs Vital Signs Date Time Temp Pulse Resp B/P (MAP) Pulse Ox O2 Delivery O2 Flow Rate FiO2 05/06/19 21:56 92 93 05/06/19 19:55 97.6 16 144/80 (101) Nasal Cannula 2.0 97.6 EKG EKG [] Radiology/Procedures Radiology/Procedures [facility] [address] [place] [address] IMAGING REPORT Signed PATIENT: LU PIERCE ACCOUNT: [id number] : 1960 LOCATION: ER AGE: 58 SEX: F EXAM STATUS: REG ER ORD. PHYSICIAN: RITO LYNCH MD REASON: fall right rib pain PROCEDURE: PORTABLE CHEST 1V PORTABLE CHEST 1V History: Fall. Right rib pain. Comparison: CT May 04, 2019 Findings: Patchy left basilar opacities, increased compared to prior. No pleural effusion. No pneumothorax. Left-sided rib fractures better characterized on prior CT. Normal heart size. Impression: 1. Increased patchy left basilar opacities, may represent atelectasis or consolidations. Electronically signed by: Hammad Maxwell DO (05/06/2019 10:17 PM) [facility] DICTATED and SIGNED BY: HAMMAD MAXWELL DO DATE: 05/06/192216 [] Course & Med Decision Making Course & Med Decision Making Pertinent Labs and Imaging studies reviewed. (See chart for details) []58-year-old female presents to the emergency department after a fall. Patient is well-known to this facility secondary to multiple visits to the emergency department. Patient's underlying history of alcohol, she has well has COPD. Presented today with left-sided rib pain after a fall at home. That she was coughing so much that she fell out of her chair. Patient smells of alcohol denies any headache, nausea, vomiting, abdominal pain. She does have pain with deep breath. X-ray reviewed without evidence of fracture, she does have atelectasis or small little consolidation appreciated to the left on this may be chipping to her pain Toradol 60 mg IM given in the emergency department NO NARCOTIC medications provided Recommend dc home with po abx therapy Return precuations provided Ruba Disclaimer Ruba Disclaimer This electronic medical record was generated, in whole or in part, using a voice recognition dictation system. Departure Departure Impression: Primary Impression: Fall from standing Additional Impressions: Left-sided chest pain Abnormal chest xray Alcohol abuse Disposition: 01 HOME, SELF-CARE Condition: STABLE Referrals: BECKY BONILLA MD (PCP) Patient Instructions: Chest Wall Pain, [id number] Additional Instructions: Recommend follow up with PCP 3 - 5 days Return to the ER with worsening symptoms, intractable pain, fever, altered mental status Tylenol/Motrin as needed for pain Take antibiotics as directed - doxycycline 100mg PO BID x 7 days CXR without evidence of rib fracture on exam Scripts Doxycycline Hyclate (DOXYCYCLINE HYCLATE) 100 Mg Capsule 1 CAP PO BID, #14 CAP Prov: RITO LYNCH MD 05/06/19 Problem Qualifiers Primary Impression: Fall from standing Encounter type: initial encounter Qualified Codes: W19.XXXA - Unspecified fall, initial encounter RITO LYNCH MD May 06, 2019 22:53
[2019-05-06 22:56] VITALS: BP 130/62
[2019-05-06] MEDS ORDERED: DOXY100C2 PO (22:57)
[2019-05-06] MEDS ORDERED: KETOROLAC 60 MG/2 ML VIAL. IM ONE (23:30)
== END 2019-05-06 23:20 | disposition home or self-care (01) ==
LOC: ER 19:47
DX: R07.81 Pleurodynia (principal); G89.11 Acute pain due to trauma; F10.20 Alcohol dependence, uncomplicated; Y90.9 Presence of alcohol in blood, level not specified; R91.8 Other nonspecific abnormal finding of lung field; J44.9 Chronic obstructive pulmonary disease, unspecified; K21.9 Gastro-esophageal reflux disease without esophagitis; W18.39XA Other fall on same level, initial encounter; Z88.1 Allergy status to other antibiotic agents; Y93.89 Activity, other specified; Y92.098 Other place in other non-institutional residence as the place of occurrence of the external cause; Y99.8 Other external cause status
CPT/HCPCS: 71045; 96372; 99284; J1885

== ENCOUNTER 2019-05-27 22:57 | Emergency (ER) | payer MEDICAID ==
[~2019-05-27] VITALS: Ht 160 cm; Wt 53.6 kg
[~2019-05-27 22:57] MED LIST changes: +DOXY100C2 PO
--- NOTE | 2019-05-27 23:31 | PHYS DOC ---
Past Medical History Past Medical History: Alcoholism, COPD, GERD, P.U.D., Other Additional Past Medical Histor: hepatitis c, ETOH Past Surgical History: Cholecystectomy, Knee Replacement, Tubal ligation, Other Additional Past Surgical Histo: right knee, Ex lap for perforated duodenal ulcer, rt hip Smoking Status: Current Every Day Smoker Alcohol Use: Heavy Drug Use: Marijuana Adult General Chief Complaint Chief Complaint: MECHANICAL FALL HPI HPI Patient is a 58 year old male with history of alcoholism and frequent falls, hepatitis C, GERD and COPD who presents via EMS with complaint of fall and injury to tailbone and ribs. Patient states she lost her balance while she was going to the bathroom and had a fall and injured her tailbone and injured her left hip area into centimeter the Fracture about 3 weeks ago. Patient states she hit her head but did not have loss of consciousness. Patient rated her pain 10 over 10. Patient states she had 2 shots of vodka tonight that is less than her usual alcohol consumption. Patient denies shortness of breath, new focal neuro deficit, fever and chills, suicidal or homicidal ideation and hallucination. Patient has had frequent emergency room visits and falls related to alcohol abuse. Review of Systems Review of Systems Constitutional: Denies fever or chills [] Eyes: Denies change in visual acuity, redness, or eye pain [] HENT: Denies nasal congestion or sore throat [] Respiratory: Denies cough or shortness of breath [] Cardiovascular: No additional information not addressed in HPI [] GI: Denies abdominal pain, nausea, vomiting, bloody stools or diarrhea [] : Denies dysuria or hematuria [] Musculoskeletal: Reports back pain Integument: Denies rash or skin lesions [] Neurologic: Denies headache, focal weakness or sensory changes [] Endocrine: Denies polyuria or polydipsia [] All other systems were reviewed and found to be within normal limits, except as documented in this note. Current Medications Current Medications Current Medications Medications (Trade) Dose Ordered Sig/Eliezer Start Time Stop Time Status Last Admin Dose Admin Acetaminophen/ Hydrocodone Bitart (Lortab 5/325) 1 tab 1X ONCE 05/28/19 02:45 05/28/19 02:46 DC 05/28/19 03:44 1 TAB Ketorolac Tromethamine (Toradol 30mg Vial) 30 mg 1X ONCE 05/27/19 23:45 2/21/20 23:46 DC 05/27/19 23:52 30 MG Allergies Allergies Allergies Coded Allergies Type Severity Reaction Last Updated Verified erythromycin base Allergy Intermediate hives 04/10/17 Yes Physical Exam Physical Exam Constitutional: Well nourished, mild distress, non-toxic appearance, smell of alcohol on breath. [] HENT: Normocephalic, atraumatic. Eyes: PERRLA, EOMI, conjunctiva normal, no discharge. [] Neck: Normal range of motion, no tenderness, supple, no stridor. [] Cardiovascular:Heart rate regular rhythm, no murmur [] Lungs & Thorax: Bilateral breath sounds clear to auscultation, left lower anterior chest wall tenderness without contusion or subcutaneous emphysema or deformity[] Abdomen: Bowel sounds normal, soft, no tenderness, no masses, no pulsatile masses. [] Skin: Warm, dry, no erythema, no rash. [] Back: No midline tenderness, no CVA tenderness, sacral and coccyx tenderness. [] Extremities: No tenderness, no cyanosis, no clubbing, ROM intact, no edema. [] Neurologic: Alert and oriented X 3, no focal deficits noted. [] Psychologic: Affect anxious, judgement normal, mood normal. [] Current Patient Data Vital Signs Vital Signs Date Time Temp Pulse Resp B/P (MAP) Pulse Ox O2 Delivery O2 Flow Rate FiO2 05/28/19 03:44 18 92 Room Air 05/27/19 22:58 98.1 90 158/76 (103) 98.1 EKG EKG [] Radiology/Procedures Radiology/Procedures [facility] [address] [place] [address] IMAGING REPORT Signed PATIENT: LU PIERCE ACCOUNT: [id number] : 1960 LOCATION: ER AGE: 58 SEX: F EXAM STATUS: REG ER ORD. PHYSICIAN: ANGEL KRAFT MD REASON: fall PROCEDURE: SACRUM & COCCYX 3V INDICATION: Trauma COMPARISON: None. IMPRESSION: 3 views of sacrum and coccyx. Poor evaluation of the sacrum and coccyx on the frontal view secondary to overlying bowel gas obscuring. Partial visualization of right hip postoperative changes with intramedullary didier and heterotopic bone formation. On the lateral view there is a linear lucency through the distal sacrum with mild angulation at the site. There is a large variability in the appearance of the sacrum therefore this could be the patient's baseline appearance but if there is point tenderness a nondisplaced fracture is possible. Degenerative changes partially visualized lower lumbar spine Electronically signed by: Jermaine Iyer MD (05/28/2019 1:50 AM) [id number] DICTATED and SIGNED BY: JERMAINE IYER MD DATE: 05/28/19 0150 [facility] [address] [place] [address] IMAGING REPORT Signed PATIENT: LU PIERCE ACCOUNT: [id number] : 1960 LOCATION: ER AGE: 58 SEX: F EXAM STATUS: REG ER ORD. PHYSICIAN: ANGEL KRAFT MD REASON: fall PROCEDURE: CT HEAD AND CERVICAL SPINE WO EXAM: CT Head without IV contrast INDICATION: Fall TECHNIQUE: Multi-detector row CT images were obtained of the head without the use of IV contrast. All CT scans performed at this facility utilize dose optimization techniques as appropriate to the exam, including the following: Automated exposure control and adjustment of the mA and/or KV according to patient size (this includes techniques or standardized protocols for targeted exams where dose is indication/reason for exam). COMPARISON: None FINDINGS: BRAIN PARENCHYMA: No evidence of acute intraparenchymal hemorrhage or infarct. No abnormal parenchymal density or mass. VENTRICLES & EXTRA-AXIAL SPACES: Ventricles are within normal limits. Basilar cisterns are patent. No pathologic extra-axial fluid collection or mass. ORBITS: Orbital contents are unremarkable. SINUSES: Visualized paranasal sinuses and mastoid air cells are clear. OSSEOUS & SOFT TISSUES: Calvarium and skull base are intact. IMPRESSION: Normal CT of the head without contrast. EXAM: CT Cervical Spine without IV contrast INDICATION: Fall TECHNIQUE: Multi-detector row CT images were obtained through the cervical spine without the use of IV contrast. Post-processing sagittal and coronal reconstructed images were obtained for interpretation. All CT scans performed at this facility utilize dose optimization techniques as appropriate to the exam, including the following: Automated exposure control and adjustment of the mA and/or KV according to patient size (this includes techniques or standardized protocols for targeted exams where dose is indication/reason for exam). COMPARISON: None FINDINGS: CRANIOCERVICAL JUNCTION: Unremarkable. ALIGNMENT: Reversal normal cervical lordosis, apex at C4-C5. OSSEOUS: Multilevel degenerative spondylosis. No fracture or aggressive osseous lesions. DISC SPACES: Degenerated at multiple levels in the cervical spine. FACET JOINTS: Unremarkable. SPINAL CANAL: No bony central canal stenosis is evident. Disc osteophyte complex at C3-C4 likely narrows the central canal at least mildly. NEUROFORAMINA: Unremarkable. SOFT TISSUES: Aortic calcifications of the bulbs. IMPRESSION: C-spine degenerative changes with no acute traumatic findings in shown on noncontrast CT. Electronically signed by: Pilo Escalante MD (05/27/2019 11:47 PM) [facility] DICTATED and SIGNED BY: PILO ESCALANTE MD DATE: 05/27/19 2347 [facility] [address] [place] [address] IMAGING REPORT Signed PATIENT: LU PIERCE ACCOUNT: [id number] : 1960 LOCATION: ER AGE: 58 SEX: F EXAM STATUS: REG ER ORD. PHYSICIAN: ANGEL KRAFT MD REASON: questionable coccyx fracture PROCEDURE: CT PELVIS WO CONTRAST INDICATION: Trauma COMPARISON: Plain film from earlier same day and CT from February 2016 TECHNIQUE: Axial CT images obtained through the pelvis. One or more of the following individualized dose reduction techniques were utilized for this examination: 1. Automated exposure control; 2. Adjustment of the mA and/or kV according to patient size; 3. Use of iterative reconstruction technique. FINDINGS: There is mild posterior displacement of the coccyx in relation to the sacrum which was also seen on May 14, 2019. Angulation of the sacrum is again seen and appears similar to prior. Degenerative changes at partially visualized lower lumbar spine with disc protrusions and osteophyte formation with central canal neural foraminal stenosis. Calcific atherosclerosis. Urinary bladder somewhat distended at time of exam. Colonic diverticulosis. Osseous demineralization. Deformity of right proximal femur with heterotopic bone formation and intramedullary didier. Angulation of the right inferior pubic ramus. This was also present on May 14, 2019 IMPRESSION: * Angulation of the sacrum as well as mild posterior displacement of the coccyx is similar to prior. There is also angulation of the right inferior pubic ramus which is similar to prior and could be from prior fractures. A definite new fracture site is not seen compared to May 14, 2019 Electronically signed by: Jermaine Iyer MD (05/28/2019 3:13 AM) [id number] DICTATED and SIGNED BY: JERMAINE IYER MD DATE: 05/28/193 Course & Med Decision Making Course & Med Decision Making Pertinent Labs and Imaging studies reviewed. (See chart for details) Personal patient in ER showed 58-year-old female patient with history of alcohol abuse and frequent fall and emergency room visit brought in by EMS because of a fall and complaining of pain in tailbone and left ribs. Patient had recent ER visit because of rib fracture. Patient was alert and oriented. Patient was able to fall sleep most of the time while she was in ER. X-ray of sacral and coccyx questionable for fracture but pelvis ct did not show any sacral fracture. She was ambulated without problem and was advised to quit drinking alcohol and follow up with her primary care physician. Dragon Disclaimer Dragon Disclaimer This electronic medical record was generated, in whole or in part, using a voice recognition dictation system. Departure Departure Impression: Primary Impression: Fall Additional Impressions: Sacrum sprain Alcohol abuse History of rib fracture Disposition: HOME, SELF-CARE (at 0330) Condition: IMPROVED Referrals: BECKY BONILLA MD (PCP) Patient Instructions: Alcohol Problems, Fall Prevention and Home Safety, Tailbone Injury Additional Instructions: Drink plenty of liquids Follow-up with your primary care physician in 3-5 days Return to ER if not getting better Thank you for visiting [facility]. We appreciate you trusting us with your care. If any additional problems come up don't hesitate to return to visit us. Please follow up with your primary care provider so they can plan additional care if needed and know about the problem that you had. If symptoms worsen come back to the Emergency Department. Any concerning symptoms that start such as chest pain, shortness of air, weakness or numbness on one side of the body, running high fevers or any other concerning symptoms return to the ER. Scripts Naproxen (NAPROSYN) 500 Mg Tablet 1 TAB PO BID for pain, #14 TAB Prov: ANGEL KRAFT MD 05/28/19 Problem Qualifiers Primary Impression: Fall Encounter type: initial encounter Qualified Codes: W19.XXXA - Unspecified fall, initial encounter Additional Impressions: Sacrum sprain Encounter type: sequela Qualified Codes: S33.8XXS - Sprain of other parts of lumbar spine and pelvis, sequela ANGEL KRAFT MD May 27, 2019 23:31
[2019-05-27] MEDS ORDERED: KETOROLAC 30 MG/ML VIAL. IVP ONE (23:45)
--- NOTE | 2019-05-27 23:50 | RAD ---
EXAM: CT Head without IV contrast INDICATION: Fall TECHNIQUE: Multi-detector row CT images were obtained of the head without the use of IV contrast. All CT scans performed at this facility utilize dose optimization techniques as appropriate to the exam, including the following: Automated exposure control and adjustment of the mA and/or KV according to patient size (this includes techniques or standardized protocols for targeted exams where dose is indication/reason for exam). COMPARISON: None FINDINGS: BRAIN PARENCHYMA: No evidence of acute intraparenchymal hemorrhage or infarct. No abnormal parenchymal density or mass. VENTRICLES & EXTRA-AXIAL SPACES: Ventricles are within normal limits. Basilar cisterns are patent. No pathologic extra-axial fluid collection or mass. ORBITS: Orbital contents are unremarkable. SINUSES: Visualized paranasal sinuses and mastoid air cells are clear. OSSEOUS & SOFT TISSUES: Calvarium and skull base are intact. IMPRESSION: Normal CT of the head without contrast. EXAM: CT Cervical Spine without IV contrast INDICATION: Fall TECHNIQUE: Multi-detector row CT images were obtained through the cervical spine without the use of IV contrast. Post-processing sagittal and coronal reconstructed images were obtained for interpretation. All CT scans performed at this facility utilize dose optimization techniques as appropriate to the exam, including the following: Automated exposure control and adjustment of the mA and/or KV according to patient size (this includes techniques or standardized protocols for targeted exams where dose is indication/reason for exam). COMPARISON: None FINDINGS: CRANIOCERVICAL JUNCTION: Unremarkable. ALIGNMENT: Reversal normal cervical lordosis, apex at C4-C5. OSSEOUS: Multilevel degenerative spondylosis. No fracture or aggressive osseous lesions. DISC SPACES: Degenerated at multiple levels in the cervical spine. FACET JOINTS: Unremarkable. SPINAL CANAL: No bony central canal stenosis is evident. Disc osteophyte complex at C3-C4 likely narrows the central canal at least mildly. NEUROFORAMINA: Unremarkable. SOFT TISSUES: Aortic calcifications of the bulbs. IMPRESSION: C-spine degenerative changes with no acute traumatic findings in shown on noncontrast CT. Electronically signed by: Harsh Escalante MD (05/27/2019 11:47 PM) [facility]
--- NOTE | 2019-05-28 01:53 | RAD ---
INDICATION: Trauma COMPARISON: None. IMPRESSION: 3 views of sacrum and coccyx. Poor evaluation of the sacrum and coccyx on the frontal view secondary to overlying bowel gas obscuring. Partial visualization of right hip postoperative changes with intramedullary didier and heterotopic bone formation. On the lateral view there is a linear lucency through the distal sacrum with mild angulation at the site. There is a large variability in the appearance of the sacrum therefore this could be the patient's baseline appearance but if there is point tenderness a nondisplaced fracture is possible. Degenerative changes partially visualized lower lumbar spine Electronically signed by: Daren Iyer MD (05/28/2019 1:50 AM) [id number]
[2019-05-28] MEDS ORDERED: HYDROcodone/APAP 5/325MG 1 TAB TABLET PO ONE (02:45)
--- NOTE | 2019-05-28 03:16 | RAD ---
INDICATION: Trauma COMPARISON: Plain film from earlier same day and CT from February 2016 TECHNIQUE: Axial CT images obtained through the pelvis. One or more of the following individualized dose reduction techniques were utilized for this examination: 1. Automated exposure control; 2. Adjustment of the mA and/or kV according to patient size; 3. Use of iterative reconstruction technique. FINDINGS: There is mild posterior displacement of the coccyx in relation to the sacrum which was also seen on May 14, 2019. Angulation of the sacrum is again seen and appears similar to prior. Degenerative changes at partially visualized lower lumbar spine with disc protrusions and osteophyte formation with central canal neural foraminal stenosis. Calcific atherosclerosis. Urinary bladder somewhat distended at time of exam. Colonic diverticulosis. Osseous demineralization. Deformity of right proximal femur with heterotopic bone formation and intramedullary didier. Angulation of the right inferior pubic ramus. This was also present on May 14, 2019 IMPRESSION: * Angulation of the sacrum as well as mild posterior displacement of the coccyx is similar to prior. There is also angulation of the right inferior pubic ramus which is similar to prior and could be from prior fractures. A definite new fracture site is not seen compared to May 14, 2019 Electronically signed by: Daren Iyer MD (05/28/2019 3:13 AM) [id number]
[2019-05-28] MEDS ORDERED: NAPR-683 PO (03:32)
[2019-05-28 03:34] VITALS: BP 142/69
--- NOTE | 2019-05-28 08:03 | RAD ---
EXAM: Pelvis, single view. HISTORY: 05/14/2019 COMPARISON: 05/14/2019 FINDINGS: A frontal view of the pelvis is obtained. There is internal fixation of a healed proximal right femoral fracture with surrounding callus formation and heterotopic ossification. There aren't chronic appearing pubic rami fractures. There is degenerative change at the lumbosacral junction. There is bone demineralization. IMPRESSION: 1. Internal fixation of a healed proximal right femoral fracture. 2. Chronic appearing pubic rami fractures. 3. Degenerative change at the lumbosacral junction. Electronically signed by: Aicha Teran MD (05/28/2019 8:00 AM) [id number]
--- NOTE | 2019-05-28 08:33 | RAD ---
2 view left rib detail series and PA view chest x-ray Clinical indications: Fall and pain. COMPARISON: May 14, 2019. FINDINGS: There are nondisplaced fractures of the lateral aspect of the left seventh eighth and ninth and 10th ribs. No pneumothorax or pleural effusion or acute lung infiltrate is seen. The heart size and mediastinal prevascular are stable. IMPRESSION: Fractures of the left seventh eighth ninth and 10th ribs. The ninth and 10th rib fractures appear new. Seventh and eighth rib fractures could be seen previously. Electronically signed by: Aashish Armijo MD (05/28/2019 8:30 AM) [facility]
== END 2019-05-28 03:34 | disposition home or self-care (01) ==
LOC: ER 22:57
DX: S33.8XXA Sprain of other parts of lumbar spine and pelvis, initial encounter (principal); S79.912A Unspecified injury of left hip, initial encounter; S29.9XXA Unspecified injury of thorax, initial encounter; R51 Headache; J44.9 Chronic obstructive pulmonary disease, unspecified; K21.9 Gastro-esophageal reflux disease without esophagitis; F10.20 Alcohol dependence, uncomplicated; Y90.9 Presence of alcohol in blood, level not specified; F17.200 Nicotine dependence, unspecified, uncomplicated; Z90.49 Acquired absence of other specified parts of digestive tract; Z98.51 Tubal ligation status; Z87.81 Personal history of (healed) traumatic fracture; Z88.1 Allergy status to other antibiotic agents; W18.39XA Other fall on same level, initial encounter; Y93.89 Activity, other specified; Y92.89 Other specified places as the place of occurrence of the external cause; Y99.8 Other external cause status
CPT/HCPCS: 70450; 71101; 72125; 72170; 72192; 72220; 96374; 99285; J1885

== ENCOUNTER 2019-06-01 00:33 | Emergency (ER) | payer MEDICAID ==
[~2019-06-01] VITALS: Ht 160 cm; Wt 53.6 kg
--- NOTE | 2019-06-01 00:47 | PHYS DOC ---
Past Medical History Past Medical History: Alcoholism, COPD, GERD, P.U.D., Other Additional Past Medical Histor: hepatitis c, ETOH Past Surgical History: Cholecystectomy, Knee Replacement, Tubal ligation, Other Additional Past Surgical Histo: right knee, Ex lap for perforated duodenal ulcer, rt hip Smoking Status: Current Every Day Smoker Alcohol Use: Heavy Drug Use: Marijuana Adult General HPI HPI 58-year-old female presents to the emergency department with complaints of left rib pain. Patient was seen here on the with diagnosis of 7,8,9 and 10th rib fractures - the ninth and 10th rib fractures were new at this time. Records reviewed from recent ER evaluation on 05/28. Patient complains of with breathing. She denies headache or visual changes. Nothing makes her pain better. All other ROS negative unless documented in HPI Review of Systems Review of Systems See Above Current Medications Current Medications Current Medications Medications (Trade) Dose Ordered Sig/Eliezer Start Time Stop Time Status Last Admin Dose Admin Acetaminophen (Tylenol) 1,000 mg 1X ONCE 06/01/19 01:15 06/01/19 01:16 DC 06/01/19 01:08 1,000 MG Ondansetron HCl (Zofran Odt) 4 mg 1X ONCE 06/01/19 01:15 06/01/19 01:16 DC 06/01/19 01:08 4 MG Allergies Allergies Allergies Coded Allergies Type Severity Reaction Last Updated Verified erythromycin base Allergy Intermediate hives 04/10/17 Yes Physical Exam Physical Exam See Above Constitutional: Well developed, well nourished, no acute distress, non-toxic appearance. [] Cardiovascular:Heart rate regular rhythm, no murmur [] Lungs & Thorax: Bilateral breath sounds clear to auscultation, no crepitus on exam[] Abdomen: Bowel sounds normal, soft, no tenderness, no masses, no pulsatile masses. [] Skin: Warm, dry, no erythema, no rash. [] Back: No tenderness, no CVA tenderness. [] Extremities: No tenderness, no edema. [] Neurologic: Alert and oriented X 3, no focal deficits noted. [] Psychologic: Affect normal, judgement normal, mood normal. [] Current Patient Data Vital Signs Vital Signs Date Time Temp Pulse Resp B/P (MAP) Pulse Ox O2 Delivery O2 Flow Rate FiO2 06/01/19 01:09 98.4 94 20 147/74 (98) 96 Room Air 98.4 EKG EKG [] Radiology/Procedures Radiology/Procedures Xray reviewed - known rib fractures present, no evidence of pneumothorax on exam[] Course & Med Decision Making Course & Med Decision Making Pertinent Labs and Imaging studies reviewed. (See chart for details) []58-year-old female presents to the emergency department with complaints of left rib pain. Patient was seen here on the with diagnosis of 7,8,9 and 10th rib fractures - the ninth and 10th rib fractures were new at this time. Records reviewed from recent ER evaluation on 05/28. Patient complains of with breathing. She denies headache or visual changes. Nothing makes her pain better. Xray reviewed Tylenol/Zofran provided Recommend dc home Follow up with PCP as outpatient Ruba Disclaimer Ruba Disclaimer This electronic medical record was generated, in whole or in part, using a voice recognition dictation system. Departure Departure Impression: Primary Impression: Fall Additional Impression: Ribs, multiple fractures Disposition: HOME, SELF-CARE Condition: STABLE Referrals: BECKY BONILLA MD (PCP) Patient Instructions: Rib Fracture, [id number] Additional Instructions: No new fractures identified Tylenol/Motrin as needed for pain Zofran rx provided upon discharge Recommend follow up with PCP as needed Scripts Ondansetron Hcl (ZOFRAN) 4 Mg Tablet 1 TAB PO PRN Q6-8HRS for nausea, #12 TAB Prov: RITO LYNCH MD 06/01/19 Problem Qualifiers Primary Impression: Fall Encounter type: subsequent encounter Qualified Codes: W19.XXXD - Unspecified fall, subsequent encounter Additional Impression: Ribs, multiple fractures Encounter type: subsequent encounter Fracture type: closed Laterality: left Fracture healing: with routine healing Qualified Codes: S22.42XD - Multiple fractures of ribs, left side, subsequent encounter for fracture with routine healing RITO LYNCH MD Jun 01, 2019 00:47
[2019-06-01 01:09] VITALS: BP 147/74
[2019-06-01] MEDS ORDERED: ACETAMINOPHEN 500 MG TABLET PO ONE (01:15)
[2019-06-01] MEDS ORDERED: ONDANSETRON ODT 4 MG TAB.RAPDIS. PO ONE (01:15)
[2019-06-01] MEDS ORDERED: ONDA4TAB7 PO (01:39)
== END 2019-06-01 01:50 | disposition home or self-care (01) ==
LOC: ER 00:33
DX: S22.42XD Multiple fractures of ribs, left side, subsequent encounter for fracture with routine healing (principal); R07.81 Pleurodynia; J44.9 Chronic obstructive pulmonary disease, unspecified; K21.9 Gastro-esophageal reflux disease without esophagitis; F12.90 Cannabis use, unspecified, uncomplicated; F10.10 Alcohol abuse, uncomplicated; Z90.49 Acquired absence of other specified parts of digestive tract; Z98.51 Tubal ligation status; Z98.890 Other specified postprocedural states; Z88.1 Allergy status to other antibiotic agents; W18.39XD Other fall on same level, subsequent encounter
CPT/HCPCS: 71101; 99284; Q0162

== ENCOUNTER 2019-08-23 17:35 | Emergency (ER) | payer MEDICAID ==
[~2019-08-23] VITALS: Ht 160 cm; Wt 55.4 kg
[~2019-08-23 17:35] MED LIST changes: +CEFD300C PO; +CLON0.1T PO; +DOXY100T PO; +GABA300C18 PO; +LACT1CAP19 PO; +ONDA4TAB7 PO; +POTA20TA4 PO; +PRED20TA PO
--- NOTE | 2019-08-23 18:05 | PHYS DOC ---
Past Medical History Past Medical History: Alcoholism, COPD, GERD, P.U.D., Other Additional Past Medical Histor: hepatitis c, ETOH Past Surgical History: Cholecystectomy, Knee Replacement, Tubal ligation, Other Additional Past Surgical Histo: right knee, Ex lap for perforated duodenal ulcer, rt hip Smoking Status: Current Some Day Smoker Alcohol Use: Heavy Drug Use: Marijuana General Adult EDM: Chief Complaint: ALCOHOL INTOXICATION HPI: HPI: 58-year-old female with significant history of COPD on O2, alcohol abuse, hep atitis C, who presents for evaluation of acute alcohol intoxication. She has a history of alcoholism. She admits to drinking today. She was kicked out of her apartment building today due to her intoxicated state. She is brought to the ED for evaluation. No acute medical complaints. Review of Systems: Review of Systems: ROS limited 2/2 alcohol intoxication. Heart Score: Risk Factors: Risk Factors: DM, Current or recent (<one month) smoker, HTN, HLP, family history of CAD, obesity. Risk Scores: Score 0 - 3: 2.5% MACE over next 6 weeks - Discharge Home Score 4 - 6: 20.3% MACE over next 6 weeks - Admit for Clinical Observation Score 7 - 10: 72.7% MACE over next 6 weeks - Early Invasive Strategies Allergies: Allergies: Allergies Coded Allergies Type Severity Reaction Last Updated Verified erythromycin base Allergy Intermediate hives 04/10/17 Yes Physical Exam: PE: Gen: NAD. Head: NC/AT. Eyes: No scleral icterus. No conjunctival injection. PERRL. ENT: MMM. Posterior OP clear. Neck: Supple. NT. No JVD. CV: RRR. Peripheral pulses intact. Resp: CTAB. Abd: Soft. NT. ND. MSK: No peripheral cyanosis. No edema. Neuro: Awake and alert. Symmetric lower extremity weakness. Slurring of words. Skin. Warm. Dry. Psych: Clinically intoxicated. EKG: EKG: EKG at 1812. Sinus rhythm. Heart rate 84. Normal intervals. Nonspecific ST changes. No STEMI. Interpreted by me. Radiology/Procedures: Radiology/Procedures: [] Course & Med Decision Making: Course & Med Decision Making Pertinent Labs and Imaging studies reviewed. (See chart for details) In summary, 58-year-old female significant history of alcohol abuse, who presents for evaluation of acute alcohol intoxication. No other acute medical complaints. Alcohol level 378. Slightly low bicarb of 17 receiving IV fluid bolus. Will allow the patient to metabolize to clinical sobriety. 0018: Clinically sober. No ataxia. We discharged home. Ruba Disclaimer: Ruba Disclaimer: This electronic medical record was generated, in whole or in part, using a voice recognition dictation system. Departure Departure Impression: Primary Impression: Alcohol intoxication in active alcoholic Disposition: 01 HOME, SELF-CARE Condition: STABLE Referrals: BECKY BONILLA MD (PCP) Patient Instructions: Alcohol Intoxication, [id number] YENNY MEDRANO DO August 23, 2019 18:04
[2019-08-23] MEDS ORDERED: IV NORMAL SALINE 1000ML BAG 1,000 ML IV ONE (18:45)
[2019-08-23 18:49] LABS: BASO # 0.1 x10^3/uL (0.0-0.2); BASO % 1 % (0-3); EOS # 0.1 x10^3/uL (0.0-0.7); EOS % 2 % (0-3); HEMATOCRIT 44.2 % (36.0-47.0); HEMOGLOBIN 14.7 g/dL (12.0-15.5); LYMPH # 1.4 x10^3/uL (1.0-4.8); LYMPH % 25 % (24-48); MEAN CORPUSCULAR HEMOGLOBIN 30 pg (25-35); MEAN CORPUSCULAR HGB CONC 33 g/dL (31-37); MEAN CORPUSCULAR VOLUME 91 fL (79-100); MONO # 0.5 x10^3/uL (0.0-1.1); MONO % 9 % (0-9); NEUT # 3.6 x10^3/uL (1.8-7.7); NEUT % 63 % (31-73); PLATELET COUNT 386 x10^3/uL (140-400); RED BLOOD COUNT 4.87 x10^6/uL (3.50-5.40); RED CELL DISTRIBUTION WIDTH 16.8 % (11.5-14.5); WHITE BLOOD COUNT 5.7 x10^3/uL (4.0-11.0)
[2019-08-23 18:58] LABS: CALCIUM 8.5 mg/dL (8.5-10.1); CREATININE 0.6 mg/dL (0.6-1.0); POTASSIUM 3.4 mmol/L (3.5-5.1)
[2019-08-23 19:04] LABS: ALBUMIN 3.5 g/dL (3.4-5.0); ALBUMIN/GLOBULIN RATIO 0.8 (1.0-1.7); TOTAL BILIRUBIN 0.1 mg/dL (0.2-1.0); TOTAL PROTEIN 7.7 g/dL (6.4-8.2)
[2019-08-24 00:13] VITALS: BP 108/73
--- NOTE | 2019-08-24 06:41 | EKG ---
[facility] [address] [place] [address] Test Date: 2019-08-23 Test Time: 18:12:11 Pat Name: LU IPERCE Department: Room: Gender: F Tonguer: : 1960 Requested By: YENNY MEDRANO Order Number: [id number] Reading MD: Srikanth Rodas Measurements Intervals [place] Rate: 84 P: 61 NH: 158 QRS: 23 QRSD: 92 T: 90 QT: 402 QTc: 479 Interpretive Statements SINUS RHYTHM T ABNORMALITY IN HIGH LATERAL LEADS PROLONGED QT ABNORMAL ECG Electronically Signed On 08-24-2019 8:07:29 CDT by Srikanth Rodas
== END 2019-08-24 00:43 | disposition home or self-care (01) ==
LOC: ER 17:35
DX: F10.229 Alcohol dependence with intoxication, unspecified (principal); J44.9 Chronic obstructive pulmonary disease, unspecified; K21.9 Gastro-esophageal reflux disease without esophagitis; F12.90 Cannabis use, unspecified, uncomplicated; F17.200 Nicotine dependence, unspecified, uncomplicated; Z98.51 Tubal ligation status; Z90.49 Acquired absence of other specified parts of digestive tract; Z98.890 Other specified postprocedural states; Z88.1 Allergy status to other antibiotic agents
CPT/HCPCS: 36415; 80053; 83690; 85025; 93005; 99285; G0480; J7030

== ENCOUNTER 2019-09-08 20:44 | Emergency (ER) | payer MEDICAID ==
[~2019-09-08] VITALS: Ht 170.2 cm; Wt 63.0 kg
--- NOTE | 2019-09-08 22:26 | PHYS DOC ---
Past Medical History Past Medical History: Alcoholism, COPD, GERD, P.U.D., Other Additional Past Medical Histor: hepatitis C Past Surgical History: Cholecystectomy, Knee Replacement, Tubal ligation, Other Additional Past Surgical Histo: right knee, Ex lap for perforated duodenal ulce r, rt hip Smoking Status: Current Every Day Smoker Alcohol Use: Heavy Drug Use: Marijuana General Adult EDM: Chief Complaint: ALCOHOL INTOXICATION HPI: HPI: Patient is a 58 year old female presenting to the ED with chief complaint of alcohol intoxication. Patient came by EMS and she called EMS for altered mental status. When EMS got there patient was alert and oriented and told him that she had beer and marijuana use. Patient has a history of being a wheelchair. Patient denies any injury, chest pain, shortness of breath. Review of Systems: Review of Systems: Constitutional: Denies fever or chills. [] Eyes: Denies change in visual acuity. [] HENT: Denies nasal congestion or sore throat. [] Respiratory: Denies cough or shortness of breath. [] Cardiovascular: Denies chest pain or edema. [] GI: Denies abdominal pain, nausea, vomiting, bloody stools or diarrhea. [] : Denies dysuria. [] Musculoskeletal: Denies back pain or joint pain. [] Neurologic: Denies headache, focal weakness or sensory changes. [] Heart Score: Risk Factors: Risk Factors: DM, Current or recent (<one month) smoker, HTN, HLP, family history of CAD, obesity. Risk Scores: Score 0 - 3: 2.5% MACE over next 6 weeks - Discharge Home Score 4 - 6: 20.3% MACE over next 6 weeks - Admit for Clinical Observation Score 7 - 10: 72.7% MACE over next 6 weeks - Early Invasive Strategies Allergies: Allergies: Allergies Coded Allergies Type Severity Reaction Last Updated Verified erythromycin base Allergy Intermediate hives 04/10/17 Yes Physical Exam: PE: Constitutional: Well developed, well nourished, no acute distress, non-toxic appearance. [] HENT: Normocephalic, atraumatic Eyes: EOMI Neck: Normal range of motion, Supple Cardiovascular: Normal rhythm and rate Lungs & Thorax: Bilateral rhonchi Abdomen: Bowel sounds normal, soft, no tenderness Neurologic: Alert and oriented X 3 Current Patient Data: Vital Signs: Vital Signs Date Time Temp Pulse Resp B/P (MAP) Pulse Ox O2 Delivery O2 Flow Rate FiO2 09/08/19 21:06 98.3 92 12 147/89 (108) 87 Room Air 98.3 EKG: EKG: [] Radiology/Procedures: Radiology/Procedures: [] Course & Med Decision Making: Course & Med Decision Making Patient does not want any lab work or any medical help. Patient just asked for pain medication. Patient is currently intoxicated. Vital signs are stable. We will continue to monitor the patient until she is clinically sober to be discharged home. Patient wants to be discharged home. Discussed plan of care with patient. Patient is instructed to follow up with PCP in one to 2 days. Appropriate discharge instructions given to patient to return to the ED or to seek immediate medical evaluation. Patient is instructed to return to the ED if symptoms worsen or if any concerns. Dragon Disclaimer: Dragon Disclaimer: This electronic medical record was generated, in whole or in part, using a voice recognition dictation system. Departure Departure Impression: Primary Impression: Alcohol intoxication Disposition: 01 HOME, SELF-CARE Condition: STABLE Referrals: BECKY BONILLA MD (PCP) Patient Instructions: Alcohol Intoxication Additional Instructions: Please return to the ED symptoms worsen or if any concerns. Please follow-up with PCP in 1 to 2 days. Justicifation of Admission Dx: Justifications for Admission: Justification of Admission Dx: DENICE Grullon DO Sep 08, 2019 22:26
[2019-09-08 22:56] VITALS: BP 144/85
== END 2019-09-08 23:01 | disposition home or self-care (01) ==
LOC: ER 20:44
DX: F10.229 Alcohol dependence with intoxication, unspecified (principal); R41.82 Altered mental status, unspecified; J44.9 Chronic obstructive pulmonary disease, unspecified; K21.9 Gastro-esophageal reflux disease without esophagitis; F17.200 Nicotine dependence, unspecified, uncomplicated; F12.90 Cannabis use, unspecified, uncomplicated; Z90.49 Acquired absence of other specified parts of digestive tract; Z98.51 Tubal ligation status; Z98.890 Other specified postprocedural states
CPT/HCPCS: 99283

== ENCOUNTER 2020-02-18 23:27 | Emergency (ER) | payer SELFPAY ==
[~2020-02-18] VITALS: Ht 160 cm; Wt 58.0 kg
[2020-02-18 23:40] VITALS: BP 149/71
[2020-02-18] MEDS ORDERED: fentaNYL PF VIAL 100 MCG/2 ML VIAL IVP ONE (23:45)
--- NOTE | 2020-02-18 23:48 | PHYS DOC ---
Past Medical History Past Medical History: Alcoholism, COPD, GERD, P.U.D., Other Additional Past Medical Histor: hepatitis C Past Surgical History: Cholecystectomy, Knee Replacement, Tubal ligation, Other Additional Past Surgical Histo: right knee, Ex lap for perforated duodenal ulce r, rt hip Smoking Status: Current Every Day Smoker Alcohol Use: Heavy Drug Use: Marijuana General Adult EDM: Chief Complaint: CHEST PAIN HPI: HPI: History obtained from patient. Patient is a 59-year-old female with a history of alcohol abuse, hepatitis C who presents with chief complaint of left flank pain status post mechanical fall approximately 24 hours prior to arrival. She states last night that she was attempting to reach for her walker and missed. She states that she fell on her left flank. States she has been able to stand and ambulate since then. Notes that she has had worsening pain throughout today. Notes that she does have bruising to her left lower quadrant. Does not take blood thinners. States that she does not drink alcohol every day. Denies history of COPD. Denies striking her head or loss of consciousness. Denies any neck pain. Denies midline back pain. Does note that the pain is worse when she breathes in. No other complaints. Review of Systems: Review of Systems: Constitutional: Denies fever or chills. [] Eyes: Denies change in visual acuity. [] HENT: Denies nasal congestion or sore throat. [] Respiratory: Denies cough or shortness of breath. [] Cardiovascular: Denies chest pain or edema. [] GI: Denies abdominal pain, nausea, vomiting, bloody stools or diarrhea. [] : Denies dysuria. [] Musculoskeletal: Positive for left flank pain and fall Integument: Denies rash. [] Neurologic: Denies headache, focal weakness or sensory changes. [] Endocrine: Denies polyuria or polydipsia. [] Lymphatic: Denies swollen glands. [] Psychiatric: Denies depression or anxiety. [] Heart Score: Risk Factors: Risk Factors: DM, Current or recent (<one month) smoker, HTN, HLP, family history of CAD, obesity. Risk Scores: Score 0 - 3: 2.5% MACE over next 6 weeks - Discharge Home Score 4 - 6: 20.3% MACE over next 6 weeks - Admit for Clinical Observation Score 7 - 10: 72.7% MACE over next 6 weeks - Early Invasive Strategies Current Medications: Current Medications Medications (Trade) Dose Ordered Sig/Eliezer Start Time Stop Time Status Last Admin Dose Admin Fentanyl Citrate (Fentanyl 2ml Vial) 50 mcg 1X ONCE 02/18/20 23:45 02/18/20 23:46 Allergies: Allergies: Allergies Coded Allergies Type Severity Reaction Last Updated Verified erythromycin base Allergy Intermediate hives 04/10/17 Yes Physical Exam: PE: Physical Exam Trauma: Primary Survey: Airway: Intact. Speaks in normal voice and phonation. Breathing: Breath sounds are clear and equal bilaterally. Circulation: Regular rhythm, 2+ and symmetric radial, DP and PT pulses. Disability: GCS on arrival was 15. Pupils 3 mm, ERRL Exposure: Complete exposure obtained and described in detail below. Secondary Survey: General: Awake, alert, appropriate, and in mild acute distress HENT: Atraumatic. TMs clear bilaterally, no hemotympanum. No periorbital tenderness or deformity. No obvious craniofacial trauma. Midface is stable. No apparent dental or tongue/oropharyngeal injury. No septal hematoma. Neck: C-spine: no midline tenderness. Without step-off, deformity, abrasion, ecchymosis, or other signs of trauma. Paraspinal musculature with no tenderness and/or hypertonicity. Eyes: Pupils 3 mm ERRL, EOMI grossly, no evidence of ocular trauma, conjunctivae normal Respiratory: CTAB without wheezing, rhonchi, or rales. No distress. Chest wall with no tenderness to palpation. No crepitus, ecchymosis, or flail segment present. Cardiovascular: Regular rhythm without murmurs noted. 2+ and symmetric radial, DP and PT pulses. GI: Tenderness to palpation in left lower quadrant. Overlying ecchymosis noted. Musculoskeletal: T-spine: no midline tenderness. Without step-off, deformity, abrasion, ecchymosis, or other signs of trauma. Paraspinal musculature with no tenderness and/or hypertonicity. L-spine: no midline tenderness. Without step-off, deformity, abrasion, ecchymosis, or other signs of trauma. Paraspinal musculature with no tenderness and/or hypertonicity. RUE: Active ROM, no obvious deformity, no gross weakness or sensory deficits, warm & well-perfused LUE: Active ROM, no obvious deformity, no gross weakness or sensory deficits, warm & well-perfused RLE: Active ROM, no obvious deformity, no gross weakness or sensory deficits, warm & well-perfused LLE: Active ROM, no obvious deformity, no gross weakness or sensory deficits, warm & well-perfused Integument: Without abrasions, contusions, or lacerations. Neurologic: GCS on arrival as noted above. No obvious focal motor or sensory deficits on examination. Gait not assessed due to acuity of trauma assessment. Current Patient Data: Labs: Laboratory Tests Test 02/18/20 23:47 White Blood Count 6.4 x10^3/uL Red Blood Count 4.90 x10^6/uL Hemoglobin 13.6 g/dL Hematocrit 41.2 % Mean Corpuscular Volume 84 fL Mean Corpuscular Hemoglobin 28 pg Mean Corpuscular Hemoglobin Concent 33 g/dL Red Cell Distribution Width 19.8 % Platelet Count 429 x10^3/uL Neutrophils (%) (Auto) 59 % Lymphocytes (%) (Auto) 26 % Monocytes (%) (Auto) 13 % Eosinophils (%) (Auto) 2 % Basophils (%) (Auto) 1 % Neutrophils # (Auto) 3.7 x10^3/uL Lymphocytes # (Auto) 1.6 x10^3/uL Monocytes # (Auto) 0.8 x10^3/uL Eosinophils # (Auto) 0.1 x10^3/uL Basophils # (Auto) 0.0 x10^3/uL Prothrombin Time 11.8 SEC Prothromb Time International Ratio 0.9 Sodium Level 138 mmol/L Potassium Level 3.5 mmol/L Chloride Level 101 mmol/L Carbon Dioxide Level 21 mmol/L Anion Gap 16 Blood Urea Nitrogen 14 mg/dL Creatinine 0.7 mg/dL Estimated GFR (Cockcroft-Gault) 85.1 Glucose Level 93 mg/dL Calcium Level 9.3 mg/dL Current Medications Medications (Trade) Dose Ordered Sig/Eliezer Route PRN Reason Start Time Stop Time Status Last Admin Dose Admin Fentanyl Citrate (Fentanyl 2ml Vial) 50 mcg 1X ONCE IVP 02/18/20 23:45 02/18/20 23:46 DC 02/18/20 23:56 Iohexol (Omnipaque 300 Mg/ml) 75 ml 1X ONCE IV 02/19/20 00:45 02/19/20 00:46 DC Info (CONTRAST GIVEN -- Rx MONITORING) 1 each PRN DAILY PRN MC SEE COMMENTS 02/19/20 00:45 02/21/20 00:44 EKG: EKG: [] Radiology/Procedures: Radiology/Procedures: [address] [address] IMAGING REPORT Signed PATIENT: LU PIERCE ACCOUNT: [id number] : 1960 LOCATION: ER AGE: 59 SEX: F EXAM STATUS: PRE ER ORD. PHYSICIAN: ELMA DOUGLAS DO REASON: s/p fall PROCEDURE: HIP BILATERAL WITH PELVIS Pelvis and bilateral hips HISTORY: Pain status post fall AP view the pelvis obtained as well as AP and crosstable lateral views the hips There has been prior repair of right hip fracture with a dynamic hip screw. There is a long intramedullary didier in the right femur there is a lateral plate and the distal right femur. The visualized osseous structures appear grossly intact. IMPRESSION: Prior repair of right femur and right hip. No acute findings. Electronically signed by: Florence Chambers III, MD (02/19/2020 12:32 AM) [facility] DICTATED and SIGNED BY: FLORENCE CHAMBERS III, MD DATE: 02/19/[address] [address] IMAGING REPORT Signed PATIENT: LU PIERCE ACCOUNT: [id number] : 1960 LOCATION: ER AGE: 59 SEX: F EXAM STATUS: REG ER ORD. PHYSICIAN: ELMA DOUGLAS DO REASON: L flank pain s/p fall PROCEDURE: CT HEAD AND CERVICAL SPINE WO CT Head W/O Contrast: History: Reason: L flank pain s/p fall / Spl. Instructions: / History: Comparison: none Axial images were obtained without contrast. There is moderate diffuse atrophy. There is no mass effect, extraaxial fluid collections or hydrocephalus. There is no focal loss of larry-white matter distinction to suggest acute ischemia, i.e. stroke. Impression: No acute findings. End impression CT C-Spine without contrast: Clinical History: Reason: L flank pain s/p fall / Spl. Instructions: / History: Technique: Axial helical images of the cervical spine were obtained without contrast, axial coronal and sagittal reconstruction was performed. Findings: There is no loss of vertebral body stature. There is no prevertebral soft tissue swelling. The vertebral bodies are well aligned. There is dextroconvex scoliosis of the cervical spine. The vertebral bodies are aligned in the sagittal plane. There is reversal of the normal cervical lordosis which can be positional or could be chronic. The C1-C2 relationship is normal. The visualized osseous structures appear normal. Evaluation of the central canal is limited without contrast. There is multiple posterior disc bulges resulting in flattening of the thecal sac. There does not appear to be gross flattening of the cervical cord. There is moderate narrowing of multiple neuroforamen. Impression: Marked degenerative changes. No acute findings. Clinical correlation suggested. PQRS Compliance Statement: One or more of the following individualized dose reduction techniques were utilized for this examination: 1. Automated exposure control 2. Adjustment of the mA and/or kV according to patient size 3. Use of iterative reconstruction technique Electronically signed by: Florence Chambers III, MD (02/19/2020 1:13 AM) [facility] DICTATED and SIGNED BY: FLORENCE CHAMBERS III, MD DATE: 02/19/20 0113 [facility] [address] [place] [address] IMAGING REPORT Signed PATIENT: LU PIERCE ACCOUNT: [id number] : 1960 LOCATION: ER AGE: 59 SEX: F EXAM STATUS: REG ER ORD. PHYSICIAN: ELMA DOUGLAS DO REASON: L RIB, L flank pain, s/p fall PROCEDURE: CT CHEST ABD PELVIS W/CONTRAST CT chest abdomen and pelvis with contrast: History: Left rib and left flank pain status post fall Axial helical images of the chest abdomen and pelvis were obtained after the administration of 100 cc IV Isovue-370 contrast. Comparison: none CT OF THE CHEST WITH IV CONTRAST: There is no mediastinal lymphadenopathy or hematoma. Lymphadenopathy: no Thoracic aorta: normal Lungs and pleural margins: clear There is an acute nondisplaced fracture of the left 10th rib. Is multiple old rib fractures on the left as well. Impression: Acute nondisplaced fracture left 10th rib. End Impression CT OF THE ABDOMEN AND PELVIS WITH IV CONTRAST: Liver: Unremarkable Spleen: Unremarkable Pancreas: Unremarkable Adrenal Glands: Unremarkable Kidneys: Unremarkable Evaluation of stomach and bowel is limited without oral contrast. There is beam Duarte artifact due to metal from prior repair of the right femur. Lymphadenopathy: no. Free fluid: no. Free air: no. The bladder appears normal. Impression: No acute findings. End impression CT thoracic spine without contrast History: Reason: / Spl. Instructions: / History: Axial helical images of the thoracic spine were obtained without contrast. Axial, coronal and sagittal reconstruction was performed. Findings: The vertebral bodies are aligned. There is no loss of vertebral body stature. Evaluation of the central canal is limited without contrast. There is no evidence of significant central or neuroforaminal stenosis. Impression: No acute findings. End impression CT lumbar spine without contrast History: Back pain Axial helical images of the lumbar spine were obtained without contrast. Axial, coronal and sagittal reconstruction was performed. Findings: The vertebral bodies are aligned. There is no loss of vertebral body stature. Evaluation of the central canal is limited without contrast. Diffuse or frontal disc bulge and hypertrophy of the facets and ligament of flavum results in moderate central stenosis at L2-L3 and marked central stenosis at L3-L4 and L4-L5. There is moderate narrowing of multiple neuroforamen below the level exiting nerve roots of is loss of fat around the exiting nerve roots bilaterally at L4-5 and L5-S1. Impression: Marked degenerative changes with multilevel central and neuroforaminal stenosis. No acute findings. End impression PQRS Compliance Statement: One or more of the following individualized dose reduction techniques were utilized for this examination: 1. Automated exposure control 2. Adjustment of the mA and/or kV according to patient size 3. Use of iterative reconstruction technique Electronically signed by: Florence Chambers III, MD (02/19/2020 1:39 AM) [facility] DICTATED and SIGNED BY: FLORENCE CHAMBERS III, MD DATE: 02/19/20 0139 [facility] [address] [place] [address] IMAGING REPORT Signed PATIENT: LU PIERCE ACCOUNT: [id number] : 1960 LOCATION: ER AGE: 59 SEX: F EXAM STATUS: PRE ER ORD. PHYSICIAN: ELMA DOUGLAS DO REASON: L rib pain, L flank pain, s/p fall PROCEDURE: CHEST AP ONLY CHEST AP ONLY Clinical History: Reason: L rib pain, L flank pain, s/p fall / Spl. Instructions: / History: Technique: AP view of the chest was obtained at 02/18/2020 11:33 PM. Comparison: June 27, 2019. Findings: The cardiomediastinal silhouette is normal. The pulmonary vasculature is normal. The lungs and pleural margins are clear. Impression: No evidence of an acute cardiopulmonary process. Electronically signed by: Florence Chambers III, MD (02/19/2020 12:30 AM) [facility] DICTATED and SIGNED BY: FLORENCE CHAMBERS III, MD DATE: 02/19/20 0030 [] Course & Med Decision Making: Course & Med Decision Making Pertinent Labs and Imaging studies reviewed. (See chart for details) [] Patient is a 59-year-old female who presents with chief complaint of left flank pain status post mechanical fall yesterday.Vital signs unremarkable. Exam noted above. CT imaging does reveal an acute nondisplaced left 10th rib fracture. No signs of multiple rib fractures. But no signs of pneumothoraces. Patient's pain was well controlled on repeat examination. Overall do feel she is appropriate for discharge home and outpatient follow-up. She will be discharged home with analgesia and supportive care measures. Incentive spirometer with instructions given to patient. Return precautions discussed and understood. Stable for discharge. Dragon Disclaimer: Ruba Disclaimer: This electronic medical record was generated, in whole or in part, using a voice recognition dictation system. Departure Departure Impression: Primary Impression: Fall from standing Qualified Codes: W19.XXXA - Unspecified fall, initial encounter Additional Impression: Closed rib fracture Qualified Codes: S22.32XA - Fracture of one rib, left side, initial encounter for closed fracture Disposition: 01 DC HOME SELF CARE/HOMELESS Condition: STABLE Referrals: BECKY BONILLA MD (PCP) Patient Instructions: Rib Fracture Scripts Cyclobenzaprine Hcl (CYCLOBENZAPRINE HCL) 5 Mg Tablet 5 MG PO PRN TID PRN for PAIN, #15 TAB Prov: ELMA DOUGLAS DO 02/19/20 Lidocaine (Lidocaine PATCH ) 1 Each Adh..patch 1 EACH TP DAILY for FOR LOCAL PAIN for 5 Days, #5 PATCH REMOVE AFTER 12 HOURS. 4% Prov: ELMA DOUGLAS DO 02/19/20 Acetaminophen (Tylenol) 325 Mg Capsule 1000 MG PO TID PRN PRN for PAIN for 7 Days, #21 CAP Prov: ELMA DOUGLAS DO 02/19/20 Hydrocodone/Apap 5-325 (NORCO 5-325 TABLET) 1 Each Tablet 1-2 EACH PO PRN Q6HRS PRN for PAIN, #10 as needed for pain Prov: ELMA DOUGLAS DO 02/19/20 ELMA DOUGLAS DO Feb 18, 2020 23:48
[2020-02-18 23:57] LABS: BASO % 1 % (0-3); EOS # 0.1 x10^3/uL (0.0-0.7); EOS % 2 % (0-3); HEMATOCRIT 41.2 % (36.0-47.0); HEMOGLOBIN 13.6 g/dL (12.0-15.5); LYMPH # 1.6 x10^3/uL (1.0-4.8); LYMPH % 26 % (24-48); MEAN CORPUSCULAR HEMOGLOBIN 28 pg (25-35); MEAN CORPUSCULAR HGB CONC 33 g/dL (31-37); MEAN CORPUSCULAR VOLUME 84 fL (79-100); MONO # 0.8 x10^3/uL (0.0-1.1); MONO % 13 % (0-9); NEUT # 3.7 x10^3/uL (1.8-7.7); NEUT % 59 % (31-73); PLATELET COUNT 429 x10^3/uL (140-400); RED CELL DISTRIBUTION WIDTH 19.8 % (11.5-14.5); WHITE BLOOD COUNT 6.4 x10^3/uL (4.0-11.0)
[2020-02-19 00:07] LABS: CALCIUM 9.3 mg/dL (8.5-10.1); CREATININE 0.7 mg/dL (0.6-1.0); GFR 85.1; POTASSIUM 3.5 mmol/L (3.5-5.1); PROTHROMBIN TIME PATIENT 11.8 SEC (11.7-14.0)
--- NOTE | 2020-02-19 00:33 | RAD ---
CHEST AP ONLY Clinical History: Reason: L rib pain, L flank pain, s/p fall / Spl. Instructions: / History: Technique: AP view of the chest was obtained at 02/18/2020 11:33 PM. Comparison: June 27, 2019. Findings: The cardiomediastinal silhouette is normal. The pulmonary vasculature is normal. The lungs and pleural margins are clear. Impression: No evidence of an acute cardiopulmonary process. Electronically signed by: Sanjay Myles III, MD (02/19/2020 12:30 AM) [facility]
--- NOTE | 2020-02-19 00:34 | RAD ---
Pelvis and bilateral hips HISTORY: Pain status post fall AP view the pelvis obtained as well as AP and crosstable lateral views the hips There has been prior repair of right hip fracture with a dynamic hip screw. There is a long intramedullary didier in the right femur there is a lateral plate and the distal right femur. The visualized osseous structures appear grossly intact. IMPRESSION: Prior repair of right femur and right hip. No acute findings. Electronically signed by: Sanjay Myles III, MD (02/19/2020 12:32 AM) [facility]
[2020-02-19] MEDS ORDERED: CONTRAST GIVEN. MC PRN (00:45)
[2020-02-19] MEDS ORDERED: IOHEXOL 300 MG/ML 100ML VIAL. IV ONE (00:45)
--- NOTE | 2020-02-19 01:16 | RAD ---
CT Head W/O Contrast: History: Reason: L flank pain s/p fall / Spl. Instructions: / History: Comparison: none Axial images were obtained without contrast. There is moderate diffuse atrophy. There is no mass effect, extraaxial fluid collections or hydrocephalus. There is no focal loss of larry-white matter distinction to suggest acute ischemia, i.e. stroke. Impression: No acute findings. End impression CT C-Spine without contrast: Clinical History: Reason: L flank pain s/p fall / Spl. Instructions: / History: Technique: Axial helical images of the cervical spine were obtained without contrast, axial coronal and sagittal reconstruction was performed. Findings: There is no loss of vertebral body stature. There is no prevertebral soft tissue swelling. The vertebral bodies are well aligned. There is dextroconvex scoliosis of the cervical spine. The vertebral bodies are aligned in the sagittal plane. There is reversal of the normal cervical lordosis which can be positional or could be chronic. The C1-C2 relationship is normal. The visualized osseous structures appear normal. Evaluation of the central canal is limited without contrast. There is multiple posterior disc bulges resulting in flattening of the thecal sac. There does not appear to be gross flattening of the cervical cord. There is moderate narrowing of multiple neuroforamen. Impression: Marked degenerative changes. No acute findings. Clinical correlation suggested. PQRS Compliance Statement: One or more of the following individualized dose reduction techniques were utilized for this examination: 1. Automated exposure control 2. Adjustment of the mA and/or kV according to patient size 3. Use of iterative reconstruction technique Electronically signed by: Sanjay Myles III, MD (02/19/2020 1:13 AM) [facility]
--- NOTE | 2020-02-19 01:42 | RAD ---
CT chest abdomen and pelvis with contrast: History: Left rib and left flank pain status post fall Axial helical images of the chest abdomen and pelvis were obtained after the administration of 100 cc IV Isovue-370 contrast. Comparison: none CT OF THE CHEST WITH IV CONTRAST: There is no mediastinal lymphadenopathy or hematoma. Lymphadenopathy: no Thoracic aorta: normal Lungs and pleural margins: clear There is an acute nondisplaced fracture of the left 10th rib. Is multiple old rib fractures on the left as well. Impression: Acute nondisplaced fracture left 10th rib. End Impression CT OF THE ABDOMEN AND PELVIS WITH IV CONTRAST: Liver: Unremarkable Spleen: Unremarkable Pancreas: Unremarkable Adrenal Glands: Unremarkable Kidneys: Unremarkable Evaluation of stomach and bowel is limited without oral contrast. There is beam Duarte artifact due to metal from prior repair of the right femur. Lymphadenopathy: no. Free fluid: no. Free air: no. The bladder appears normal. Impression: No acute findings. End impression CT thoracic spine without contrast History: Reason: / Spl. Instructions: / History: Axial helical images of the thoracic spine were obtained without contrast. Axial, coronal and sagittal reconstruction was performed. Findings: The vertebral bodies are aligned. There is no loss of vertebral body stature. Evaluation of the central canal is limited without contrast. There is no evidence of significant central or neuroforaminal stenosis. Impression: No acute findings. End impression CT lumbar spine without contrast History: Back pain Axial helical images of the lumbar spine were obtained without contrast. Axial, coronal and sagittal reconstruction was performed. Findings: The vertebral bodies are aligned. There is no loss of vertebral body stature. Evaluation of the central canal is limited without contrast. Diffuse or frontal disc bulge and hypertrophy of the facets and ligament of flavum results in moderate central stenosis at L2-L3 and marked central stenosis at L3-L4 and L4-L5. There is moderate narrowing of multiple neuroforamen below the level exiting nerve roots of is loss of fat around the exiting nerve roots bilaterally at L4-5 and L5-S1. Impression: Marked degenerative changes with multilevel central and neuroforaminal stenosis. No acute findings. End impression PQRS Compliance Statement: One or more of the following individualized dose reduction techniques were utilized for this examination: 1. Automated exposure control 2. Adjustment of the mA and/or kV according to patient size 3. Use of iterative reconstruction technique Electronically signed by: Sanjay Myles III, MD (02/19/2020 1:39 AM) [facility]
[2020-02-19] MEDS ORDERED: HYDR-3164 PO (01:53)
[2020-02-19] MEDS ORDERED: ACET325C6 PO (01:53)
[2020-02-19] MEDS ORDERED: LIDO700A21 TP (01:53)
[2020-02-19] MEDS ORDERED: CYCL5TAB PO (01:53)
[2020-02-19] MEDS ORDERED: HYDROcodone/APAP 10/325 1 TAB TABLET PO ONE (02:00)
== END 2020-02-19 02:47 | disposition home or self-care (01) ==
LOC: ER 23:27
DX: S22.32XA Fracture of one rib, left side, initial encounter for closed fracture (principal); M25.551 Pain in right hip; M54.6 Pain in thoracic spine; R51.9 Headache, unspecified; M54.5 Low back pain; M54.2 Cervicalgia; W18.39XA Other fall on same level, initial encounter; Y93.89 Activity, other specified; Y92.89 Other specified places as the place of occurrence of the external cause; Y99.8 Other external cause status
CPT/HCPCS: 36415; 70450; 71045; 71260; 72125; 73521; 74177; 80048; 85025; 85610; 96374; 99285; J3010; Q9967

== ENCOUNTER 2021-07-25 07:20 | Emergency (ER) | payer MEDICAID, OTHER ==
[~2021-07-25] VITALS: Ht 160 cm; Wt 62.2 kg
[~2021-07-25 07:20] MED LIST changes: +ACET325C6 PO; +CEPH500T PO; +CYCL10TA19 PO; -CYCL10TA2 PO; -DOXY100C2 PO; +DOXY100C3 PO; +HYDR-3164 PO; +METH4TAB2 PO; +OLAN5TAB7 PO; -POLY17PO28 PO; +POLY17PO52 PO; +POTA-121 PO; -POTA20TA4 PO; +PSYL3.4P PO
[2021-07-25 07:30] VITALS: BP 98/63
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
[2021-07-25] MEDS ORDERED: traMADol 50 MG TABLET PO ONE (07:45)
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
[2021-07-25] MEDS ORDERED: IBUP-1007 PO (08:55)
== END 2021-07-25 09:14 | disposition home or self-care (01) ==
LOC: EDBD 07:20 → ER 07:20
DX: S49.91XA Unspecified injury of right shoulder and upper arm, initial encounter (principal); M25.521 Pain in right elbow; M25.531 Pain in right wrist; M25.561 Pain in right knee; J44.9 Chronic obstructive pulmonary disease, unspecified; F17.200 Nicotine dependence, unspecified, uncomplicated; F10.20 Alcohol dependence, uncomplicated; Y90.9 Presence of alcohol in blood, level not specified; Y08.89XA Assault by other specified means, initial encounter; Y93.89 Activity, other specified; Y92.89 Other specified places as the place of occurrence of the external cause; Y99.8 Other external cause status
CPT/HCPCS: 73030; 73060; 73070; 73100; 73560; 99284